=== PATIENT | female | born 1955 | race Caucasian/White ===

== ENCOUNTER → 2017-08-21 11:34 | Outpatient (CLI) | payer OTHER, SELFPAY ==
[2017-08-21 15:40] LABS: Absolute Lymphocyte Count 1.73 X10^3/ul (0.83-4.51); Absolute Neutrophil Count 3.7 X10^3/uL (2.0-7.7); Basophil# 0.02 X10^3/uL; Basophil% 0.3 % (0-1); Eosinophil# 0.14 X10^3/uL; Eosinophils% 2.3 % (0-5); Hematocrit 39.6 % (37-47); Hemoglobin 13.9 g/dl (12.0-15.0); Lymphocyte # 1.73 X10^3/ul (4.0); Mean Corp Hgb Conc 35.1 g/gl (32-36); Mean Corpuscular Hgb 34.2 pg (27.0-32.0); Mean Corpuscular Volume 97.5 fL (81-99); Mean Platelet Vol. 12.6 fl (6.2-12.0); Monocyte# 0.41 X10^3/uL; Monocyte% 6.9 % (0-10); Neutrophil # 3.66 X10^3/uL (2.7-7.7); Neutrophil % 61.3 % (47-70); Platelet Count 74 K/mm3 (150-450); RBC Distribution Width CV 12.6 % (11.6-14.6); RBC Distribution Width SD 44.1 fl (35.1-43.9); Red Blood Count 4.06 M/mm3 (4.2-5.4)
[2017-08-21 15:50] LABS: POSITIVE COUNT NO; POSITIVE DIFFERENTIAL NO; POSITIVE MORPHOLOGY NO
[2017-08-21 15:51] LABS: ALB/GLOB Ratio 0.8 RATIO (0.9-2.4); AST(SGOT) 23 U/L (15-37); Alanine Aminotransfer ALT/SGPT 21 U/L (13-56); Alkaline Phosphatase 83 U/L (45-117); Anion Gap 7 (5-15); BUN 13 mg/dL (7-18); BUN/Creat Ratio 18.7 RATIO (10-20); Calcium,Total 8.8 mg/dL (8.5-10.1); Chloride 106 mmol/L (98-107); Cholesterol 187 mg/dL (200); Creatinine, Serum 0.69 mg/dL (0.55-1.02); EST Glomerular Filtration Rate 91 mL/min (>60); Est Glom Filt Rate - Afr Amer 110 mL/min (>60); Glucose 147 mg/dL (74-106); High Density Lipoprotein 76 mg/dL; Potassium 4.1 mmol/L (3.5-5.1); Sodium Level 139 mmol/L (136-145); Triglycerides 72 mg/dL; Very Low Density Lipoprotein 14 mg/dL (5-40)
[2017-08-21 15:55] LABS: Hemoglobin A1c 6.6 % (4.2-6.3)
[2017-08-21 16:10] LABS: Microalbumin,Random Urine 6.2 mg/L (NO RANGE EST.); Microalbumin:Creatinine Ratio 7.7 mg/g CRE (<30 mg/g CRE)
[2017-08-23 08:00] LABS: AFP, Tumor Marker 3.5 ng/mL (0.0-8.3)
== END ==
PROVIDERS: Family Provider Family Medicine; PCP Family Medicine; Visit Provider Family Medicine
DX: E11.9 Type 2 diabetes mellitus without complications (principal); K70.30 Alcoholic cirrhosis of liver without ascites; I10 Essential (primary) hypertension; E78.5 Hyperlipidemia, unspecified
CPT/HCPCS: 36415; 80053; 80061; 82043; 82105; 82570; 83036; 85025

== ENCOUNTER → 2017-09-01 16:17 | Outpatient (CLI) | payer OTHER, SELFPAY ==
--- NOTE | 2017-09-01 | FLU_PTH ---
PATIENT: CRISTIANE HOROWITZ LOC: [facility] U#:[id number] AGE/SX: 69/F ROOM: RE09/01/[address]: Dr. Chad Ding DO : 1955 BED: DIS: SPEC #: [id number] RECD: 09/01/17 15:00 STATUS: DANA HOLLINGSWORTHEloisa #: [id number] JOSE: 09/01/17 00:[address]: Chad Ding DEPT: CYTOLOGY RECD BY: Anuradha Maddox Tissues: Urine Procedures: Special Stain Group II Surgery Specimen Level IV Cytospin Fluid HEADER OPERATION: Not noted PRE-OP DIAGNOSIS: N30.90, R31.9 TISSUE SUBMITTED: Urine for cytology DIAGNOSIS CYTOLOGY Urine for cytology (cytospin): Negative for malignant cells. See cytology study and comment. SJ:josafat 09/03/17 COMMENT Clinical correlation and appropriate follow up are necessary. CYTOLOGY STUDY Slides are reviewed. The specimen predominantly consists of benign squamous epithelial cells. CYTOLOGY GROSS Received is 15 ml of clear yellow labeled with the patient's name and and designated per the requisition as urine. Submitted for cytology preparation. / RB:norman 09/02/17 TC:4 CPT: 86974
[2017-09-01 16:23] LABS: Cytology, Body Fluid / CSF SEE PATHOLOGY REPORT; Mucous, Urine 0 SEEN /hpf (<or=2+); Red Blood Cells-Urine 0 SEEN /hpf (0-5); White Blood Cells 0 SEEN /hpf (0-5)
[2017-09-01 17:15] LABS: Color, Urine Yellow (Yellow); Glucose, Dipstick Normal (Normal); Ketone-Dipstick Negative (Negative); Leukocyte Esterase-Dipstick Negative /ul (Negative); Nitrite-Dipstick Negative (Negative); Occult Blood-Urine 250 /ul (Negative); Protein-Dipstick Negative (Negative); Urine Bilirubin Dipstick Negative (Negative); Urine Clarity Clear (Clear); Urine Urobilinogen Normal (Normal)
[2017-09-01 17:30] LABS: Squamous Epithelial Cells - UA 25-50 SEEN /hpf (5-10)
[2017-09-01 17:31] LABS: Bacteria 1+ /hpf (None Seen)
== END ==
PROVIDERS: Family Provider Family Medicine; PCP Family Medicine; Visit Provider Family Medicine
DX: N30.90 Cystitis, unspecified without hematuria (principal); R31.9 Hematuria, unspecified
CPT/HCPCS: 81001; 87086; 87088; 88108; 88305; 88313

== ENCOUNTER → 2017-09-04 06:55 | Outpatient (CLI) | payer OTHER, SELFPAY ==
--- NOTE | 2017-09-04 07:03 | CT_ITS ---
STUDY: CT ABDOMEN AND PELVIS WITH CONTRAST REASON FOR EXAM: Female, 62 years old. Postmenopausal vaginal bleeding. RADIATION DOSAGE (If Supplied By Facility): CTDIvol = ( 14.97 ) mGy, DLP = ( 946.01 ) mGycm TECHNIQUE: Transaxial images were obtained from the dome of the diaphragm to the symphysis pubis with oral contrast. 100 ml of Isovue 300 contrast was administered. Sagittal and coronal images were reconstructed. Individualized dose optimization techniques were used for this CT. COMPARISON: None. FINDINGS: The visualized lung bases are unremarkable. The visualized portions of the heart are within normal limits. There is a diffuse contour abnormality of the liver consistent with cirrhotic changes. Mild degree of inhomogeneity of the liver. Possible 9.2 mm hypodense nodule in the dome of the right lobe of the liver. Correlation with ultrasound is recommended. Normal gallbladder and extrahepatic biliary system. There is moderate splenomegaly. Serpiginous vessels are seen in the region of the splenic hilum. Varices should be ruled out. Normal pancreas. Normal bilateral adrenal glands. Normal right kidney. Normal left kidney. There is a small hiatal hernia. Normal small intestine. There is evidence of a circumferential wall thickening of the cecum and proximal right hemicolon with increased markings in the surrounding peritoneal fat. A neoplastic process should be ruled out. The appendix is visualized and appears normal. Normal abdominal aorta. Normal inferior vena cava. Normal retroperitoneum. Normal urinary bladder. Diffusely enlarged inhomogeneous uterus. Calcifications are seen within the suggestive of fibroid change. I also suspect enhancement along its left lateral wall. Varicosities are seen within the pelvis. Correlation with a pelvic sonogram is recommended. Normal abdominal wall. Normal osseous structures. CT/Abdomen/Pelvis WITH Contrast IMPRESSION: Inhomogeneously enlarged uterus with vascularity as described. Thickened endometrium. Correlation with the ultrasound is recommended. Thickening and inhomogeneity of the cecum in the right hemicolon with increased markings in the surrounding fat. Colonoscopy is recommended. Splenomegaly. Findings suggestive of a cirrhotic changes of the liver with inhomogeneity of the liver parenchyma. I suspect varices in the region of the splenic hilum. Electronically Signed: Vincent Cox MD at 11:15 EDT Tel [phone], Service support ,
== END ==
PROVIDERS: Family Provider Family Medicine; PCP Family Medicine; Visit Provider Family Medicine
DX: R31.9 Hematuria, unspecified (principal)
CPT/HCPCS: 74177; Q9967

== ENCOUNTER → 2017-09-05 14:10 | Outpatient (CLI) | payer OTHER, SELFPAY ==
--- NOTE | 2017-09-05 14:12 | US_ITS ---
STUDY: ULTRASOUND OF THE FEMALE PELVIS - COMPLETE REASON FOR EXAM: Female, 62 years old. Postmenopausal heavy bleeding.. History of endometrial hyperplasia.: Abnormal CT exam. TECHNIQUE: Transabdominal and Transvaginal TECHNICAL QUALITY: Adequate. COMPARISON: CT abdomen/pelvis: 09/04/2017 FINDINGS: The uterus is enlarged and anteverted. The uterus measures 13.3 x 5.0 x 5.5 cm. There are Nabothian cysts of the cervix. The endometrium measures 12 mm in thickness. There is heterogenous echogenicity of the uterus demonstrated with multiple myometrial masses/fibroids, largest 3 measures 3.0 x 3.1 x 3.0 cm in the fundus, 2.6 x 2.6 x 2.4 cm in the midline and 2.1 x 1.6 x 1.4 cm posteriorly in the body.. The right ovary is non-visualized. The left ovary is non-visualized. Parauterine and uterine dilated/prominent vessels demonstrated. There is no fluid in the cul-de-sac. The pre void volume of the bladder was 360 ml. US/Pelvic (Non ) IMPRESSION: 1. Enlarged multi fibroid uterus. 2. 12 mm thickened postmenopausal endometrial stripe, consistent with endometrial hyperplasia of uncertain etiology. DTC correlation is recommended. 3. Both ovaries are not visualized. 4. Prominent uterine/left parauterine vessels, question pelvic congestion syndrome. Electronically Signed: Henrik Mercer MD at 8:49 EDT Tel , Service support ,
--- NOTE | 2017-09-05 14:26 | US_ITS ---
STUDY: ULTRASOUND OF THE FEMALE PELVIS - COMPLETE REASON FOR EXAM: Female, 62 years old. Postmenopausal heavy bleeding.. History of endometrial hyperplasia.: Abnormal CT exam. TECHNIQUE: Transabdominal and Transvaginal TECHNICAL QUALITY: Adequate. COMPARISON: CT abdomen/pelvis: 09/04/2017 FINDINGS: The uterus is enlarged and anteverted. The uterus measures 13.3 x 5.0 x 5.5 cm. There are Nabothian cysts of the cervix. The endometrium measures 12 mm in thickness. There is heterogenous echogenicity of the uterus demonstrated with multiple myometrial masses/fibroids, largest 3 measures 3.0 x 3.1 x 3.0 cm in the fundus, 2.6 x 2.6 x 2.4 cm in the midline and 2.1 x 1.6 x 1.4 cm posteriorly in the body.. The right ovary is non-visualized. The left ovary is non-visualized. Parauterine and uterine dilated/prominent vessels demonstrated. There is no fluid in the cul-de-sac. The pre void volume of the bladder was 360 ml. US/Transvaginal Non- IMPRESSION: 1. Enlarged multi fibroid uterus. 2. 12 mm thickened postmenopausal endometrial stripe, consistent with endometrial hyperplasia of uncertain etiology. DTC correlation is recommended. 3. Both ovaries are not visualized. 4. Prominent uterine/left parauterine vessels, question pelvic congestion syndrome. Electronically Signed: Henrik Mercer MD at 8:49 EDT Tel , Service support ,
== END ==
PROVIDERS: Family Provider Family Medicine; PCP Family Medicine; Visit Provider Family Medicine
DX: N85.00 Endometrial hyperplasia, unspecified (principal); N93.9 Abnormal uterine and vaginal bleeding, unspecified
CPT/HCPCS: 76830; 76856

== ENCOUNTER 2017-09-11 09:52 | Day surgery (SDC) | payer OTHER, SELFPAY ==
[2017-09-11] VITALS (7 sets, daily range): BP systolic 109–131; BP diastolic 66–85; PULSE 66–93; RESP 16–20; TEMP 36.4–36.7; O2SAT 95–100; BMI 26.9
--- NOTE | 2017-09-11 11:15 | PCM.OPRPT ---
Problem List (1) Abnormal CT of the abdomen Status: Acute Report of Operation Date of Procedure: 09/11/17 Pre-Operative Diagnosis: r93.[address] scan of abdomen Post-Operative Diagnosis: Same Surgery/Procedure Performed:: Colonoscopy Type of Anesthesia:: MAC Anesthesiologist: Peggy Disla Description of Procedure: Patient was brought into the endoscopy suite. Placed on the left lateral decubitus position. Was given graded anesthesia. Colonoscope was inserted into the rectum directed through the sigmoid colon, descending colon, transverse colon, ascending colon, to the cecum. Operative findings: 1. Cecum: Normal appearance no mass lesions normal ileocecal valve. 2. Ascending colon: Normal appearance no mass lesions. 3. Transverse colon: Normal appearance no mass lesions. 4. Descending colon: Normal appearance no mass lesions. 5. Sigmoid colon: Normal appearance no mass lesions. 6. Rectum: Normal appearance no mass lesions few internal hemorrhoids which were not actively bleeding were identified. Rectal exam did not reveal any masses in the anus. With regards to the abnormal findings on the CAT scan the mucosa of the colon was entirely normal. Patient will need another colonoscopy in 10 years. - Admit VTE Documentation VTE Present on Admission: No VTE Mechan Device Prophylaxis: None VTE Pharm Prophylaxis ordered?: No Reason prophylaxis not ordered:: Treatment Not Indicated
== END 2017-09-11 12:14 | disposition home or self-care (01) ==
LOC: EN 09:52
PROVIDERS: Family Provider Family Medicine; PCP Family Medicine; Visit Provider Surgery
PROC: 0DJD8ZZ Inspection of Lower Intestinal Tract, Via Natural or Artificial Opening Endoscopic (ICD-10-PCS; CPT 45378; principal; 2017-09-11 10:55)
DX: R93.5 Abnormal findings on diagnostic imaging of other abdominal regions, including retroperitoneum (principal); K70.30 Alcoholic cirrhosis of liver without ascites; K44.9 Diaphragmatic hernia without obstruction or gangrene; K58.9 Irritable bowel syndrome, unspecified; E11.9 Type 2 diabetes mellitus without complications; I10 Essential (primary) hypertension; E78.5 Hyperlipidemia, unspecified; E06.9 Thyroiditis, unspecified; M19.90 Unspecified osteoarthritis, unspecified site; M54.9 Dorsalgia, unspecified; G89.29 Other chronic pain; K21.9 Gastro-esophageal reflux disease without esophagitis; F41.9 Anxiety disorder, unspecified; F17.200 Nicotine dependence, unspecified, uncomplicated; Z78.0 Asymptomatic menopausal state; Z79.899 Other long term (current) drug therapy; Z98.51 Tubal ligation status; Z87.19 Personal history of other diseases of the digestive system
CPT/HCPCS: 45378; J7120; J1610

== ENCOUNTER → 2017-11-27 15:52 | Outpatient (CLI) | payer OTHER, SELFPAY ==
[2017-11-27 18:12] LABS: Absolute Lymphocyte Count 1.78 X10^3/ul (0.83-4.51); Absolute Neutrophil Count 4.2 X10^3/uL (2.0-7.7); Basophil# 0.04 X10^3/uL; Basophil% 0.6 % (0-1); Eosinophil# 0.12 X10^3/uL; Eosinophils% 1.7 % (0-5); Hematocrit 30.1 % (37-47); Hemoglobin 9.6 g/dl (12.0-15.0); Lymphocyte # 1.78 X10^3/ul (4.0); Mean Corp Hgb Conc 31.9 g/gl (32-36); Mean Corpuscular Hgb 31.4 pg (27.0-32.0); Mean Corpuscular Volume 98.4 fL (81-99); Mean Platelet Vol. 11.3 fl (6.2-12.0); Monocyte# 0.93 X10^3/uL; Monocyte% 13.1 % (0-10); Neutrophil # 4.23 X10^3/uL (2.7-7.7); Neutrophil % 59.3 % (47-70); Platelet Count 108 K/mm3 (150-450); RBC Distribution Width CV 18.4 % (11.6-14.6); RBC Distribution Width SD 66.2 fl (35.1-43.9); Red Blood Count 3.06 M/mm3 (4.2-5.4); White Blood Count 7.1 K/mm3 (4.4-11.0)
[2017-11-27 18:51] LABS: Differential Indicated SCAN CRITERIA MET; POSITIVE COUNT NO; POSITIVE DIFFERENTIAL NO; POSITIVE MORPHOLOGY YES
[2017-11-27 18:54] LABS: Anisocytosis 2+; Differential Comment SCANNED; Macrocytosis 1+; Microcytosis 1+
== END ==
PROVIDERS: Family Provider Family Medicine; PCP Family Medicine; Visit Provider Family Medicine
DX: K92.2 Gastrointestinal hemorrhage, unspecified (principal)
CPT/HCPCS: 36415; 85025

== ENCOUNTER → 2018-02-05 14:29 | Outpatient (CLI) | payer OTHER, SELFPAY ==
[2018-02-05 17:24] LABS: Absolute Lymphocyte Count 1.57 X10^3/ul (0.83-4.51); Absolute Neutrophil Count 3.4 X10^3/uL (2.0-7.7); Basophil# 0.03 X10^3/uL; Basophil% 0.5 % (0-1); Eosinophil# 0.08 X10^3/uL; Eosinophils% 1.4 % (0-5); Hematocrit 34.9 % (37-47); Hemoglobin 10.8 g/dl (12.0-15.0); Lymphocyte # 1.57 X10^3/ul (4.0); Lymphocyte % 27.2 % (19-41); Mean Corp Hgb Conc 30.9 g/gl (32-36); Mean Corpuscular Hgb 25.9 pg (27.0-32.0); Mean Corpuscular Volume 83.7 fL (81-99); Monocyte# 0.69 X10^3/uL; Monocyte% 11.9 % (0-10); Neutrophil % 58.8 % (47-70); Platelet Count 169 K/mm3 (150-450); RBC Distribution Width CV 16.7 % (11.6-14.6); RBC Distribution Width SD 50.2 fl (35.1-43.9); Red Blood Count 4.17 M/mm3 (4.2-5.4); White Blood Count 5.8 K/mm3 (4.4-11.0)
[2018-02-05 17:26] LABS: POSITIVE COUNT NO; POSITIVE DIFFERENTIAL NO; POSITIVE MORPHOLOGY NO
[2018-02-05 17:31] LABS: International Normalized Ratio 1.2; Prothrombin Time (Protime)PT. 15.6 SECONDS (11.7-14.9)
[2018-02-05 18:00] LABS: ALB/GLOB Ratio 0.5 RATIO (0.9-2.4); AST(SGOT) 24 U/L (15-37); Alanine Aminotransfer ALT/SGPT 20 U/L (13-56); Albumin, Serum 2.9 g/dL (3.2-5.0); Alkaline Phosphatase 123 U/L (45-117); Anion Gap 12 (5-15); BUN 12 mg/dL (7-18); BUN/Creat Ratio 9.8 RATIO (10-20); Calcium,Total 9.5 mg/dL (8.5-10.1); Chloride 90 mmol/L (98-107); Creatinine, Serum 1.22 mg/dL (0.55-1.02); EST Glomerular Filtration Rate 47 mL/min (>60); Est Glom Filt Rate - Afr Amer 57 mL/min (>60); Globulin 5.7 g/dL (2.2-4.2); Glucose 200 mg/dL (74-106); Magnesium 1.9 mg/dL (1.6-2.6); Potassium 2.6 mmol/L (3.5-5.1); Protein, Total 8.6 g/dL (6.4-8.2); Sodium Level 137 mmol/L (136-145)
[2018-02-09 11:32] LABS: AFP, Tumor Marker 4.3 ng/mL (0.0-8.3)
--- OUTSIDE RECORDS SUMMARY | 2018-03-24 11:45 | XMS RPT_ITS ---
:1955 Author Organization OHIP Care Team Providers Name Role Phone Gabriela Ding Attending Unavailable Gabriela Ding Primary Care Unavailable Gabriela Ding Attending Unavailable Gabriela Ding Primary Care Unavailable Gabriela Ding Attending Unavailable Gabriela Ding Referring Unavailable Gabriela Ding Primary Care Unavailable Gabriela Ding Attending Unavailable Gabriela Ding Referring Unavailable Gabriela Ding Primary Care Unavailable Tony Dhillon Attending Unavailable Gabriela Ding Referring Unavailable Gabriela Ding Primary Care Unavailable Tony Dhillon Attending Unavailable Tony Dhillon Referring Unavailable Raine, Gabriela Primary Care Unavailable Trey Dhillonel Attending Unavailable Gabriela Ding Attending Unavailable Raine Gabriela Primary Care Unavailable RaineGabriela us Attending Unavailable Raine, Gabriela Primary Care Unavailable RaineGabriela us Attending Unavailable Raine, Gabriela Primary Care Unavailable STEWART SIDDIQI) Referring Unavailable BRONSON JORGE Attending Unavailable STEWART SIDDIQI) Referring Unavailable STEWART SIDDIQI) Referring Unavailable STEWART SIDDIQI) Attending Unavailable RAINE, GABRIELA A Referring Unavailable STEWART SIDDIQI) Admitting Unavailable STEWART SIDDIQI) Attending Unavailable STEWART SIDDIQI) Referring Unavailable STEWART SIDDIQI) Attending Unavailable RAINEGABRIELA US A Referring Unavailable STEWART SIDDIQI) Attending Unavailable RAINEGABRIELA US A Referring Unavailable COLA, YANELIS JEAN-BAPTISTE Attending Unavailable COLA, YANELIS JEAN-BAPTISTE Attending Unavailable COLA, YANELIS JEAN-BAPTISTE Attending Unavailable COLA, YANELIS JEAN-BAPTISTE Referring Unavailable COLA, YANELIS JEAN-BAPTISTE Admitting Unavailable COLA, YANELIS JEAN-BAPTISTE Attending Unavailable COLA, YANELIS JEAN-BAPTISTE Attending Unavailable COLA, YANELIS JEAN-BAPTISTE Attending Unavailable STEWART SDIDIQI) Referring Unavailable COLA, SURESH De La Rosa Attending Unavailable IMCA Referring Unavailable IMCA Primary Care Unavailable COLASURESH Attending Unavailable IMCA Referring Unavailable IMCA Primary Care Unavailable COLASURESH Admitting Unavailable COLA, SURESH De La Rosa Attending Unavailable IMCA Primary Care Unavailable COLSURESH Mccrary Referring Unavailable IMCA Primary Care Unavailable COLASURESH Attending Unavailable IMCA Referring Unavailable IMCA Primary Care Unavailable COLASURESH Attending Unavailable IMCA Referring Unavailable IMCA Primary Care Unavailable COLASURESH Attending Unavailable IMCA Referring Unavailable IMCA Primary Care Unavailable COLASURESH Attending Unavailable IMCA Referring Unavailable IMCA Primary Care Unavailable STEWART SIDDIQI) Attending Unavailable IMCA Referring Unavailable IMCA Primary Care Unavailable STEWART SIDDIQI) Attending Unavailable IMCA Referring Unavailable IMCA Primary Care Unavailable STEWART SIDDIQI) Referring Unavailable IMCA Primary Care Unavailable STEWART SIDDIQI) Referring Unavailable IMCA Primary Care Unavailable STEWART SIDDIQI) Referring Unavailable IMCA Primary Care Unavailable STEWART SIDDIQI) Referring Unavailable IMCA Primary Care Unavailable STEWART SIDDIQI) Referring Unavailable IMCA Primary Care Unavailable STEWART SIDDIQI) Referring Unavailable IMCA Primary Care Unavailable STEWART SIDDIQI) Referring Unavailable IMCA Primary Care Unavailable STEWART SIDDIQI) Admitting Unavailable STEWART SIDDIQI) Attending Unavailable IMCA Primary Care Unavailable STEWART SIDDIQI) Attending Unavailable IMCA Referring Unavailable IMCA Primary Care Unavailable STEWART SIDDIQI) Referring Unavailable IMCA Primary Care Unavailable TONYABRONSON S Attending Unavailable STEWART SIDDIQI) Referring Unavailable IMCA Primary Care Unavailable PROBLEMS PROBLEMS DATE TYPE CONDITION / CODE ATTENDING STATUS SOURCE 03/17/2018 Active Unilateral inguinal ALI, NOAMAN Active [facility] hernia, without Clinic Other obstruction or [facility] gangrene, not Repository specified as recurrent / K40.90(ICD-10) 12/18/2017 Active Alcoholic cirrhosis NA Active [facility] of liver with Clinic Other ascites / [facility] K70.31(ICD-10) Repository 02/27/2018 Active Foot drop, right NA Active [facility] foot / Clinic Other M21.371(ICD-10) [facility] Repository 02/09/2018 Unknown E87.6 - Hypokalemia Gabriela Ding Active [facility] / E87.6(ICD-10) [facility] Repository 02/05/2018 Unknown K70.30 - Alcoholic Gabriela Ding Active [facility] cirrhosis of liver Community without ascites / Hospital K70.30(ICD-10) Repository 02/05/2018 Unknown D69.9 - Hemorrhagic Gabriela Ding Active [facility] condition, Community unspecified / Hospital D69.9(ICD-10) Repository 02/05/2018 Unknown Z51.81 - Encounter Gabriela Ding Active [facility] for therapeutic drug Community level monitoring / Hospital Z51.81(ICD-10) Repository 12/18/2017 Admitting Unknown / NA Active [facility]K(Unknown) [facility] Repository 12/18/2017 Active Unknown / STEWART SIDDIQI Active [facility] UNK(Unknown) () Clinic Other [facility] Repository 10/20/2017 Active Chronic inflammatory COLA, 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 / [facility] Other N71.1(ICD-10) [facility] Repository 10/20/2017 Active Other specified COLA, YANELIS Active [facility] postprocedural [facility] Other states / [facility] Z98.890(ICD-10) Repository 10/03/2017 Active Postmenopausal COLYANELIS Mccrary Active [facility] bleeding / [facility] Other N95.0(ICD-10) [facility] Repository 10/10/2017 Unknown R93.5 - Abnormal Jacquie, Active [facility] findings on [facility] of other abdominal Repository regions, including retroperitoneum / R93.5(ICD-10) 08/21/2017 Unknown E11.9 - Type 2 Gabriela Ding Active [facility] diabetes mellitus Community without Hospital complications / Repository E11.9(ICD-10) 08/21/2017 Unknown I10 - Essential Gabriela Ding Active [facility] (primary) Community hypertension / Hospital I10(ICD-10) Repository 08/21/2017 Unknown E78.5 - Gabriela Ding Active [facility] Hyperlipidemia, Community unspecified / Hospital E78.5(ICD-10) Repository 06/18/2017 Active Encounter for COLA, YANELIS Active [facility] screening, [facility] Other unspecified / [facility] Z13.9(ICD-10) Repository 06/18/2017 Active Encounter for COLA, YANELIS Active [facility] screening mammogram [facility] Other for malignant [facility] neoplasm of breast / Repository Z12.31(ICD-10) 06/18/2017 Active Encounter for COLA, YANELIS Active [facility] gynecological [facility] Other examination [facility] (general) (routine) Repository without abnormal findings / Z01.419(ICD-10) 06/18/2017 Active Encounter for COLHermann, YANELIS Active [facility] screening for [facility] Other malignant neoplasm [facility] of cervix / Repository Z12.4(ICD-10) PROCEDURES PROCEDURES No Procedure Records FoundRESULTS RESULTS PROGRESS Observed: 03/17/2018 Status: COMPLETED Source: [place] 2:30 PM CLINIC OTHER CAMPUS REPOSITORY HNO ID: [id number] Author: Bronson Jorge Service: (none) Author Type: Physician Type: Progress Notes Filed: 03/17/2018 2:32 PM Note Text: Patient referred by: Stewart Siddiqi MD MPH [facility] 1 [facility] [address] [facility] [place] [id number] HPI: This is a new patient consult from Dr. Siddiqi. 63-year-old female with a history of cirrhosis and a right inguinal hernia. She had discovered this when she had an episode of variceal bleeding. She had ascites and abdominal distention. She's had bulge in the right groin since then. She has no symptoms in the left hand side. She's never had a hernia repair in the past. Her ascites has greatly decreased. She is on spironolactone for this. She's had an appendectomy in the past. She does not do any heavy lifting. She is a nonsmoker and has not had an alcohol drink since October. . PAST MEDICAL HISTORY Diagnosis Date - Alcohol abuse Pt uses alcohol but is on Naltrexone to limit her intake; positive hx of cirrhosis - Arthritis - Chen's esophagus - Borderline diabetes managing with diet - Cirrhosis (HCC) secondary to ETOH abuse; recent LFTs from 08-21-17 were WNL - Drug abuse, marijuana Pt smokes daily marijuna - GERD (gastroesophageal reflux disease) - Hypertension - Irritable bowel disease - Obese - Osteoarthritis - Panic attacks PAST SURGICAL HISTORY Procedure Laterality Date - APPENDECTOMY - SECTION HX - SECTION HX - DANDC 10/03/2017 HYSTEROSCOPY, D AND C WITH MYOSURE - LIPOSUCTION, STOMACH - SINUS SURGERY HX - TONSILLECTOMY AND ADENOIDECTOMY HX FAMILY HISTORY Problem Relation Age of Onset - Adopted: Yes - other (COPD, PVD) Mother Social History Marital status: Spouse name: Years of education: Number of children: Social History Main Topics Smoking status: Former Smoker Packs/day: 0.20 Years: 40.00 Quit date: 11/08/2017 Smokeless tobacco: Never Used Alcohol use: No Comment: no longer drinks Drug use: Yes Types: Marijuana Comment: daily marijuana use Sexual activity: Yes Partners with: Male Other Topics Concern Caffeine Concern Yes Comment:1 cup a day maybe Special Diet Yes Comment:no added sodium Exercise No Current Outpatient Prescriptions: atorvastatin (LIPITOR) 20 mg tablet carvedilol (COREG) 6.25 mg tablet furosemide (LASIX) 40 mg tablet CONSTULOSE 10 gram/[address] (PROTONIX) 40 mg tablet RIFAXIMIN 550 mg tab spironolactone (ALDACTONE) 25 mg tablet Zinc 50 mg tab Take 1 tablet by mouth once daily. acidophilus-pectin, citrus 100 million cell-10 mg cap Take by mouth. DULoxetine (CYMBALTA) 30 mg capsule Take 30 mg by mouth once daily. lactulose (DUPHALAC, CONSTULOSE) 20 gram/30 mL solution Take 20 g by mouth three times daily. VITAMIN D 50,000 unit capsule No current facility-administered medications for this visit. ALLERGIES Allergen Reactions - Rocephin [Ceftriaxo* Anaphylaxis REVIEW OF SYSTEMS: GENERAL: No weight loss, malaise or fevers GI: Negative for nausea , vomiting, diarrhea, constipation and signs of jaundice Positive for abdominal pain RLQ PHYSICAL EXAM: There were no vitals taken for this visit. GENERAL APPEARANCE: Well appearing, alert, in no acute distress, well-hydrated, well nourished.. ABDOMEN: Abdomen is soft. There is a reducible right inguinal hernia. There is no evidence of left internal hernia. NEURO: Alert, oriented x3, no asterixis, speech clear and articulate and VILLA HEART: regular rate and rhythm, without murmur LUNGS: clear to auscultation, without rales or wheeze, good air exchange DATA: Diagnostic tests reviewed for today's visit: Most recent labs A total of 30 minutes was spent in direct patient contact. Greater than 50% of the direct patient contact time was spent in counseling or coordination of care. ASSESSMENT / PLAN: 1. Non-recurrent unilateral inguinal hernia without obstruction or gangrene 63-year-old female with a reducible right internal hernia. I long discussion with her and told her that options treatment for her would be an open right inguinal hernia repair due to her medical comorbidities. Risk and benefits of the procedure including but ounces to bleeding infection possibility of recurrence and mesh infection were discussed with her and she wishes to move forward with the operation. We'll schedule her in the next several weeks. Bronson Jorge MD CNOV Observed: 03/17/2018 Status: COMPLETED Source: [place] 1:30 PM CLINIC OTHER CAMPUS REPOSITORY Office Visit (AGGENS1) FREDO DAYSI FLORES ([id number]) 1955 F Date Time Provider Department 03/17/18 1:30 PM BRONSON JORGE AGG1 During your visit today, we recorded the following information about you: Bronson Jorge MD 03/17/2018 2:30 PM Signed Office will call with date and time for surgery Bronson Jorge MD 03/17/2018 2:32 PM Signed Patient referred by: Stewart Siddiqi MD MPH [facility] 1 [facility] [address] [facility] [place] [id number] HPI: This is a new patient consult from Dr. Siddiqi. 63-year-old female with a history of cirrhosis and a right inguinal hernia. She had discovered this when she had an episode of variceal bleeding. She had ascites and abdominal distention. She's had bulge in the right groin since then. She has no symptoms in the left hand side. She's never had a hernia repair in the past. Her ascites has greatly decreased. She is on spironolactone for this. She's had an appendectomy in the past. She does not do any heavy lifting. She is a nonsmoker and has not had an alcohol drink since October. . PAST MEDICAL HISTORY Diagnosis Date - Alcohol abuse Pt uses alcohol but is on Naltrexone to limit her intake; positive hx of cirrhosis - Arthritis - Chen's esophagus - Borderline diabetes managing with diet - Cirrhosis (HCC) secondary to ETOH abuse; recent LFTs from 08-21-17 were WNL - Drug abuse, marijuana Pt smokes daily marijuna - GERD (gastroesophageal reflux disease) - Hypertension - Irritable bowel disease - Obese - Osteoarthritis - Panic attacks PAST SURGICAL HISTORY Procedure Laterality Date - APPENDECTOMY - SECTION HX - SECTION HX - DANDC 10/03/2017 HYSTEROSCOPY, D AND C WITH MYOSURE - LIPOSUCTION, STOMACH - SINUS SURGERY HX - TONSILLECTOMY AND ADENOIDECTOMY HX FAMILY HISTORY Problem Relation Age of Onset - Adopted: Yes - other (COPD, PVD) Mother Social History Marital status: Spouse name: Years of education: Number of children: Social History Main Topics Smoking status: Former Smoker Packs/day: 0.20 Years: 40.00 Quit date: 11/08/2017 Smokeless tobacco: Never Used Alcohol use: No Comment: no longer drinks Drug use: Yes Types: Marijuana Comment: daily marijuana use Sexual activity: Yes Partners with: Male Other Topics Concern Caffeine Concern Yes Comment:1 cup a day maybe Special Diet Yes Comment:no added sodium Exercise No Current Outpatient Prescriptions: atorvastatin (LIPITOR) 20 mg tablet carvedilol (COREG) 6.25 mg tablet furosemide (LASIX) 40 mg tablet CONSTULOSE 10 gram/[address] (PROTONIX) 40 mg tablet RIFAXIMIN 550 mg tab spironolactone (ALDACTONE) 25 mg tablet Zinc 50 mg tab Take 1 tablet by mouth once daily. acidophilus-pectin, citrus 100 million cell-10 mg cap Take by mouth. DULoxetine (CYMBALTA) 30 mg capsule Take 30 mg by mouth once daily. lactulose (DUPHALAC, CONSTULOSE) 20 gram/30 mL solution Take 20 g by mouth three times daily. VITAMIN D 50,000 unit capsule No current facility-administered medications for this visit. ALLERGIES Allergen Reactions - Rocephin [Ceftriaxo* Anaphylaxis REVIEW OF SYSTEMS: GENERAL: No weight loss, malaise or fevers GI: Negative for nausea , vomiting, diarrhea, constipation and signs of jaundice Positive for abdominal pain RLQ PHYSICAL EXAM: There were no vitals taken for this visit. GENERAL APPEARANCE: Well appearing, alert, in no acute distress, well-hydrated, well nourished.. ABDOMEN: Abdomen is soft. There is a reducible right inguinal hernia. There is no evidence of left internal hernia. NEURO: Alert, oriented x3, no asterixis, speech clear and articulate and VILLA HEART: regular rate and rhythm, without murmur LUNGS: clear to auscultation, without rales or wheeze, good air exchange DATA: Diagnostic tests reviewed for today's visit: Most recent labs A total of 30 minutes was spent in direct patient contact. Greater than 50% of the direct patient contact time was spent in counseling or coordination of care. ASSESSMENT / PLAN: 1. Non-recurrent unilateral inguinal hernia without obstruction or gangrene 63-year-old female with a reducible right internal hernia. I long discussion with her and told her that options treatment for her would be an open right inguinal hernia repair due to her medical comorbidities. Risk and benefits of the procedure including but ounces to bleeding infection possibility of recurrence and mesh infection were discussed with her and she wishes to move forward with the operation. We'll schedule her in the next several weeks. Bronson Jorge MD Referring Provider: STEWART SIDDIQI [[id number]] Allergies As of Date: 03/17/2018 Noted Allergy Reaction ROCEPHIN (CEFTRIAXONE SODIUM) 06/18/2017 10 - Anaphylaxis Date Reviewed: 03/17/2018 Reviewed by: Bronson Jorge - Fully Assessed Reason for Visit: New Patient [172] Cmt: Mrs. Fredo Flores is here today for a hernia referred by Dr. Siddiqi. Primary Visit Diagnosis:Non-recurrent unilateral inguinal hernia without obstruction or gangrene [K40.90] Prescriptions as of 03/17/2018 Sig: ATORVASTATIN 20 MG TABLET CARVEDILOL 6.25 MG TABLET FUROSEMIDE 40 MG TABLET CONSTULOSE 10 GRAM/15 ML ORAL* PANTOPRAZOLE 40 MG TABLET,DEL* XIFAXAN 550 MG TABLET SPIRONOLACTONE 25 MG TABLET ZINC 50 MG TABLET Take 1 tablet by mouth once d* ACIDOPHILUS 100 MILLION CELL-* Take by mouth. DULOXETINE 30 MG CAPSULE,JAZMINE* Take 30 mg by mouth once guerda* LACTULOSE 20 GRAM/30 ML ORAL * Take 20 g by mouth three time* VITAMIN D2 50,000 UNIT CAPSULE Problem List As Of Date 03/17/2018 Noted Resolved Routine cervical smear [Z12.4] INVALID FOR* Visit for gynecologic examination [Z01.419] INVALID FOR* Encounter for screening mammogram for malignant*INVALID FOR* Screening for condition [Z13.9] INVALID FOR* Postmenopausal bleeding [N95.0] INVALID FOR* Post-menopausal bleeding [N95.0] INVALID FOR*10/03/2017 More... Post-operative state [Z98.890] INVALID FOR* Chronic endometritis [N71.1] INVALID FOR* Alcoholic cirrhosis of liver with ascites (HCC)*INVALID FOR* More... Esophageal varices (HCC) [I85.00] INVALID FOR* More... Other instructions from your clinician: Office will call with date and time for surgery Encounter Status:Closed by BRONSON [facility]GE [facility] Observ[facility]: 03/03/2018 Status: COMPLETED Source: [place] 12:00 AM [facility] OTHER [place] REPOSITORY Telephone (AGGASTACC) DAYSI HOROWITZ ([id number]) 1955 F Date Time Provider Department 03/03/18 STEWART SIDDIQI During your visit today, we recorded the following information about you: Bernarda Jimenez CMA 03/03/2018 11:50 AM Signed PT WOULD LIKE TO KNOW LAB RESULTS FROM 02/27/2018, PLEASE ADVISE. 03/03/2018 11:50:36 MAE Patel MD MPH [facility] 03/03/2018 12:03 PM Signed They are normal. Bernarda Jimenez CMA 03/05/2018 2:11 PM Signed I CALLED THE PT TO INFORM HER OF THE RESULTS BELOW, BUT NO ANSWER. I LEFT A MSG FOR A RETURN CALL TO THE OFFICE. 03/05/2018 14:11:06 MAE Patel CMA 03/06/2018 1:27 PM Signed Pt was informed. 03/06/2018 13:27:23 Bernarda Jimenez CMA Allergies As of Date: 03/03/2018 Noted Allergy Reaction ROCEPHIN (CEFTRIAXONE SODIUM) 06/18/2017 10 - Anaphylaxis Date Reviewed: 02/27/2018 Reviewed by: Stephanie Weiner - Fully Assessed Reason for Visit: Results [95] Prescriptions as of 03/03/2018 Sig: ATORVASTATIN 20 MG TABLET CARVEDILOL 6.25 MG TABLET FUROSEMIDE 40 MG TABLET CONSTULOSE 10 GRAM/15 ML ORAL* PANTOPRAZOLE 40 MG TABLET,DEL* XIFAXAN 550 MG TABLET SPIRONOLACTONE 25 MG TABLET ZINC 50 MG TABLET Take 1 tablet by mouth once d* ACIDOPHILUS 100 MILLION CELL-* Take by mouth. DULOXETINE 30 MG CAPSULE,JAZMINE* Take 30 mg by mouth once guerda* LACTULOSE 20 GRAM/30 ML ORAL * Take 20 g by mouth three time* VITAMIN D2 50,000 UNIT CAPSULE Problem List As Of Date 03/03/2018 Noted Resolved Routine cervical smear [Z12.4] INVALID FOR* Visit for gynecologic examination [Z01.419] INVALID FOR* Encounter for screening mammogram for malignant*INVALID FOR* Screening for condition [Z13.9] INVALID FOR* Postmenopausal bleeding [N95.0] INVALID FOR* Post-menopausal bleeding [N95.0] INVALID FOR*10/03/2017 More... Post-operative state [Z98.890] INVALID FOR* Chronic endometritis [N71.1] INVALID FOR* Alcoholic cirrhosis of liver with ascites (HCC)*INVALID FOR* More... Esophageal varices (HCC) [I85.00] INVALID FOR* More... Encounter Status:Closed by BERNARDA JIMENEZ CMA on 03/05/18 PROGRESS Observed: 02/27/2018 Status: COMPLETED Source: [place] 4:11 PM CLINIC OTHER CAMPUS REPOSITORY O ID: [id number] Author: Stewart Siddiqi Service: (none) Author Type: Physician Type: Progress Notes Filed: 02/27/2018 4:22 PM Note Text: HPI: I saw Daysi Flores today for a follow up regarding alcohol cirrhosis, recent upper endoscopy. Daysi Flores was last seen here by me on 02/12/2018. She underwent EGD on January 29. Showed large esophageal varices. Banding was performed ?4. There is mild to moderate portal hypertensive gastropathy. Gastric biopsies were negative for H. pylori. Ultrasound Doppler from January 28 shows evidence of cirrhosis but no hepatoma. The hepatic and portal vein are patent. It is mild to moderate ascites. Urine sodium 76 and urine potassium 11. She did have issues with hypokalemia with potassium of 2.6. She was instructed by her PCP to take oral potassium tablets and this was apparently corrected. This was done to [facility] so the labs are not available. She doesn't do to being noncompliant with low- sodium diet. However, her weight has decreased considerably and her ascites has improved. Her other main concern is hair loss which she thought may be related to the spironolactone. As well, she is concerned about a right-sided inguinal hernia that has been growing over the last several months. She was previously on Lasix 40 mg once daily but this was stopped in mid January as per instruction by her PCP. She was also on Aldactone 75 mg twice a day but she reduce this on her own to 50 g twice a day. She is on lactulose rifaximin and zinc as well. PAST MEDICAL HISTORY Diagnosis Date - Alcohol abuse Pt uses alcohol but is on Naltrexone to limit her intake; positive hx of cirrhosis - Arthritis - Chen's esophagus - Borderline diabetes managing with diet - Cirrhosis (HCC) secondary to ETOH abuse; recent LFTs from 08-21-17 were WNL - Drug abuse, marijuana Pt smokes daily marijuna - GERD (gastroesophageal reflux disease) - Hypertension - Irritable bowel disease - Obese - Osteoarthritis - Panic attacks PAST SURGICAL HISTORY Procedure Laterality Date - APPENDECTOMY - SECTION HX - SECTION HX - DANDC 10/03/2017 HYSTEROSCOPY, D AND C WITH MYOSURE - LIPOSUCTION, STOMACH - SINUS SURGERY HX - TONSILLECTOMY AND ADENOIDECTOMY HX Social History Marital status: Spouse name: Years of education: Number of children: Social History Main Topics Smoking status: Former Smoker Packs/day: 0.20 Years: 40.00 Quit date: 11/08/2017 Smokeless tobacco: Never Used Alcohol use: Yes Comment: 2-3 drinks weekly Drug use: Yes Types: Marijuana Comment: daily marijuana use Sexual activity: Yes Partners with: Male Family history reviewed. No history of IBD, CRC or HPB malignancy. Current Outpatient Prescriptions: atorvastatin (LIPITOR) 20 mg tablet carvedilol (COREG) 6.25 mg tablet furosemide (LASIX) 40 mg tablet CONSTULOSE 10 gram/[address] (PROTONIX) 40 mg tablet RIFAXIMIN 550 mg tab spironolactone (ALDACTONE) 25 mg tablet Zinc 50 mg tab Take 1 tablet by mouth once daily. acidophilus-pectin, citrus 100 million cell-10 mg cap Take by mouth. DULoxetine (CYMBALTA) 30 mg capsule Take 30 mg by mouth once daily. lactulose (DUPHALAC, CONSTULOSE) 20 gram/30 mL solution Take 20 g by mouth three times daily. VITAMIN D 50,000 unit capsule No current facility-administered medications for this visit. ALLERGIES Allergen Reactions - Rocephin [Ceftriaxo* Anaphylaxis REVIEW OF SYSTEMS GASTROINTESTINAL: SEE ABOVE URINARY: NONE CARDIOVASCULAR: NONE NEUROLOGICAL: NONE CONSTITUTIONAL: NONE EYES: NONE EARS, NOSE AND THROAT: NONE RESPIRATORY: NONE SKIN: NONE ENDOCRINE: NONE PSYCHIATRIC: NONE HEMATOLOGIC NONE MUSCULOSKELETAL: NONE IMMUNOLOGIC: NONE PHYSICAL EXAMINATION: BP 119/68 Ht 5' 4 (1.63m) Wt 191 lb (86.6kg) BMI 32.77 kg/(m2). GENERAL APPEARANCE: Well appearing, alert, in no acute distress, well-hydrated, well nourished. SKIN: Skin color, texture, turgor normal, no suspicious rashes or lesions. EYES: Anicteric sclera. Pupils are equally round and reactive to light. Extraocular movements are intact. . NECK: Supple, no adenopathy; thyroid symmetric, normal size, no bruits. LUNGS: Lungs clear to auscultation. No wheezing, rhonchi, rales. HEART: RRR without murmur, gallop, or rubs. No ectopy. ABDOMEN: Abdomen soft, non-tender, non distended. Bowel sounds normal. Mild ascites noted. Right-sided inguinal hernia seen. This was easily reducible. EXTREMITIES: No deformities, edema, skin discoloration, clubbing or cyanosis. NEUROLOGIC: Right foot drop DATA: Diagnostic tests and/or endoscopic procedures reviewed for today's visit: Most recent labs Most recent imaging LABS: HGB (g/dL) Date Value 02/27/2018 10.1 Hematocrit (%) Date Value 02/27/2018 33.1 WBC (thou/cmm) Date Value 02/27/2018 4.33 Lab Results Component Value Date LIPASE 247 12/03/2017 TBILI 0.7 02/27/2018 CREAT 0.79 02/27/2018 INR 1.16 02/27/2018 ALB 2.6 (L) 02/27/2018 ALKPHOS 118 (H) 02/27/2018 AST 25 02/27/2018 ALT 21 02/27/2018 TPROT 6.8 02/27/2018 Plan ASSESSMENT AND PLAN: Essentially, this 62-year-old woman likely has alcoholic cirrhosis with decompensation in the way of hepatic encephalopathy, ascites and variceal bleeding. Currently MELD 7 [previous MELD 16] and Child Hart B 8 (previously C 10). As such, she does not require liver transplant assessment as yet. Of note, her last drink was October 2017. ? 1) ascites She has had some improvement in her ascites with increasing her diuretics. However, she was concerned with regards to hair loss Her urine lytes show that she is compliant with a low sodium diet (previously noncompliant in November). I once again reinforce importance of this going forward. We'll have to follow her creatinine ensure that it stays stable as we increase her diuretics. ? 2) hepatic encephalopathy She may have some covert hepatic encephalopathy. She is currently on lactulose and rifaximin and is having adequate bowel movements. The latter drug is running out and we will have to renew it. I also added zinc. I've asked her to avoid any opiates or psychotropic medications. ? 3) esophageal varices She underwent EGD and banding of large varices in January. She is awaiting repeat EGD and potential banding until obliteration next month. ? 4) abdominal ultrasound does not show evidence of hepatoma. Hepatic vein and portal vein are patent.. Repeat ultrasound for hepatoma screening should be done in July 2018 ? 5) I've asked her to see her primary care physician regarding reinitiation of a statin. Her LDL is somewhat elevated and statins can be helpful for treatment of dyslipidemia but also for improving outcomes in decompensated cirrhosis 6) right inguinal hernia I will refer her to general surgery for assessment. This is actually worsened despite a significant decrease in her ascites. If she is optimized from a liver perspective, surgical repair may be considered. ? 7) right foot drop I will check her B12, TSH and hemoglobin A1c. She has been refer to neurology for further assessment. I've instructed her not to drive while she is awaiting assessment. Thank you for involving me in the care of this patient. Stewart Siddiqi MD MPH FRCPC HEMOGRAM/DIFF Collected: 02/27/2018 Status: F Source: [facility] 12:00 HEALTH SYSTEM REPOSITORY TYPE CODE TESTS RESULT OUT OF REFERENCE UNITS RANGE LAB WBC(LOINC) 3.98-10.04 thou/cmm WBC 4.33 LAB RBC(LOINC) 3.93-5.22 mil/cmm RBC 4.01 LAB HGB(LOINC) 11.2-15.7 g/dL Low Hgb 10.1 LAB HCT(LOINC) 34.1-44.9 % Low Hct 33.1 LAB MCV(LOINC) 79.4-94.8 fl MCV 82.5 LAB MCH(LOINC) 25.6-32.2 pg Low MCH 25.2 LAB MCHC(LOINC 31.6-34.8 % ) Low MCHC 30.5 LAB RDW(LOINC) 11.7-14.4 % RDW High 17.5 LAB RDWSD(LOIN 36.4-46.3 fl C) RDW SD High 52.9 LAB PLT(LOINC) 182-369 thou/cmm Low Platelet 106 LAB MPV(LOINC) 9.4-12.3 fl MPV 10.2 LAB SEG(LOINC) % Seg Neutrophil 51.9 LAB IGRE(LOINC % ) Immature Grans 0.50 LAB LYMPH(LOIN % C) Lymphocyte 35.8 LAB MNO(LOINC) % Monocyte 8.5 LAB EOSIN(LOIN % C) Eosinophil 2.8 LAB BASO(LOINC % ) Basophil 0.5 LAB SEGN(LOINC 1.56-6.13 thou/cmm ) Abs. Neut (ANC) 2.25 LAB IGAB(LOINC 0.00-0.05 thou/cmm ) Abs Immature Grans 0.02 LAB LYMN(LOINC 1.18-3.74 thou/cmm ) Abs. Lymph 1.55 LAB MONON(LOIN 0.27-0.70 thou/cmm C) Abs. Hickman 0.37 LAB EOSN(LOINC 0.00-0.31 thou/cmm ) Abs. Eosin 0.12 LAB BASON(LOIN 0.01-0.08 thou/cmm C) Abs. Baso 0.02 Result Comment: Smear scanned; tech agrees with automated differential Performed By: #### CBCD1 #### [facility] [address] [place] [address] PROTIME Collected: 02/27/2018 Status: F Source: [facility] 12:00 HEALTH SYSTEM REPOSITORY TYPE CODE TESTS RESULT OUT OF REFERENCE UNITS RANGE LAB PTI(LOINC) 9.7-13.0 sec Prothrombin Time 11.9 LAB INR(LOINC) 0.90-1.30 INR 1.16 Result Comment: Note: Reference Range Change Vitamin K Antagonist (VKA) Therapeutic Range: INR 2 to 3 (Target INR of 2.5) Note: For patients treated with VKA drugs, such as warfarin, the [place] [employer] 2012 Guideline recommends a therapeutic INR range of 2 to 3 (target INR of 2.5). This recommendation includes high-risk patients with antiphospholipid syndrome with previous arterial or venous thromboembolism, current-generation mechanical or bioprosthetic aortic heart valve replacement. VKA Therapeutic Range for some Mechanical Valve Replacement: INR 2.5 to 3.5 (Target INR of 3) Note: Patients with mechanical aortic valve replacement and additional risk factors for thromboembolic events (atrial fibrillation, previous thromboembolism, LV dysfunction, hypercoagulable conditions) or an older generation mechanical AVR (i.e., ball in-Cage) or any mechanical MVR should have a INR therapeutic range of 2.5 to 3.5 target INR of 3). Kashif GH, et al. Chest 2012; 141:7S-47S Mamadou MUJICA et al. JAC 2017; 70: 252-289 Performed By: #### PT #### [facility] [address] [place] [address] COMPREHENSIVE PANEL Collected: 02/27/2018 Status: F Source: [facility] 12:00 PM HEALTH SYSTEM REPOSITORY TYPE CODE TESTS RESULT OUT OF REFERENCE UNITS RANGE LAB NA(LOINC) 136-145 mEq/L Sodium Blood 137 LAB K(LOINC) 3.5-5.1 mEq/L Potassium Blood 4.3 LAB CL(LOINC) 98-107 mEq/L Chloride Blood 105 LAB CO2(LOINC) 21-32 mEq/L CO2 Blood 27 LAB GLU(LOINC) 70-99 mg/dL Glucose High Blood 196 LAB BUN(LOINC) 7-18 mg/dL BUN Blood 13 LAB CREA(LOINC 0.51-0.95 mg/dL ) Creatinine Blood 0.79 LAB CA(LOINC) 8.5-10.1 mg/dL Low Calcium Blood 8.2 LAB ALB(LOINC) 3.4-5.0 g/dL Low Albumin Blood 2.6 LAB TP(LOINC) 6.4-8.2 g/dL Total Protein 6.8 LAB AST(LOINC) 9-37 U/L AST-SGOT Blood 25 LAB ALT(LOINC) 12-78 U/L ALT-SGPT Blood 21 LAB ALKP(LOINC 46-116 U/L ) Alk High Phosphatase 118 LAB BILIT(LOIN 0.2-1.0 mg/dL C) Total Bilirubin 0.7 LAB ANGAP(LOIN 8-16 C) Anion Gap 9 Performed By: #### P14 #### [place] [address] MDRD GFR Collected: 02/27/2018 Status: F Source: [facility] 12:00 PM HEALTH SYSTEM REPOSITORY TYPE CODE TESTS RESULT OUT OF RANGE REFERENCE UNITS LAB GFRFN(LOINC >60mL/min/1.73m ) 2 eGFR >60 Result Comment: If the patient is , multiply the result by 1.210. Performed By: #### GFR #### [facility] [address] [place] [address] VITAMIN B12 Collected: 02/27/2018 Status: F Source: [facility] 12:00 PM HEALTH SYSTEM REPOSITORY TYPE CODE TESTS RESULT OUT OF REFERENCE UNITS RANGE LAB B12(LOINC) 193-986 pg/mL Vitamin B12 700 Performed By: #### B12 #### [place] [address] SODIUM,URINE Collected: 02/27/2018 Status: F Source: [facility] 12:00 PM HEALTH SYSTEM REPOSITORY TYPE CODE TESTS RESULT OUT OF RANGE REFERENCE UNITS LAB NAUR(LOINC) mEq/L 29 Sodium,Urine Performed By: #### NAUR #### [place] [address] POTASSIUM,URINE Collected: 02/27/2018 Status: F Source: [place] 12:00 [facility] SYSTEM REPOSITORY TYPE CODE TESTS RESULT OUT OF RANGE REFERENCE UNITS LAB KURIN(LOINC 25-125 mEq/L ) 34 Potassium,Ur ine Performed By: #### KURIN #### [place] [address] CNOV Observed: 02/27/2018 Status: COMPLETED Source: [place] 10:30 AM CLINIC OTHER CAMPUS REPOSITORY Office Visit (AGGASTACC) FREDO FLORESDAYSI ([id number]) 1955 F Date Time Provider Department 02/27/18 10:30 AM STEWART SIDDIQI During your visit today, we recorded the following information about you: Blood pressure Weight Height 119/68 86.6 kg 1.626 m Stewart Siddiqi MD MPH FRCPC 02/27/2018 4:22 PM Signed HPI: I saw Daysi Flores today for a follow up regarding alcohol cirrhosis, recent upper endoscopy. Daysi Flores was last seen here by me on 02/12/2018. She underwent EGD on January 29. Showed large esophageal varices. Banding was performed ?4. There is mild to moderate portal hypertensive gastropathy. Gastric biopsies were negative for H. pylori. Ultrasound Doppler from January 28 shows evidence of cirrhosis but no hepatoma. The hepatic and portal vein are patent. It is mild to moderate ascites. Urine sodium 76 and urine potassium 11. She did have issues with hypokalemia with potassium of 2.6. She was instructed by her PCP to take oral potassium tablets and this was apparently corrected. This was done to [facility] so the labs are not available. She doesn't do to being noncompliant with low-sodium diet. However, her weight has decreased considerably and her ascites has improved. Her other main concern is hair loss which she thought may be related to the spironolactone. As well, she is concerned about a right-sided inguinal hernia that has been growing over the last several months. She was previously on Lasix 40 mg once daily but this was stopped in mid January as per instruction by her PCP. She was also on Aldactone 75 mg twice a day but she reduce this on her own to 50 g twice a day. She is on lactulose rifaximin and zinc as well. PAST MEDICAL HISTORY Diagnosis Date - Alcohol abuse Pt uses alcohol but is on Naltrexone to limit her intake; positive hx of cirrhosis - Arthritis - Chen's esophagus - Borderline diabetes managing with diet - Cirrhosis (HCC) secondary to ETOH abuse; recent LFTs from 08-21-17 were WNL - Drug abuse, marijuana Pt smokes daily marijuna - GERD (gastroesophageal reflux disease) - Hypertension - Irritable bowel disease - Obese - Osteoarthritis - Panic attacks PAST SURGICAL HISTORY Procedure Laterality Date - APPENDECTOMY - SECTION HX - SECTION HX - DANDC 10/03/2017 HYSTEROSCOPY, D AND C WITH MYOSURE - LIPOSUCTION, STOMACH - SINUS SURGERY HX - TONSILLECTOMY AND ADENOIDECTOMY HX Social History Marital status: Spouse name: Years of education: Number of children: Social History Main Topics Smoking status: Former Smoker Packs/day: 0.20 Years: 40.00 Quit date: 11/08/2017 Smokeless tobacco: Never Used Alcohol use: Yes Comment: 2-3 drinks weekly Drug use: Yes Types: Marijuana Comment: daily marijuana use Sexual activity: Yes Partners with: Male Family history reviewed. No history of IBD, CRC or HPB malignancy. Current Outpatient Prescriptions: atorvastatin (LIPITOR) 20 mg tablet carvedilol (COREG) 6.25 mg tablet furosemide (LASIX) 40 mg tablet CONSTULOSE 10 gram/[address] (PROTONIX) 40 mg tablet RIFAXIMIN 550 mg tab spironolactone (ALDACTONE) 25 mg tablet Zinc 50 mg tab Take 1 tablet by mouth once daily. acidophilus-pectin, citrus 100 million cell-10 mg cap Take by mouth. DULoxetine (CYMBALTA) 30 mg capsule Take 30 mg by mouth once daily. lactulose (DUPHALAC, CONSTULOSE) 20 gram/30 mL solution Take 20 g by mouth three times daily. VITAMIN D 50,000 unit capsule No current facility-administered medications for this visit. ALLERGIES Allergen Reactions - Rocephin [Ceftriaxo* Anaphylaxis REVIEW OF SYSTEMS GASTROINTESTINAL: SEE ABOVE URINARY: NONE CARDIOVASCULAR: NONE NEUROLOGICAL: NONE CONSTITUTIONAL: NONE EYES: NONE EARS, NOSE AND THROAT: NONE RESPIRATORY: NONE SKIN: NONE ENDOCRINE: NONE PSYCHIATRIC: NONE HEMATOLOGIC NONE MUSCULOSKELETAL: NONE IMMUNOLOGIC: NONE PHYSICAL EXAMINATION: BP 119/68 Ht 5' 4 (1.63m) Wt 191 lb (86.6kg) BMI 32.77 kg/(m2). GENERAL APPEARANCE: Well appearing, alert, in no acute distress, well-hydrated, well nourished. SKIN: Skin color, texture, turgor normal, no suspicious rashes or lesions. EYES: Anicteric sclera. Pupils are equally round and reactive to light. Extraocular movements are intact. . NECK: Supple, no adenopathy; thyroid symmetric, normal size, no bruits. LUNGS: Lungs clear to auscultation. No wheezing, rhonchi, rales. HEART: RRR without murmur, gallop, or rubs. No ectopy. ABDOMEN: Abdomen soft, non-tender, non distended. Bowel sounds normal. Mild ascites noted. Right-sided inguinal hernia seen. This was easily reducible. EXTREMITIES: No deformities, edema, skin discoloration, clubbing or cyanosis. NEUROLOGIC: Right foot drop DATA: Diagnostic tests and/or endoscopic procedures reviewed for today's visit: Most recent labs Most recent imaging LABS: HGB (g/dL) Date Value 02/27/2018 10.1 Hematocrit (%) Date Value 02/27/2018 33.1 WBC (thou/cmm) Date Value 02/27/2018 4.33 Lab Results Component Value Date LIPASE 247 12/03/2017 TBILI 0.7 02/27/2018 CREAT 0.79 02/27/2018 INR 1.16 02/27/2018 ALB 2.6 (L) 02/27/2018 ALKPHOS 118 (H) 02/27/2018 AST 25 02/27/2018 ALT 21 02/27/2018 TPROT 6.8 02/27/2018 Plan ASSESSMENT AND PLAN: Essentially, this 62-year-old woman likely has alcoholic cirrhosis with decompensation in the way of hepatic encephalopathy, ascites and variceal bleeding. Currently MELD 7 [previous MELD 16] and Child Hart B 8 (previously C 10). As such, she does not require liver transplant assessment as yet. Of note, her last drink was October 2017. ? 1) ascites She has had some improvement in her ascites with increasing her diuretics. However, she was concerned with regards to hair loss Her urine lytes show that she is compliant with a low sodium diet (previously noncompliant in November). I once again reinforce importance of this going forward. We'll have to follow her creatinine ensure that it stays stable as we increase her diuretics. ? 2) hepatic encephalopathy She may have some covert hepatic encephalopathy. She is currently on lactulose and rifaximin and is having adequate bowel movements. The latter drug is running out and we will have to renew it. I also added zinc. I've asked her to avoid any opiates or psychotropic medications. ? 3) esophageal varices She underwent EGD and banding of large varices in January. She is awaiting repeat EGD and potential banding until obliteration next month. ? 4) abdominal ultrasound does not show evidence of hepatoma. Hepatic vein and portal vein are patent.. Repeat ultrasound for hepatoma screening should be done in July 2018 ? 5) I've asked her to see her primary care physician regarding reinitiation of a statin. Her LDL is somewhat elevated and statins can be helpful for treatment of dyslipidemia but also for improving outcomes in decompensated cirrhosis 6) right inguinal hernia I will refer her to general surgery for assessment. This is actually worsened despite a significant decrease in her ascites. If she is optimized from a liver perspective, surgical repair may be considered. ? 7) right foot drop I will check her B12, TSH and hemoglobin A1c. She has been refer to neurology for further assessment. I've instructed her not to drive while she is awaiting assessment. Thank you for involving me in the care of this patient. Stewart Siddiqi MD MPH FRCPC Referring Provider: GABRIELA DING [[id number]] Allergies As of Date: 02/27/2018 Noted Allergy Reaction ROCEPHIN (CEFTRIAXONE SODIUM) 06/18/2017 10 - Anaphylaxis Date Reviewed: 02/27/2018 Reviewed by: Stephanie Hussein) Regine - Fully Assessed Reason for Visit: Follow Up [171] Primary Visit Diagnosis:Alcoholic cirrhosis of liver with ascites (HCC) [K70.31] Other Visit Diagnoses:Right foot drop [M21.371] Unilateral inguinal hernia without obstruction or gangrene, recurrence not specified [K40.90] Order(s):CBC + DIFF [SQCBCDIF] Order #: [id number] FUTURE COMP METABOLIC PANEL [SQCMP] Order #: [id number] FUTURE PROTHROMBIN TIME/PT [SQPT] Order #: [id number] FUTURE SODIUM RANDOM URINE [SQUNAR] Order #: [id number] FUTURE POTASSIUM RANDOM UR [SQUKR] Order #: [id number] FUTURE US ABD RT UPPER QUADRANT [1622492] Order #: [id number] FUTURE CONSULT TO NEUROLOGY [9019] Order #: [id number]: 1 CONSULT TO GENERAL SURGERY [9011] Order #: [id number]: 1 VITAMIN B12 BLOOD [SQB12] Order #: [id number] FUTURE Prescriptions as of 02/27/2018 Sig: ATORVASTATIN 20 MG TABLET CARVEDILOL 6.25 MG TABLET FUROSEMIDE 40 MG TABLET CONSTULOSE 10 GRAM/15 ML ORAL* PANTOPRAZOLE 40 MG TABLET,DEL* XIFAXAN 550 MG TABLET SPIRONOLACTONE 25 MG TABLET ZINC 50 MG TABLET Take 1 tablet by mouth once d* ACIDOPHILUS 100 MILLION CELL-* Take by mouth. DULOXETINE 30 MG CAPSULE,JAZMINE* Take 30 mg by mouth once guerda* LACTULOSE 20 GRAM/30 ML ORAL * Take 20 g by mouth three time* VITAMIN D2 50,000 UNIT CAPSULE Problem List As Of Date 02/27/2018 Noted Resolved Routine cervical smear [Z12.4] INVALID FOR* Visit for gynecologic examination [Z01.419] INVALID FOR* Encounter for screening mammogram for malignant*INVALID FOR* Screening for condition [Z13.9] INVALID FOR* Postmenopausal bleeding [N95.0] INVALID FOR* Post-menopausal bleeding [N95.0] INVALID FOR*10/03/2017 More... Post-operative state [Z98.890] INVALID FOR* Chronic endometritis [N71.1] INVALID FOR* Alcoholic cirrhosis of liver with ascites (HCC)*INVALID FOR* More... Esophageal varices (HCC) [I85.00] INVALID FOR* More... Letter Text Encounter Status:Closed by STEWART SIDDIQI MD on 02/27/18 BASIC METABOLIC Collected: 02/09/2018 Status: F Source: [place] [facility] (B[facility]) 10:16 AM [facility] REPOSITORY TYPE CODE TESTS RESULT OUT OF RANGE REFERENCE UNITS LAB L501.0100 74-106 mg/dL High GLU 195 Result Comment: Fasting Glucose result greater than or equal to 126 mg/dL suggests DIABETES MELLITUS per A.D.A. criteria. Please note revised GLUCOSE reference range effective 2017. LAB L501.1000 7-18 mg/dL Normal BUN 10 LAB L501.1100 0.55-1.02 mg/dL High CREAT,SERUM 1.06 Result Comment: The validity of the calculated GFR AND GFRAA in patients over 70 years has not been determined. Clinical correlation is essential. LAB L501.1110 >60 mL/min Low EST GFR 56 Result Comment: Non- GFR Calc LAB L501.1115 >60 mL/min Normal EST GFR - AA 67 Result Comment: GFR Calc LAB L501.1300 10-20 RATIO Low BUN/CRE 9.4 LAB L501.2200 8.5-10.1 mg/dL Normal CA 9.3 LAB L501.5300 136-145 mmol/L Normal NA 140 LAB L501.5600 3.5-5.1 mmol/L High K 5.3 LAB L501.5900 98-107 mmol/L Normal CL 103 LAB L501.6100 21.0-32.0 mmol/L Normal CO2 29.0 LAB L501.6200 5-15 Normal GAP 8 Performed By: #### L500.2500 #### [facility] [address] [place], [place], [id number] CBC W/DIFF, AUTOMATED Collected: 02/05/2018 Status: F Source: [place] 2:30 PM [facility] REPOSITORY TYPE CODE TESTS RESULT OUT OF RANGE REFERENCE UNITS LAB L100.1000 4.4-11.0 K/mm3 Normal WBC 5.8 LAB L100.1200 4.2-5.4 M/mm3 Low RBC 4.17 LAB L100.1300 12.0-15.0 g/dl Low HGB 10.8 LAB L100.1400 37-47 % Low HCT 34.9 LAB L100.1500 81-99 fL Normal MCV 83.7 LAB L100.1600 27.0-32.0 pg Low MCH 25.9 LAB L100.1700 32-36 g/gl Low MCHC 30.9 LAB L100.1810 11.6-14.6 % High RDW CV 16.7 LAB L100.1820 35.1-43.9 fl High RDW SD 50.2 LAB L100.1900 150-450 K/mm3 Normal PLT 169 LAB L100.2000 6.2-12.0 fl Normal MPV 12.0 LAB L100.2100 47-70 % Normal NEUT% 58.8 LAB L100.2200 19-41 % Normal LY% 27.2 LAB L100.2300 0-10 % High MONO% 11.9 LAB L100.2400 0-5 % Normal EO% 1.4 LAB L100.2500 0-1 % Normal BASO% 0.5 LAB L100.2550 0.0-0.9 % Normal IM GRAN % 0.200 Result Comment: IG% - Immature Granulocytes (promyelocytes, myelocytes and metamyelocytes) > 1% indicates that a LEFT SHIFT is Present. LAB L100.2620 2.0-7.7 X10 3/uL Normal Absolute Neut 3.4 LAB L100.2720 0.83-4.51 X10 3/ul Normal Absolute Lymph 1.57 Performed By: #### L100.0100 #### [facility] [address] [place], [address] PROTHROMBIN TIME W/INR Collected: 02/05/2018 Status: F Source: [place] 2:30 PM [facility] REPOSITORY TYPE CODE TESTS RESULT OUT OF RANGE REFERENCE UNITS LAB L300.4150 11.7-14.9 SECONDS High PROTIME 15.6 LAB L300.4200 Normal INR 1.2 Performed By: #### L300.3900 #### [facility] [address] [place], [address] COMPREHENSIVE METABOLIC Collected: 02/05/2018 Status: F Source: [facility] 2:30 PM [facility] REPOSITORY TYPE CODE TESTS RESULT OUT OF RANGE REFERENCE UNITS LAB L501.0100 74-106 mg/dL High GLU 200 Result Comment: Glucose result greater than or equal to 200 mg/dL suggests DIABETES MELLITUS per A.D.A. criteria. Please note revised GLUCOSE reference range effective 2017. LAB L501.1000 7-18 mg/dL Normal BUN 12 LAB L501.1100 0.55-1.02 mg/dL High CREAT,SERUM 1.22 Result Comment: The validity of the calculated GFR AND GFRAA in patients over 70 years has not been determined. Clinical correlation is essential. LAB L501.1110 >60 mL/min Low EST GFR 47 Result Comment: Non- GFR Calc LAB L501.1115 >60 mL/min Low EST GFR - AA 57 Result Comment: GFR Calc LAB L501.1300 10-20 RATIO Low BUN/CRE 9.8 LAB L501.1500 6.4-8.2 g/dL High T PROT 8.6 LAB L501.1800 3.2-5.0 g/dL Low ALB 2.9 LAB L501.1950 2.2-4.2 g/dL High GLOB 5.7 LAB L501.2000 0.9-2.4 RATIO Low A/G 0.5 LAB L501.2200 8.5-10.1 mg/dL Normal CA 9.5 LAB L501.4100 15-37 U/L Normal AST 24 LAB L501.4305 45-117 U/L High ALK P 123 LAB L501.4405 13-56 U/L Normal ALT 20 LAB L501.4600 0.20-1.00 mg/dL High T BILI 1.40 LAB L501.5300 136-145 mmol/L Normal NA 137 LAB L501.5600 3.5-5.1 mmol/L Low K alert 2.6 Result Comment: Critical Result(s) Called at: 18:01:14 02/05/2018 by: Miller Clancy to LAB L501.5900 98-107 mmol/L Low CL 90 LAB L501.6100 21.0-32.0 mmol/L High CO2 35.0 LAB L501.6200 5-15 Normal GAP 12 Performed By: #### L500.4050, L501.5200 #### [facility] [address] [facility] [place], [place], [address] MAGNESIUM Collected: 02/05/2018 Status: F Source: [place] 2:30 PM [facility] REPOSITORY TYPE CODE TESTS RESULT OUT OF RANGE REFERENCE UNITS LAB L501.5200 1.6-2.6 mg/dL Normal MG 1.9 Performed By: #### L500.4050, L501.5200 #### [facility] [address] [facility] [place], [place], [address] AFP, TUMOR MARKER Collected: 02/05/2018 Status: F Source: [place] 2:30 PM [facility] REPOSITORY Order Comment: Is Patient ? N TYPE CODE TESTS RESULT OUT OF RANGE REFERENCE UNITS LAB L3300.0700 0.0-8.3 ng/mL Normal AFP TUMOR 4.3 2253 Result Comment: Yrn ECLIA methodology Performed at: [facility] [id number] [employer] Operator: Saw Lamas PhD, Phone: [phone] Performed By: #### L3300.0700 #### [facility] (refer to report for specific site) refer to report for address and phone number ANES POST Observed: 01/29/2018 Status: COMPLETED Source: [place] 1:44 PM CLINIC OTHER CAMPUS REPOSITORY HNO ID: [id number] Author: Ag Vergara Service: Anesthesiology Author Type: Physician Type: Anesthesia PostOp Filed: 01/29/2018 1:50 PM Note Text: POST ANESTHESIA EVALUATION NOTE SERVICE DATE: 01/29/2018 SERVICE TIME: 1:50 PM : 1955 Vitals: 01/29/18 1151 Temp: 36.7 ?C (98.1 ?F) 01/29/18 1151 01/29/18 1158 01/29/18 1310 01/29/18 1327 BP: 121/64 128/60 (!) 114/39 128/66 01/29/18 1151 01/29/18 1158 01/29/18 1310 01/29/18 1327 Pulse: 67 65 78 72 01/29/18 1151 01/29/18 1158 01/29/18 1310 01/29/18 1327 Resp: 16 16 16 16 01/29/18 1151 01/29/18 1158 01/29/18 1310 01/29/18 1327 SpO2: 99% 99% 99% 97% Validated Vital Signs: Yes POST ANES STATUS: No apparent anesthetic complications. The patient is appropriately hydrated with stable respiratory and cardiovascular status. Patient has safe and adequate airway control. The patient has appropriate pain relief and no significant post operative nausea or vomiting. The patient has achieved baseline mental status. Intra-Operative Events: No Significant Anesthesia Events Further assessment by Anesthesia Service: None Other Remarks: SIGNATURE: Ag Vergara MD PATIENT NAME: Daysi Flores DATE: January 29, 2018 TIME: 1:50 PM PAGER/CONTACT #: PT ED Observed: 01/29/2018 Status: COMPLETED Source: [place] 1:12 PM [facility] OTHER [place] REPOSITORY HNO ID: [id number] Author: Antonella (Rn) SOMMER Little Service: (none) Author Type: Registered Nurse Type: Patient Education Filed: 01/29/2018 1:16 PM Note Text: POST OP LEARNING RESPONSE INSTRUCTION PROVIDED TO: Patient METHOD OF INSTRUCTION: Verbal instruction PATIENT / FAMILY RESPONSE: Verbalizes understanding of: POST-PROCEDURE INSTRUCTIONS-Correct actions to take to reduce post procedure complications FOLLOW-UP PLAN: Recommend - Recommend continued instruction and follow up as directed SUPPLEMENTAL MATERIAL: None REFERRAL (RECOMMENDATION): None Electronically Signed By: Antonella Little RN In Department: [facility] OPERATIVE NO Observed: 01/29/2018 Status: COMPLETED Source: [place] 12:47 PM [facility] OTHER CAMPUS REPOSITORY [facility] ID: [id number] Author: Stewart Siddiqi Service: Gastroenterology Author Type: Physician Type: Operative Report Filed: 01/29/2018 1:10 PM Note Text: OPERATIVE/PROCEDURE REPORT LOG ID: [id number] Surgery/Procedure Date: 01/29/2018 Incision/Procedure Start Time: 12:51 PM Incision Close/Procedure End Time: 1:01 PM Surgeon(s)/Proceduralist(s) and Digital Marketing Project Manager(s): Surgeon(s) and Role: * Stewart Siddiqi - Primary No Additional Staff Procedure(s): Esophagogastroduodenoscopy (EGD) with biopsy and banding Anesthesia: Monitored Anesthesia Care Brief History: Essentially, this 62-year-old woman likely has alcoholic cirrhosis with decompensation in the way of hepatic encephalopathy, ascites and variceal bleeding. Currently MELD 16 [MELD-Na 19] and Child Hart C 10. She is here for variceal screening. The risks, benefits and alternatives of the procedure were explained to the patient/responsible accompanying adult. This includes, but is not limited to, bleeding, infection and a 1:1000 risk of perforation. There is also a small risk of allergic reaction(s) due to sedatives, need for hospitalization, need for transfusions, need for surgery, and likelihood of missing a polyp or neoplastic lesion. The patient understands this and is amenable to proceeding. Procedure Details: The patient was placed in the left lateral decubitus position. A bite block was placed and medications administered as above. The Olympus gastroscope was used to intubate the oropharynx and esophagus with ease. We proceeded down to the second part of the duodenum. The duodenal mucosa and bulb appeared edematous diffusely. We then withdrew into the stomach and visualized mild to moderate PHG. Biopsies were taken to rule out H. Pylori. The mucosa was friable but oozing stopped spontaneously. Retroflexion was performed and this showed a normal fundus and cardia without gastric varices. The squamocolumnar junction appeared irregular. Biopsies could not be taken due to varices. Large esophageal varices with high risk stigmata (kika gabriela and hematocystic spots) were seen, at least 2 columns. We then applied the oracle r12 developer and re- intubated. We proceeded with deploying a total of 4 bands. The proximal varices flattened out quite nicely with distal banding so no further banding needed on this occasion. The scope was then withdrawn and the patient tolerated the procedure well. Pre-Op/Pre-Procedure Diagnosis: Esophageal varices Post-Op/Post-Procedure Diagnosis: Large esophageal varices with high risk stigmata - banded x 4 Mild to moderate portal hypertensive gastropathy Diffuse duodenal edema No gastric varices Irregular SC junction - but could not be biopsied due to varices Biopsies taken to rule out H. Pylori Specimens: See above EBL: None Complications: None Recommendations: F/U pathology Repeat EGD and banding in 4 to 6 weeks Protonix 40mg daily and Carafate 1g po bid x 2 weeks to reduce post banding ulceration The primary surgeon/proceduralist performed the entire procedure. Stewart Siddiqi MD MPH [facility] SIGNATURE: Stewart Siddiqi MD MPH [facility] PATIENT NAME: Daysi Flores DATE: January 29, 2018 TIME: 1:05 PM PAGER/CONTACT #: [phone] ANES PREOP Observed: 01/29/2018 Status: COMPLETED Source: [place] 12:26 PM [facility] REPOSITORY [facility] ID: [id number] Author: Ag Vergara Service: Anesthesiology Author Type: Physician Type: Anesthesia PreOp Filed: 01/29/2018 12:27 PM Note Text: ANESTHESIOLOGY DAY OF SURGERY NOTE SERVICE DATE: 01/29/2018 SERVICE TIME: 12:26 PM : 1955 Procedure(s) (LRB): EGD WITH BANDING LIGATION (Left) Surgeon(s): Stewart Siddiqi Estimated body mass index is 32.75 kg/m? as calculated from the following: Height as of this encounter: 162.6 cm (5' 4.02). Weight as of this encounter: 86.6 kg (190 lb 14.7 oz). Most recent hematocrit and potassium results: Hematocrit 34.4 12/18/2017 Potassium 3.6 12/18/2017 ANES DOS/PREOP NOTE: Vitals: 01/29/18 1151 01/29/18 1158 BP: 121/64 128/60 Pulse: 67 65 Resp: 16 16 Temp: 36.7 ?C (98.1 ?F) SpO2: 99% 99% Weight: 86.6 kg (190 lb 14.7 oz) Height: 162.6 cm (5' 4.02) ACTIVE PROBLEM LIST Routine Cervical Smear Visit for Gynecologic Examination Encounter for Screening Mammogram for Malignant Neoplasm of Breast Screening for Condition Postmenopausal Bleeding Post-Operative State Chronic Endometritis Alcoholic Cirrhosis of Liver With Ascites (Hcc) PAST MEDICAL HISTORY Diagnosis Date - Alcohol abuse Pt uses alcohol but is on Naltrexone to limit her intake; positive hx of cirrhosis - Arthritis - Chen's esophagus - Borderline diabetes managing with diet - Cirrhosis (HCC) secondary to ETOH abuse; recent LFTs from 08-21-17 were WNL - Drug abuse, marijuana Pt smokes daily marijuna - GERD (gastroesophageal reflux disease) - Hypertension - Irritable bowel disease - Obese - Osteoarthritis - Panic attacks PAST SURGICAL HISTORY Procedure Laterality Date - APPENDECTOMY - SECTION HX - SECTION HX - DANDC 10/03/2017 HYSTEROSCOPY, D AND C WITH MYOSURE - LIPOSUCTION, STOMACH - SINUS SURGERY HX - TONSILLECTOMY AND ADENOIDECTOMY HX FAMILY HISTORY Problem Relation Age of Onset - Adopted: Yes - other (COPD, PVD) Mother Social History: Social History Substance Use Topics - Smoking status: Former Smoker Packs/day: 0.20 Years: 40.00 Quit date: 11/08/2017 - Smokeless tobacco: Never Used - Alcohol use Yes Comment: 2-3 drinks weekly No current facility-administered medications on file prior to encounter. Current Outpatient Prescriptions on File Prior to Encounter: Zinc 50 mg tab Take 1 tablet by mouth once daily. acidophilus-pectin, citrus 100 million cell-10 mg cap Take by mouth. DULoxetine (CYMBALTA) 30 mg capsule Take 30 mg by mouth once daily. lactulose (DUPHALAC, CONSTULOSE) 20 gram/30 mL solution Take 20 g by mouth three times daily. VITAMIN D 50,000 unit capsule Current Facility-Administered Medications: lactated ringers infusion 5-30 mL/hr INTRAVENOUS CONTINUOUS Rana (Short Story Writer) Amawi Last Rate: 20 mL/hr at 01/29/18 1205 20 mL/hr at 01/29/18 1205 Allergies: ALLERGIES Allergen Reactions - Rocephin [Ceftriaxo* Anaphylaxis DOS EXAM: Adequate NPO status: Yes Anesthetic risks, benefits, alternatives, personnel and consent discussed: Yes Patient agrees to proceed: Yes Previous Anesthesia: No history of adverse event. Airway Assessment: MP 2; Neck ROM: Full ROM without neurologic symptoms; Airway Evaluation: No significant abnormalities Symptoms of Sleep Apnea: Hypertension, BMI > 35 and Age over 50 (63 year old) Dentition: Teeth intact Additional Physical Exam: Lungs: Patient health status unchanged since recent history and physical. See history and physical for exam findings. Cardiac: Patient health status unchanged since recent history and physical. See history and physical for exam findings. Additional Pertinent Findings: N/A Blood Products: Not anticipated for this procedure. Anesthetic Plan: MAC with Sedation Pain Management Plan: Parenteral or Oral ASA Class: 3 Other Medical Problems: cirrhosis Chronic Beta [place] medication administered within 24 hours: Yes I have interviewed and examined the patient. I have reviewed the medical record and/or the pre-anesthesia evaluation, pertinent labs, and test results. Significant changes in the patient's condition since the History and Physical, not otherwise documented in primary service progress notes: No This contains updated information obtained within 48 hours of Surgery/Procedure. SIGNATURE: Ag Vergara MD PATIENT NAME: Daysi Flores DATE: January 29, 2018 TIME: 12:26 PM CSN: [id number] PT ED Observed: 01/29/2018 Status: COMPLETED Source: [place] 12:00 PM [facility] REPOSITORY [facility] ID: [id number] Author: Flora HongRnYamilka Cabrera RN Service: (none) Author Type: Registered Nurse Type: Patient Education Filed: 01/29/2018 12:01 PM Note Text: PRE OP LEARNING ASSESSMENT PROCEDURE/SURGERY: GI PROCEDURES: EGD READINESS TO LEARN COGNITIVE ABILITY: Alert and oriented MOTIVATION TO LEARN: Interested FAMILY SUPPORT: High - Very involved in pt care PATIENT LEARNS BEST BY: Verbal Instruction FACTORS AFFECTING LEARNING: None PHYSICAL LIMITATIONS AFFECTING LEARNING: None Electronically Signed By: Flora Cabrera RN In Department: [facility] HISTORY PHYSICAL Observed: 01/29/2018 Status: COMPLETED Source: [place] 9:31 AM [facility] OTHER [place] REPOSITORY [facility] ID: [id number] Author: Ana Cannon Amawi Service: General Surgery Author Type: Nurse Practitioner Type: HANDP Filed: 01/29/2018 12:33 PM Note Text: HISTORY AND PHYSICAL EXAMINATION SERVICE DATE: 01/29/2018 SERVICE TIME: 12:16 PM PRIMARY CARE PHYSICIAN: Gabriela Ding DO REASON FOR VISIT: Daysi Flores is a 63 year old female who is scheduled for Procedure(s): EGD WITH BANDING LIGATION (Left) at the request of for routine HANDP. The patient has the following: ACTIVE PROBLEM LIST Routine Cervical Smear Visit for Gynecologic Examination Encounter for Screening Mammogram for Malignant Neoplasm of Breast Screening for Condition Postmenopausal Bleeding Post-Operative State Chronic Endometritis Alcoholic Cirrhosis of Liver With Ascites (Hcc) Subjective CHIEF COMPLAINT: Alcoholic cirrhosis of liver with ascites (HCC) [K70.31] HPI: Patient present to [facility] for the above procedure. Gastric bleeding 2017. 2 EGDs done in [place] at a hospital there (was admitted for 10 days). Denies any current bleeding, gets terrible cramps with the lactulose which she takes daily. Denies any recent N/V/D/C or bloody stools. Denies any family history of cancer. Patient denies any other problems or concerns at this time.Risks and benefits of the procedure discussed by Surgeon and patient agreed to proceed with planned procedure. PAST MEDICAL HISTORY Diagnosis Date - Alcohol abuse Pt uses alcohol but is on Naltrexone to limit her intake; positive hx of cirrhosis - Arthritis - Chen's esophagus - Borderline diabetes managing with diet - Cirrhosis (HCC) secondary to ETOH abuse; recent LFTs from 08-21-17 were WNL - Drug abuse, marijuana Pt smokes daily marijuna - GERD (gastroesophageal reflux disease) - Hypertension - Irritable bowel disease - Obese - Osteoarthritis - Panic attacks PAST SURGICAL HISTORY Procedure Laterality Date - APPENDECTOMY - SECTION HX - SECTION HX - DANDC 10/03/2017 HYSTEROSCOPY, D AND C WITH MYOSURE - LIPOSUCTION, STOMACH - SINUS SURGERY HX - TONSILLECTOMY AND ADENOIDECTOMY HX FAMILY HISTORY Problem Relation Age of Onset - Adopted: Yes - other (COPD, PVD) Mother SOCIAL HISTORY: Social History Marital status: Spouse name: Years of education: Number of children: Social History Main Topics Smoking status: Former Smoker Packs/day: 0.20 Years: 40.00 Quit date: 11/08/2017 Smokeless tobacco: Never Used Alcohol use: Yes Comment: 2-3 drinks weekly Drug use: Yes Types: Marijuana Comment: daily marijuana use Sexual activity: Yes Partners with: Male Prior to Admission medications as of 01/29/18 1218 Medication Sig Last Dose Taking atorvastatin (LIPITOR) 20 mg tablet 01/28/2018 at Unknown time Yes carvedilol (COREG) 6.25 mg tablet 01/29/2018 at Unknown time Yes CONSTULOSE 10 gram/15 mL solution 01/28/2018 at Unknown time Yes pantoprazole DR (PROTONIX) 40 mg tablet 01/28/2018 at Unknown time Yes RIFAXIMIN 550 mg tab 01/28/2018 at Unknown time Yes spironolactone (ALDACTONE) 25 mg tablet 01/28/2018 at Unknown time Yes Zinc 50 mg tab Take 1 tablet by mouth once daily. 01/28/2018 at Unknown time Yes acidophilus-pectin, citrus 100 million cell-10 mg cap Take by mouth. 01/28/2018 at Unknown time Yes DULoxetine (CYMBALTA) 30 mg capsule Take 30 mg by mouth once daily. 01/28/2018 at Unknown time Yes lactulose (DUPHALAC, CONSTULOSE) 20 gram/30 mL solution Take 20 g by mouth three times daily. 01/28/2018 at Unknown time Yes VITAMIN D 50,000 unit capsule 01/28/2018 at Unknown time Yes furosemide (LASIX) 40 mg tablet No medication comments found. ALLERGIES Allergen Reactions - Rocephin [Ceftriaxo* Anaphylaxis REVIEW OF SYSTEMS: PAIN ASSESSMENT: Pain Pain Score: 0/10 Pain Assessment (RN/PHOTOSTAT OPERATOR HELPER): Assessment Tool: Verbal (Numeric Rating or Visual Analog Scale) General: Denies fever, chills, and 45 lbs since hospital admission . Neuro: Denies dizziness and headaches. Respiratory: Denies SOB. Cardiovascular: Denies CP and palpitations. GI: See HPI. . : Denies dysuria. Endocrine: No history of diabetes or thyroid conditions. Hematology: Denies history of bleeding or clotting disorder. No known autoimmune disorders. Psych: Denies anxiety/depression. Musculoskeletal: PAYAL. Skin: Denies open sores and rashes. Objective PHYSICAL EXAM: VITALS: BP 128/60 Pulse 65 Temp 98.1 Resp 16 Ht 5' 4.016 (1.63m) Wt 190 lb 14.7 oz (86.6kg) SpO2 99% BMI 32.75 kg/(m2). General: NAD. Cooperative. Skin: Skin is warm, no rashes, and no open sores. HEENT: Normocephalic. Cardiovascular: Normal S1 AND S2. No murmur. Lungs: CTA Bilaterally. No respiratory distress. Abdomen: Soft. Pos BS x4quad Extremities: No edema. Neurological: Alert and oriented to person, place, and time. Pulses: radial pulses +2 Diagnostic tests reviewed for today's visit: Lab Value Units Date High Low HB 10.7 g/dL 12/18/2017 15.7 11.2 HCT 34.4 % 12/18/2017 44.9 34.1 WBC 5.78 thou/c* 12/18/2017 10.04 3.98 PLT 139 thou/c* 12/18/2017 369 182 NA 134 mEq/L 12/18/2017 145 136 K 3.6 mEq/L 12/18/2017 5.1 3.5 GLUC 130 mg/dL 12/18/2017 99 70 BUN 10 mg/dL 12/18/2017 18 7 CREAT 0.84 mg/dL 12/18/2017 0.95 0.51 PTSEC 14.1 sec 12/18/2017 13.0 9.7 INR 1.39 no uni* 12/18/2017 1.30 0.90 ALT 15 U/L 12/18/2017 78 12 AST 26 U/L 12/18/2017 37 9 TBILI 2.5 mg/dL 12/18/2017 1.0 0.2 Hemoglobin A1C (%) Date Value 12/03/2017 4.8 Assessment/Plan Alcoholic cirrhosis of liver with ascites (HCC) [K70.31] Patient has the following medical conditions which may affect gregory-operative course HTN - Well controlled PLAN Planned Procedure: Procedure(s): EGD WITH BANDING LIGATION (Left) ANESTHESIA FINDINGS: Significant Anesthesia Considerations: None Planned Anesthetic: MAC Instructions Given to Patient: Patient given verbal preop instructions and voices comprehension and compliance. SIGNATURE: Ana Li APRN.CNP PATIENT NAME: Daysi Flores DATE: January 29, 2018 TIME:12:32 PM PAGER/CONTACT #: SURGICAL TISSUE EXAM Observed: 01/29/2018 Status: F Source: [facility] 12:00 AM [facility] REPOSITORY Test performed at [place] [id number] NAME: DAYSI HOROWITZ REQUESTING: STEWART SIDDIQI MD FINAL DIAGNOSIS: GASTRIC BODY, BIOPSIES - MILD CHRONIC GASTRITIS. FOCAL MUCOSAL EDEMA. SEE COMMENT. COMMENT: Classic features of portal hypertensive gastropathy are not identified. There is some increase in the smooth muscle within the mucosa, a finding associated with portal hypertensive gastropathy. H. pylori type gastritis is not present. OPERATIVE PROCEDURE: EGD CLINICAL INFORMATION: Portal hypertensive gastropathy GROSS DESCRIPTION: Gastric body Received in formalin labeled gastric body is one segment of das soft tissue measuring 0.4 x 0.1 x 0.1 cm. The specimen is totally submitted in formalin in one cassette. Levels x 2. ARH:vinny CONNOLLY M.D., PATHOLOGIST (Electronic signature on file) Signed out: 02/02/2018 15:55 PRINTED: 02/02/2018 Page 1 of 1 Performed By: #### SURG #### [facility] [address] [place] [id number] US ABD RIGHT UPPER Observed: 01/28/2018 Status: F Source: [facility] 10:50 AM HEALTH SYSTEM REPOSITORY Performed at [facility] APPROVED BY: Roldan Wiseman MD Exam: Right upper quadrant abdominal ultrasound with Liver Doppler evaluation dated 01/28/2018. Indication: Cirrhosis. Recent GI bleed. Comparison: None. Findings: The liver demonstrates a coarse echotexture with atrophic and nodular contour. No discrete hepatic lesion appreciated. The common bile duct is normal in caliber measuring approximately 5 mm. No gallst ones are appreciated. There is echogenic debris within the gallbladder compatible with sludge. The sonographic Hazel's sign was negative. Gallbladder wall thickness is normal. The pancreas is poorly visualized. The spleen measures 16 cm in craniocaudal dimension. There is a mild to moderate amount of abdominal ascites present. The right kidney measures 12 cm in length without hydronephrosis. The abdominal aorta and left kidney are not evaluated on this study. Doppler evaluation of the liver demonstrates normal flow in the right, middle, and left hepatic veins. The IVC remains patent. The splenic vein is patent with a velocity of 35 cm/s. There is dilation of the main portal vein measuring 13 mm. The main portal vein has a velocity of 30 cm/s with normal hepatopedal flow. The left portal vein has a velocity of 30 cm/s and the right portal vein has a velocity of 20 cm/s. There is normal hepatopedal flow. The main hepatic artery demonstrates a normal wave form with a resistive index of 0.8. IMPRESSION: Abdominal Ultrasound: 1. Cirrhosis with mild to moderate ascites and splenomegaly. 2. No discrete hepatic lesion appreciated by ultrasound. Liver Doppler: 1. Patent hepatic and portal veins with normal directional flow. 2. Main portal vein dilation as seen with portal hypertension. US DOPPLER COMPLETE Observed: 01/28/2018 Status: F Source: [facility] 10:50 AM HEALTH SYSTEM REPOSITORY Performed at [facility] APPROVED BY: Roldan Wiseman MD Exam: Right upper quadrant abdominal ultrasound with Liver Doppler evaluation dated 01/28/2018. Indication: Cirrhosis. Recent GI bleed. Comparison: None. Findings: The liver demonstrates a coarse echotexture with atrophic and nodular contour. No discrete hepatic lesion appreciated. The common bile duct is normal in caliber measuring approximately 5 mm. No gallst ones are appreciated. There is echogenic debris within the gallbladder compatible with sludge. The sonographic Hazel's sign was negative. Gallbladder wall thickness is normal. The pancreas is poorly visualized. The spleen measures 16 cm in craniocaudal dimension. There is a mild to moderate amount of abdominal ascites present. The right kidney measures 12 cm in length without hydronephrosis. The abdominal aorta and left kidney are not evaluated on this study. Doppler evaluation of the liver demonstrates normal flow in the right, middle, and left hepatic veins. The IVC remains patent. The splenic vein is patent with a velocity of 35 cm/s. There is dilation of the main portal vein measuring 13 mm. The main portal vein has a velocity of 30 cm/s with normal hepatopedal flow. The left portal vein has a velocity of 30 cm/s and the right portal vein has a velocity of 20 cm/s. There is normal hepatopedal flow. The main hepatic artery demonstrates a normal wave form with a resistive index of 0.8. IMPRESSION: Abdominal Ultrasound: 1. Cirrhosis with mild to moderate ascites and splenomegaly. 2. No discrete hepatic lesion appreciated by ultrasound. Liver Doppler: 1. Patent hepatic and portal veins with normal directional flow. 2. Main portal vein dilation as seen with portal hypertension. US ABD LIVER VASCULAR Observed: 01/28/2018 Status: F Source: [facility] 10:50 AM HEALTH SYSTEM REPOSITORY Performed at [facility] APPROVED BY: Roldan Wiseman MD Exam: Right upper quadrant abdominal ultrasound with Liver Doppler evaluation dated 01/28/2018. Indication: Cirrhosis. Recent GI bleed. Comparison: None. Findings: The liver demonstrates a coarse echotexture with atrophic and nodular contour. No discrete hepatic lesion appreciated. The common bile duct is normal in caliber measuring approximately 5 mm. No gallst ones are appreciated. There is echogenic debris within the gallbladder compatible with sludge. The sonographic Ahzel's sign was negative. Gallbladder wall thickness is normal. The pancreas is poorly visualized. The spleen measures 16 cm in craniocaudal dimension. There is a mild to moderate amount of abdominal ascites present. The right kidney measures 12 cm in length without hydronephrosis. The abdominal aorta and left kidney are not evaluated on this study. Doppler evaluation of the liver demonstrates normal flow in the right, middle, and left hepatic veins. The IVC remains patent. The splenic vein is patent with a velocity of 35 cm/s. There is dilation of the main portal vein measuring 13 mm. The main portal vein has a velocity of 30 cm/s with normal hepatopedal flow. The left portal vein has a velocity of 30 cm/s and the right portal vein has a velocity of 20 cm/s. There is normal hepatopedal flow. The main hepatic artery demonstrates a normal wave form with a resistive index of 0.8. IMPRESSION: Abdominal Ultrasound: 1. Cirrhosis with mild to moderate ascites and splenomegaly. 2. No discrete hepatic lesion appreciated by ultrasound. Liver Doppler: 1. Patent hepatic and portal veins with normal directional flow. 2. Main portal vein dilation as seen with portal hypertension. PROGRESS Observed: 12/18/2017 Status: COMPLETED Source: [place] 4:34 PM [facility] OTHER CAMPUS REPOSITORY O ID: [id number] Author: Stewart Siddiqi Service: (none) Author Type: Physician Type: Progress Notes Filed: 12/18/2017 4:41 PM Note Text: HPI: I saw Daysi Flores today for a follow up regarding decompensated alcoholic cirrhosis. Daysi Flores was last seen here by me on 12/05/2017. She is doing well since I last saw her 2 weeks ago. She is in 2-3 bowel movements per day with lactulose. She continues to take rifaximin as well. She is not had any episodes of encephalopathy however it does sound like she may have some covert encephalopathy. Her ascites has decreased somewhat but she still unsatisfied with her abdominal distention. She has not had any overt luminal blood loss. Jaundice is somewhat improved. I reviewed her labs today. As mentioned previously, her dry weight is usually 160 pounds. Unfortunately she remains 191 pounds. Her urine lites are that she is compliant with a low sodium diet. Her bilirubin and INR is elevated. Chronic liver disease workup was reviewed and fiber sure showed F4 fibrosis. LDL is elevated. PAST MEDICAL HISTORY Diagnosis Date - Alcohol abuse Pt uses alcohol but is on Naltrexone to limit her intake; positive hx of cirrhosis - Arthritis - Chen's esophagus - Borderline diabetes managing with diet - Cirrhosis (HCC) secondary to ETOH abuse; recent LFTs from 08-21-17 were WNL - Drug abuse, marijuana Pt smokes daily marijuna - GERD (gastroesophageal reflux disease) - Hypertension - Irritable bowel disease - Osteoarthritis - Panic attacks PAST SURGICAL HISTORY Procedure Laterality Date - APPENDECTOMY - SECTION HX - SECTION HX - DANDC 10/03/2017 HYSTEROSCOPY, D AND C WITH MYOSURE - LIPOSUCTION, STOMACH - SINUS SURGERY HX - TONSILLECTOMY AND ADENOIDECTOMY HX Social History Marital status: Spouse name: Years of education: Number of children: Social History Main Topics Smoking status: Current Some Day Smoker Packs/day: 0.20 Years: 40.00 Smokeless tobacco: Never Used Alcohol use: Yes Comment: 2-3 drinks weekly Drug use: Yes Types: Marijuana Comment: daily marijuana use Sexual activity: Yes Partners with: Male Family history reviewed. No history of IBD, CRC or HPB malignancy. Current Outpatient Prescriptions: acidophilus-pectin, citrus 100 million cell-10 mg cap Take by mouth. DULoxetine (CYMBALTA) 30 mg capsule Take 30 mg by mouth once daily. lactulose (DUPHALAC, CONSTULOSE) 20 gram/30 mL solution Take 20 g by mouth three times daily. hydroCHLOROthiazide (HYDRODIURIL, ESIDRIX) 25 mg tablet Take 25 mg by mouth once daily. metoprolol succinate ER (TOPROL XL) 50 mg 24 hr tablet Take 50 mg by mouth once daily. naltrexone (TREXAN) 50 mg tablet Take 50 mg by mouth once daily. progesterone micronized (PROMETRIUM) 200 mg capsule Take 200 mg by mouth once daily. thyroid,pork (ARMOUR THYROID ORAL) Take 50 mg by mouth once daily. Omeprazole Magnesium (PRILOSEC OTC) 20 mg tablet Take 20 mg by mouth once daily. rifAXIMin (XIFAXAN) 550 mg tab Take 1 tablet by mouth twice daily. Zinc 50 mg tab Take 1 tablet by mouth once daily. VITAMIN D 50,000 unit capsule No current facility-administered medications for this visit. ALLERGIES Allergen Reactions - Rocephin [Ceftriaxo* Anaphylaxis REVIEW OF SYSTEMS GASTROINTESTINAL: SEE ABOVE URINARY: NONE CARDIOVASCULAR: NONE NEUROLOGICAL: NONE CONSTITUTIONAL: NONE EYES: NONE EARS, NOSE AND THROAT: NONE RESPIRATORY: NONE SKIN: NONE ENDOCRINE: NONE PSYCHIATRIC: NONE HEMATOLOGIC NONE MUSCULOSKELETAL: NONE IMMUNOLOGIC: NONE PHYSICAL EXAMINATION: BP 128/67 Ht 5' 4 (1.63m) Wt 191 lb (86.6kg) BMI 32.77 kg/(m2). GENERAL APPEARANCE: Well appearing, alert, in no acute distress, well-hydrated, well nourished. SKIN: Minimal jaundice EYES: icteric sclera. Pupils are equally round and reactive to light. Extraocular movements are intact. . NECK: Supple, no adenopathy; thyroid symmetric, normal size, no bruits. LUNGS: Lungs clear to auscultation. No wheezing, rhonchi, rales. HEART: RRR without murmur, gallop, or rubs. No ectopy. ABDOMEN: Abdomen soft, non-tender, non distended. Bowel sounds normal. No masses, or hepatosplenomegaly. Mild to moderate ascites EXTREMITIES: Mild ankle edema NEUROLOGIC: Gait normal. Sensation and strength grossly intact. DATA: Diagnostic tests and/or endoscopic procedures reviewed for today's visit: Most recent labs Most recent imaging LABS: HGB (g/dL) Date Value 12/18/2017 10.7 Hematocrit (%) Date Value 12/18/2017 34.4 WBC (thou/cmm) Date Value 12/18/2017 5.78 Lab Results Component Value Date LIPASE 247 12/03/2017 TBILI 2.5 (H) 12/18/2017 CREAT 0.84 12/18/2017 INR 1.39 (H) 12/18/2017 ALB 2.5 (L) 12/18/2017 ALKPHOS 95 12/18/2017 AST 26 12/18/2017 ALT 15 12/18/2017 TPROT 6.9 12/18/2017 Plan ASSESSMENT AND PLAN: Essentially, this 62-year-old woman likely has alcoholic cirrhosis with decompensation in the way of hepatic encephalopathy, ascites and variceal bleeding. Currently MELD 16 [MELD-Na 19] and Child Hart C 10. 1) ascites She has had some improvement in her ascites with increasing her diuretics. She is currently on Lasix 40 mg once a day and spironolactone 25 mg twice a day. I reviewed her electrolytes from her blood work and of increased her Aldactone to 100 mg in the morning and 75 mg in the evening. Lasix will remain unchanged. Her urine lites show that she is compliant with a low sodium diet. I once again reinforce importance of this going forward. We'll have to follow her creatinine ensure that it stays stable as we increase her diuretics. 2) hepatic encephalopathy She may have some covert hepatic encephalopathy. She is currently on lactulose and rifaximin and is having adequate bowel movements. The latter drug is running out and we will have to renew it. I also added zinc. I've asked her to avoid any opiates or psychotropic medications. 3) esophageal varices We will arrange EGD for variceal screening and possible banding. The risks, benefits and alternatives of the procedure were explained to the patient/responsible accompanying adult. This includes, but is not limited to, bleeding, infection and a 1:1000 risk of perforation. There is also a small risk of allergic reaction(s) due to sedatives, need for hospitalization, need for transfusions, need for surgery, and likelihood of missing a polyp or neoplastic lesion. The patient understands this and is amenable to proceeding. 4) abdominal ultrasound is pending to assess for hepatic or portal vein thrombosis. 5) I've asked her to see her primary care physician regarding reinitiation of a statin. Her LDL is somewhat elevated and statins can be helpful for treatment of dyslipidemia but also for improving outcomes in decompensated cirrhosis Thank you for involving me in the care of this patient. Stewart Siddiqi MD MPH CPC HEMOGRAM/DIFF Collected: 12/18/2017 Status: F Source: [facility] 12:20 PM HEALTH SYSTEM REPOSITORY TYPE CODE TESTS RESULT OUT OF REFERENCE UNITS RANGE LAB WBC(LOINC) 3.98-10.04 thou/cmm WBC 5.78 LAB RBC(LOINC) 3.93-5.22 mil/cmm Low RBC 3.65 LAB HGB(LOINC) 11.2-15.7 g/dL Low Hgb 10.7 LAB HCT(LOINC) 34.1-44.9 % Hct 34.4 LAB MCV(LOINC) 79.4-94.8 fl MCV 94.2 LAB MCH(LOINC) 25.6-32.2 pg MCH 29.3 LAB MCHC(LOINC 31.6-34.8 % ) Low MCHC 31.1 LAB RDW(LOINC) 11.7-14.4 % RDW High 15.8 LAB RDWSD(LOIN 36.4-46.3 fl C) RDW SD High 54.6 LAB PLT(LOINC) 182-369 thou/cmm Low Platelet 139 LAB MPV(LOINC) 9.4-12.3 fl MPV 12.1 LAB SEG(LOINC) % Seg Neutrophil 61.0 LAB IGRE(LOINC % ) Immature Grans 0.30 LAB LYMPH(LOIN % C) Lymphocyte 24.6 LAB MNO(LOINC) % Monocyte 11.1 LAB EOSIN(LOIN % C) Eosinophil 2.1 LAB BASO(LOINC % ) Basophil 0.9 LAB SEGN(LOINC 1.56-6.13 thou/cmm ) Abs. Neut (ANC) 3.53 LAB IGAB(LOINC 0.00-0.05 thou/cmm ) Abs Immature Grans 0.02 LAB LYMN(LOINC 1.18-3.74 thou/cmm ) Abs. Lymph 1.42 LAB MONON(LOIN 0.27-0.70 thou/cmm C) Abs. Hickman 0.64 LAB EOSN(LOINC 0.00-0.31 thou/cmm ) Abs. Eosin 0.12 LAB BASON(LOIN 0.01-0.08 thou/cmm C) Abs. Baso 0.05 Performed By: #### CBCD1 #### [address] [address] SODIUM,URINE Collected: 12/18/2017 Status: F Source: [facility] 12:20 PM HEALTH SYSTEM REPOSITORY TYPE CODE TESTS RESULT OUT OF RANGE REFERENCE UNITS LAB NAUR(LOINC) mEq/L 76 Sodium,Urine Performed By: #### NAUR #### [facility] [address] [id number] POTASSIUM,URINE Collected: 12/18/2017 Status: F Source: [place] 12:20 PM [facility] REPOSITORY TYPE CODE TESTS RESULT OUT OF RANGE REFERENCE UNITS LAB KURIN(LOINC 25-125 mEq/L ) Low 11 Potassium,Ur ine Performed By: #### KURIN #### [facility] [address] [id number] PROTIME Collected: 12/18/2017 Status: F Source: [facility] 12:20 PM HEALTH SYSTEM REPOSITORY TYPE CODE TESTS RESULT OUT OF REFERENCE UNITS RANGE LAB PTI(LOINC) 9.7-13.0 sec Prothrombin High Time 14.1 LAB INR(LOINC) 0.90-1.30 INR High 1.39 Result Comment: Note: Reference Range Change Vitamin K Antagonist (VKA) Therapeutic Range: INR 2 to 3 (Target INR of 2.5) Note: For patients treated with VKA drugs, such as warfarin, the [place] [employer] 2012 Guideline recommends a therapeutic INR range of 2 to 3 (target INR of 2.5). This recommendation includes high-risk patients with antiphospholipid syndrome with previous arterial or venous thromboembolism, current-generation mechanical or bioprosthetic aortic heart valve replacement. VKA Therapeutic Range for some Mechanical Valve Replacement: INR 2.5 to 3.5 (Target INR of 3) Note: Patients with mechanical aortic valve replacement and additional risk factors for thromboembolic events (atrial fibrillation, previous thromboembolism, LV dysfunction, hypercoagulable conditions) or an older generation mechanical AVR (i.e., ball in-Cage) or any mechanical MVR should have a INR therapeutic range of 2.5 to 3.5 target INR of 3). Kashif GH, et al. Chest 2012; 141:7S-47S Mamadou RA, et al. JACC 2017; 70: 252-289 Performed By: #### PT #### [facility] [address] [address] COMPREHENSIVE PANEL Collected: 12/18/2017 Status: F Source: [facility] 12:20 HEALTH SYSTEM REPOSITORY TYPE CODE TESTS RESULT OUT OF REFERENCE UNITS RANGE LAB NA(LOINC) 136-145 mEq/L Low Sodium Blood 134 LAB K(LOINC) 3.5-5.1 mEq/L Potassium Blood 3.6 LAB CL(LOINC) 98-107 mEq/L Low Chloride Blood 91 LAB CO2(LOINC) 21-32 mEq/L CO2 Blood High 33 LAB GLU(LOINC) 70-99 mg/dL Glucose High Blood 130 LAB BUN(LOINC) 7-18 mg/dL BUN Blood 10 LAB CREA(LOINC 0.51-0.95 mg/dL ) Creatinine Blood 0.84 LAB CA(LOINC) 8.5-10.1 mg/dL Low Calcium Blood 8.4 LAB ALB(LOINC) 3.4-5.0 g/dL Low Albumin Blood 2.5 LAB TP(LOINC) 6.4-8.2 g/dL Total Protein 6.9 LAB AST(LOINC) 9-37 U/L AST-SGOT Blood 26 LAB ALT(LOINC) 12-78 U/L ALT-SGPT Blood 15 LAB ALKP(LOINC 46-116 U/L ) Alk Phosphatase 95 LAB BILIT(LOIN 0.2-1.0 mg/dL C) Total High Bilirubin 2.5 LAB ANGAP(LOIN 8-16 C) Anion Gap 14 Performed By: #### P14 #### [place] [address] MDRD GFR Collected: 12/18/2017 Status: F Source: [facility] 12:20 PM HEALTH SYSTEM REPOSITORY TYPE CODE TESTS RESULT OUT OF RANGE REFERENCE UNITS LAB GFRFN(LOINC >60mL/min/1.73m ) 2 eGFR >60 Result Comment: If the patient is , multiply the result by 1.210. Performed By: #### GFR #### [place] [address] CNOV Observed: 12/18/2017 Status: COMPLETED Source: [place] 11:15 AM CLINIC OTHER CAMPUS REPOSITORY Office Visit (AGGASTACC) DAYSI HOROWITZ ([id number]) 1955 F Date Time Provider Department 12/18/17 11:15 AM STEWART SIDDIQI During your visit today, we recorded the following information about you: Blood pressure Weight Height 128/67 86.6 kg 1.626 m Stewart Siddiqi MD MPH FRCPC 12/18/2017 4:41 PM Addendum HPI: I saw Daysi Flores today for a follow up regarding decompensated alcoholic cirrhosis. Daysi Flores was last seen here by me on 12/05/2017. She is doing well since I last saw her 2 weeks ago. She is in 2-3 bowel movements per day with lactulose. She continues to take rifaximin as well. She is not had any episodes of encephalopathy however it does sound like she may have some covert encephalopathy. Her ascites has decreased somewhat but she still unsatisfied with her abdominal distention. She has not had any overt luminal blood loss. Jaundice is somewhat improved. I reviewed her labs today. As mentioned previously, her dry weight is usually 160 pounds. Unfortunately she remains 191 pounds. Her urine lites are that she is compliant with a low sodium diet. Her bilirubin and INR is elevated. Chronic liver disease workup was reviewed and fiber sure showed F4 fibrosis. LDL is elevated. PAST MEDICAL HISTORY Diagnosis Date - Alcohol abuse Pt uses alcohol but is on Naltrexone to limit her intake; positive hx of cirrhosis - Arthritis - Chen's esophagus - Borderline diabetes managing with diet - Cirrhosis (HCC) secondary to ETOH abuse; recent LFTs from 08-21-17 were WNL - Drug abuse, marijuana Pt smokes daily marijuna - GERD (gastroesophageal reflux disease) - Hypertension - Irritable bowel disease - Osteoarthritis - Panic attacks PAST SURGICAL HISTORY Procedure Laterality Date - APPENDECTOMY - SECTION HX - SECTION HX - DANCA 10/03/2017 HYSTEROSCOPY, D AND C WITH MYOSURE - LIPOSUCTION, STOMACH - SINUS SURGERY HX - TONSILLECTOMY AND ADENOIDECTOMY HX Social History Marital status: Spouse name: Years of education: Number of children: Social History Main Topics Smoking status: Current Some Day Smoker Packs/day: 0.20 Years: 40.00 Smokeless tobacco: Never Used Alcohol use: Yes Comment: 2-3 drinks weekly Drug use: Yes Types: Marijuana Comment: daily marijuana use Sexual activity: Yes Partners with: Male Family history reviewed. No history of IBD, CRC or HPB malignancy. Current Outpatient Prescriptions: acidophilus-pectin, citrus 100 million cell-10 mg cap Take by mouth. DULoxetine (CYMBALTA) 30 mg capsule Take 30 mg by mouth once daily. lactulose (DUPHALAC, CONSTULOSE) 20 gram/30 mL solution Take 20 g by mouth three times daily. hydroCHLOROthiazide (HYDRODIURIL, ESIDRIX) 25 mg tablet Take 25 mg by mouth once daily. metoprolol succinate ER (TOPROL XL) 50 mg 24 hr tablet Take 50 mg by mouth once daily. naltrexone (TREXAN) 50 mg tablet Take 50 mg by mouth once daily. progesterone micronized (PROMETRIUM) 200 mg capsule Take 200 mg by mouth once daily. thyroid,pork (ARMOUR THYROID ORAL) Take 50 mg by mouth once daily. Omeprazole Magnesium (PRILOSEC OTC) 20 mg tablet Take 20 mg by mouth once daily. rifAXIMin (XIFAXAN) 550 mg tab Take 1 tablet by mouth twice daily. Zinc 50 mg tab Take 1 tablet by mouth once daily. VITAMIN D 50,000 unit capsule No current facility-administered medications for this visit. ALLERGIES Allergen Reactions - Rocephin [Ceftriaxo* Anaphylaxis REVIEW OF SYSTEMS GASTROINTESTINAL: SEE ABOVE URINARY: NONE CARDIOVASCULAR: NONE NEUROLOGICAL: NONE CONSTITUTIONAL: NONE EYES: NONE EARS, NOSE AND THROAT: NONE RESPIRATORY: NONE SKIN: NONE ENDOCRINE: NONE PSYCHIATRIC: NONE HEMATOLOGIC NONE MUSCULOSKELETAL: NONE IMMUNOLOGIC: NONE PHYSICAL EXAMINATION: BP 128/67 Ht 5' 4 (1.63m) Wt 191 lb (86.6kg) BMI 32.77 kg/(m2). GENERAL APPEARANCE: Well appearing, alert, in no acute distress, well-hydrated, well nourished. SKIN: Minimal jaundice EYES: icteric sclera. Pupils are equally round and reactive to light. Extraocular movements are intact. . NECK: Supple, no adenopathy; thyroid symmetric, normal size, no bruits. LUNGS: Lungs clear to auscultation. No wheezing, rhonchi, rales. HEART: RRR without murmur, gallop, or rubs. No ectopy. ABDOMEN: Abdomen soft, non-tender, non distended. Bowel sounds normal. No masses, or hepatosplenomegaly. Mild to moderate ascites EXTREMITIES: Mild ankle edema NEUROLOGIC: Gait normal. Sensation and strength grossly intact. DATA: Diagnostic tests and/or endoscopic procedures reviewed for today's visit: Most recent labs Most recent imaging LABS: HGB (g/dL) Date Value 12/18/2017 10.7 Hematocrit (%) Date Value 12/18/2017 34.4 WBC (thou/cmm) Date Value 12/18/2017 5.78 Lab Results Component Value Date LIPASE 247 12/03/2017 TBILI 2.5 (H) 12/18/2017 CREAT 0.84 12/18/2017 INR 1.39 (H) 12/18/2017 ALB 2.5 (L) 12/18/2017 ALKPHOS 95 12/18/2017 AST 26 12/18/2017 ALT 15 12/18/2017 TPROT 6.9 12/18/2017 Plan ASSESSMENT AND PLAN: Essentially, this 62-year-old woman likely has alcoholic cirrhosis with decompensation in the way of hepatic encephalopathy, ascites and variceal bleeding. Currently MELD 16 [MELD-Na 19] and Child Hart C 10. 1) ascites She has had some improvement in her ascites with increasing her diuretics. She is currently on Lasix 40 mg once a day and spironolactone 25 mg twice a day. I reviewed her electrolytes from her blood work and of increased her Aldactone to 100 mg in the morning and 75 mg in the evening. Lasix will remain unchanged. Her urine lites show that she is compliant with a low sodium diet. I once again reinforce importance of this going forward. We'll have to follow her creatinine ensure that it stays stable as we increase her diuretics. 2) hepatic encephalopathy She may have some covert hepatic encephalopathy. She is currently on lactulose and rifaximin and is having adequate bowel movements. The latter drug is running out and we will have to renew it. I also added zinc. I've asked her to avoid any opiates or psychotropic medications. 3) esophageal varices We will arrange EGD for variceal screening and possible banding. The risks, benefits and alternatives of the procedure were explained to the patient/responsible accompanying adult. This includes, but is not limited to, bleeding, infection and a 1:1000 risk of perforation. There is also a small risk of allergic reaction(s) due to sedatives, need for hospitalization, need for transfusions, need for surgery, and likelihood of missing a polyp or neoplastic lesion. The patient understands this and is amenable to proceeding. 4) abdominal ultrasound is pending to assess for hepatic or portal vein thrombosis. 5) I've asked her to see her primary care physician regarding reinitiation of a statin. Her LDL is somewhat elevated and statins can be helpful for treatment of dyslipidemia but also for improving outcomes in decompensated cirrhosis Thank you for involving me in the care of this patient. Stewart Siddiqi MD MPH FRCPC Referring Provider: GABRIELA DING [[id number]] Allergies As of Date: 12/18/2017 Noted Allergy Reaction ROCEPHIN (CEFTRIAXONE SODIUM) 06/18/2017 10 - Anaphylaxis Date Reviewed: 12/18/2017 Reviewed by: Stephanie Hussein) Regine - Fully Assessed Reason for Visit: Follow Up [171] Primary Visit Diagnosis:Alcoholic cirrhosis of liver with ascites (HCC) [K70.31] Order(s):CBC + DIFF [SQCBCDIF] Order #: [id number] FUTURE COMP METABOLIC PANEL [SQCMP] Order #: [id number] FUTURE PROTHROMBIN TIME/PT [SQPT] Order #: [id number] FUTURE rifAXIMin (XIFAXAN) 550 mg tabTake 1 tablet by mouth twice daily.Disp: 60 tabletRfl: 3 Zinc 50 mg tabTake 1 tablet by mouth once daily.Disp: 30 tabletRfl: 5 SODIUM RANDOM URINE [SQUNAR] Order #: [id number] FUTURE POTASSIUM RANDOM UR [SQUKR] Order #: [id number] FUTURE Prescriptions as of 12/18/2017 Sig: ACIDOPHILUS 100 MILLION CELL-* Take by mouth. DULOXETINE 30 MG CAPSULE,JAZMINE* Take 30 mg by mouth once guerda* LACTULOSE 20 GRAM/30 ML ORAL * Take 20 g by mouth three time* HYDROCHLOROTHIAZIDE 25 MG TAB* Take 25 mg by mouth once guerda* METOPROLOL SUCCINATE ER 50 MG* Take 50 mg by mouth once guerda* NALTREXONE 50 MG TABLET Take 50 mg by mouth once guerda* PROGESTERONE MICRONIZED 200 M* Take 200 mg by mouth once cornell* ARMOUR THYROID ORAL Take 50 mg by mouth once guerda* OMEPRAZOLE MAGNESIUM 20 MG TA* Take 20 mg by mouth once guerda* RIFAXIMIN 550 MG TABLET Take 1 tablet by mouth twice * ZINC 50 MG TABLET Take 1 tablet by mouth once d* VITAMIN D2 50,000 UNIT CAPSULE Problem List As Of Date 12/18/2017 Noted Resolved Routine cervical smear [Z12.4] INVALID FOR* Visit for gynecologic examination [Z01.419] INVALID FOR* Encounter for screening mammogram for malignant*INVALID FOR* Screening for condition [Z13.9] INVALID FOR* Postmenopausal bleeding [N95.0] INVALID FOR* Post-menopausal bleeding [N95.0] INVALID FOR*10/03/2017 More... Post-operative state [Z98.890] INVALID FOR* Chronic endometritis [N71.1] INVALID FOR* Alcoholic cirrhosis of liver with ascites (HCC)*INVALID FOR* More... Prescriptions ordered this encounter Disp Refills Start End RIFAXIMIN 550 MG TABLET 60 t* 3 12/18/2017 01/17/2018 Route: ORAL Sig: Take 1 tablet by mouth twice daily. ZINC 50 MG TABLET 30 t* 5 12/18/2017 06/16/2018 Route: ORAL Sig: Take 1 tablet by mouth once daily. Letter Text Encounter Status:Closed by STEWART SIDDIQI MD on 12/18/17 HOSP Observed: 12/18/2017 Status: COMPLETED Source: [place] 12:00 AM CLINIC OTHER CAMPUS REPOSITORY Patient:Daysi Horowitz MRN: <[id number]> Height:5' 4.016(1.626 m) Weight:No patient weight recorded within the last 30 days. Outpatient Medications as of 01/29/18: atorvastatin (LIPITOR) 20 mg tablet carvedilol (COREG) 6.25 mg tablet CONSTULOSE 10 gram/[address] (PROTONIX) 40 mg tablet RIFAXIMIN 550 mg tab spironolactone (ALDACTONE) 25 mg tablet Zinc 50 mg tab acidophilus-pectin, citrus 100 million cell-10 mg cap DULoxetine (CYMBALTA) 30 mg capsule lactulose (DUPHALAC, CONSTULOSE) 20 gram/30 mL solution furosemide (LASIX) 40 mg tablet acidophilus-pectin, citrus 100 million cell-10 mg cap VITAMIN D 50,000 unit capsule Admission/Clinic Administered Medications as of 01/29/18: lactated ringers infusion lactated ringers infusion Problem List: Routine cervical smear [Z12.4] Visit for gynecologic examination [Z01.419] Encounter for screening mammogram for malignant neoplasm of breast [Z12.31] Screening for condition [Z13.9] Postmenopausal bleeding [N95.0] Post-operative state [Z98.890] Chronic endometritis [N71.1] Alcoholic cirrhosis of liver with ascites (HCC) [K70.31] Allergies: Rocephin [Ceftriaxone Sodium] Date Verified: 01/29/18 Lab Values No results within the last 30 days for the following basenames: K,HCT No progress notes entered within the past 30 days PROGRESS Observed: 12/03/2017 Status: COMPLETED Source: [place] 12:51 PM CLINIC OTHER CAMPUS REPOSITORY HNO ID: [id number] Author: Stewart Siddiqi Service: (none) Author Type: Physician Type: Progress Notes Filed: 12/03/2017 3:46 PM Note Text: HPI: Daysi Flores is a 62 year old female who presents for decompensated alcoholic cirrhosis. This patient was recently diagnosed with cirrhosis after visit to the emergency room in [place]. She is visiting family at the time. She was hospitalized for approximately 10 days. She presented with hematemesis, fatigue and ankle swelling along with melena. Initial EGD showed several clots and blood. Some screening EGD in the next day did not show any evidence of further bleeding. There was a question of esophageal varices but banding was not performed. She did have hepatic encephalopathy that was managed with lactulose and Xifaxan. Her ascites was managed with initiation of diuretics. She has not had any diagnostic or therapeutic paracentesis. She says she had a colonoscopy 2 months ago which was normal. Her current symptoms are from early anorexia and abdominal ascites. Her dry weight is 160 pounds and she feels she is at least 30 pounds heavier than that. She complains of some lower abdominal pain as well as dyschezia. No overt luminal blood loss such as melena or hematochezia. She is having 3 bowel movement per day with the lactulose and Xifaxan. There is no history of nausea or vomiting. No jaundice, scleral icterus or dark urine. However, she does appear somewhat jaundiced in clinic today. She does have a history of impaired fasting glucose, hypertension and possible dyslipidemia. She has a significant history of alcohol abuse. She also reports a history of Chen's esophagus. She previously drank 5-6 alcoholic drinks per day. Her last drink was November 08, 2017. She drank primarily wine and vodka. She is an ex-smoker.Previously she was consuming marijuana as well. This family history of colon cancer in her maternal grandmother in her 50s. His also family history of alcohol abuse but no liver disease. Her current medications include Aldactone 50 mg twice a day, Lasix 40 mg daily, carvedilol 6.25 mg twice a day, probiotics, duloxetine, naltrexone, Protonix 40 mg once daily, Xifaxan and lactulose 30 Andersen every 6 hours. Of note, she is no longer taking the naltrexone which she was initially taking for alcohol cravings. PAST MEDICAL HISTORY Diagnosis Date - Alcohol abuse Pt uses alcohol but is on Naltrexone to limit her intake; positive hx of cirrhosis - Arthritis - Chen's esophagus - Borderline diabetes managing with diet - Cirrhosis (HCC) secondary to ETOH abuse; recent LFTs from 08-21-17 were WNL - Drug abuse, marijuana Pt smokes daily marijuna - GERD (gastroesophageal reflux disease) - Hypertension - Irritable bowel disease - Osteoarthritis - Panic attacks PAST SURGICAL HISTORY Procedure Laterality Date - APPENDECTOMY - SECTION HX - SECTION HX - DANDC 10/03/2017 HYSTEROSCOPY, D AND C WITH MYOSURE - LIPOSUCTION, STOMACH - SINUS SURGERY HX - TONSILLECTOMY AND ADENOIDECTOMY HX Current Outpatient Prescriptions: acidophilus-pectin, citrus 100 million cell-10 mg cap Take by mouth. DULoxetine (CYMBALTA) 30 mg capsule Take 30 mg by mouth once daily. lactulose (DUPHALAC, CONSTULOSE) 20 gram/30 mL solution Take 20 g by mouth three times daily. naltrexone (TREXAN) 50 mg tablet Take 50 mg by mouth once daily. progesterone micronized (PROMETRIUM) 200 mg capsule Take 200 mg by mouth once daily. thyroid,pork (ARMOUR THYROID ORAL) Take 50 mg by mouth once daily. Omeprazole Magnesium (PRILOSEC OTC) 20 mg tablet Take 20 mg by mouth once daily. VITAMIN D 50,000 unit capsule hydroCHLOROthiazide (HYDRODIURIL, ESIDRIX) 25 mg tablet Take 25 mg by mouth once daily. metoprolol succinate ER (TOPROL XL) 50 mg 24 hr tablet Take 50 mg by mouth once daily. No current facility-administered medications for this visit. ALLERGIES Allergen Reactions - Rocephin [Ceftriaxo* Anaphylaxis Family history reviewed. No history of colon cancer or IBD. Social History Marital status: Spouse name: Years of education: Number of children: Social History Main Topics Smoking status: Current Some Day Smoker Packs/day: 0.20 Years: 40.00 Smokeless tobacco: Never Used Alcohol use: Yes Comment: 2-3 drinks weekly Drug use: Yes Types: Marijuana Comment: daily marijuana use Sexual activity: Yes Partners with: Male REVIEW OF SYSTEMS GASTROINTESTINAL: SEE ABOVE URINARY: NONE CARDIOVASCULAR: NONE NEUROLOGICAL: NONE CONSTITUTIONAL: NONE EYES: NONE EARS, NOSE AND THROAT: NONE RESPIRATORY: NONE SKIN: NONE ENDOCRINE: NONE PSYCHIATRIC: NONE HEMATOLOGIC NONE MUSCULOSKELETAL: NONE IMMUNOLOGIC: NONE PHYSICAL EXAMINATION: BP 125/65 Ht 5' 4 (1.63m) Wt 191 lb (86.6kg) BMI 32.77 kg/(m2). GENERAL APPEARANCE: Well appearing, alert, in no acute distress, well-hydrated, well nourished. SKIN: Spider angiomas noted and mild jaundice EYES: icteric sclera. Pupils are equally round and reactive to light. Extraocular movements are intact. . NECK: Supple, no adenopathy; thyroid symmetric, normal size, no bruits. LUNGS: Lungs clear to auscultation. No wheezing, rhonchi, rales. HEART: RRR without murmur, gallop, or rubs. No ectopy. ABDOMEN: Abdomen soft, non-tender, non distended. Bowel sounds normal. No masses. Moderate volume ascites EXTREMITIES:Bilateral pedal edema NEUROLOGIC: Gait normal. Sensation and strength grossly intact.No asterixis LABS: Lab tests reviewed. HGB (g/dL) Date Value 12/03/2017 9.7 Hematocrit (%) Date Value 12/03/2017 30.2 WBC (thou/cmm) Date Value 12/03/2017 5.83 Platelet Count (thou/cmm) Date Value 12/03/2017 100 Creatinine Date Value Ref Range Status 12/03/2017 0.68 0.51 - 0.95 mg/dL Final AST Date Value Ref Range Status 12/03/2017 29 9 - 37 U/L Final ALT Date Value Ref Range Status 12/03/2017 23 12 - 78 U/L Final Bilirubin, Total (mg/dL) Date Value 12/03/2017 3.0 (H) WBC (thou/cmm) Date Value 12/03/2017 5.83 RBC (mil/cmm) Date Value 12/03/2017 3.12 (L) %DIG,%DBS No results found for: TSH IMAGING: Imaging including X-rays, Ultrasound, CT scans, MRI scans reviewed. CT abdomen from September 04 shows evidence of cirrhosis with a 9 mm hypodense nodule in the right lobe of the liver. Gallbladder and CBD were normal. Moderate splenic megaly was noted and there is a question of possible [place] splenic varices. Small hiatus hernia is seen. There is thickening of the cecum and ascending colon questionable for a possible neoplasm. Appendix is normal. Fibroids were seen. Old records reviewed if available. Plan ASSESSMENT AND PLAN: Essentially, this 62-year-old woman likely has alcoholic cirrhosis with decompensation in the way of hepatic encephalopathy, ascites and variceal bleeding. It is unclear if she had renal dysfunction. She is currently on diuretics as well as lactulose and Xifaxan. She says she is compliant with a low sodium diet. She has had EGD but no variceal band ligation. She currently has evidence of ascites, pedal edema and mild jaundice but no hepatic encephalopathy or bleeding. I ordered a more complete chronic liver disease workup to rule out other causes of cirrhosis. I will also arrange for abdominal ultrasound and Doppler to rule out hepatoma and to investigate the hypodense nodule in the right lobe seen on CT scan. As well, we can rule out hepatic/portal vein thrombosis. With regards to her ascites, I've asked her urine lytes to assess for compliance with her low sodium diet. If her renal function is normal then we may increase her diuretics. She is also interested in possible paracentesis but would like to see if medical therapy works first. ADDENDUM: K is low and Cr ok. Will increase aldactone to 75mg bid and keep lasix at 40mg daily. I will see her in follow-up in 2 weeks. At that time, we will also arrange for upper endoscopy for evaluation of her history of Chen's esophagus and possible esophageal varices for consideration of banding. On a separate note, she did have evidence of right colonic thickening on CT but apparently had a normal colonoscopy 2 months ago. The risks, benefits and alternatives of the procedure were explained to the patient/responsible accompanying adult. This includes, but is not limited to, bleeding, infection and a 1:1000 risk of perforation. There is also a small risk of allergic reaction(s) due to sedatives, need for hospitalization, need for transfusions, need for surgery, and likelihood of missing a polyp or neoplastic lesion. The patient understands this and is amenable to proceeding. Thank you for involving me in the care of this patient. Stewart Siddiqi MD MPH FRCPC SODIUM,URINE Collected: 12/03/2017 Status: F Source: [facility] 12:00 PM [facility] REPOSITORY TYPE CODE TESTS RESULT OUT OF RANGE REFERENCE UNITS LAB NAUR(LOINC) mEq/L 7 Sodium,Urine Performed By: #### NAUR #### [place] [address] POTASSIUM,URINE Collected: 12/03/2017 Status: F Source: [place] 12:00 PM [facility] REPOSITORY TYPE CODE TESTS RESULT OUT OF RANGE REFERENCE UNITS LAB KURIN(LOINC 25-125 mEq/L ) Low 22 Potassium,Ur ine Performed By: #### KURIN #### [place] [address] HEMOGRAM/DIFF Collected: 12/03/2017 Status: F Source: [facility] 10:50 AM [facility] SYSTEM REPOSITORY TYPE CODE TESTS RESULT OUT OF REFERENCE UNITS RANGE LAB WBC(LOINC) 3.98-10.04 thou/cmm WBC 5.83 LAB RBC(LOINC) 3.93-5.22 mil/cmm Low RBC 3.12 LAB HGB(LOINC) 11.2-15.7 g/dL Low Hgb 9.7 LAB HCT(LOINC) 34.1-44.9 % Low Hct 30.2 LAB MCV(LOINC) 79.4-94.8 fl MCV High 96.8 LAB MCH(LOINC) 25.6-32.2 pg MCH 31.1 LAB MCHC(LOINC 31.6-34.8 % ) MCHC 32.1 LAB RDW(LOINC) 11.7-14.4 % RDW High 17.2 LAB RDWSD(LOIN 36.4-46.3 fl C) RDW SD High 61.0 LAB PLT(LOINC) 182-369 thou/cmm Low Platelet 100 LAB MPV(LOINC) 9.4-12.3 fl MPV High 12.6 LAB SEG(LOINC) % Seg Neutrophil 57.1 LAB IGRE(LOINC % ) Immature Grans 0.20 LAB LYMPH(LOIN % C) Lymphocyte 27.3 LAB MNO(LOINC) % Monocyte 12.3 LAB EOSIN(LOIN % C) Eosinophil 2.6 LAB BASO(LOINC % ) Basophil 0.5 LAB SEGN(LOINC 1.56-6.13 thou/cmm ) Abs. Neut (ANC) 3.33 LAB IGAB(LOINC 0.00-0.05 thou/cmm ) Abs Immature Grans 0.01 LAB LYMN(LOINC 1.18-3.74 thou/cmm ) Abs. Lymph 1.59 LAB MONON(LOIN 0.27-0.70 thou/cmm C) Abs. High Hickman 0.72 LAB EOSN(LOINC 0.00-0.31 thou/cmm ) Abs. Eosin 0.15 LAB BASON(LOIN 0.01-0.08 thou/cmm C) Abs. Baso 0.03 Performed By: #### CBCD1 #### [facility] [address] [place] [address] PROTIME Collected: 12/03/2017 Status: F Source: [facility] 10:50 AM [facility]ALTH SYSTEM REPOSITORY TYPE CODE TESTS RESULT OUT OF REFERENCE UNITS RANGE LAB PTI(LOINC) 9.7-13.0 sec Prothrombin High Time 15.4 LAB INR(LOINC) 0.90-1.30 INR High 1.61 Result Comment: Note: Reference Range Change Vitamin K Antagonist (VKA) Therapeutic Range: INR 2 to 3 (Target INR of 2.5) Note: For patients treated with VKA drugs, such as warfarin, the [place] [employer] 2012 Guideline recommends a therapeutic INR range of 2 to 3 (target INR of 2.5). This recommendation includes high-risk patients with antiphospholipid syndrome with previous arterial or venous thromboembolism, current-generation mechanical or bioprosthetic aortic heart valve replacement. VKA Therapeutic Range for some Mechanical Valve Replacement: INR 2.5 to 3.5 (Target INR of 3) Note: Patients with mechanical aortic valve replacement and additional risk factors for thromboembolic events (atrial fibrillation, previous thromboembolism, LV dysfunction, hypercoagulable conditions) or an older generation mechanical AVR (i.e., ball in-Cage) or any mechanical MVR should have a INR therapeutic range of 2.5 to 3.5 target INR of 3). Kashif GH, et al. Chest 2012; 141:7S-47S Mamadou RA et al. JACC 2017; 70: 252-289 Performed By: #### PT #### [place] [address] TSH, 3RD GENERATION Collected: 12/03/2017 Status: F Source: [facility] 10:50 HEALTH SYSTEM REPOSITORY TYPE CODE TESTS RESULT OUT OF REFERENCE UNITS RANGE LAB TSH3(LOINC 0.358-3.740 uIU/mL ) TSH, 3rd generation 2.960 Performed By: #### TSH3 #### [place] [address] IGA Collected: 12/03/2017 Status: F Source: [facility] 10:50 [facility] REPOSITORY TYPE CODE TESTS RESULT OUT OF RANGE REFERENCE UNITS LAB IGA(LOINC) 70-400 mg/dL High IgA 1080 Performed By: #### IGA #### [place] [address] IGM Collected: 12/03/2017 Status: F Source: [facility] 10:50 AM HEALTH SYSTEM REPOSITORY TYPE CODE TESTS RESULT OUT OF RANGE REFERENCE UNITS LAB IGM(LOINC) 40-230 mg/dL High IgM 314 Performed By: #### IGM #### [place] [address] COMPREHENSIVE PANEL Collected: 12/03/2017 Status: F Source: [facility] 10:50 [facility] REPOSITORY TYPE CODE TESTS RESULT OUT OF REFERENCE UNITS RANGE LAB NA(LOINC) 136-145 mEq/L Low Sodium Blood 135 LAB K(LOINC) 3.5-5.1 mEq/L Low Potassium Blood 2.7 LAB CL(LOINC) 98-107 mEq/L Low Chloride Blood 95 LAB CO2(LOINC) 21-32 mEq/L CO2 Blood High 34 LAB GLU(LOINC) 70-99 mg/dL Glucose High Blood 122 LAB BUN(LOINC) 7-18 mg/dL BUN Blood 9 LAB CREA(LOINC 0.51-0.95 mg/dL ) Creatinine Blood 0.68 LAB CA(LOINC) 8.5-10.1 mg/dL Low Calcium Blood 7.8 LAB ALB(LOINC) 3.4-5.0 g/dL Low Albumin Blood 2.4 LAB TP(LOINC) 6.4-8.2 g/dL Low Total Protein 6.3 LAB AST(LOINC) 9-37 U/L AST-SGOT Blood 29 LAB ALT(LOINC) 12-78 U/L ALT-SGPT Blood 23 LAB ALKP(LOINC 46-116 U/L ) Alk Phosphatase 90 LAB BILIT(LOIN 0.2-1.0 mg/dL C) Total High Bilirubin 3.0 LAB ANGAP(LOIN 8-16 C) Anion Gap 9 Performed By: #### P14 #### [place] [address] FERRITIN Collected: 12/03/2017 Status: F Source: [facility] 10:50 AM [facility]ALTH SYSTEM REPOSITORY TYPE CODE TESTS RESULT OUT OF REFERENCE UNITS RANGE LAB FERR(LOINC) 8.00-252.00 ng/mL Ferritin 18.50 Performed By: #### FERR #### [place] [address] LIPASE BLOOD Collected: 12/03/2017 Status: F Source: [facility] 10:50 AM [facility]ALTH SYSTEM REPOSITORY TYPE CODE TESTS RESULT OUT OF REFERENCE UNITS RANGE LAB LIP(LOINC) 73-393 U/L Lipase Blood 247 Performed By: #### LIP #### [place] [address] IGG Collected: 12/03/2017 Status: F Source: [facility] 10:50 AM [facility] REPOSITORY TYPE CODE TESTS RESULT OUT OF RANGE REFERENCE UNITS LAB IGG(LOINC) 700-1600 mg/dL IgG 1110 Performed By: #### IGG #### [place] [address] [id number] Collected: Status: F Source: [place] 12/03/2017 10:50 AM [facility] REPOSITORY TYPE CODE TESTS RESULT OUT OF RANGE REFERENCE UNITS LAB AAT(LOINC) 90-200 mg/dL 194 Cfaqy-9-Ynux trypsin Performed By: #### AAT #### [place] [address] LIPID PROFILE Collected: 12/03/2017 Status: F Source: [facility] 10:50 AM [facility]ALTH SYSTEM REPOSITORY TYPE CODE TESTS RESULT OUT OF REFERENCE UNITS RANGE LAB CHOL(LOINC 0-199 mg/dL ) Cholesterol Blood 108 Result Comment: <200 Desirable 200-240 Borderline >240 High LAB TRIG(LOINC) 0-149 mg/dL Triglyceride Blood 85 Result Comment: < 200 Desirable Result invalid if not a fasting specimen. LAB HDL2(LOINC) >40 mg/dL HDL Cholesterol 19 LAB CHHDL(LOINC) 1.8-5.3 CHOL/HDL High 5.7 LAB LDL(LOINC) mg/dL LDL (Calculated) 72 Result Comment: No CAD and with fewer than 2 CAD risk factors <160 mg/dL No CAD but with 2 or more CAD risk factors <130 mg/dL Definite CAD or other atherosclerotic disease <100 mg/dL LAB VLDL(LOINC) <50 Desired mg/dL VLDL Cholesterol 17 LAB LDHDL(LOINC) 0.6-3.6 LDL/HDL High 3.8 Result Comment: LDL,VLDL,LDL/HDL, Invalid if Triglyceride >400 Performed By: #### LIPD2 #### [place] [address] CERULOPLASMIN Collected: 12/03/2017 Status: F Source: [facility] 10:50 AM [facility]ALTH SYSTEM REPOSITORY TYPE CODE TESTS RESULT OUT OF REFERENCE UNITS RANGE LAB CER(LOINC) 20.0-60.0 mg/dL Ceruloplasmin 30.5 Performed By: #### CER #### [place] [address] MDRD GFR Collected: 12/03/2017 Status: F Source: [facility] 10:50 [facility] REPOSITORY TYPE CODE TESTS RESULT OUT OF RANGE REFERENCE UNITS LAB GFRFN(LOINC >60mL/min/1.73m ) 2 eGFR >60 Result Comment: If the patient is , multiply the result by 1.210. Performed By: #### GFR #### [place] [address] HGB A1C Collected: 12/03/2017 Status: F Source: [facility] 10:[address] [place] [address] SYSTEM REPOSITORY TYPE CODE TESTS RESULT OUT OF RANGE REFERENCE UNITS LAB A1C5(LOINC) 4.2-6.3 % Hgb A1c 4.8 Result Comment: Method is National Glycohemoglobin Standardization Program (NGSP) compliant. LAB ESAVG(LOINC) mg/dl Est. Avg Glucose 91 Performed By: #### HA1C #### [place] [address] HEP. B SURFACE AG Collected: 12/03/2017 Status: F Source: [facility] 10:[address] [place] [address] SYSTEM REPOSITORY TYPE CODE TESTS RESULT OUT OF REFERENCE UNITS RANGE LAB HBSA(LOINC Negative ) Hep.B Surface Negative Ag Performed By: #### HBSAG #### [place] [address] HEP. B SURFACE AB Collected: 12/03/2017 Status: F Source: [facility] 10:[address] [place] [address] SYSTEM REPOSITORY TYPE CODE TESTS RESULT OUT OF REFERENCE UNITS RANGE LAB ANTB(LOINC) mIU/mL Hep. B Surface 173.3 Ab Result Comment: Hep B. Antibody < 10.0 mIU/mL is negative. Hep B. Antibody > or = 10.0 mIU/mL is positive. Performed By: #### ANTB #### [place] [address] TRANSGLUTAMINASE ABS Collected: 12/03/2017 Status: F Source: [place] 10:[address] [place] [address] REPOSITORY TYPE CODE TESTS RESULT OUT OF REFERENCE UNITS RANGE LAB TTGX(LOIN C) Transglutaminase Abs SEE BELOW Result Comment: Transglutaminase IgG 3 <20 Units Negative : < 20 Units Weak Positive : 20 - 30 Units Moderate Pos to Strong Pos: >30 Units The following results were obtained with the [employer] QUANTA Lite h-hTG IgG JAMI. h-tTG IgG values obtained with different manufacturers' assay methods may not be used interchangeably. The magnitude of the reported IgG levels cannot be correlated to an endpoint titer. Transglutaminase IgA 10 <20 Units Negative : < 20 Units Weak Positive : 20 - 30 Units Moderate Pos to Strong Pos: >30 Units The following results were obtained with the [employer] QUANTA Lite h-tTG IgA JAMI. h-tTG IgA values obtained with different manufacturers' assay methods may not be used interchangeably. The magnitude of the reported IgA levels cannot be correlated to an endpoint titer. Performing Laboratory: [facility] [employer] [address] [place] [address] Performed By: #### TTGX #### [facility] [address] [place], [place] [address] LIVER FIBROSIS Collected: 12/03/2017 Status: F Source: [facility] (FIBROSURE) 10:50 AM HEALTH SYSTEM REPOSITORY TYPE CODE TESTS RESULT OUT OF REFERENCE UNITS RANGE LAB FIBRX(LOINC ) Liver Fibrosis SEE BELOW (FibroSure) Result Comment: Fibrosis Score 0.94 Fibrosis Stage F4 Fibrosis Interp SEE NOTE (NOTE) severe fibrosis Fibro Test Score Metavir Score 0.00-0.21 F0 no fibrosis 0.22-0.27 F0-F1 0.28-0.31 F1 minimal fibrosis 0.32-0.48 F1-F2 0.49-0.58 F2 moderate fibrosis 0.59-0.72 F3 advanced fibrosis 0.73-0.74 F3-F4 0.75-1.00 F4 severe fibrosis NecroinflamAct Score 0.10 NecroinflamAct Grade A0 Necroinflamm Interp SEE NOTE (NOTE) no activity ActiTest Score Metavir Score 0.00-0.17 A0 no activity 0.18-0.29 A0-A1 0.30-0.36 A1 minimal activity 0.37-0.52 A1-A2 0.53-0.60 A2 significant activity 0.61-0.62 A2-A3 0.63-1.00 A3 severe activity Alpha2 Macroglobulin 211 Reference range: 106 to 279 Unit: mg/dL Haptoglobin 9 L Reference range: 43 to 212 Unit: mg/dL (NOTE) Check if haemolysis as bilirubin is high and haptoglobin low. Apolipoprotein A1 47 L Reference range: 101 to 198 Unit: mg/dL (NOTE) This value is very low, under the 1 percentile. Check the value. Usual minimum value is 56.0 mg/dl. Bilirubin, Total 2.9 H Reference range: 0.2 to 1.2 Unit: mg/dL (NOTE) Suspicion of Gilbert syndrome or hemolysis, check non conjugated bilirubin. Check if haemolysis as bilirubin is high and haptoglobin low. GGT 14 Reference range: 3 to 65 Unit: U/L (NOTE) Suspicion of Gilbert syndrome or hemolysis, check non conjugated bilirubin. ALT 13 Reference range: 6 to 29 Unit: U/L Reference ID [id number] Footnote SEE NOTE (NOTE) The reliability of results is dependent on compliance with the preanalytical and analytical conditions recommended by [employer]. The tests have to be deferred for: acute hemolysis, acute hepatitis, acute inflammation, extra hepatic cholestasis. The advice of a specialist should be sought for interpretation in chronic hemolysis and Gilbert's syndrome. The test interpretation is not validated in liver transplant patients. Isolated extreme values of one of the components should lead to caution in interpreting the results. In case of discordance between a biopsy result and a test, it is recommended to seek the advice of a specialist. The causes of these discordances could be due to a flaw of the test or to a flaw in the biopsy: i.e. a liver biopsy has a 33% variability rate for one fibrosis stage. FibroTest is interpretable for chronic hepatitis B and C, alcoholic and non alcoholic steatosis. ActiTest is interpretable for chronic hepatitis B and C. The performance characteristics have been [facility] by [facility]. It has not been cleared or approved by the U.S. Food and Drug Administration. Performance characteristics refer to the analytical performance of the test. [employer], [employer], the associated logo, [employer] and all associated [employer] steiner are the registered trademarks of [employer]. All third green party steiner - (R) and (TM) - are the property of their respective owners. (C) [id number] [employer]. All rights reserved. Test Performed at: [facility] [address] [place] [address] Enmanuel Bailey MD, PhD, BILL Performing Laboratory: [address] [address] Performed By: #### FIBRX #### [place] [address] SMOOTH MUSCLE AB Collected: 12/03/2017 Status: F Source: [facility] 10:50 AM HEALTH SYSTEM REPOSITORY TYPE CODE TESTS RESULT OUT OF REFERENCE UNITS RANGE LAB SMUSX(LOINC ) Smooth Muscle SEE BELOW Ab Scr Result Comment: Smooth Muscle Ab Pnl Negative NEGAT Normal range : negative at a 1:20 serum dilution. Performing Laboratory: [facility] [employer] [facility] [place] [id number] Performed By: #### SMUSX #### [place] [address] MITOCHONDRIAL AB SCRN Collected: 12/03/2017 Status: F Source: [facility] 10:50 AM HEALTH SYSTEM REPOSITORY TYPE CODE TESTS RESULT OUT OF REFERENCE UNITS RANGE LAB MITOX(LOIN C) Mitochondrial Ab Scrn SEE BELOW Result Comment: Mitochondrial Ab Pnl Negative NEGAT Normal range : negative at a 1:20 serum dilution. Performing Laboratory: [place] [address] [place] [address] Performed By: #### MITOX #### [place] [address] DENNIS BY IFA WITH Collected: 12/03/2017 Status: F Source: [facility] REFLEX (RHEUM) 10:50 AM HEALTH SYSTEM REPOSITORY TYPE CODE TESTS RESULT OUT OF REFERENCE UNITS RANGE LAB ANAPX(LOINC ) DENNIS by IFA SEE BELOW with Reflex (Rheum) Result Comment: DENNIS Negative NEGAT Normal range : negative at <1:80 serum dilution. Approximately 6% of patients with connective tissue diseases with low positive EIA values are negative by IFA. Recommend follow-up with specific antinuclear antibodies if clinically indicated. DENNIS Titer Negative NEGAT Normal range : negative at <1:80 serum dilution. DENNIS Pattern SEE BELOW Not applicable for negative result. Performing Laboratory: [facility] [employer] [address] [place] [address] Performed By: #### ANAPX #### [place] [address] ANCA SCREEN Collected: 12/03/2017 Status: F Source: [facility] 10:50 AM HEALTH SYSTEM REPOSITORY TYPE CODE TESTS RESULT OUT OF REFERENCE UNITS RANGE LAB ANCAX(LOINC ) ANCA Screen SEE BELOW Result Comment: C-ANCA Fluorescence Negative NEGAT P-ANCA Fluorescence Negative NEGAT Proteinase-3 Ab <0.2 <1.0 AI Myeloperoxidase Ab <0.2 <1.0 AI ANCA Interpretation SEE BELOW Equivocal staining seen on the screening ethanol slide but negative results on follow up confirmatory testing. Staff Review SEE BELOW Reviewed by Valery Alberts MD ([id number]) Performing Laboratory: [facility] [address] [place] [address] Performed By: #### ANCAX #### [place] [address] HEP B CORE AB,TOTAL Collected: 12/03/2017 Status: F Source: [facility] 10:50 AM HEALTH SYSTEM REPOSITORY TYPE CODE TESTS RESULT OUT OF RANGE REFERENCE UNITS LAB HBCTX(LOINC ) Hep B SEE BELOW Core Ab,Total Result Comment: Hep B Core Ab,Total Negative NEGAT Performing Laboratory: [facility] [address] [place] [id number] Performed By: #### HBCTX #### [place] [address] MIS. SEND OUT Collected: 12/03/2017 Status: F Source: [facility] 10:50 AM HEALTH SYSTEM REPOSITORY TYPE CODE TESTS RESULT OUT OF REFERENCE UNITS RANGE LAB NAME1(LOIN C) Test Name HCV W/ CONF LAB RES(LOINC) Result Negative LAB REF(LOINC) Reference Range Negative LAB ADDR(LOINC ) Lab Name/Address See below Result Comment: Testing performed at [address] [place] [address] Performed By: #### MISC2 #### [place] [address] CNOV Observed: 12/03/2017 Status: COMPLETED Source: [place] 9:30 AM CLINIC OTHER CAMPUS REPOSITORY Office Visit (AGGASTACC) DAYSI HOROWITZ ([id number]) 1955 F Date Time Provider Department 12/03/17 9:30 AM STEWART SIDDIQI During your visit today, we recorded the following information about you: Blood pressure Weight Height 125/65 86.6 kg 1.626 m Stewart Siddiqi MD MPH [facility] 12/03/2017 3:46 PM Addendum HPI: Daysi Flores is a 62 year old female who presents for decompensated alcoholic cirrhosis. This patient was recently diagnosed with cirrhosis after visit to the emergency room in [place]. She is visiting family at the time. She was hospitalized for approximately 10 days. She presented with hematemesis, fatigue and ankle swelling along with melena. Initial EGD showed several clots and blood. Some screening EGD in the next day did not show any evidence of further bleeding. There was a question of esophageal varices but banding was not performed. She did have hepatic encephalopathy that was managed with lactulose and Xifaxan. Her ascites was managed with initiation of diuretics. She has not had any diagnostic or therapeutic paracentesis. She says she had a colonoscopy 2 months ago which was normal. Her current symptoms are from early anorexia and abdominal ascites. Her dry weight is 160 pounds and she feels she is at least 30 pounds heavier than that. She complains of some lower abdominal pain as well as dyschezia. No overt luminal blood loss such as melena or hematochezia. She is having 3 bowel movement per day with the lactulose and Xifaxan. There is no history of nausea or vomiting. No jaundice, scleral icterus or dark urine. However, she does appear somewhat jaundiced in clinic today. She does have a history of impaired fasting glucose, hypertension and possible dyslipidemia. She has a significant history of alcohol abuse. She also reports a history of Chen's esophagus. She previously drank 5-6 alcoholic drinks per day. Her last drink was November 08, 2017. She drank primarily wine and vodka. She is an ex-smoker.Previously she was consuming marijuana as well. This family history of colon cancer in her maternal grandmother in her 50s. His also family history of alcohol abuse but no liver disease. Her current medications include Aldactone 50 mg twice a day, Lasix 40 mg daily, carvedilol 6.25 mg twice a day, probiotics, duloxetine, naltrexone, Protonix 40 mg once daily, Xifaxan and lactulose 30 Andersen every 6 hours. Of note, she is no longer taking the naltrexone which she was initially taking for alcohol cravings. PAST MEDICAL HISTORY Diagnosis Date - Alcohol abuse Pt uses alcohol but is on Naltrexone to limit her intake; positive hx of cirrhosis - Arthritis - Chen's esophagus - Borderline diabetes managing with diet - Cirrhosis (HCC) secondary to ETOH abuse; recent LFTs from 08-21-17 were WNL - Drug abuse, marijuana Pt smokes daily marijuna - GERD (gastroesophageal reflux disease) - Hypertension - Irritable bowel disease - Osteoarthritis - Panic attacks PAST SURGICAL HISTORY Procedure Laterality Date - APPENDECTOMY - SECTION HX - SECTION HX - DANDC 10/03/2017 HYSTEROSCOPY, D AND C WITH MYOSURE - LIPOSUCTION, STOMACH - SINUS SURGERY HX - TONSILLECTOMY AND ADENOIDECTOMY HX Current Outpatient Prescriptions: acidophilus-pectin, citrus 100 million cell-10 mg cap Take by mouth. DULoxetine (CYMBALTA) 30 mg capsule Take 30 mg by mouth once daily. lactulose (DUPHALAC, CONSTULOSE) 20 gram/30 mL solution Take 20 g by mouth three times daily. naltrexone (TREXAN) 50 mg tablet Take 50 mg by mouth once daily. progesterone micronized (PROMETRIUM) 200 mg capsule Take 200 mg by mouth once daily. thyroid,pork (ARMOUR THYROID ORAL) Take 50 mg by mouth once daily. Omeprazole Magnesium (PRILOSEC OTC) 20 mg tablet Take 20 mg by mouth once daily. VITAMIN D 50,000 unit capsule hydroCHLOROthiazide (HYDRODIURIL, ESIDRIX) 25 mg tablet Take 25 mg by mouth once daily. metoprolol succinate ER (TOPROL XL) 50 mg 24 hr tablet Take 50 mg by mouth once daily. No current facility-administered medications for this visit. ALLERGIES Allergen Reactions - Rocephin [Ceftriaxo* Anaphylaxis Family history reviewed. No history of colon cancer or IBD. Social History Marital status: Spouse name: Years of education: Number of children: Social History Main Topics Smoking status: Current Some Day Smoker Packs/day: 0.20 Years: 40.00 Smokeless tobacco: Never Used Alcohol use: Yes Comment: 2-3 drinks weekly Drug use: Yes Types: Marijuana Comment: daily marijuana use Sexual activity: Yes Partners with: Male REVIEW OF SYSTEMS GASTROINTESTINAL: SEE ABOVE URINARY: NONE CARDIOVASCULAR: NONE NEUROLOGICAL: NONE CONSTITUTIONAL: NONE EYES: NONE EARS, NOSE AND THROAT: NONE RESPIRATORY: NONE SKIN: NONE ENDOCRINE: NONE PSYCHIATRIC: NONE HEMATOLOGIC NONE MUSCULOSKELETAL: NONE IMMUNOLOGIC: NONE PHYSICAL EXAMINATION: BP 125/65 Ht 5' 4 (1.63m) Wt 191 lb (86.6kg) BMI 32.77 kg/(m2). GENERAL APPEARANCE: Well appearing, alert, in no acute distress, well-hydrated, well nourished. SKIN: Spider angiomas noted and mild jaundice EYES: icteric sclera. Pupils are equally round and reactive to light. Extraocular movements are intact. . NECK: Supple, no adenopathy; thyroid symmetric, normal size, no bruits. LUNGS: Lungs clear to auscultation. No wheezing, rhonchi, rales. HEART: RRR without murmur, gallop, or rubs. No ectopy. ABDOMEN: Abdomen soft, non-tender, non distended. Bowel sounds normal. No masses. Moderate volume ascites EXTREMITIES:Bilateral pedal edema NEUROLOGIC: Gait normal. Sensation and strength grossly intact.No asterixis LABS: Lab tests reviewed. HGB (g/dL) Date Value 12/03/2017 9.7 Hematocrit (%) Date Value 12/03/2017 30.2 WBC (thou/cmm) Date Value 12/03/2017 5.83 Platelet Count (thou/cmm) Date Value 12/03/2017 100 Creatinine Date Value Ref Range Status 12/03/2017 0.68 0.51 - 0.95 mg/dL Final AST Date Value Ref Range Status 12/03/2017 29 9 - 37 U/L Final ALT Date Value Ref Range Status 12/03/2017 23 12 - 78 U/L Final Bilirubin, Total (mg/dL) Date Value 12/03/2017 3.0 (H) WBC (thou/cmm) Date Value 12/03/2017 5.83 RBC (mil/cmm) Date Value 12/03/2017 3.12 (L) %DIG,%DBS No results found for: TSH IMAGING: Imaging including X-rays, Ultrasound, CT scans, MRI scans reviewed. CT abdomen from September 04 shows evidence of cirrhosis with a 9 mm hypodense nodule in the right lobe of the liver. Gallbladder and CBD were normal. Moderate splenic megaly was noted and there is a question of possible [place] splenic varices. Small hiatus hernia is seen. There is thickening of the cecum and ascending colon questionable for a possible neoplasm. Appendix is normal. Fibroids were seen. Old records reviewed if available. Plan ASSESSMENT AND PLAN: Essentially, this 62-year-old woman likely has alcoholic cirrhosis with decompensation in the way of hepatic encephalopathy, ascites and variceal bleeding. It is unclear if she had renal dysfunction. She is currently on diuretics as well as lactulose and Xifaxan. She says she is compliant with a low sodium diet. She has had EGD but no variceal band ligation. She currently has evidence of ascites, pedal edema and mild jaundice but no hepatic encephalopathy or bleeding. I ordered a more complete chronic liver disease workup to rule out other causes of cirrhosis. I will also arrange for abdominal ultrasound and Doppler to rule out hepatoma and to investigate the hypodense nodule in the right lobe seen on CT scan. As well, we can rule out hepatic/portal vein thrombosis. With regards to her ascites, I've asked her urine lytes to assess for compliance with her low sodium diet. If her renal function is normal then we may increase her diuretics. She is also interested in possible paracentesis but would like to see if medical therapy works first. ADDENDUM: K is low and Cr ok. Will increase aldactone to 75mg bid and keep lasix at 40mg daily. I will see her in follow-up in 2 weeks. At that time, we will also arrange for upper endoscopy for evaluation of her history of Chen's esophagus and possible esophageal varices for consideration of banding. On a separate note, she did have evidence of right colonic thickening on CT but apparently had a normal colonoscopy 2 months ago. The risks, benefits and alternatives of the procedure were explained to the patient/responsible accompanying adult. This includes, but is not limited to, bleeding, infection and a 1:1000 risk of perforation. There is also a small risk of allergic reaction(s) due to sedatives, need for hospitalization, need for transfusions, need for surgery, and likelihood of missing a polyp or neoplastic lesion. The patient understands this and is amenable to proceeding. Thank you for involving me in the care of this patient. Stewart Siddiqi MD MPH [facility] Referring Provider: GABRIELA DING [[id number]] Allergies As of Date: 12/03/2017 Noted Allergy Reaction ROCEPHIN (CEFTRIAXONE SODIUM) 06/18/2017 10 - Anaphylaxis Date Reviewed: 12/03/2017 Reviewed by: Stephanie Hussein) Regine - Fully Assessed Reason for Visit: New Patient Evaluation [154] Primary Visit Diagnosis:Alcoholic cirrhosis of liver with ascites (HCC) [K70.31] Order(s):CBC + DIFF [SQCBCDIF] Order #: [id number] FUTURE COMP METABOLIC PANEL [SQCMP] Order #: [id number] FUTURE PROTHROMBIN TIME/PT [SQPT] Order #: [id number] FUTURE FERRITIN BLD [SQFERR] Order #: [id number] FUTURE LIPASE BLD [SQLIPA] Order #: [id number] FUTURE TSH BLD [SQTSH] Order #: [id number] FUTURE TRANSGLUTAMINASE ABS [SQTGLGMA] Order #: [id number] FUTURE IGA BLD [SQIGA] Order #: [id number] FUTURE IGM [SQIGM] Order #: [id number] FUTURE IGG [SQIGG] Order #: [id number] FUTURE MTWWR-4-XOGIUFVOQ BL [SQAAT] Order #: [id number] FUTURE LIVER FIBROSIS AND ACTIVITY [SQLIVFIB] Order #: [id number] FUTURE SMOOTH MUSCLE AB SCR [SQSMTHS] Order #: [id number] FUTURE MITOCHONDRIAL AB PNL SCRN [SQMITO] Order #: [id number] FUTURE DENNIS BY IFA WITH REFLEX [SQANAIFR] Order #: [id number] FUTURE ANTI NEUTRO CYTO AB [SQANCA] Order #: [id number] FUTURE HGB A1C [VFHAM5Z] Order #: [id number] FUTURE LIPID PANEL BASIC [SQLIPB] Order #: [id number] FUTURE CERULOPLASMIN BLD [SQCERULO] Order #: [id number] FUTURE HEP B CORE AB TOTAL [SQAHBCOT] Order #: [id number] FUTURE HEP B SURF AB QUANT [SQAHBSQ] Order #: [id number] FUTURE HEP B SURF AG SCRN [SQHBSAG] Order #: [id number] FUTURE HEP C AB IA W/CONF SCRN [SMWZOM5N] Order #: [id number] FUTURE US ABD RT UPPER QUADRANT [[id number]] Order #: [id number] FUTURE US DOPPLER COMPLETE [[id number]] Order #: [id number] FUTURE SODIUM RANDOM URINE [SQUNAR] Order #: [id number] FUTURE POTASSIUM RANDOM UR [SQUKR] Order #: [id number] FUTURE Prescriptions as of 12/03/2017 Sig: ACIDOPHILUS 100 MILLION CELL-* Take by mouth. DULOXETINE 30 MG CAPSULE,JAZMINE* Take 30 mg by mouth once guerda* LACTULOSE 20 GRAM/30 ML ORAL * Take 20 g by mouth three time* NALTREXONE 50 MG TABLET Take 50 mg by mouth once guerda* PROGESTERONE MICRONIZED 200 M* Take 200 mg by mouth once cornell* ARMOUR THYROID ORAL Take 50 mg by mouth once guerda* OMEPRAZOLE MAGNESIUM 20 MG TA* Take 20 mg by mouth once guerda* VITAMIN D2 50,000 UNIT CAPSULE HYDROCHLOROTHIAZIDE 25 MG TAB* Take 25 mg by mouth once guerda* METOPROLOL SUCCINATE ER 50 MG* Take 50 mg by mouth once guerda* Problem List As Of Date 12/03/2017 Noted Resolved Routine cervical smear [Z12.4] INVALID FOR* Visit for gynecologic examination [Z01.419] INVALID FOR* Encounter for screening mammogram for malignant*INVALID FOR* Screening for condition [Z13.9] INVALID FOR* Postmenopausal bleeding [N95.0] INVALID FOR* Post-menopausal bleeding [N95.0] INVALID FOR*10/03/2017 More... Post-operative state [Z98.890] INVALID FOR* Chronic endometritis [N71.1] INVALID FOR* Letter Text Encounter Status:Closed by STEWART SIDDIQI MD on 12/03/17 CBC W/DIFF, AUTOMATED Collected: 11/27/2017 Status: F Source: [place] 3:54 PM [facility] [place] REPOSITORY TYPE CODE TESTS RESULT OUT OF RANGE REFERENCE UNITS LAB L100.1000 4.4-11.0 K/mm3 Normal WBC 7.1 LAB L100.1200 4.2-5.4 M/mm3 Low RBC 3.06 LAB L100.1300 12.0-15.0 g/dl Low HGB 9.6 LAB L100.1400 37-47 % Low HCT 30.1 LAB L100.1500 81-99 fL Normal MCV 98.4 LAB L100.1600 27.0-32.0 pg Normal MCH 31.4 LAB L100.1700 32-36 g/gl Low MCHC 31.9 LAB L100.1810 11.6-14.6 % High RDW CV 18.4 LAB L100.1820 35.1-43.9 fl High RDW SD 66.2 LAB L100.1900 150-450 K/mm3 Low PLT 108 LAB L100.2000 6.2-12.0 fl Normal MPV 11.3 LAB L100.2100 47-70 % Normal NEUT% 59.3 LAB L100.2200 19-41 % Normal LY% 25.0 LAB L100.2300 0-10 % High MONO% 13.1 LAB L100.2400 0-5 % Normal EO% 1.7 LAB L100.2500 0-1 % Normal BASO% 0.6 LAB L100.2550 0.0-0.9 % Normal IM GRAN % 0.300 Result Comment: IG% - Immature Granulocytes (promyelocytes, myelocytes and metamyelocytes) > 1% indicates that a LEFT SHIFT is Present. LAB L100.2620 2.0-7.7 X10 3/uL Absolute Normal Neut 4.2 LAB L100.2720 0.83-4.51 X10 3/ul Absolute Normal Lymph 1.78 LAB L100.4500 SMEAR Normal COMMENT SCANNED LAB L100.7300 ANISO Normal 2+ LAB L100.7700 Normal MICROCYTES 1+ LAB L100.7800 Normal MACROCYTE 1+ Performed By: #### L100.0100 #### [facility] [address] [place], [place], [address] PROGRESS Observed: 10/31/2017 Status: COMPLETED Source: [place] 11:59 AM CLINIC OTHER CAMPUS REPOSITORY HNO ID: [id number] Author: Yanelis Vanessa Service: (none) Author Type: Physician Type: Progress Notes Filed: 10/31/2017 12:01 PM Note Text: Daysi Flores is an 62 year old woman who presents for postmenopausal bleeding follow up. She is 4 weeks s/p DANDC. She reports bleeding and cramping has improved in the past 24 hours. She has been on Augmentin for 10 days. LMP: No LMP recorded. Patient is postmenopausal. Dysmenorrhea:none. Cyclic symptoms include none. Sexually active? YES Contraception: none Sexual dysfunction: none PAST MEDICAL HISTORY Diagnosis Date - Alcohol abuse Pt uses alcohol but is on Naltrexone to limit her intake; positive hx of cirrhosis - Arthritis - Chen's esophagus - Borderline diabetes managing with diet - Cirrhosis (HCC) secondary to ETOH abuse; recent LFTs from 08-21-17 were WNL - Drug abuse, marijuana Pt smokes daily marijuna - GERD (gastroesophageal reflux disease) - Hypertension - Irritable bowel disease - Osteoarthritis - Panic attacks PAST SURGICAL HISTORY Procedure Laterality Date - APPENDECTOMY - SECTION HX - SECTION HX - DANCA 10/03/2017 HYSTEROSCOPY, D AND C WITH MYOSURE - LIPOSUCTION, STOMACH - SINUS SURGERY HX - TONSILLECTOMY AND ADENOIDECTOMY HX FAMILY HISTORY Problem Relation Age of Onset - Adopted: Yes - other (COPD, PVD) Mother Social History Marital status: Spouse name: Years of education: Number of children: Social History Main Topics Smoking status: Current Some Day Smoker Packs/day: 0.20 Years: 40.00 Smokeless tobacco: Never Used Alcohol use: Yes Comment: 2-3 drinks weekly Drug use: Yes Types: Marijuana Comment: daily marijuana use Sexual activity: Yes Partners with: Male MEDICATIONS: hydroCHLOROthiazide (HYDRODIURIL, ESIDRIX) 25 mg tablet Take 25 mg by mouth once daily. metoprolol succinate ER (TOPROL XL) 50 mg 24 hr tablet Take 50 mg by mouth once daily. naltrexone (TREXAN) 50 mg tablet Take 50 mg by mouth once daily. progesterone micronized (PROMETRIUM) 200 mg capsule Take 200 mg by mouth once daily. thyroid,pork (ARMOUR THYROID ORAL) Take 50 mg by mouth once daily. Omeprazole Magnesium (PRILOSEC OTC) 20 mg tablet Take 20 mg by mouth once daily. amoxicillin-clavulanic acid (AUGMENTIN) 875-125 mg per tablet Take 1 tablet by mouth twice daily for 10 days. fluconazole (DIFLUCAN) 150 mg tablet Take 1 tablet by mouth one time only for 1 dose. VITAMIN D 50,000 unit capsule ALLERGIES:Rocephin [Ceftriaxone Sodium] Hormone replacement: never Hx of abnormal pap? No Regular self-breast exam? Yes History of abnormal mammogram? No REVIEW OF SYSTEMS: GENERAL:Denies fever, chills, night sweats, or changes in weight. DERMATOLOGIC: Denies any new skin conditions, rashes or changing moles. EYES: Denies recent visual changes. ENT: Denies hearing loss or tinnitus. RESPIRATORY: Denies any cough, dyspnea, or wheezing. CARDIOVASCULAR:Denies any chest pain with exertion or at rest, palpitations, syncope, shortness of breath or edema. BREASTS: Denies any breast lumps, tenderness, dimpling, skin changes, or nipple discharge. GASTROINTESTINAL: Denies any nausea, vomiting, or abdominal pain. , Denies heartburn., Denies any change in bowel habits. GENITOURINARY: Denies urinary frequency, dysuria, hematuria, nocturia, incontinence. and Reports abnormal vaginal bleeding and cramping has improved after 10 days of PO Augmentin COURIER: Denies any abnormal vaginal discharge, irregular bleeding, vaginal dryness, dypareunia, or change in libido MUSCULOSKELETAL: Denies any joint swelling, crepitus, or loss of range of motion., Denies back pain., Denies joint pain. NEURO:Denies any headaches, tremors, dizziness, vertigo, memory loss, confusion., Denies weakness, numbness or tingling. PSYCHIATRIC: Denies any anxiety or depression. HEMATOLOGIC/LYMPHATIC/IMMUNOLOGIC: Denies anemia, bruising, bleeding abnormalities. ENDOCRINE: Denies any heat or cold intolerance, polyuria, polyphasia or polydipsia. OBJECTIVE: GENERAL APPEARANCE: cooperative, in no acute distress, alert SKIN:Color normal, Vascularity normal, No evidence of bleeding or bruising, No lesions noted, No edema, Temperature normal, Texture normal, Mobility and turgor normal, Nails normal without clubbing NECK: Supple, no adenopathy; thyroid symmetric, normal size, no bruits BREASTS: breasts symmetric, no dominant or suspicious mass, no skin or nipple changes, no axillary adenopathy HEART:Normal PMI, Regular rate and rhythm, Normal heart sounds, S1 and S2 and No murmurs. ABDOMEN: soft, non-tender, no masses, no hepatosplenomegaly and no lymphadenopathy EXTREMITIES: No skin discoloration, No edema and Normal pulses bilaterally. PELVIC EXAM : deferred per patient request RECTAL EXAM:deferred PATIENT EDUCATION:Women's Health counselling done. ASSESSMENT/PLAN: 1. Chronic endometritis - ICD9: 615.1, ICD10: N71.1 (primary diagnosis) - Improving, but still mildly symptomatic - I will continue the antibiotics for another 10 days 2. Postmenopausal bleeding - ICD9: 627.1, ICD10: N95.0 - Resolved Yanelis Vanessa MD CNOV Observed: 10/31/2017 Status: COMPLETED Source: [place] 11:30 AM CLINIC OTHER CAMPUS REPOSITORY Office Visit ([facility]) DAYSI HOROWITZ ([id number]) 1955 F Date Time Provider Department 10/31/17 11:30 AM YANELIS VANESSA AGGYNBM[facility] During your visit today, we recorded the following information about you: Weight Height 70.3 kg 1.626 m Yanelis Vanessa MD 10/31/2017 12:01 PM Signed Daysi Flores is an 62 year old woman who presents for postmenopausal bleeding follow up. She is 4 weeks s/p DANDC. She reports bleeding and cramping has improved in the past 24 hours. She has been on Augmentin for 10 days. LMP: No LMP recorded. Patient is postmenopausal. Dysmenorrhea:none. Cyclic symptoms include none. Sexually active? YES Contraception: none Sexual dysfunction: none PAST MEDICAL HISTORY Diagnosis Date - Alcohol abuse Pt uses alcohol but is on Naltrexone to limit her intake; positive hx of cirrhosis - Arthritis - Chen's esophagus - Borderline diabetes managing with diet - Cirrhosis (HCC) secondary to ETOH abuse; recent LFTs from 08-21-17 were WNL - Drug abuse, marijuana Pt smokes daily marijuna - GERD (gastroesophageal reflux disease) - Hypertension - Irritable bowel disease - Osteoarthritis - Panic attacks PAST SURGICAL HISTORY Procedure Laterality Date - APPENDECTOMY - SECTION HX - SECTION HX - DANDC 10/03/2017 HYSTEROSCOPY, D AND C WITH MYOSURE - LIPOSUCTION, STOMACH - SINUS SURGERY HX - TONSILLECTOMY AND ADENOIDECTOMY HX FAMILY HISTORY Problem Relation Age of Onset - Adopted: Yes - other (COPD, PVD) Mother Social History Marital status: Spouse name: Years of education: Number of children: Social History Main Topics Smoking status: Current Some Day Smoker Packs/day: 0.20 Years: 40.00 Smokeless tobacco: Never Used Alcohol use: Yes Comment: 2-3 drinks weekly Drug use: Yes Types: Marijuana Comment: daily marijuana use Sexual activity: Yes Partners with: Male MEDICATIONS: hydroCHLOROthiazide (HYDRODIURIL, ESIDRIX) 25 mg tablet Take 25 mg by mouth once daily. metoprolol succinate ER (TOPROL XL) 50 mg 24 hr tablet Take 50 mg by mouth once daily. naltrexone (TREXAN) 50 mg tablet Take 50 mg by mouth once daily. progesterone micronized (PROMETRIUM) 200 mg capsule Take 200 mg by mouth once daily. thyroid,pork (ARMOUR THYROID ORAL) Take 50 mg by mouth once daily. Omeprazole Magnesium (PRILOSEC OTC) 20 mg tablet Take 20 mg by mouth once daily. amoxicillin-clavulanic acid (AUGMENTIN) 875-125 mg per tablet Take 1 tablet by mouth twice daily for 10 days. fluconazole (DIFLUCAN) 150 mg tablet Take 1 tablet by mouth one time only for 1 dose. VITAMIN D 50,000 unit capsule ALLERGIES:Rocephin [Ceftriaxone Sodium] Hormone replacement: never Hx of abnormal pap? No Regular self-breast exam? Yes History of abnormal mammogram? No REVIEW OF SYSTEMS: GENERAL:Denies fever, chills, night sweats, or changes in weight. DERMATOLOGIC: Denies any new skin conditions, rashes or changing moles. EYES: Denies recent visual changes. ENT: Denies hearing loss or tinnitus. RESPIRATORY: Denies any cough, dyspnea, or wheezing. CARDIOVASCULAR:Denies any chest pain with exertion or at rest, palpitations, syncope, shortness of breath or edema. BREASTS: Denies any breast lumps, tenderness, dimpling, skin changes, or nipple discharge. GASTROINTESTINAL: Denies any nausea, vomiting, or abdominal pain. , Denies heartburn., Denies any change in bowel habits. GENITOURINARY: Denies urinary frequency, dysuria, hematuria, nocturia, incontinence. and Reports abnormal vaginal bleeding and cramping has improved after 10 days of PO Augmentin COURIER: Denies any abnormal vaginal discharge, irregular bleeding, vaginal dryness, dypareunia, or change in libido MUSCULOSKELETAL: Denies any joint swelling, crepitus, or loss of range of motion., Denies back pain., Denies joint pain. NEURO:Denies any headaches, tremors, dizziness, vertigo, memory loss, confusion., Denies weakness, numbness or tingling. PSYCHIATRIC: Denies any anxiety or depression. HEMATOLOGIC/LYMPHATIC/IMMUNOLOGIC: Denies anemia, bruising, bleeding abnormalities. ENDOCRINE: Denies any heat or cold intolerance, polyuria, polyphasia or polydipsia. OBJECTIVE: GENERAL APPEARANCE: cooperative, in no acute distress, alert SKIN:Color normal, Vascularity normal, No evidence of bleeding or bruising, No lesions noted, No edema, Temperature normal, Texture normal, Mobility and turgor normal, Nails normal without clubbing NECK: Supple, no adenopathy; thyroid symmetric, normal size, no bruits BREASTS: breasts symmetric, no dominant or suspicious mass, no skin or nipple changes, no axillary adenopathy HEART:Normal PMI, Regular rate and rhythm, Normal heart sounds, S1 and S2 and No murmurs. ABDOMEN: soft, non-tender, no masses, no hepatosplenomegaly and no lymphadenopathy EXTREMITIES: No skin discoloration, No edema and Normal pulses bilaterally. PELVIC EXAM : deferred per patient request RECTAL EXAM:deferred PATIENT EDUCATION:Women's Health counselling done. ASSESSMENT/PLAN: 1. Chronic endometritis - ICD9: 615.1, ICD10: N71.1 (primary diagnosis) - Improving, but still mildly symptomatic - I will continue the antibiotics for another 10 days 2. Postmenopausal bleeding - ICD9: 627.1, ICD10: N95.0 - Resolved Yanelis Vanessa MD Referring Provider: SELF [[id number]] Allergies As of Date: 10/31/2017 Noted Allergy Reaction ROCEPHIN (CEFTRIAXONE SODIUM) 06/18/2017 10 - Anaphylaxis Date Reviewed: 10/31/2017 Reviewed by: Yanelis Vanessa - Fully Assessed Reason for Visit: Follow Up [171] Cmt: infection Primary Visit Diagnosis:Chronic endometritis [N71.1] Other Visit Diagnosis:Postmenopausal bleeding [N95.0] Order(s):amoxicillin-clavulanic acid (AUGMENTIN) 875-125 mg per tabletTake 1 tablet by mouth twice daily for 10 days.Disp: 20 tabletRfl: 0 fluconazole (DIFLUCAN) 150 mg tabletTake 1 tablet by mouth one time only for 1 dose.Disp: 1 tabletRfl: 3 Prescriptions as of 10/31/2017 Sig: HYDROCHLOROTHIAZIDE 25 MG TAB* Take 25 mg by mouth once guerda* METOPROLOL SUCCINATE ER 50 MG* Take 50 mg by mouth once guerda* NALTREXONE 50 MG TABLET Take 50 mg by mouth once guerda* PROGESTERONE MICRONIZED 200 M* Take 200 mg by mouth once cornell* ARMOUR THYROID ORAL Take 50 mg by mouth once guerda* OMEPRAZOLE MAGNESIUM 20 MG TA* Take 20 mg by mouth once guerda* AMOXICILLIN 875 MG-POTASSIUM * Take 1 tablet by mouth twice * FLUCONAZOLE 150 MG TABLET Take 1 tablet by mouth one ti* VITAMIN D2 50,000 UNIT CAPSULE Problem List As Of Date 10/31/2017 Noted Resolved Routine cervical smear [Z12.4] INVALID FOR* Visit for gynecologic examination [Z01.419] INVALID FOR* Encounter for screening mammogram for malignant*INVALID FOR* Screening for condition [Z13.9] INVALID FOR* Postmenopausal bleeding [N95.0] INVALID FOR* Post-menopausal bleeding [N95.0] INVALID FOR*10/03/2017 More... Post-operative state [Z98.890] INVALID FOR* Chronic endometritis [N71.1] INVALID FOR* Prescriptions ordered this encounter Disp Refills Start End AMOXICILLIN 875 MG-POTASSIUM CLAVULA* 20 t* 0 10/31/2017 11/10/2017 Route: ORAL Sig: Take 1 tablet by mouth twice daily for 10 days. FLUCONAZOLE 150 MG TABLET 1 ta* 3 10/31/2017 10/31/2017 Route: ORAL Sig: Take 1 tablet by mouth one time only for 1 dose. Medications Discontinued During This Encounter amoxicillin-clavulanic acid (AUGMENT* 20 t* 0 10/20/2017 10/31/2017 Route: ORAL Sig: Take 1 tablet by mouth twice daily for 10 days. Disc: Reason for discontinue is not on file. Level of Service: EST PATIENT VISIT LEVEL 3 [[id number]] Disposition: Return if symptoms worsen or fail to improve. Follow-up and Disposition History Recorded Encounter Status:Closed by YANELIS VANESSA MD on 10/31/17 PROGRESS Observed: 10/24/2017 Status: COMPLETED Source: [place] 11:52 AM CLINIC OTHER CAMPUS REPOSITORY HNO ID: [id number] Author: Yanelis Vanessa Service: (none) Author Type: Physician Type: Progress Notes Filed: 10/24/2017 11:57 AM Note Text: Daysi Flores is an 62 year old woman who presents for postmenopausal bleeding follow up. She is 3 weeks s/p DANDC. She reports bleeding and cramping has improved in the past 24 hours. She has been on Augmentin for 72 hours. LMP: No LMP recorded. Patient is postmenopausal. Dysmenorrhea:none. Cyclic symptoms include none. Sexually active? YES Contraception: none Sexual dysfunction: none PAST MEDICAL HISTORY Diagnosis Date - Alcohol abuse Pt uses alcohol but is on Naltrexone to limit her intake; positive hx of cirrhosis - Arthritis - Chen's esophagus - Borderline diabetes managing with diet - Cirrhosis (HCC) secondary to ETOH abuse; recent LFTs from 08-21-17 were WNL - Drug abuse, marijuana Pt smokes daily marijuna - GERD (gastroesophageal reflux disease) - Hypertension - Irritable bowel disease - Osteoarthritis - Panic attacks PAST SURGICAL HISTORY Procedure Laterality Date - APPENDECTOMY - SECTION HX - SECTION HX - DANDC 10/03/2017 HYSTEROSCOPY, D AND C WITH MYOSURE - LIPOSUCTION, STOMACH - SINUS SURGERY HX - TONSILLECTOMY AND ADENOIDECTOMY HX FAMILY HISTORY Problem Relation Age of Onset - Adopted: Yes - other (COPD, PVD) Mother Social History Marital status: Spouse name: Years of education: Number of children: Social History Main Topics Smoking status: Current Some Day Smoker Packs/day: 0.20 Years: 40.00 Smokeless tobacco: Never Used Alcohol use: Yes Comment: 2-3 drinks weekly Drug use: Yes Types: Marijuana Comment: daily marijuana use Sexual activity: Yes Partners with: Male MEDICATIONS: amoxicillin-clavulanic acid (AUGMENTIN) 875-125 mg per tablet Take 1 tablet by mouth twice daily for 10 days. hydroCHLOROthiazide (HYDRODIURIL, ESIDRIX) 25 mg tablet Take 25 mg by mouth once daily. metoprolol succinate ER (TOPROL XL) 50 mg 24 hr tablet Take 50 mg by mouth once daily. naltrexone (TREXAN) 50 mg tablet Take 50 mg by mouth once daily. progesterone micronized (PROMETRIUM) 200 mg capsule Take 200 mg by mouth once daily. thyroid,pork (ARMOUR THYROID ORAL) Take 50 mg by mouth once daily. Omeprazole Magnesium (PRILOSEC OTC) 20 mg tablet Take 20 mg by mouth once daily. VITAMIN D 50,000 unit capsule ALLERGIES:Rocephin [Ceftriaxone Sodium] Hormone replacement: never Hx of abnormal pap? No Regular self-breast exam? Yes History of abnormal mammogram? No REVIEW OF SYSTEMS: GENERAL:Denies fever, chills, night sweats, or changes in weight. DERMATOLOGIC: Denies any new skin conditions, rashes or changing moles. EYES: Denies recent visual changes. ENT: Denies hearing loss or tinnitus. RESPIRATORY: Denies any cough, dyspnea, or wheezing. CARDIOVASCULAR:Denies any chest pain with exertion or at rest, palpitations, syncope, shortness of breath or edema. BREASTS: Denies any breast lumps, tenderness, dimpling, skin changes, or nipple discharge. GASTROINTESTINAL: Denies any nausea, vomiting, or abdominal pain. , Denies heartburn., Denies any change in bowel habits. GENITOURINARY: Denies urinary frequency, dysuria, hematuria, nocturia, incontinence. and Reports abnormal vaginal bleeding and cramping has improved after 3 days of PO Augmentin COURIER: Denies any abnormal vaginal discharge, irregular bleeding, vaginal dryness, dypareunia, or change in libido MUSCULOSKELETAL: Denies any joint swelling, crepitus, or loss of range of motion., Denies back pain., Denies joint pain. NEURO:Denies any headaches, tremors, dizziness, vertigo, memory loss, confusion., Denies weakness, numbness or tingling. PSYCHIATRIC: Denies any anxiety or depression. HEMATOLOGIC/LYMPHATIC/IMMUNOLOGIC: Denies anemia, bruising, bleeding abnormalities. ENDOCRINE: Denies any heat or cold intolerance, polyuria, polyphasia or polydipsia. OBJECTIVE: GENERAL APPEARANCE: cooperative, in no acute distress, alert SKIN:Color normal, Vascularity normal, No evidence of bleeding or bruising, No lesions noted, No edema, Temperature normal, Texture normal, Mobility and turgor normal, Nails normal without clubbing NECK: Supple, no adenopathy; thyroid symmetric, normal size, no bruits BREASTS: breasts symmetric, no dominant or suspicious mass, no skin or nipple changes, no axillary adenopathy HEART:Normal PMI, Regular rate and rhythm, Normal heart sounds, S1 and S2 and No murmurs. ABDOMEN: soft, non-tender, no masses, no hepatosplenomegaly and no lymphadenopathy EXTREMITIES: No skin discoloration, No edema and Normal pulses bilaterally. PELVIC EXAM : deferred per patient request RECTAL EXAM:deferred PATIENT EDUCATION:Women's Health counselling done. ASSESSMENT/PLAN: 1. Chronic endometritis - ICD9: 615.1, ICD10: N71.1 (primary diagnosis) - There has been some improvement after 72 hours of treatment - I will see her again in 6 days to assess her progress 2. Postmenopausal bleeding - ICD9: 627.1, ICD10: N95.0 - If bleeding does not improve, she wants a hysterectomy Yanelis Vanessa MD CNOV Observed: 10/24/2017 Status: COMPLETED Source: [place] 11:15 AM CLINIC OTHER CAMPUS REPOSITORY Office Visit ([facility]) DAYSI HOROWITZ ([id number]) 1955 F Date Time Provider Department 10/24/17 11:15 AM YANELIS VANESSAG During your visit today, we recorded the following information about you: Blood pressure 142/70 Yanelis Vanessa MD 10/24/2017 11:57 AM Signed Daysi Freiresharon is an 62 year old woman who presents for postmenopausal bleeding follow up. She is 3 weeks s/p DANDC. She reports bleeding and cramping has improved in the past 24 hours. She has been on Augmentin for 72 hours. LMP: No LMP recorded. Patient is postmenopausal. Dysmenorrhea:none. Cyclic symptoms include none. Sexually active? YES Contraception: none Sexual dysfunction: none PAST MEDICAL HISTORY Diagnosis Date - Alcohol abuse Pt uses alcohol but is on Naltrexone to limit her intake; positive hx of cirrhosis - Arthritis - Chen's esophagus - Borderline diabetes managing with diet - Cirrhosis (HCC) secondary to ETOH abuse; recent LFTs from 08-21-17 were WNL - Drug abuse, marijuana Pt smokes daily marijuna - GERD (gastroesophageal reflux disease) - Hypertension - Irritable bowel disease - Osteoarthritis - Panic attacks PAST SURGICAL HISTORY Procedure Laterality Date - APPENDECTOMY - SECTION HX - SECTION HX - DANCA 10/03/2017 HYSTEROSCOPY, D AND C WITH MYOSURE - LIPOSUCTION, STOMACH - SINUS SURGERY HX - TONSILLECTOMY AND ADENOIDECTOMY HX FAMILY HISTORY Problem Relation Age of Onset - Adopted: Yes - other (COPD, PVD) Mother Social History Marital status: Spouse name: Years of education: Number of children: Social History Main Topics Smoking status: Current Some Day Smoker Packs/day: 0.20 Years: 40.00 Smokeless tobacco: Never Used Alcohol use: Yes Comment: 2-3 drinks weekly Drug use: Yes Types: Marijuana Comment: daily marijuana use Sexual activity: Yes Partners with: Male MEDICATIONS: amoxicillin-clavulanic acid (AUGMENTIN) 875-125 mg per tablet Take 1 tablet by mouth twice daily for 10 days. hydroCHLOROthiazide (HYDRODIURIL, ESIDRIX) 25 mg tablet Take 25 mg by mouth once daily. metoprolol succinate ER (TOPROL XL) 50 mg 24 hr tablet Take 50 mg by mouth once daily. naltrexone (TREXAN) 50 mg tablet Take 50 mg by mouth once daily. progesterone micronized (PROMETRIUM) 200 mg capsule Take 200 mg by mouth once daily. thyroid,pork (ARMOUR THYROID ORAL) Take 50 mg by mouth once daily. Omeprazole Magnesium (PRILOSEC OTC) 20 mg tablet Take 20 mg by mouth once daily. VITAMIN D 50,000 unit capsule ALLERGIES:Rocephin [Ceftriaxone Sodium] Hormone replacement: never Hx of abnormal pap? No Regular self-breast exam? Yes History of abnormal mammogram? No REVIEW OF SYSTEMS: GENERAL:Denies fever, chills, night sweats, or changes in weight. DERMATOLOGIC: Denies any new skin conditions, rashes or changing moles. EYES: Denies recent visual changes. ENT: Denies hearing loss or tinnitus. RESPIRATORY: Denies any cough, dyspnea, or wheezing. CARDIOVASCULAR:Denies any chest pain with exertion or at rest, palpitations, syncope, shortness of breath or edema. BREASTS: Denies any breast lumps, tenderness, dimpling, skin changes, or nipple discharge. GASTROINTESTINAL: Denies any nausea, vomiting, or abdominal pain. , Denies heartburn., Denies any change in bowel habits. GENITOURINARY: Denies urinary frequency, dysuria, hematuria, nocturia, incontinence. and Reports abnormal vaginal bleeding and cramping has improved after 3 days of PO Augmentin COURIER: Denies any abnormal vaginal discharge, irregular bleeding, vaginal dryness, dypareunia, or change in libido MUSCULOSKELETAL: Denies any joint swelling, crepitus, or loss of range of motion., Denies back pain., Denies joint pain. NEURO:Denies any headaches, tremors, dizziness, vertigo, memory loss, confusion., Denies weakness, numbness or tingling. PSYCHIATRIC: Denies any anxiety or depression. HEMATOLOGIC/LYMPHATIC/IMMUNOLOGIC: Denies anemia, bruising, bleeding abnormalities. ENDOCRINE: Denies any heat or cold intolerance, polyuria, polyphasia or polydipsia. OBJECTIVE: GENERAL APPEARANCE: cooperative, in no acute distress, alert SKIN:Color normal, Vascularity normal, No evidence of bleeding or bruising, No lesions noted, No edema, Temperature normal, Texture normal, Mobility and turgor normal, Nails normal without clubbing NECK: Supple, no adenopathy; thyroid symmetric, normal size, no bruits BREASTS: breasts symmetric, no dominant or suspicious mass, no skin or nipple changes, no axillary adenopathy HEART:Normal PMI, Regular rate and rhythm, Normal heart sounds, S1 and S2 and No murmurs. ABDOMEN: soft, non-tender, no masses, no hepatosplenomegaly and no lymphadenopathy EXTREMITIES: No skin discoloration, No edema and Normal pulses bilaterally. PELVIC EXAM : deferred per patient request RECTAL EXAM:deferred PATIENT EDUCATION:Women's Health counselling done. ASSESSMENT/PLAN: 1. Chronic endometritis - ICD9: 615.1, ICD10: N71.1 (primary diagnosis) - There has been some improvement after 72 hours of treatment - I will see her again in 6 days to assess her progress 2. Postmenopausal bleeding - ICD9: 627.1, ICD10: N95.0 - If bleeding does not improve, she wants a hysterectomy Yanelis Vanessa MD Referring Provider: SELF [[id number]] Allergies As of Date: 10/24/2017 Noted Allergy Reaction ROCEPHIN (CEFTRIAXONE SODIUM) 06/18/2017 10 - Anaphylaxis Date Reviewed: 10/24/2017 Reviewed by: Yanelis Vanessa - Fully Assessed Reason for Visit: Recheck [92] Primary Visit Diagnosis:Chronic endometritis [N71.1] Other Visit Diagnosis:Postmenopausal bleeding [N95.0] Prescriptions as of 10/24/2017 Sig: AMOXICILLIN 875 MG-POTASSIUM * Take 1 tablet by mouth twice * HYDROCHLOROTHIAZIDE 25 MG TAB* Take 25 mg by mouth once guerda* METOPROLOL SUCCINATE ER 50 MG* Take 50 mg by mouth once guerda* NALTREXONE 50 MG TABLET Take 50 mg by mouth once guerda* PROGESTERONE MICRONIZED 200 M* Take 200 mg by mouth once cornell* ARMOUR THYROID ORAL Take 50 mg by mouth once guerda* OMEPRAZOLE MAGNESIUM 20 MG TA* Take 20 mg by mouth once guerda* VITAMIN D2 50,000 UNIT CAPSULE Problem List As Of Date 10/24/2017 Noted Resolved Routine cervical smear [Z12.4] INVALID FOR* Visit for gynecologic examination [Z01.419] INVALID FOR* Encounter for screening mammogram for malignant*INVALID FOR* Screening for condition [Z13.9] INVALID FOR* Postmenopausal bleeding [N95.0] INVALID FOR* Post-menopausal bleeding [N95.0] INVALID FOR*10/03/2017 More... Post-operative state [Z98.890] INVALID FOR* Chronic endometritis [N71.1] INVALID FOR* Level of Service: RUST PATIENT VISIT LEVEL 3 [[id number]] Disposition: Return in about 1 week (around 10/31/2017). Follow-up and Disposition History Recorded Encounter Status:Closed by YANELIS VANESSA MD on 10/24/17 CNOV Observed: 10/20/2017 Status: COMPLETED Source: [place] 4:15 PM CLINIC OTHER CAMPUS REPOSITORY Office Visit ([facility]) DAYSI HOROWITZ ([id number]) 1955 F Date Time Provider Department 10/20/17 4:15 PM YANELIS VANESSA During your visit today, we recorded the following information about you: Blood pressure 134/76 Yanelis Vanessa MD 10/20/2017 4:24 PM Signed Daysi Flores is an 62 year old woman who presents for postmenopausal bleeding follow up. She is s/p DANDC. She reports bleeding and cramping. LMP: No LMP recorded. Patient is postmenopausal. Dysmenorrhea:none. Cyclic symptoms include none. Sexually active? YES Contraception: none Sexual dysfunction: none PAST MEDICAL HISTORY Diagnosis Date - Alcohol abuse Pt uses alcohol but is on Naltrexone to limit her intake; positive hx of cirrhosis - Arthritis - Chen's esophagus - Borderline diabetes managing with diet - Cirrhosis (HCC) secondary to ETOH abuse; recent LFTs from 08-21-17 were WNL - Drug abuse, marijuana Pt smokes daily marijuna - GERD (gastroesophageal reflux disease) - Hypertension - Irritable bowel disease - Osteoarthritis - Panic attacks PAST SURGICAL HISTORY Procedure Laterality Date - APPENDECTOMY - SECTION HX - SECTION HX - DANDC 10/03/2017 HYSTEROSCOPY, D AND C WITH MYOSURE - LIPOSUCTION, STOMACH - SINUS SURGERY HX - TONSILLECTOMY AND ADENOIDECTOMY HX FAMILY HISTORY Problem Relation Age of Onset - Adopted: Yes - other (COPD, PVD) Mother Social History Marital status: Spouse name: Years of education: Number of children: Social History Main Topics Smoking status: Current Some Day Smoker Packs/day: 0.20 Years: 40.00 Smokeless tobacco: Never Used Alcohol use: Yes Comment: 2-3 drinks weekly Drug use: Yes Types: Marijuana Comment: daily marijuana use Sexual activity: Yes Partners with: Male MEDICATIONS: hydroCHLOROthiazide (HYDRODIURIL, ESIDRIX) 25 mg tablet, Take 25 mg by mouth once daily. metoprolol succinate ER (TOPROL XL) 50 mg 24 hr tablet, Take 50 mg by mouth once daily. naltrexone (TREXAN) 50 mg tablet, Take 50 mg by mouth once daily. progesterone micronized (PROMETRIUM) 200 mg capsule, Take 200 mg by mouth once daily. thyroid,pork (ARMOUR THYROID ORAL), Take 50 mg by mouth once daily. Omeprazole Magnesium (PRILOSEC OTC) 20 mg tablet, Take 20 mg by mouth once daily. VITAMIN D 50,000 unit capsule, ALLERGIES:Rocephin [Ceftriaxone Sodium] Hormone replacement: never Hx of abnormal pap? No Regular self-breast exam? Yes History of abnormal mammogram? No REVIEW OF SYSTEMS: GENERAL:Denies fever, chills, night sweats, or changes in weight. DERMATOLOGIC: Denies any new skin conditions, rashes or changing moles. EYES: Denies recent visual changes. ENT: Denies hearing loss or tinnitus. RESPIRATORY: Denies any cough, dyspnea, or wheezing. CARDIOVASCULAR:Denies any chest pain with exertion or at rest, palpitations, syncope, shortness of breath or edema. BREASTS: Denies any breast lumps, tenderness, dimpling, skin changes, or nipple discharge. GASTROINTESTINAL: Denies any nausea, vomiting, or abdominal pain. , Denies heartburn., Denies any change in bowel habits. GENITOURINARY: Denies urinary frequency, dysuria, hematuria, nocturia, incontinence. and Reports abnormal vaginal bleeding and cramping 14 days s/p DANDC COURIER: Denies any abnormal vaginal discharge, irregular bleeding, vaginal dryness, dypareunia, or change in libido MUSCULOSKELETAL: Denies any joint swelling, crepitus, or loss of range of motion., Denies back pain., Denies joint pain. NEURO:Denies any headaches, tremors, dizziness, vertigo, memory loss, confusion., Denies weakness, numbness or tingling. PSYCHIATRIC: Denies any anxiety or depression. HEMATOLOGIC/LYMPHATIC/IMMUNOLOGIC: Denies anemia, bruising, bleeding abnormalities. ENDOCRINE: Denies any heat or cold intolerance, polyuria, polyphasia or polydipsia. OBJECTIVE: GENERAL APPEARANCE: cooperative, in no acute distress, alert SKIN:Color normal, Vascularity normal, No evidence of bleeding or bruising, No lesions noted, No edema, Temperature normal, Texture normal, Mobility and turgor normal, Nails normal without clubbing NECK: Supple, no adenopathy; thyroid symmetric, normal size, no bruits BREASTS: breasts symmetric, no dominant or suspicious mass, no skin or nipple changes, no axillary adenopathy HEART:Normal PMI, Regular rate and rhythm, Normal heart sounds, S1 and S2 and No murmurs. ABDOMEN: soft, non-tender, no masses, no hepatosplenomegaly and no lymphadenopathy EXTREMITIES: No skin discoloration, No edema and Normal pulses bilaterally. PELVIC EXAM : External genitalia, cervix and vagina normal, bimanual exam shows mild CMT and mild uterine tenderness RECTAL EXAM:deferred PATIENT EDUCATION:Women's Health counselling done. ASSESSMENT/PLAN: 1. Postmenopausal bleeding - ICD9: 627.1, ICD10: N95.0 (primary diagnosis) - Pathology is normal 2. Post-operative state - ICD9: V45.89, ICD10: Z98.890 - Still bleeding and pain 3. Chronic endometritis - ICD9: 615.1, ICD10: N71.1 - I will start her on Augmentin 875 mg BID - Recheck in 4 days Yanelis Vanessa MD Referring Provider: SELF [200] Allergies As of Date: 10/20/2017 Noted Allergy Reaction ROCEPHIN (CEFTRIAXONE SODIUM) 06/18/2017 10 - Anaphylaxis Date Reviewed: 10/20/2017 Reviewed by: Yanelis Vanessa - Fully Assessed Reason for Visit: Post-Op Visit [1236] Cmt: HYSTEROSCOPY, D AND C WITH MYOSURE Reason For Visit History Recorded Primary Visit Diagnosis:Postmenopausal bleeding [N95.0] Other Visit Diagnoses:Post-operative state [Z98.890] Chronic endometritis [N71.1] Order(s):amoxicillin-clavulanic acid (AUGMENTIN) 875-125 mg per tabletTake 1 tablet by mouth twice daily for 10 days.Disp: 20 tabletRfl: 0 Prescriptions as of 10/20/2017 Sig: HYDROCHLOROTHIAZIDE 25 MG TAB* Take 25 mg by mouth once guerda* METOPROLOL SUCCINATE ER 50 MG* Take 50 mg by mouth once guerda* NALTREXONE 50 MG TABLET Take 50 mg by mouth once guerda* PROGESTERONE MICRONIZED 200 M* Take 200 mg by mouth once cornell* ARMOUR THYROID ORAL Take 50 mg by mouth once guerda* OMEPRAZOLE MAGNESIUM 20 MG TA* Take 20 mg by mouth once guerda* AMOXICILLIN 875 MG-POTASSIUM * Take 1 tablet by mouth twice * VITAMIN D2 50,000 UNIT CAPSULE Problem List As Of Date 10/20/2017 Noted Resolved Routine cervical smear [Z12.4] INVALID FOR* Visit for gynecologic examination [Z01.419] INVALID FOR* Encounter for screening mammogram for malignant*INVALID FOR* Screening for condition [Z13.9] INVALID FOR* Postmenopausal bleeding [N95.0] INVALID FOR* Post-menopausal bleeding [N95.0] INVALID FOR*10/03/2017 More... Post-operative state [Z98.890] INVALID FOR* Chronic endometritis [N71.1] INVALID FOR* Prescriptions ordered this encounter Disp Refills Start End AMOXICILLIN 875 MG-POTASSIUM CLAVULA* 20 t* 0 10/20/2017 10/30/2017 Route: ORAL Sig: Take 1 tablet by mouth twice daily for 10 days. Level of Service: EST PATIENT VISIT LEVEL 3 [[id number]] Disposition: Return in about 4 days (around 10/24/2017). Follow-up and Disposition History Recorded Encounter Status:Closed by YANELIS VANESSA MD on 10/20/17 PROGRESS Observed: 10/20/2017 Status: COMPLETED Source: [place] 4:10 PM CLINIC OTHER CAMPUS REPOSITORY O ID: [id number] Author: Yanelis Vanessa Service: (none) Author Type: Physician Type: Progress Notes Filed: 10/20/2017 4:24 PM Note Text: Daysi Flores is an 62 year old woman who presents for postmenopausal bleeding follow up. She is s/p DANDC. She reports bleeding and cramping. LMP: No LMP recorded. Patient is postmenopausal. Dysmenorrhea:none. Cyclic symptoms include none. Sexually active? YES Contraception: none Sexual dysfunction: none PAST MEDICAL HISTORY Diagnosis Date - Alcohol abuse Pt uses alcohol but is on Naltrexone to limit her intake; positive hx of cirrhosis - Arthritis - Chen's esophagus - Borderline diabetes managing with diet - Cirrhosis (HCC) secondary to ETOH abuse; recent LFTs from 08-21-17 were WNL - Drug abuse, marijuana Pt smokes daily marijuna - GERD (gastroesophageal reflux disease) - Hypertension - Irritable bowel disease - Osteoarthritis - Panic attacks PAST SURGICAL HISTORY Procedure Laterality Date - APPENDECTOMY - SECTION HX - SECTION HX - DANDC 10/03/2017 HYSTEROSCOPY, D AND C WITH MYOSURE - LIPOSUCTION, STOMACH - SINUS SURGERY HX - TONSILLECTOMY AND ADENOIDECTOMY HX FAMILY HISTORY Problem Relation Age of Onset - Adopted: Yes - other (COPD, PVD) Mother Social History Marital status: Spouse name: Years of education: Number of children: Social History Main Topics Smoking status: Current Some Day Smoker Packs/day: 0.20 Years: 40.00 Smokeless tobacco: Never Used Alcohol use: Yes Comment: 2-3 drinks weekly Drug use: Yes Types: Marijuana Comment: daily marijuana use Sexual activity: Yes Partners with: Male MEDICATIONS: hydroCHLOROthiazide (HYDRODIURIL, ESIDRIX) 25 mg tablet, Take 25 mg by mouth once daily. metoprolol succinate ER (TOPROL XL) 50 mg 24 hr tablet, Take 50 mg by mouth once daily. naltrexone (TREXAN) 50 mg tablet, Take 50 mg by mouth once daily. progesterone micronized (PROMETRIUM) 200 mg capsule, Take 200 mg by mouth once daily. thyroid,pork (ARMOUR THYROID ORAL), Take 50 mg by mouth once daily. Omeprazole Magnesium (PRILOSEC OTC) 20 mg tablet, Take 20 mg by mouth once daily. VITAMIN D 50,000 unit capsule, ALLERGIES:Rocephin [Ceftriaxone Sodium] Hormone replacement: never Hx of abnormal pap? No Regular self-breast exam? Yes History of abnormal mammogram? No REVIEW OF SYSTEMS: GENERAL:Denies fever, chills, night sweats, or changes in weight. DERMATOLOGIC: Denies any new skin conditions, rashes or changing moles. EYES: Denies recent visual changes. ENT: Denies hearing loss or tinnitus. RESPIRATORY: Denies any cough, dyspnea, or wheezing. CARDIOVASCULAR:Denies any chest pain with exertion or at rest, palpitations, syncope, shortness of breath or edema. BREASTS: Denies any breast lumps, tenderness, dimpling, skin changes, or nipple discharge. GASTROINTESTINAL: Denies any nausea, vomiting, or abdominal pain. , Denies heartburn., Denies any change in bowel habits. GENITOURINARY: Denies urinary frequency, dysuria, hematuria, nocturia, incontinence. and Reports abnormal vaginal bleeding and cramping 14 days s/p DANDC COURIER: Denies any abnormal vaginal discharge, irregular bleeding, vaginal dryness, dypareunia, or change in libido MUSCULOSKELETAL: Denies any joint swelling, crepitus, or loss of range of motion., Denies back pain., Denies joint pain. NEURO:Denies any headaches, tremors, dizziness, vertigo, memory loss, confusion., Denies weakness, numbness or tingling. PSYCHIATRIC: Denies any anxiety or depression. HEMATOLOGIC/LYMPHATIC/IMMUNOLOGIC: Denies anemia, bruising, bleeding abnormalities. ENDOCRINE: Denies any heat or cold intolerance, polyuria, polyphasia or polydipsia. OBJECTIVE: GENERAL APPEARANCE: cooperative, in no acute distress, alert SKIN:Color normal, Vascularity normal, No evidence of bleeding or bruising, No lesions noted, No edema, Temperature normal, Texture normal, Mobility and turgor normal, Nails normal without clubbing NECK: Supple, no adenopathy; thyroid symmetric, normal size, no bruits BREASTS: breasts symmetric, no dominant or suspicious mass, no skin or nipple changes, no axillary adenopathy HEART:Normal PMI, Regular rate and rhythm, Normal heart sounds, S1 and S2 and No murmurs. ABDOMEN: soft, non-tender, no masses, no hepatosplenomegaly and no lymphadenopathy EXTREMITIES: No skin discoloration, No edema and Normal pulses bilaterally. PELVIC EXAM : External genitalia, cervix and vagina normal, bimanual exam shows mild CMT and mild uterine tenderness RECTAL EXAM:deferred PATIENT EDUCATION:Women's Health counselling done. ASSESSMENT/PLAN: 1. Postmenopausal bleeding - ICD9: 627.1, ICD10: N95.0 (primary diagnosis) - Pathology is normal 2. Post-operative state - ICD9: V45.89, ICD10: Z98.890 - Still bleeding and pain 3. Chronic endometritis - ICD9: 615.1, ICD10: N71.1 - I will start her on Augmentin 875 mg BID - Recheck in 4 days MD FRANKY Cartwright Observed: 10/08/2017 Status: COMPLETED Source: [place] 12:00 AM CLINIC OTHER CAMPUS REPOSITORY Telephone ([facility]) FREDO EDELSHARONDAYSI ([id number]) 1955 F Date Time Provider Department 10/08/17 YANELIS VANESSA During your visit today, we recorded the following information about you: Yanelis Vanessa MD 10/08/2017 4:49 PM Signed Please let her know her pathology report shows benign tissue Lois Ridleyenmanuel 10/09/2017 1:59 PM Signed Patient notified Lois Mcqueen Allergies As of Date: 10/08/2017 Noted Allergy Reaction ROCEPHIN (CEFTRIAXONE SODIUM) 06/18/2017 10 - Anaphylaxis Date Reviewed: 10/03/2017 Reviewed by: Kirstie (Rn) SOMMER Sawant - Fully Assessed Reason for Visit: Results [95] Prescriptions as of 10/08/2017 Sig: VITAMIN D2 50,000 UNIT CAPSULE HYDROCHLOROTHIAZIDE 25 MG TAB* Take 25 mg by mouth once guerda* METOPROLOL SUCCINATE ER 50 MG* Take 50 mg by mouth once guerda* NALTREXONE 50 MG TABLET Take 50 mg by mouth once guerda* PROGESTERONE MICRONIZED 200 M* Take 200 mg by mouth once cornell* ARMOUR THYROID ORAL Take 50 mg by mouth once guerda* OMEPRAZOLE MAGNESIUM 20 MG TA* Take 20 mg by mouth once guerda* Problem List As Of Date 10/08/2017 Noted Resolved Routine cervical smear [Z12.4] INVALID FOR* Visit for gynecologic examination [Z01.419] INVALID FOR* Encounter for screening mammogram for malignant*INVALID FOR* Screening for condition [Z13.9] INVALID FOR* Postmenopausal bleeding [N95.0] INVALID FOR* Post-menopausal bleeding [N95.0] INVALID FOR*10/03/2017 More... Encounter Status:Closed by YANELIS VANESSA MD on 10/08/17 ANES POST Observed: 10/03/2017 Status: COMPLETED Source: [place] 3:02 PM CLINIC OTHER CAMPUS REPOSITORY O ID: [id number] Author: Brett Jon Service: Anesthesiology Author Type: Physician Type: Anesthesia PostOp Filed: 10/03/2017 3:02 PM Note Text: POST ANESTHESIA EVALUATION NOTE SERVICE DATE: 10/03/2017 SERVICE TIME: 3:02 PM : 1955 Vitals: 10/03/17 1150 Temp: 36.4 ?C (97.6 ?F) 10/03/17 1150 10/03/17 1430 10/03/17 1440 10/03/17 1450 BP: 128/66 124/61 139/76 117/67 10/03/17 1150 10/03/17 1430 10/03/17 1440 10/03/17 1450 Pulse: 62 84 90 82 10/03/17 1150 10/03/17 1440 10/03/17 1450 Resp: 18 15 (!) 31 10/03/17 1150 10/03/17 1430 10/03/17 1440 10/03/17 1450 SpO2: 96% 97% 100% 100% Validated Vital Signs: Yes POST ANES STATUS: No apparent anesthetic complications. The patient is appropriately hydrated with stable respiratory and cardiovascular status. Patient has safe and adequate airway control. The patient has appropriate pain relief and no significant post operative nausea or vomiting. The patient has achieved baseline mental status. Further assessment by Anesthesia Service: None Other Remarks: SIGNATURE: Brett Jon MD PATIENT NAME: Daysi Flores DATE: October 03, 2017 TIME: 3:02 PM PAGER/CONTACT #: [phone] HISTORY PHYSICAL Observed: 10/03/2017 Status: COMPLETED Source: [place] 1:59 PM CLINIC OTHER CAMPUS REPOSITORY O ID: [id number] Author: Leticia Andrews (Pa) Service: (none) Author Type: Physician Digital Marketing Project Manager Type: HANDP Filed: 10/03/2017 2:06 PM Note Text: HISTORY AND PHYSICAL EXAMINATION Daysi Flores 1955 SERVICE DATE: 10/03/2017 SERVICE TIME: 1:59 PM PRIMARY CARE PHYSICIAN: Gabriela Ding DO SURGEON: Surgeon(s) and Role: * Yanelis Vanessa - Primary ANESTHESIA: General DIAGNOSIS: Post-menopausal bleeding [N95.0] PROCEDURE: Procedure(s): HYSTEROSCOPY, D AND C WITH MYOSURE (N/A) Subjective CHIEF COMPLAINT: I'm having a D and C HPI: This is a 62 year old female who presents with new onset of bright red vaginal bleeding which began on 08-28-17. Pt states the flow was similar to a menstrual cycle and was accompanied by low pelvic cramping. She bled for 3 weeks, then stopped, but bleeding began again yesterday. Ultrasound showed thickened endometrium, so pt presents for D and C PROBLEMS WITH ANESTHESIA: no history of adverse anesthetic event FAMILY PROBLEMS WITH ANESTHESIA: no history of adverse anesthetic event METS: Climb a flight of stairs or walk up a hill (5.50 METs) FUNCTIONAL STATUS: Independent PAST MEDICAL HISTORY Diagnosis Date - Alcohol abuse Pt uses alcohol but is on Naltrexone to limit her intake; positive hx of cirrhosis - Arthritis - Chen's esophagus - Borderline diabetes managing with diet - Cirrhosis (HCC) secondary to ETOH abuse; recent LFTs from 08-21-17 were WNL - Drug abuse, marijuana Pt smokes daily marijuna - GERD (gastroesophageal reflux disease) - Hypertension - Irritable bowel disease - Osteoarthritis - Panic attacks PAST SURGICAL HISTORY Procedure Laterality Date - APPENDECTOMY - SECTION HX - SECTION HX - LIPOSUCTION, STOMACH - SINUS SURGERY HX - TONSILLECTOMY AND ADENOIDECTOMY HX FAMILY HISTORY Problem Relation Age of Onset - Adopted: Yes - COPD, PVD [OTHER] Mother Social History Substance Use Topics - Smoking status: Current Some Day Smoker Packs/day: 0.20 Years: 40.00 - Smokeless tobacco: Never Used - Alcohol use Yes Comment: 2-3 drinks weekly Prior to Admission medications as of 10/03/17 1331 Medication Sig Last Dose Taking hydroCHLOROthiazide (HYDRODIURIL, ESIDRIX) 25 mg tablet Take 25 mg by mouth once daily. 10/03/2017 at 0845 Yes metoprolol succinate ER (TOPROL XL) 50 mg 24 hr tablet Take 50 mg by mouth once daily. 10/03/2017 at 0845 Yes naltrexone (TREXAN) 50 mg tablet Take 50 mg by mouth once daily. 10/02/2017 at Unknown time Yes progesterone micronized (PROMETRIUM) 200 mg capsule Take 200 mg by mouth once daily. Yes thyroid,pork (ARMOUR THYROID ORAL) Take 50 mg by mouth once daily. 10/02/2017 at Unknown time Yes Omeprazole Magnesium (PRILOSEC OTC) 20 mg tablet Take 20 mg by mouth once daily. 10/03/2017 at 0845 Yes VITAMIN D 50,000 unit capsule ALLERGIES Allergen Reactions - Rocephin [Ceftriaxo* Anaphylaxis COMPLETE REVIEW OF SYSTEMS: GENERAL: No weight loss, malaise or fevers RESPIRATORY: Negative for cough, hemoptysis, wheezing, COPD, dyspnea or shortness of breath CARDIOVASCULAR:Positive for HTN; Negative for chest pain, leg swelling, CHF or palpitations GI: Positive for GERD, Barretts esophagus, and cirrhosis. Most recent LFTs were WNL in mid July; Denies hx of esophogeal varices; positive for IBS : See HPI MUSCULOSKELETAL: Negative for joint pain or swelling, back pain or muscle pain PSYCH: Positive for ETOH abuse, drinking currently limited by use of Naltrexone; positive daily use of marijuana; positive for hx of panic attacks ENDOCRINE: Positive borderline diabetes, negative for thyroid hx NEURO: No history of headaches, syncope, paralysis, seizures or tremors Negative for stroke, seizures or headaches. Objective PHYSICAL EXAM: MENTAL STATUS: alert, oriented to person, place and time HEENT: Normocephalic/atraumatic, no lymphadenopathy, thyroid non-tender, without palpable masses/nodules or enlargement LUNGS: Lungs clear to auscultation, Good diaphragmatic excursion CARDIAC: Normal S1 and S2; no rubs, murmurs, or gallops ABDOMEN: Abdomen soft, non-tender, BS normal, No masses or organomegaly EXTREMITIES: Extremities normal, no deformities, edema, clubbing or skin discoloration. Good capillary refill., No ulcers 10/03/17 1150 BP: 128/66 Pulse: 62 Resp: 18 Temp: 36.4 ?C (97.6 ?F) SpO2: 96% Weight: 70.3 kg (155 lb) Height: 162.6 cm (5' 4) Body mass index is 26.61 kg/m?. SIGNATURE: Leticia Andrews PA-C PATIENT NAME: Daysi Flores DATE: October 03, 2017 TIME: 1:59 PM PAGER/CONTACT #: [phone] PREOP Observed: 10/03/2017 Status: COMPLETED Source: [place] 1:09 PM CLINIC OTHER CAMPUS REPOSITORY O ID: [id number] Author: Joshua Snow Service: Anesthesiology Author Type: Physician Type: Anesthesia PreOp Filed: 10/03/2017 1:10 PM Note Text: ANESTHESIOLOGY DAY OF SURGERY NOTE SERVICE DATE: 10/03/2017 SERVICE TIME: 1:09 PM : 1955 Procedure(s) (LRB): HYSTEROSCOPY, D AND C WITH MYOSURE (N/A) Surgeon(s): Yanelis Vanessa Estimated body mass index is 26.61 kg/m? as calculated from the following: Height as of this encounter: 162.6 cm (5' 4). Weight as of this encounter: 70.3 kg (155 lb). Most recent hematocrit and potassium results: No results found for this basename: HCT,HEMATOCRIT,K,POTASSIUM ANES DOS/PREOP NOTE: Vitals: 10/03/17 1150 BP: 128/66 Pulse: 62 Resp: 18 Temp: 36.4 ?C (97.6 ?F) SpO2: 96% Weight: 70.3 kg (155 lb) Height: 162.6 cm (5' 4) ACTIVE PROBLEM LIST Routine Cervical Smear Visit for Gynecologic Examination Encounter for Screening Mammogram for Malignant Neoplasm of Breast Screening for Condition Postmenopausal Bleeding Post-Menopausal Bleeding PAST MEDICAL HISTORY Diagnosis Date - Arthritis - Heartburn - Hypertension - Irritable bowel disease - Osteoarthritis PAST SURGICAL HISTORY Procedure Laterality Date - SECTION HX - SECTION HX - TONSILLECTOMY AND ADENOIDECTOMY HX No family history on file. Social History: Social History Substance Use Topics - Smoking status: Current Some Day Smoker - Smokeless tobacco: Never Used - Alcohol use No No current facility-administered medications on file prior to encounter. Current Outpatient Prescriptions on File Prior to Encounter: hydroCHLOROthiazide (HYDRODIURIL, ESIDRIX) 25 mg tablet Take 25 mg by mouth once daily. metoprolol succinate ER (TOPROL XL) 50 mg 24 hr tablet Take 50 mg by mouth once daily. naltrexone (TREXAN) 50 mg tablet Take 50 mg by mouth once daily. progesterone micronized (PROMETRIUM) 200 mg capsule Take 200 mg by mouth once daily. thyroid,pork (ARMOUR THYROID ORAL) Take 50 mg by mouth once daily. Omeprazole Magnesium (PRILOSEC OTC) 20 mg tablet Take 20 mg by mouth once daily. VITAMIN D 50,000 unit capsule Current Facility-Administered Medications: lidocaine 10 mg/mL (1 %) 1-2 mg injection (XYLOCAINE) 0.1- 0.2 mL INTRADERMAL PRN Yanelis Mirian Cola lactated ringers infusion 5-30 mL/hr INTRAVENOUS CONTINUOUS Yanelis Mirian Cola Last Rate: 30 mL/hr at 10/03/17 1203 30 mL/hr at 10/03/17 1203 Allergies: ALLERGIES Allergen Reactions - Rocephin [Ceftriaxo* GI Upset DOS EXAM: Adequate NPO status: Yes Anesthetic risks, benefits, alternatives, personnel and consent discussed: Yes Patient agrees to proceed: Yes Previous Anesthesia: No history of adverse event. Airway Assessment: MP 2; Neck ROM: Full ROM without neurologic symptoms; Airway Evaluation: No significant abnormalities Symptoms of Sleep Apnea: Hypertension and Age over 50 (62 year old) Dentition: Teeth intact Additional Physical Exam: Lungs: Patient health status unchanged since recent history and physical. See history and physical for exam findings. Cardiac: Patient health status unchanged since recent history and physical. See history and physical for exam findings. Additional Pertinent Findings: N/A Blood Products: Not anticipated for this procedure. Anesthetic Plan: General, Standard ASA Monitors Pain Management Plan: Parenteral or Oral ASA Class: 2 Other Medical Problems: former alcoholic Chronic Beta [place] medication administered within 24 hours: Yes I have interviewed and examined the patient. I have reviewed the medical record and/or the pre-anesthesia evaluation, pertinent labs, and test results. Significant changes in the patient's condition since the History and Physical, not otherwise documented in primary service progress notes: No This contains updated information obtained within 48 hours of Surgery/Procedure. SIGNATURE: Joshua Snow MD PATIENT NAME: Daysi Flores DATE: October 03, 2017 TIME: 1:09 PM CSN: [id number] PT ED Observed: 10/03/2017 Status: COMPLETED Source: [place] 11:55 AM [facility] OTHER [place] REPOSITORY HNO ID: [id number] Author: Luz Marina Trejo) SOMMER Dodson Service: (none) Author Type: Registered Nurse Type: Patient Education Filed: 10/03/2017 11:55 AM Note Text: ONGOING PATIENT EDUCATION TOPIC Reinforced: PAIN SCALE Patient Name: Daysi Flores Patient Location: [facility] Readiness To Learn Motivation To Learn: Interested Instruction Provided To: Patient Learning Response Patient/Family Response: Verbalizes understanding of: PAIN SCALE Method of Instruction: Verbal instruction Follow-Up Plan: Complete - No need for follow-up Electronically signed by: Luz Marina Dodson RN OPERATIVE NO Observed: 10/03/2017 Status: COMPLETED Source: [place] 12:00 AM [facility] OTHER [place] REPOSITORY HNO ID: [id number] Author: Yanelis Vanessa Service: Gynecology Author Type: Physician Type: Operative Report Filed: 10/06/2017 9:24 AM Note Text: [facility] - Operative Report - ASC SURGEON: Yanelis Vanessa MD PATIENT NAME: DAYSI HOROWITZ CSN: [id number] DATE OF SURGERY: 10/03/2017 DATE OF : 1955 SEX/AGE: F/62 PATIENT TYPE: A HOSP [facility] [place] [facility] [place] [facility] [place] LOCATION: [facility] DATE OF SURGERY: 10/03/2017 SURGEON: Yanelis Vanessa MD The patient presented with history of postmenopausal bleeding. She was taken to the operating room on 10/03/2017. PREOPERATIVE DIAGNOSIS: Postmenopausal bleeding. POSTOPERATIVE DIAGNOSIS: Postmenopausal bleeding. OPERATION: Dilation and curettage hysteroscopy. ANESTHESIA: General. ESTIMATED BLOOD LOSS: Minimal. OPERATIVE PROCEDURE: Under general anesthesia, the patient was placed in lithotomy position, and prepped and draped in usual sterile fashion. The cervix was dilated with Hegar dilators. Uterus sounded to 8 cm. Hysteroscope was introduced. No endometrial polyps were noted. The hysteroscope was removed and a curettage was carried out. The tissue was sent for pathologic examination. Following completion of the procedure, the patient was bleeding minimally. She was taken out of lithotomy position and taken to recovery room in satisfactory condition. Yanelis Vanessa MD Obstetrics Gynecology LC:susy /[id number] SURGICAL TISSUE EXAM Observed: 10/03/2017 Status: F Source: [facility] 12:00 AM [facility] REPOSITORY Test performed at [place] [address] NAME: DAYSI HOROWITZ REQUESTING: YANLEIS VANESSA M.D. FINAL DIAGNOSIS: ENDOMETRIAL CURETTINGS - INACTIVE ENDOMETRIUM WITH PROMINENT DECIDUAL CHANGE COMPATIBLE WITH EXOGENOUS HORMONE EFFECT. FEW UNREMARKABLE FRAGMENTS OF SQUAMOUS AND ENDOCERVICAL MUCOSA. OPERATIVE PROCEDURE: Hysteroscopy, D & C CLINICAL INFORMATION: Postmenopausal bleeding [N95.0] GROSS DESCRIPTION: EMC Received in formalin labeled endometrial curettings are multiple irregular-shaped segments of das to dark red tissue fragments aggregating to 7.0 x 3.5 x 0.5 cm. The specimen is totally submitted in formalin in four cassettes. ARH:vinny FIGUEREDO M.D.,PATHOLOGIST (Electronic signature on file) Signed out: 10/08/2017 15:52 PRINTED: 10/08/2017 Page 1 of 1 Performed By: #### SURG #### [facility] [address] [place] [address] OPERATIVE REPORT Observed: 09/24/2017 Status: F Source: [place] 11:59 AM [facility] REPOSITORY [facility] Medical Records Department [address] [place] [address] Operative Report 09/11/17 1115 MR#: [id number] Acct: [id number] Name: DAYSI HOROWITZ Rep #: [id number] : 1955 62 From: Tony Dhillon MD PCP: Gabriela Ding DO [place] [facility] [place] Location: [place] Problem List (1) Abnormal CT of the abdomen Status: Acute Report of Operation Date of Procedure: 09/11/17 Pre-Operative Diagnosis: r93.[address] scan of abdomen Post-Operative Diagnosis: Same Surgery/Procedure Performed:: Colonoscopy Type of Anesthesia:: MAC Anesthesiologist: Peggy Disla Description of Procedure: Patient was brought into the endoscopy suite. Placed on the left lateral decubitus position. Was given graded anesthesia. Colonoscope was inserted into the rectum directed through the sigmoid colon, descending colon, transverse colon, ascending colon, to the cecum. Operative findings: 1. Cecum: Normal appearance no mass lesions normal ileocecal valve. 2. Ascending colon: Normal appearance no mass lesions. 3. Transverse colon: Normal appearance no mass lesions. 4. Descending colon: Normal appearance no mass lesions. 5. Sigmoid colon: Normal appearance no mass lesions. 6. Rectum: Normal appearance no mass lesions few internal hemorrhoids which were not actively bleeding were identified. Rectal exam did not reveal any masses in the anus. With regards to the abnormal findings on the CAT scan the mucosa of the colon was entirely normal. Patient will need another colonoscopy in 10 years. - Admit VTE Documentation VTE Present on Admission: No VTE Mechan Device Prophylaxis: None VTE Pharm Prophylaxis ordered?: No Reason prophylaxis not ordered:: Treatment Not Indicated 09/24/17 1159 <Electronically signed by Tony Dhillon MD> Date Tony Dhillon MD CC: Tony Dhillon MD; Gabriela Ding DO Signed CNPN Observed: 09/23/2017 Status: COMPLETED Source: [place] 12:00 AM CLINIC OTHER CAMPUS REPOSITORY Telephone ([facility]) DAYSI HOROWITZ ([id number]) 1955 F Date Time Provider Department 09/23/17 YANELIS VANESSA [facility] During your visit today, we recorded the following information about you: Selam Duenas 10/01/2017 12:08 PM Addendum Surgery Checklist 1. Patient notified and verbalized understanding of date, time, prep, location and benefits. 2. Ordered in Epic 3. Book sent : Given to patient 4. Consent Signed: Yes, scanned to chart Testing/Procedure Name: DANDC Hysteroscopy with Myosure Testing/Procedure Date: , 10/03/17 @ 1:30; THOM Coelho, Case# [id number], Pretest day of Diagnosis code: N95.0 CPT code (if applicable): 66204 Medical reason details for testing/procedure: Post Menopausal Bleeding Insurance Company contacted: [employer] ID# [id number], deductible 7250.00, 5728.31 remaining, 40% co-insurance after deductible Insurance contact name: Noemi, Ref#[id number] Insurance contact phone: [phone] Authorization: No prior authorization required per fax from [employer]. Scanned to chart. (Approved, Denied, Pending, ) Authorization number: na Approval valid date range: na Number of Days/Visits approved: na Authorization information provided to na Allergies As of Date: 09/23/2017 Noted Allergy Reaction ROCEPHIN (CEFTRIAXONE SODIUM) 06/18/2017 8 - GI Upset Date Reviewed: 09/18/2017 Reviewed by: Yanelis Vanessa - Fully Assessed Reason for Visit: Orders [681] Cmt: DANDC Hysteroscopy with Myosure Preparations For Surgery [898] Order(s):SURGICAL REQUEST - ELECTIVE [[id number]] Order #: [id number]: 1 Prescriptions as of 09/23/2017 Sig: VITAMIN D2 50,000 UNIT CAPSULE HYDROCHLOROTHIAZIDE 25 MG TAB* METOPROLOL SUCCINATE ER 50 MG* NALTREXONE 50 MG TABLET PROGESTERONE MICRONIZED 200 M* ARMOUR THYROID ORAL Take by mouth. OMEPRAZOLE MAGNESIUM 20 MG TA* Take 20 mg by mouth once guerda* Problem List As Of Date 09/23/2017 Noted Resolved Routine cervical smear [Z12.4] INVALID FOR* Visit for gynecologic examination [Z01.419] INVALID FOR* Encounter for screening mammogram for malignant*INVALID FOR* Screening for condition [Z13.9] INVALID FOR* Postmenopausal bleeding [N95.0] INVALID FOR* Post-menopausal bleeding [N95.0] INVALID FOR* More... Encounter Status:Closed by SELAM DUENAS on 09/29/17 HOSP Observed: 09/23/2017 Status: COMPLETED Source: [place] 12:00 AM CLINIC OTHER CAMPUS REPOSITORY Patient:Daysi Horowitz MRN: <[id number]> Height:5' 4(1.626 m) Weight:155 lb (70.308 kg) Outpatient Medications as of 10/03/17: VITAMIN D 50,000 unit capsule hydroCHLOROthiazide (HYDRODIURIL, ESIDRIX) 25 mg tablet metoprolol succinate ER (TOPROL XL) 50 mg 24 hr tablet naltrexone (TREXAN) 50 mg tablet progesterone micronized (PROMETRIUM) 200 mg capsule thyroid,pork (ARMOUR THYROID ORAL) Omeprazole Magnesium (PRILOSEC OTC) 20 mg tablet Admission/Clinic Administered Medications as of 10/03/17: lidocaine 10 mg/mL (1 %) 1-2 mg injection (XYLOCAINE) lactated ringers infusion lactated ringers infusion ondansetron (PF) 4 mg injection (ZOFRAN) fentaNYL 50 mcg/mL 25 mcg injection (SUBLIMAZE) oxyCODONE IR 5 mg tab(s) (ROXICODONE) Problem List: Routine cervical smear [Z12.4] Visit for gynecologic examination [Z01.419] Encounter for screening mammogram for malignant neoplasm of breast [Z12.31] Screening for condition [Z13.9] Postmenopausal bleeding [N95.0] Post-menopausal bleeding [N95.0] Allergies: Rocephin [Ceftriaxone Sodium] Date Verified: 10/03/17 Lab Values No results within the last 30 days for the following basenames: K,HCT Progress Notes ([facility]): Selam Duenas 10/01/2017 12:08 PM Addendum Surgery Checklist 1. Patient notified and verbalized understanding of date, time, prep, location and benefits. 2. Ordered in Epic 3. Book sent : Given to patient 4. Consent Signed: Yes, scanned to chart Testing/Procedure Name: [facility] Hysteroscopy with Myosure Testing/Procedure Date: Fri., 10/03/17 @ 1:30; THOM Coelho, Case# [id number], Pretest day of Diagnosis code: N95.0 CPT code (if applicable): 79137 Medical reason details for testing/procedure: Post Menopausal Bleeding Insurance Company contacted: [employer] ID# [id number], deductible 7250.00, 5728.31 remaining, 40% co-insurance after deductible Insurance contact name: Noemi, Ref#[id number] Insurance contact phone: [phone] Authorization: No prior authorization required per fax from [employer]. Scanned to chart. (Approved, Denied, Pending, ) Authorization number: na Approval valid date range: na Number of Days/Visits approved: na Authorization information provided to na Previous Version Progress Notes ([facility]): Yanelis Vanessa MD 09/18/2017 10:35 AM Addendum Daysi Flores is an 62 year old woman who presents for postmenopausal bleeding. LMP: No LMP recorded. Patient is postmenopausal. Dysmenorrhea:none. Cyclic symptoms include none. Sexually active? YES Contraception: none Sexual dysfunction: none PAST MEDICAL HISTORY Diagnosis Date - Arthritis - Heartburn - Hypertension - Irritable bowel disease - Osteoarthritis PAST SURGICAL HISTORY Procedure Laterality Date - SECTION HX - SECTION HX - TONSILLECTOMY AND ADENOIDECTOMY HX No family history on file. Social History Marital status: Spouse name: Years of education: Number of children: Social History Main Topics Smoking status: Current Some Day Smoker Packs/day: 0.00 Years: 0.00 Smokeless tobacco: Never Used Alcohol use: No Drug use: Yes Types: Marijuana Comment: every couple weeks Sexual activity: Yes Partners with: Male MEDICATIONS: hydroCHLOROthiazide (HYDRODIURIL, ESIDRIX) 25 mg tablet metoprolol succinate ER (TOPROL XL) 50 mg 24 hr tablet naltrexone (TREXAN) 50 mg tablet progesterone micronized (PROMETRIUM) 200 mg capsule thyroid,pork (ARMOUR THYROID ORAL) Take by mouth. Omeprazole Magnesium (PRILOSEC OTC) 20 mg tablet Take 20 mg by mouth once daily. VITAMIN D 50,000 unit capsule ALLERGIES:Rocephin [Ceftriaxone Sodium] Hormone replacement: never Hx of abnormal pap? No Regular self-breast exam? Yes History of abnormal mammogram? No REVIEW OF SYSTEMS: GENERAL:Denies fever, chills, night sweats, or changes in weight. DERMATOLOGIC: Denies any new skin conditions, rashes or changing moles. EYES: Denies recent visual changes. ENT: Denies hearing loss or tinnitus. RESPIRATORY: Denies any cough, dyspnea, or wheezing. CARDIOVASCULAR:Denies any chest pain with exertion or at rest, palpitations, syncope, shortness of breath or edema. BREASTS: Denies any breast lumps, tenderness, dimpling, skin changes, or nipple discharge. GASTROINTESTINAL: Denies any nausea, vomiting, or abdominal pain. , Denies heartburn., Denies any change in bowel habits. GENITOURINARY: Denies urinary frequency, dysuria, hematuria, nocturia, incontinence. and Reports abnormal vaginal bleeding. U/S shows a 12 mm endometrial stripe COURIER: Denies any abnormal vaginal discharge, irregular bleeding, vaginal dryness, dypareunia, or change in libido MUSCULOSKELETAL: Denies any joint swelling, crepitus, or loss of range of motion., Denies back pain., Denies joint pain. NEURO:Denies any headaches, tremors, dizziness, vertigo, memory loss, confusion., Denies weakness, numbness or tingling. PSYCHIATRIC: Denies any anxiety or depression. HEMATOLOGIC/LYMPHATIC/IMMUNOLOGIC: Denies anemia, bruising, bleeding abnormalities. ENDOCRINE: Denies any heat or cold intolerance, polyuria, polyphasia or polydipsia. OBJECTIVE: GENERAL APPEARANCE: cooperative, in no acute distress, alert SKIN:Color normal, Vascularity normal, No evidence of bleeding or bruising, No lesions noted, No edema, Temperature normal, Texture normal, Mobility and turgor normal, Nails normal without clubbing NECK: Supple, no adenopathy; thyroid symmetric, normal size, no bruits BREASTS: breasts symmetric, no dominant or suspicious mass, no skin or nipple changes, no axillary adenopathy HEART:Normal PMI, Regular rate and rhythm, Normal heart sounds, S1 and S2 and No murmurs. ABDOMEN: soft, non-tender, no masses, no hepatosplenomegaly and no lymphadenopathy EXTREMITIES: No skin discoloration, No edema and Normal pulses bilaterally. PELVIC EXAM : deferred RECTAL EXAM:deferred PATIENT EDUCATION:Women's Health counselling done. ASSESSMENT/PLAN: 1. Postmenopausal bleeding - ICD9: 627.1, ICD10: N95.0 - Needs CRUZITO Vanessa MD Surgery: CRUZITO hysteroscopy with myosure Anesthesia: general Antibiotics: none Special Instructions: Dx:1. Postmenopausal bleeding - ICD9: 627.1, ICD10: N95.0 Previous Version PROGRESS Observed: 09/18/2017 Status: COMPLETED Source: [place] 10:16 AM CLINIC OTHER CAMPUS REPOSITORY HNO ID: [id number] Author: Yanelis Vanessa Service: (none) Author Type: Physician Type: Progress Notes Filed: 09/18/2017 10:35 AM Note Text: Daysi Flores is an 62 year old woman who presents for postmenopausal bleeding. LMP: No LMP recorded. Patient is postmenopausal. Dysmenorrhea:none. Cyclic symptoms include none. Sexually active? YES Contraception: none Sexual dysfunction: none PAST MEDICAL HISTORY Diagnosis Date - Arthritis - Heartburn - Hypertension - Irritable bowel disease - Osteoarthritis PAST SURGICAL HISTORY Procedure Laterality Date - SECTION HX - SECTION HX - TONSILLECTOMY AND ADENOIDECTOMY HX No family history on file. Social History Marital status: Spouse name: Years of education: Number of children: Social History Main Topics Smoking status: Current Some Day Smoker Packs/day: 0.00 Years: 0.00 Smokeless tobacco: Never Used Alcohol use: No Drug use: Yes Types: Marijuana Comment: every couple weeks Sexual activity: Yes Partners with: Male MEDICATIONS: hydroCHLOROthiazide (HYDRODIURIL, ESIDRIX) 25 mg tablet metoprolol succinate ER (TOPROL XL) 50 mg 24 hr tablet naltrexone (TREXAN) 50 mg tablet progesterone micronized (PROMETRIUM) 200 mg capsule thyroid,pork (ARMOUR THYROID ORAL) Take by mouth. Omeprazole Magnesium (PRILOSEC OTC) 20 mg tablet Take 20 mg by mouth once daily. VITAMIN D 50,000 unit capsule ALLERGIES:Rocephin [Ceftriaxone Sodium] Hormone replacement: never Hx of abnormal pap? No Regular self-breast exam? Yes History of abnormal mammogram? No REVIEW OF SYSTEMS: GENERAL:Denies fever, chills, night sweats, or changes in weight. DERMATOLOGIC: Denies any new skin conditions, rashes or changing moles. EYES: Denies recent visual changes. ENT: Denies hearing loss or tinnitus. RESPIRATORY: Denies any cough, dyspnea, or wheezing. CARDIOVASCULAR:Denies any chest pain with exertion or at rest, palpitations, syncope, shortness of breath or edema. BREASTS: Denies any breast lumps, tenderness, dimpling, skin changes, or nipple discharge. GASTROINTESTINAL: Denies any nausea, vomiting, or abdominal pain. , Denies heartburn., Denies any change in bowel habits. GENITOURINARY: Denies urinary frequency, dysuria, hematuria, nocturia, incontinence. and Reports abnormal vaginal bleeding. U/S shows a 12 mm endometrial stripe COURIER: Denies any abnormal vaginal discharge, irregular bleeding, vaginal dryness, dypareunia, or change in libido MUSCULOSKELETAL: Denies any joint swelling, crepitus, or loss of range of motion., Denies back pain., Denies joint pain. NEURO:Denies any headaches, tremors, dizziness, vertigo, memory loss, confusion., Denies weakness, numbness or tingling. PSYCHIATRIC: Denies any anxiety or depression. HEMATOLOGIC/LYMPHATIC/IMMUNOLOGIC: Denies anemia, bruising, bleeding abnormalities. ENDOCRINE: Denies any heat or cold intolerance, polyuria, polyphasia or polydipsia. OBJECTIVE: GENERAL APPEARANCE: cooperative, in no acute distress, alert SKIN:Color normal, Vascularity normal, No evidence of bleeding or bruising, No lesions noted, No edema, Temperature normal, Texture normal, Mobility and turgor normal, Nails normal without clubbing NECK: Supple, no adenopathy; thyroid symmetric, normal size, no bruits BREASTS: breasts symmetric, no dominant or suspicious mass, no skin or nipple changes, no axillary adenopathy HEART:Normal PMI, Regular rate and rhythm, Normal heart sounds, S1 and S2 and No murmurs. ABDOMEN: soft, non-tender, no masses, no hepatosplenomegaly and no lymphadenopathy EXTREMITIES: No skin discoloration, No edema and Normal pulses bilaterally. PELVIC EXAM : deferred RECTAL EXAM:deferred PATIENT EDUCATION:Women's Health counselling done. ASSESSMENT/PLAN: 1. Postmenopausal bleeding - ICD9: 627.1, ICD10: N95.0 - Needs CRUZITO Vanessa MD Surgery: CRUZITO hysteroscopy with myosure Anesthesia: general Antibiotics: none Special Instructions: Dx:1. Postmenopausal bleeding - ICD9: 627.1, ICD10: N95.0 CNOV Observed: 09/18/2017 Status: COMPLETED Source: [place] 10:00 AM [facility] REPOSITORY Office Visit (AGGYNBMG) DAYSI HOROWITZ ([id number]) 1955 F Date Time Provider Department 09/18/17 10:00 AM YANELIS VANESSA During your visit today, we recorded the following information about you: Blood pressure Weight Height 120/76 70.3 kg 1.575 m Yanelis Vanessa MD 09/18/2017 10:35 AM Addendum Daysi Freiresharon is an 62 year old woman who presents for postmenopausal bleeding. LMP: No LMP recorded. Patient is postmenopausal. Dysmenorrhea:none. Cyclic symptoms include none. Sexually active? YES Contraception: none Sexual dysfunction: none PAST MEDICAL HISTORY Diagnosis Date - Arthritis - Heartburn - Hypertension - Irritable bowel disease - Osteoarthritis PAST SURGICAL HISTORY Procedure Laterality Date - SECTION HX - SECTION HX - TONSILLECTOMY AND ADENOIDECTOMY HX No family history on file. Social History Marital status: Spouse name: Years of education: Number of children: Social History Main Topics Smoking status: Current Some Day Smoker Packs/day: 0.00 Years: 0.00 Smokeless tobacco: Never Used Alcohol use: No Drug use: Yes Types: Marijuana Comment: every couple weeks Sexual activity: Yes Partners with: Male MEDICATIONS: hydroCHLOROthiazide (HYDRODIURIL, ESIDRIX) 25 mg tablet metoprolol succinate ER (TOPROL XL) 50 mg 24 hr tablet naltrexone (TREXAN) 50 mg tablet progesterone micronized (PROMETRIUM) 200 mg capsule thyroid,pork (ARMOUR THYROID ORAL) Take by mouth. Omeprazole Magnesium (PRILOSEC OTC) 20 mg tablet Take 20 mg by mouth once daily. VITAMIN D 50,000 unit capsule ALLERGIES:Rocephin [Ceftriaxone Sodium] Hormone replacement: never Hx of abnormal pap? No Regular self-breast exam? Yes History of abnormal mammogram? No REVIEW OF SYSTEMS: GENERAL:Denies fever, chills, night sweats, or changes in weight. DERMATOLOGIC: Denies any new skin conditions, rashes or changing moles. EYES: Denies recent visual changes. ENT: Denies hearing loss or tinnitus. RESPIRATORY: Denies any cough, dyspnea, or wheezing. CARDIOVASCULAR:Denies any chest pain with exertion or at rest, palpitations, syncope, shortness of breath or edema. BREASTS: Denies any breast lumps, tenderness, dimpling, skin changes, or nipple discharge. GASTROINTESTINAL: Denies any nausea, vomiting, or abdominal pain. , Denies heartburn., Denies any change in bowel habits. GENITOURINARY: Denies urinary frequency, dysuria, hematuria, nocturia, incontinence. and Reports abnormal vaginal bleeding. U/S shows a 12 mm endometrial stripe COURIER: Denies any abnormal vaginal discharge, irregular bleeding, vaginal dryness, dypareunia, or change in libido MUSCULOSKELETAL: Denies any joint swelling, crepitus, or loss of range of motion., Denies back pain., Denies joint pain. NEURO:Denies any headaches, tremors, dizziness, vertigo, memory loss, confusion., Denies weakness, numbness or tingling. PSYCHIATRIC: Denies any anxiety or depression. HEMATOLOGIC/LYMPHATIC/IMMUNOLOGIC: Denies anemia, bruising, bleeding abnormalities. ENDOCRINE: Denies any heat or cold intolerance, polyuria, polyphasia or polydipsia. OBJECTIVE: GENERAL APPEARANCE: cooperative, in no acute distress, alert SKIN:Color normal, Vascularity normal, No evidence of bleeding or bruising, No lesions noted, No edema, Temperature normal, Texture normal, Mobility and turgor normal, Nails normal without clubbing NECK: Supple, no adenopathy; thyroid symmetric, normal size, no bruits BREASTS: breasts symmetric, no dominant or suspicious mass, no skin or nipple changes, no axillary adenopathy HEART:Normal PMI, Regular rate and rhythm, Normal heart sounds, S1 and S2 and No murmurs. ABDOMEN: soft, non-tender, no masses, no hepatosplenomegaly and no lymphadenopathy EXTREMITIES: No skin discoloration, No edema and Normal pulses bilaterally. PELVIC EXAM : deferred RECTAL EXAM:deferred PATIENT EDUCATION:Women's Health counselling done. ASSESSMENT/PLAN: 1. Postmenopausal bleeding - ICD9: 627.1, ICD10: N95.0 - Needs CRUZITO Vanessa MD Surgery: CRUZITO hysteroscopy with myosure Anesthesia: general Antibiotics: none Special Instructions: Dx:1. Postmenopausal bleeding - ICD9: 627.1, ICD10: N95.0 Referring Provider: SELF [200] Allergies As of Date: 09/18/2017 Noted Allergy Reaction ROCEPHIN (CEFTRIAXONE SODIUM) 06/18/2017 8 - GI Upset Date Reviewed: 09/18/2017 Reviewed by: Yanelis Vanessa - Fully Assessed Reason for Visit: Follow Up [171] Primary Visit Diagnosis:Postmenopausal bleeding [N95.0] Prescriptions as of 09/18/2017 Sig: HYDROCHLOROTHIAZIDE 25 MG TAB* METOPROLOL SUCCINATE ER 50 MG* NALTREXONE 50 MG TABLET PROGESTERONE MICRONIZED 200 M* ARMOUR THYROID ORAL Take by mouth. OMEPRAZOLE MAGNESIUM 20 MG TA* Take 20 mg by mouth once guerda* VITAMIN D2 50,000 UNIT CAPSULE Problem List As Of Date 09/18/2017 Noted Resolved Routine cervical smear [Z12.4] INVALID FOR* Visit for gynecologic examination [Z01.419] INVALID FOR* Encounter for screening mammogram for malignant*INVALID FOR* Screening for condition [Z13.9] INVALID FOR* Postmenopausal bleeding [N95.0] INVALID FOR* Level of Service: EST PATIENT VISIT LEVEL 3 [24703] Disposition: Return if symptoms worsen or fail to improve. Follow-up and Disposition History Recorded Encounter Status:Closed by YANELIS VANESSA MD on 09/18/17 SURGERY VISIT REPORT Observed: 09/13/2017 Status: F Source: [place] 4:31 PM [facility] [address] [place] [address] OFFICE VISIT Date of Service: 09/09/17 MR#: [id number] Acct: [id number] Name: DAYSI HOROWITZ Rep #: [id number] : 1955 Provider: Tony Dhillon MD Age/Sex: 62/F Location: [facility] Status: Signed Intake Vital Signs09/09/17 Height 5 ft 4 in 09/09/17 Weight: 158 lb 2 oz 09/09/17 Body Mass Index (BMI) 27.1 09/09/17 Blood Pressure 159/83 Intake Visit Reasons: abn CT scan, discuss c-scope Chief Complaint: discuss colonoscopy Driver/Refuse Collector Required: No Is patient in pain?: No Allergies ceftriaxone [From Rocephin] Allergy (Mild, Verified 09/10/17 11:35) Rash/throat swelling Medications duloxetine 30 mg capsule,delayed release 30 mg PO QDAY 09/09/17 [History Confirmed 09/10/17] hydrochlorothiazide 25 mg tablet 25 mg PO QDAY 09/09/17 [History Confirmed 09/10/17] metoprolol succinate ER 50 mg tablet,extended release 24 hr 50 mg PO QDAY 09/09/17 [History Confirmed 09/10/17] naltrexone 50 mg tablet 50 mg PO QDAY 09/09/17 [History Confirmed 09/10/17] omeprazole 40 mg capsule,delayed release 40 mg PO QDAY 09/09/17 [History Confirmed 09/10/17] Amour Thyroid 60 mg PO DAILY 09/10/17 [History Confirmed 09/10/17] L.acidoph,Paracasei, B.lactis [Probiotic] 1 ea PO BID 09/10/17 [History Confirmed 09/10/17] [place]-3 Fatty Acids/Fish Oil [Fish Oil 1,000 mg Capsule] 1 ea PO BID 09/10/17 [History Confirmed 09/10/17] Progesterone,Micronized [Prometrium] 200 mg PO DAILY 09/10/17 [History Confirmed 09/10/17] Is last menstrual period known: No Post menopausal: Yes Patient : No PFSH Medical History Anxiety (Acute) Barretts esophagus (Acute) Chronic back pain (Acute) Diabetes mellitus (Acute) GERD (gastroesophageal reflux disease) (Acute) Hemorrhoid (Acute) History of colitis (Acute) Hyperlipidemia (Acute) IBS (irritable bowel syndrome) (Acute) Osteoarthritis (Acute) Thrombocytopenia (Acute) Uterine fibroid (Acute) HTN (hypertension) (Chronic) Surgical History H/O section (Acute) S/P appendectomy (Acute) S/P colonoscopy (Acute) S/P tubal ligation (Acute) Family History Grandmother Colon cancer Social History Smoking Status: Current every day smoker HPI HPI HPI: DAYSI FLORES, is a 62 F who presents to the office today for evaluation of an abnormal CAT scan of the abdomen and pelvis. Patient had her CAT scan of the abdomen and pelvis at [facility] on 09/04/2017. This showed evidence of circumferential wall thickening of the cecum and proximal right hemicolon with increased markings in the surrounding peritoneal fat. A neoplastic process should be ruled out ROS General General: Yes weight change and fatigue; no appetite, colon cancer, breast cancer or weakness HEENT HEENT: No difficulty swallowing, eye injury, eye surgery, swollen glands or hoarseness Endo Endocrine: Yes diabetes mellitus; no thyroid disease, thyroid cancer, Hair loss, heat intolerance or cold intolerance Musc Musculoskeletal: Yes back problems, arthritis and gout; no rheumatoid arthritis or joint pain Cardio Cardiovascular: Yes high blood pressure; no murmur, pacemaker, heart disease, atrial fibrillation, heart attack, heart stent, palpitations, shortness of breat with exertion or chest pain Psych Psychiatric: Yes anxiety; no depression or hearing voices Resp Respiratory: No shortness of breath, No sleep apnea, No cough, No COPD, No asthma, No emphysema, No wheezing Gastro Gastrointestinal: Yes abdominal pain, No nausea or vomiting, No diarrhea, No constipation, No blood in stool, Yes acid reflux, Yes hemorrhoids, No ulcers, No gallbladder problem, No black,tarry stools Nirav Hematologic: No blood thinners, No blood disorders, No bleeding, No anemia, No blood clots Neuro Neurologic: No weakness Exam Const General: well developed, no acute distress, well hydrated Orientation: oriented to person, oriented to place, oriented to time [facility] Head: normocephalic, atraumatic Ears: external ears normal Mouth: moist mucous membranes Eyes Sclera: sclerae normal Pupils: normal by confrontation Neck Neck: no lymphadenopathy noted Neck mass: No Thyroid: symmetrical, thyroid normal Chest Chest palpation AND inspection: normal inspection of the chest Resp Effort AND Inspection: normal respiratory effort Auscultation: clear to auscultation bilaterally Percussion: percussion normal Cardio Rate: regular rate Rhythm: regular rhythm Heart Sounds: no murmurs GI Palpation: soft, no masses, no hepatosplenomegaly, nontender Rectal Exam: other Other: Rectal exam deferred. Extrem General: no clubbing, cyanosis or edema, normal to inspection Assessment AND Plan Problems 1. Abnormal CT of the abdomen R93.5 Plan I have discussed the above with the patient. I have offered the patient colonoscopy for evaluation. I have explained the risks/benefits of the procedure and described the procedure. I have discussed the risks with the patient, including but not limited to: infection, bleeding, perforation of the GI tract requiring emergency surgery, inability to complete the procedure, injury to any internal organs, complications of anesthesia, etc. - the patient understands and agrees to proceed. I have answered all the patient's questions to the patient's satisfaction and the patient has no further questions. The patient has been given instructions for the colon cleansing preparation. Coding Level of Care Code Off vis,new,level [address] of the abdomen R93.5 09/13/17 1631 <Electronically signed by Tony Dhillon MD> Date Tony Dhillon MD Cosigner Signature: Date (if applicable) CC: Gabriela Ding DO TRANSVAGINAL Observed: 09/05/2017 Status: F Source: [place] NON- 2:26 PM [facility] RE[facility]IT[facility] Imaging Services [address] [place] [address] Transvaginal Non- MR#: [id number] Acct: [id number] Name: FREDO FLORESDAYSI Rep #: [id number] : 1955 F 62 From: Ronn Mercer PCP: Gabriela Ding DO Status: REG CLI Study: Transvaginal Non- Date of Exam: 09/05/17 Exam# [id number] Ordering Dr: Gabriela Ding DO STUDY: ULTRASOUND OF THE FEMALE PELVIS - COMPLETE REASON FOR EXAM: Female, 62 years old. Postmenopausal heavy bleeding.. History of endometrial hyperplasia.: Abnormal CT exam. TECHNIQUE: Transabdominal and Transvaginal TECHNICAL QUALITY: Adequate. COMPARISON: CT abdomen/pelvis: 09/04/2017 FINDINGS: The uterus is enlarged and anteverted. The uterus measures 13.3 x 5.0 x 5.5 cm. There are Nabothian cysts of the cervix. The endometrium measures 12 mm in thickness. There is heterogenous echogenicity of the uterus demonstrated with multiple myometrial masses/fibroids, largest 3 measures 3.0 x 3.1 x 3.0 cm in the fundus, 2.6 x 2.6 x 2.4 cm in the midline and 2.1 x 1.6 x 1.4 cm posteriorly in the body.. The right ovary is non-visualized. The left ovary is non-visualized. Parauterine and uterine dilated/prominent vessels demonstrated. There is no fluid in the cul-de-sac. The pre void volume of the bladder was 360 ml. US/Transvaginal Non- IMPRESSION: 1. Enlarged multi fibroid uterus. 2. 12 mm thickened postmenopausal endometrial stripe, consistent with endometrial hyperplasia of uncertain etiology. DTC correlation is recommended. 3. Both ovaries are not visualized. 4. Prominent uterine/left parauterine vessels, question pelvic congestion syndrome. Electronically Signed: Henrik Mercer MD at 8:49 EDT Tel , Service support , CC: Gabriela Ding DO [employer]: Signed PELVIC (NON ) Observed: 09/05/2017 Status: F Source: [place] 2:12 PM [facility] Imaging Services [address] [place] [address] Pelvic (Non ) MR#: [id number] Acct: [id number] Name: DAYSI HOROWITZ Rep #: [id number] : 1955 F 62 From: Ronn Mercer PCP: Gabriela Ding DO Status: REG CLI Study: Pelvic (Non ) Date of Exam: 09/05/17 Exam# [id number] Ordering Dr: Gabriela Ding DO STUDY: ULTRASOUND OF THE FEMALE PELVIS - COMPLETE REASON FOR EXAM: Female, 62 years old. Postmenopausal heavy bleeding.. History of endometrial hyperplasia.: Abnormal CT exam. TECHNIQUE: Transabdominal and Transvaginal TECHNICAL QUALITY: Adequate. COMPARISON: CT abdomen/pelvis: 09/04/2017 FINDINGS: The uterus is enlarged and anteverted. The uterus measures 13.3 x 5.0 x 5.5 cm. There are Nabothian cysts of the cervix. The endometrium measures 12 mm in thickness. There is heterogenous echogenicity of the uterus demonstrated with multiple myometrial masses/fibroids, largest 3 measures 3.0 x 3.1 x 3.0 cm in the fundus, 2.6 x 2.6 x 2.4 cm in the midline and 2.1 x 1.6 x 1.4 cm posteriorly in the body.. The right ovary is non-visualized. The left ovary is non-visualized. Parauterine and uterine dilated/prominent vessels demonstrated. There is no fluid in the cul-de-sac. The pre void volume of the bladder was 360 ml. US/Pelvic (Non ) IMPRESSION: 1. Enlarged multi fibroid uterus. 2. 12 mm thickened postmenopausal endometrial stripe, consistent with endometrial hyperplasia of uncertain etiology. DTC correlation is recommended. 3. Both ovaries are not visualized. 4. Prominent uterine/left parauterine vessels, question pelvic congestion syndrome. Electronically Signed: Henrik Mercer MD at 8:49 EDT Tel , Service support , CC: Gabriela Ding DO [employer]: Signed ABDOMEN/PELVIS WITH Observed: 09/04/2017 Status: F Source: [place] CONTRAST 7:03 AM [facility] Imaging Services [address] [place] [address] Abdomen/Pelvis WITH Contrast MR#: [id number] Acct: [id number] Name: DAYSI HOROWITZ Rep #: [id number] : 1955 F 62 From: Vincent Cox MD PCP: Gabriela Ding DO Status: REG CLI Study: Abdomen/Pelvis WITH Contrast Date of Exam: 09/04/17 Exam# [id number] Ordering Dr: Gabriela Ding DO STUDY: CT ABDOMEN AND PELVIS WITH CONTRAST REASON FOR EXAM: Female, 62 years old. Postmenopausal vaginal bleeding. RADIATION DOSAGE (If Supplied By Facility): CTDIvol = ( 14.97 ) mGy, DLP = ( 946.01 ) mGycm TECHNIQUE: Transaxial images were obtained from the dome of the diaphragm to the symphysis pubis with oral contrast. 100 ml of Isovue 300 contrast was administered. Sagittal and coronal images were reconstructed. Individualized dose optimization techniques were used for this CT. COMPARISON: None. FINDINGS: The visualized lung bases are unremarkable. The visualized portions of the heart are within normal limits. There is a diffuse contour abnormality of the liver consistent with cirrhotic changes. Mild degree of inhomogeneity of the liver. Possible 9.2 mm hypodense nodule in the dome of the right lobe of the liver. Correlation with ultrasound is recommended. Normal gallbladder and extrahepatic biliary system. There is moderate splenomegaly. Serpiginous vessels are seen in the region of the splenic hilum. Varices should be ruled out. Normal pancreas. Normal bilateral adrenal glands. Normal right kidney. Normal left kidney. There is a small hiatal hernia. Normal small intestine. There is evidence of a circumferential wall thickening of the cecum and proximal right hemicolon with increased markings in the surrounding peritoneal fat. A neoplastic process should be ruled out. The appendix is visualized and appears normal. Normal abdominal aorta. Normal inferior vena cava. Normal retroperitoneum. Normal urinary bladder. Diffusely enlarged inhomogeneous uterus. Calcifications are seen within the suggestive of fibroid change. I also suspect enhancement along its left lateral wall. Varicosities are seen within the pelvis. Correlation with a pelvic sonogram is recommended. Normal abdominal wall. Normal osseous structures. CT/Abdomen/Pelvis WITH Contrast IMPRESSION: Inhomogeneously enlarged uterus with vascularity as described. Thickened endometrium. Correlation with the ultrasound is recommended. Thickening and inhomogeneity of the cecum in the right hemicolon with increased markings in the surrounding fat. Colonoscopy is recommended. Splenomegaly. Findings suggestive of a cirrhotic changes of the liver with inhomogeneity of the liver parenchyma. I suspect varices in the region of the splenic hilum. Electronically Signed: Vincent Cox MD at 11:15 EDT Tel [phone], Service support , CC: Gabriela Ding DO [employer]: Signed URINALYSIS, COMPLETE Collected: 09/01/2017 Status: F Source: [place] 4:18 PM [facility] Order Comment: How was Urine Obtained? CLEAN CATCH TYPE CODE TESTS RESULT OUT OF RANGE REFERENCE UNITS LAB L400.3000 Yellow COLOR Normal Yellow LAB L400.3050 Clear Normal CLARITY Clear LAB L400.3200 Normal mg/dl Normal GLUCOSE, UR Normal LAB L400.3300 Negative mg/dL Normal BILIRUBIN URINE Negative LAB L400.3400 Negative mg/dl Normal KETONE UR Negative LAB L400.3465 1.002-1.030 Normal SP.GR. DIPSTX 1.010 LAB L400.3550 5.0 - 8.0 pH UR Normal 7.0 LAB L400.3600 Negative mg/dl PROT Normal DIPSTX Negative LAB L400.3700 Normal mg/dl Normal UROBILI Normal LAB L400.3750 Negative Normal NITRITE UR Negative LAB L400.3780 Negative /ul High OCCULT BLOOD-UR 250 LAB L400.3800 Negative /ul LEUK Normal ESTERASE Negative LAB L400.4050 0-5 /hpf WBC 0 Normal SEEN LAB L400.4100 0-5 /hpf 0 Normal RBC-UA SEEN LAB L400.4150 5-10 /hpf SQUAM Normal EPI 25-50 SEEN LAB L400.4300 None Seen /hpf 1+ Normal BACTERIA LAB L400.4350 <or=2+ /hpf 0 Normal MUCUS, URINE SEEN Performed By: #### L400.0001 #### [facility] [address] [place], [address] Observed: 09/01/2017 Status: F Source: [place] CULTURE, URINE 4:18 PM [facility] Urine Culture ORGANISM 1: Mixed Gram Positive Organisms [place] Count 11,000-25,000 MIX CULTURE Mixed contaminants. Submit a new specimen if indicated. Performed By: #### M100.0650 #### [facility] [address] [place], [address] CYTOLOGY, BODY FLUID / Collected: 09/01/2017 Status: F Source: [place] CSF 4:18 PM [facility] Order Comment: Specimen Source: URINE TYPE CODE TESTS RESULT OUT OF RANGE REFERENCE UNITS LAB L350.1000 SEE Normal PATHOLOGY CYTOLOGY,BF REPORT /CSF Result Comment: Specimen submitted to Anatomical Pathology Department for testing. Performed By: #### L350.1000 #### [facility] [place], [address] FLUID/WASHING Observed: 09/01/2017 Status: F Source: [place] 12:00 AM [facility] Patient: DAYSI HOROWITZ : 1955 (62/F) Acct Num: [id number] Phys: Gabriela Ding DO Unit Num: [id number] Loc: [facility] Specimen: [id number] Received: 09/01/17 - 1500 Spec Type: Fluid TISSUES TISSUES: Urine COMMENT Clinical correlation and appropriate follow up are necessary. CYTOLOGY GROSS Received is 15 ml of clear yellow labeled with the patient's name and and designated per the requisition as urine. Submitted for cytology preparation. / RB:norman 09/02/17 TC:4 CPT: 33747 CYTOLOGY STUDY Slides are reviewed. The specimen predominantly consists of benign squamous epithelial cells. DIAGNOSIS CYTOLOGY Urine for cytology (cytospin): Negative for malignant cells. See cytology study and comment. SJ:josafat 09/03/17 HEADER OPERATION: Not noted PRE-OP DIAGNOSIS: N30.90, R31.9 TISSUE SUBMITTED: Urine for cytology Signed Ravinder Whiting 09/03/17 <signature on file> Performed By: #### PFLU #### [facility] [address] [place], [address] CBC W/DIFF, AUTOMATED Collected: 08/21/2017 Status: F Source: [place] 11:36 AM [facility] TYPE CODE TESTS RESULT OUT OF RANGE REFERENCE UNITS LAB L100.1000 4.4-11.0 K/mm3 Normal WBC 6.0 LAB L100.1200 4.2-5.4 M/mm3 Low RBC 4.06 LAB L100.1300 12.0-15.0 g/dl Normal HGB 13.9 LAB L100.1400 37-47 % Normal HCT 39.6 LAB L100.1500 81-99 fL Normal MCV 97.5 LAB L100.1600 27.0-32.0 pg High MCH 34.2 LAB L100.1700 32-36 g/gl Normal MCHC 35.1 LAB L100.1810 11.6-14.6 % Normal RDW CV 12.6 LAB L100.1820 35.1-43.9 fl High RDW SD 44.1 LAB L100.1900 150-450 K/mm3 Low PLT 74 LAB L100.2000 6.2-12.0 fl High MPV 12.6 LAB L100.2100 47-70 % Normal NEUT% 61.3 LAB L100.2200 19-41 % Normal LY% 29.0 LAB L100.2300 0-10 % Normal MONO% 6.9 LAB L100.2400 0-5 % Normal EO% 2.3 LAB L100.2500 0-1 % Normal BASO% 0.3 LAB L100.2550 0.0-0.9 % Normal IM GRAN % 0.200 Result Comment: IG% - Immature Granulocytes (promyelocytes, myelocytes and metamyelocytes) > 1% indicates that a LEFT SHIFT is Present. LAB L100.2620 2.0-7.7 X10 3/uL Normal Absolute Neut 3.7 LAB L100.2720 0.83-4.51 X10 3/ul Normal Absolute Lymph 1.73 Performed By: #### L100.0100 #### [facility] [address] [place], [place], [address] COMPREHENSIVE METABOLIC Collected: 08/21/2017 Status: F Source: [facility] 11:36 AM [facility] REPOSITORY TYPE CODE TESTS RESULT OUT OF RANGE REFERENCE UNITS LAB L501.0100 74-106 mg/dL High GLU 147 Result Comment: Fasting Glucose result greater than or equal to 126 mg/dL suggests DIABETES MELLITUS per A.D.A. criteria. Please note revised GLUCOSE reference range effective 2017. LAB L501.1000 7-18 mg/dL Normal BUN 13 LAB L501.1100 0.55-1.02 mg/dL Normal CREAT,SERUM 0.69 Result Comment: The validity of the calculated GFR AND GFRAA in patients over 70 years has not been determined. Clinical correlation is essential. LAB L501.1110 >60 mL/min Normal EST GFR 91 Result Comment: Non- GFR Calc LAB L501.1115 >60 mL/min Normal EST GFR - AA 110 Result Comment: GFR Calc LAB L501.1300 10-20 RATIO Normal BUN/CRE 18.7 LAB L501.1500 6.4-8.2 g/dL T Normal PROT 7.0 LAB L501.1800 3.2-5.0 g/dL Low ALB 3.0 LAB L501.1950 2.2-4.2 g/dL Normal GLOB 4.0 LAB L501.2000 0.9-2.4 RATIO Low A/G 0.8 LAB L501.2200 8.5-10.1 mg/dL CA Normal 8.8 LAB L501.4100 15-37 U/L Normal AST 23 LAB L501.4305 45-117 U/L Normal ALK P 83 LAB L501.4405 13-56 U/L Normal ALT 21 LAB L501.4600 0.20-1.00 mg/dL T Normal BILI 1.00 LAB L501.5300 136-145 mmol/L NA Normal 139 LAB L501.5600 3.5-5.1 mmol/L K Normal 4.1 LAB L501.5900 98-107 mmol/L CL Normal 106 LAB L501.6100 21.0-32.0 mmol/L Normal CO2 26.0 LAB L501.6200 5-15 Normal GAP 7 Performed By: #### L500.4050, L500.4100 #### [facility] [address] [place], [place], [id number] LIPID PROFILE Collected: 08/21/2017 Status: F Source: [place] 11:36 AM [facility] REPOSITORY TYPE CODE TESTS RESULT OUT OF RANGE REFERENCE UNITS LAB L501.4900 200 mg/dL Normal CHOL 187 Result Comment: <200 mg/dL Desirable 200-240 mg/dL Borderline >240 mg/dL High Risk LAB L501.5000 mg/dL Normal TRIG 72 Result Comment: The drugs N-Acetylcysteine and Metamizole may falsely depress this assay. Serum Triglycerides Reference Interval Normal <150 mg/dL Borderline high 150 - 199 mg/dL High 200 - 499 mg/dL Very High > or = 500 mg/dL LAB L501.6400 mg/dL Normal HDL 76 Result Comment: The drugs N-Acetylcysteine and Metamizole may falsely depress this assay. Reference Range HDL <40 mg/dL Low HDL Cholesterol HDL >or= 60 mg/dL High HDL Cholesterol LAB L501.6500 0-130 mg/dL Normal LDL 97 LAB L501.6600 5-40 mg/dL Normal VLDL 14 Performed By: #### L500.4050, L500.4100 #### [facility] [address] [place], [place], [id number] HEMOGLOBIN A1C Collected: 08/21/2017 Status: F Source: [place] 11:36 AM [facility] REPOSITORY TYPE CODE TESTS RESULT OUT OF RANGE REFERENCE UNITS LAB L501.9985 4.2-6.3 % High HGB A1C 6.6 Performed By: #### L501.9985 #### [facility] [address] [place], [place], [address] MICROALB:CREAT Collected: 08/21/2017 Status: F Source: PORSCHE RATIO,RANDOM UR 11:36 AM [facility] REPOSITORY TYPE CODE TESTS RESULT OUT OF RANGE REFERENCE UNITS LAB L501.1200 NO RANGE EST. mg/dL Normal UR CREAT 81.30 LAB L502.0500 NO RANGE EST. mg/L Normal 6.2 MICROALBUMIN ,UR LAB L502.0600 <30 mg/g CRE mg/g CRE Normal 7.7 MALB:CREAT Performed By: #### L502.0250 #### [facility] [address] [place], [place], [address] AFP, TUMOR MARKER Collected: 08/21/2017 Status: F Source: [place] 11:36 AM [facility] REPOSITORY Order Comment: Is Patient ? N TYPE CODE TESTS RESULT OUT OF RANGE REFERENCE UNITS LAB L3300.0700 0.0-8.3 ng/mL Normal AFP TUMOR 3.5 2253 Result Comment: Yrn ECLIA methodology Performed at: [facility] [id number] [employer] Operator: Saw Lamas PhD, Phone: [phone] Performed By: #### L3300.0700 #### [facility] (refer to report for specific site) refer to report for address and phone number PROGRESS Observed: 06/18/2017 Status: COMPLETED Source: [place] 1:33 PM CLINIC OTHER CAMPUS REPOSITORY HNO ID: [id number] Author: Yanelis Vanessa Service: (none) Author Type: Physician Type: Progress Notes Filed: 06/18/2017 1:43 PM Note Text: Daysi Flores is an 62 year old woman who presents for annual exam. LMP: No LMP recorded. Patient is postmenopausal. Dysmenorrhea:none. Cyclic symptoms include none. Sexually active? YES Contraception: none Sexual dysfunction: none No past medical history on file. PAST SURGICAL HISTORY Procedure Laterality Date - SECTION HX - SECTION HX - TONSILLECTOMY AND ADENOIDECTOMY HX No family history on file. Social History Marital status: Spouse name: Years of education: Number of children: Social History Main Topics Smoking status: Current Some Day Smoker Packs/day: 0.00 Years: 0.00 Smokeless status: Never Used Alcohol use: No Drug use: Yes Special: Marijuana Comment: every couple weeks MEDICATIONS: VITAMIN D 50,000 unit capsule hydroCHLOROthiazide (HYDRODIURIL, ESIDRIX) 25 mg tablet metoprolol succinate ER (TOPROL XL) 50 mg 24 hr tablet naltrexone (TREXAN) 50 mg tablet progesterone micronized (PROMETRIUM) 200 mg capsule thyroid,pork (ARMOUR THYROID ORAL) Take by mouth. Omeprazole Magnesium (PRILOSEC OTC) 20 mg tablet Take 20 mg by mouth once daily. ALLERGIES:Review of patient's allergies indicates not on file. Hormone replacement: never Hx of abnormal pap? No Regular self-breast exam? Yes History of abnormal mammogram? No REVIEW OF SYSTEMS: GENERAL:Denies fever, chills, night sweats, or changes in weight. DERMATOLOGIC: Denies any new skin conditions, rashes or changing moles. EYES: Denies recent visual changes. ENT: Denies hearing loss or tinnitus. RESPIRATORY: Denies any cough, dyspnea, or wheezing. CARDIOVASCULAR:Denies any chest pain with exertion or at rest, palpitations, syncope, shortness of breath or edema. BREASTS: Denies any breast lumps, tenderness, dimpling, skin changes, or nipple discharge. GASTROINTESTINAL: Denies any nausea, vomiting, or abdominal pain. , Denies heartburn., Denies any change in bowel habits. GENITOURINARY: Denies urinary frequency, dysuria, hematuria, nocturia, incontinence. and Denies abnormal vaginal discharge or bleeding, pelvic pain, menstrual or menopausal problems COURIER: Denies any abnormal vaginal discharge, irregular bleeding, vaginal dryness, dypareunia, or change in libido MUSCULOSKELETAL: Denies any joint swelling, crepitus, or loss of range of motion., Denies back pain., Denies joint pain. NEURO:Denies any headaches, tremors, dizziness, vertigo, memory loss, confusion., Denies weakness, numbness or tingling. PSYCHIATRIC: Denies any anxiety or depression. HEMATOLOGIC/LYMPHATIC/IMMUNOLOGIC: Denies anemia, bruising, bleeding abnormalities. ENDOCRINE: Denies any heat or cold intolerance, polyuria, polyphasia or polydipsia. OBJECTIVE: GENERAL APPEARANCE: cooperative, in no acute distress, alert SKIN:Color normal, Vascularity normal, No evidence of bleeding or bruising, No lesions noted, No edema, Temperature normal, Texture normal, Mobility and turgor normal, Nails normal without clubbing NECK: Supple, no adenopathy; thyroid symmetric, normal size, no bruits BREASTS: breasts symmetric, no dominant or suspicious mass, no skin or nipple changes, no axillary adenopathy HEART:Normal PMI, Regular rate and rhythm, Normal heart sounds, S1 and S2 and No murmurs. ABDOMEN: soft, non-tender, no masses, no hepatosplenomegaly and no lymphadenopathy EXTREMITIES: No skin discoloration, No edema and Normal pulses bilaterally. PELVIC EXAM : External genitalia, cervix, and vagina normal., Bimanual exam normal. RECTAL EXAM:deferred PATIENT EDUCATION:Women's Health counselling done. ASSESSMENT/PLAN: 1. Routine cervical smear - ICD9: V76.2, ICD10: Z12.4 (primary diagnosis) - Completed pelvic and breast exam - Encouraged monthly BSE - Follow up for annual exam in one year. - PAP, CYTO COURIER 2. Visit for gynecologic examination - ICD9: V72.31, ICD10: Z01.419 - Completed pelvic and breast exam - Encouraged monthly BSE - Follow up for annual exam in one year. 3. Encounter for screening mammogram for malignant neoplasm of breast - ICD9: V76.12, ICD10: Z12.31 - Completed pelvic and breast exam - Encouraged monthly BSE - Follow up for annual exam in one year. - TWYLA SCREENING Yanelis Vanessa MD CNOV Observed: 06/18/2017 Status: COMPLETED Source: [place] 1:15 PM CLINIC OTHER CAMPUS REPOSITORY Office Visit (AGGYNBMG) DAYSI HOROWITZ ([id number]) 1955 F Date Time Provider Department 06/18/17 1:15 PM YANELIS VANESSABMG During your visit today, we recorded the following information about you: Blood pressure Weight Height 110/70 72.1 kg 1.575 m Yanelis Vanessa MD 06/18/2017 1:43 PM Signed Daysi Flores is an 62 year old woman who presents for annual exam. LMP: No LMP recorded. Patient is postmenopausal. Dysmenorrhea:none. Cyclic symptoms include none. Sexually active? YES Contraception: none Sexual dysfunction: none No past medical history on file. PAST SURGICAL HISTORY Procedure Laterality Date - SECTION HX - SECTION HX - TONSILLECTOMY AND ADENOIDECTOMY HX No family history on file. Social History Marital status: Spouse name: Years of education: Number of children: Social History Main Topics Smoking status: Current Some Day Smoker Packs/day: 0.00 Years: 0.00 Smokeless status: Never Used Alcohol use: No Drug use: Yes Special: Marijuana Comment: every couple weeks MEDICATIONS: VITAMIN D 50,000 unit capsule hydroCHLOROthiazide (HYDRODIURIL, ESIDRIX) 25 mg tablet metoprolol succinate ER (TOPROL XL) 50 mg 24 hr tablet naltrexone (TREXAN) 50 mg tablet progesterone micronized (PROMETRIUM) 200 mg capsule thyroid,pork (ARMOUR THYROID ORAL) Take by mouth. Omeprazole Magnesium (PRILOSEC OTC) 20 mg tablet Take 20 mg by mouth once daily. ALLERGIES:Review of patient's allergies indicates not on file. Hormone replacement: never Hx of abnormal pap? No Regular self-breast exam? Yes History of abnormal mammogram? No REVIEW OF SYSTEMS: GENERAL:Denies fever, chills, night sweats, or changes in weight. DERMATOLOGIC: Denies any new skin conditions, rashes or changing moles. EYES: Denies recent visual changes. ENT: Denies hearing loss or tinnitus. RESPIRATORY: Denies any cough, dyspnea, or wheezing. CARDIOVASCULAR:Denies any chest pain with exertion or at rest, palpitations, syncope, shortness of breath or edema. BREASTS: Denies any breast lumps, tenderness, dimpling, skin changes, or nipple discharge. GASTROINTESTINAL: Denies any nausea, vomiting, or abdominal pain. , Denies heartburn., Denies any change in bowel habits. GENITOURINARY: Denies urinary frequency, dysuria, hematuria, nocturia, incontinence. and Denies abnormal vaginal discharge or bleeding, pelvic pain, menstrual or menopausal problems COURIER: Denies any abnormal vaginal discharge, irregular bleeding, vaginal dryness, dypareunia, or change in libido MUSCULOSKELETAL: Denies any joint swelling, crepitus, or loss of range of motion., Denies back pain., Denies joint pain. NEURO:Denies any headaches, tremors, dizziness, vertigo, memory loss, confusion., Denies weakness, numbness or tingling. PSYCHIATRIC: Denies any anxiety or depression. HEMATOLOGIC/LYMPHATIC/IMMUNOLOGIC: Denies anemia, bruising, bleeding abnormalities. ENDOCRINE: Denies any heat or cold intolerance, polyuria, polyphasia or polydipsia. OBJECTIVE: GENERAL APPEARANCE: cooperative, in no acute distress, alert SKIN:Color normal, Vascularity normal, No evidence of bleeding or bruising, No lesions noted, No edema, Temperature normal, Texture normal, Mobility and turgor normal, Nails normal without clubbing NECK: Supple, no adenopathy; thyroid symmetric, normal size, no bruits BREASTS: breasts symmetric, no dominant or suspicious mass, no skin or nipple changes, no axillary adenopathy HEART:Normal PMI, Regular rate and rhythm, Normal heart sounds, S1 and S2 and No murmurs. ABDOMEN: soft, non-tender, no masses, no hepatosplenomegaly and no lymphadenopathy EXTREMITIES: No skin discoloration, No edema and Normal pulses bilaterally. PELVIC EXAM : External genitalia, cervix, and vagina normal., Bimanual exam normal. RECTAL EXAM:deferred PATIENT EDUCATION:Women's Health counselling done. ASSESSMENT/PLAN: 1. Routine cervical smear - ICD9: V76.2, ICD10: Z12.4 (primary diagnosis) - Completed pelvic and breast exam - Encouraged monthly BSE - Follow up for annual exam in one year. - PAP, CYTO COURIER 2. Visit for gynecologic examination - ICD9: V72.31, ICD10: Z01.419 - Completed pelvic and breast exam - Encouraged monthly BSE - Follow up for annual exam in one year. 3. Encounter for screening mammogram for malignant neoplasm of breast - ICD9: V76.12, ICD10: Z12.31 - Completed pelvic and breast exam - Encouraged monthly BSE - Follow up for annual exam in one year. - TWYLA SCREENING Yanelis M Cola, MD Yanelis M Cola, MD 06/18/2017 1:46 PM Signed Addended by: YANELIS VANESSA MD on: 06/18/2017 01:46 PM Modules accepted: Orders, SmartSet Referring Provider: SELF [200] Allergies As of Date: 06/18/2017 (Not on File) Date Reviewed: 06/18/2017 Reviewed by: Yanelis Vanessa - Fully Assessed Reason for Visit: Yearly Exam [187] Primary Visit Diagnosis:Routine cervical smear [Z12.4] Other Visit Diagnoses:Visit for gynecologic examination [Z01.419] Encounter for screening mammogram for malignant neoplasm of breast [Z12.31] Screening for condition [Z13.9] Order(s):PAP, CYTO COURIER [[id number]] Order #: [id number] TWYLA SCREENING [[id number]] Order #: [id number] FUTURE DXA-AXIAL SKELETON [[id number]] Order #: [id number] FUTURE Prescriptions as of 06/18/2017 Sig: VITAMIN D2 50,000 UNIT CAPSULE HYDROCHLOROTHIAZIDE 25 MG TAB* METOPROLOL SUCCINATE ER 50 MG* NALTREXONE 50 MG TABLET PROGESTERONE MICRONIZED 200 M* ARMOUR THYROID ORAL Take by mouth. OMEPRAZOLE MAGNESIUM 20 MG TA* Take 20 mg by mouth once guerda* Problem List As Of Date 06/18/2017 Noted Resolved Routine cervical smear [Z12.4] INVALID FOR* Visit for gynecologic examination [Z01.419] INVALID FOR* Encounter for screening mammogram for malignant*INVALID FOR* Screening for condition [Z13.9] INVALID FOR* Level of Service: WELLNESS EXAMS NEW 40-64 YRS [36668] Disposition: Return in about 1 year (around 06/18/2018). Follow-up and Disposition History Recorded Encounter Status:Closed by YANELIS VANESSA MD on 06/18/17 ALLERGIES ALLERGIES DATE TYPE / NAME / CODE REACTION SEVERITY SOURCE CODE 09/10/2017 Drug ceftriaxone/F0060 Rash/throat [place] Allergy/41 75484(RXNORM) swelling Community 1776085([facility]) Repository 06/18/2017 DRUG CEFTRIAXONE ANAPHYLAXIS [facility] INGREDI/41 SODI[place] Other [place] 2335700([facility] CT) /1572204 CEFTRIAXONE [facility] Repository ENCOUNTERS ENCOUNTERS ADMIT/DISCHARGE ACCOUNT NUMBER ADMITTING ENCOUNTER LOCATION SOURCE CLASS 03/17/2018/03/17/19 [id number] Ambulatory [address] Other [place] Repository 03/17/2018/03/17/19 [id number] Ambulatory [address] MEDICAL Repository CENTERBuildi ng:AGGENS1 02/27/2018 [id number] Ambulatory [facility] Repository 02/27/2018/02/27/19 [id number] Ambulatory [address] MEDICAL Repository CENTERBuildi ng:AKLB 02/27/2018/02/27/19 [id number] Ambulatory [address] Repository 02/27/2018/02/27/19 [id number] Ambulatory [address] MEDICAL Repository WOBURNBuildi ng:AGGASTACC 02/09/2018 [id number] [facility] ding:LAB.FUT Repository URE 02/05/2018 [id number] [facility] ding:BFHLAB Repository 01/29/2018/01/30/20 [id number] STEWART SIDDIQI Ambulatory [place] [address] [address]) [facility] Repository 01/29/2018/01/30/20 [id number] STEWART SIDDIQI Inpatient [place] [address] [address]) [facility] MEDICAL Repository WOBURNBuild ng:ENDORoom: POOLBed: 04 01/28/2018 [id number] Ambulatory [facility] Repository 01/28/2018/01/29/20 [id number] Ambulatory [address] MEDICAL Repository CENTERBuildi ng:AKXRUS 12/25/2017 [id number] Ambulatory [facility] MEDICAL Repository CENTERBuildi ng:AKUSG 12/23/2017 [id number] Ambulatory [facility] MEDICAL Repository CENTERBuildi ng:AKXRUS 12/23/2017 [id number] Ambulatory [facility] MEDICAL Repository CENTERBuildi ng:AKXRUS 12/18/2017 [id number] Ambulatory [facility] Repository 12/18/2017/12/19/19 [id number] Ambulatory [address] MEDICAL Repository CENTERBuildi ng:AKLB 12/18/2017/12/19/19 [id number] Ambulatory [address] Other [place] Repository 12/18/2017/12/19/19 [id number] Ambulatory AKRON Daniel [address] MEDICAL Repository CENTERBuildi ng:AGGASTACC 12/09/2017 [id number] Ambulatory AKRON Daniel [facility] MEDICAL Repository CENTERBuildi ng:AKUST 12/03/2017 [id number] Ambulatory [facility] Other [place] Repository 12/03/2017/12/04/19 [id number] Ambulatory AKRON Daniel [address] MEDICAL Repository CENTERBuildi ng:AKLB 12/03/2017/12/04/19 [id number] Ambulatory [address] Other [place] Repository 12/03/2017/12/04/19 [id number] Ambulatory ANNIKARON Daniel [address] MEDICAL Repository CENTERBuildi ng:AGGASTACC 11/27/2017 [id number] Ambulatory [facility] ding:BFHLAB Repository 10/31/2017/11/01/19 [id number] Ambulatory [address] Other [place] Repository 10/31/2017/11/01/19 [id number] Ambulatory ANNIKARON Daniel [address] MEDICAL Repository CENTERBuildi ng:GBMG 10/24/2017/10/25/19 [id number] Ambulatory [address] Other [place] Repository 10/24/2017/10/25/19 [id number] Ambulatory AKRON Daniel [address] MEDICAL Repository CENTERBuildi ng:GBMG 10/24/2017 [id number] Ambulatory AKRON Daniel [facility] MEDICAL Repository CENTERBuildi ng:GBMG 10/20/2017/10/21/19 [id number] Ambulatory [address] Other [place] Repository 10/20/2017/10/21/19 [id number] Ambulatory [place] [address] MEDICAL Repository CENTERBuildi ng:GBMG 10/03/2017/10/04/19 [id number] YANELIS VANESSA Ambulatory [address] Other [place] Repository 10/03/2017/10/04/19 [id number] SURESH VANESSA Inpatient [address] MEDICAL Repository CENTERBuildi ng:ASCRoom: POOLBed: 15 10/03/2017 [id number] Ambulatory [facility] Repository 10/03/2017/10/04/19 [id number] Ambulatory [address] Repository CENTERBuildi ng:AKLB 09/24/2017 [id number] Ambulatory [facility] Repository WOBURNBuildi ng:GBMG 09/18/2017/09/19/19 [id number] Ambulatory [address] Repository 09/11/2017/09/12/19 [id number] Ambulatory [address] ding:EN Repository 09/11/2017 [id number] Ambulatory BMSBuilding: [place] BMS.CF.[facility] Repository 09/09/2017/09/10/19 [id number] Ambulatory BMSBuilding: [place] 18 BMS.[facility] Repository 09/05/2017 [id number] Ambulatory [facility] ding:US Repository 09/04/2017 [id number] Ambulatory [facility] ding:CT Repository 09/01/2017 [id number] Ambulatory [facility] ding:LABSPEC Repository 08/21/2017 [id number] Ambulatory [facility] ding:LAB.FUT Repository URE 06/18/2017/06/19/19 [id number] Ambulatory [address] Repository 06/18/2017/06/19/19 [id number] Ambulatory [address] MEDICAL Repository CENTERildi ng:GBMG PAYERS PAYERS ENCOUNTER GUARANTOR PAYER SUBSCRIBER SOURCE 03/17/2018 DAYSI YOO [facility]: [facility] [id number] ILXPolicy Number: [id number] [id number] [place] Date: [address]Obu: () 03/17/2018 Secondary DAYSI Sanchez General Insurance:AFSLICPolic REANSDOB: Health System y Number: [id number] Repository [id number] Date: 02/27/2018 DAYSI YOO Primary DAYSI Sanchez [facility] REANSDOB: Insurance:CARESOURCE REANSDOB: Health System HIXPolicy Number: [id number] Repository [place] [id number] [place], [place] Date: [address]Mkn: () 02/27/2018 Secondary DAYSI Sanchez General Insurance:AFSLICPolic REANSDOB: Health System y Number: [id number] Repository [id number] Date: 02/27/2018 DAYSI YOO Primary DAYSI Sanchez [facility] REANSDOB: Insurance:CARESOURCE REANSDOB: [facility] Number: [id number] Repository [place] [id number] [place], [place] Date: [address]Pbv: () 02/27/2018 Secondary DAYSI Sanchez General Insurance:AFSLICPolic REANSDOB: Health System y Number: [id number] Repository [id number] Date: 02/09/2018 DAYSI YOO Primary SOYIsaias OYO [place] [id number] Insurance:CARESOURCE REANSDOB: [facility] [id number] [place] Number: Repository [id number]: (437) [id number] [phone] () Date:[id number] [address] [place] [phone]: 02/09/2018 Secondary THOMAS LIRA [place] Insurance:SELF PAY [facility] Number: Effective Repository Date:2018-02-06 02/05/2018 SYO FREDO Primary SOYIsaias YOO [place] [id number] Insurance:CARESOURCE REANSDOB: [facility] [id number] Number: Repository [id number]: [phone]) [id number] [phone] (HP) Date:[id number] [facility] [address] [place] [id number]: 02/05/2018 Secondary NOT GIVENUNK [place] Insurance:SELF PAY [facility] Number: Effective Repository Date:2018-02-05 01/29/2018 DAYSI FREDO Primary DAYSI FREDO Sanchez [facility] REANSDOB: Insurance:CARESOURCE REANSDOB: Health System HIXPolicy Number: [id number] Repository [place] [id number] [place] Date: [address]Tft: () 01/28/2018 DAYSI YOO Primary DAYSI Sanchez [facility] REANSDOB: Insurance:CARESOURCE REANSDOB: Health System HIXPolicy Number: [id number] Repository [place] [id number] [place] Date: [address]Ccc: () 12/25/2017 DAYSI FREDO Primary DAYSI FREDO Sanchez [facility] Insurance:CARESOURCE REANSDOB: Health System HIXPolicy Number: [id number] Repository [place] [id number] [place] Date: [address]Hsa: (HP) 12/23/2017 DAYSI FREDO Primary DAYSI FREDO Sanchez [facility] Insurance:CARESOURCE REANSDOB: Health System HIXPolicy Number: [id number] Repository [place] [id number] [place] Date: [address]Yys: (HP) 12/23/2017 DAYSI FREDO Primary DAYSI FREDO Sanchez [facility] Insurance:CARESOURCE REANSDOB: Health System HIXPolicy Number: [id number] Repository LINDALE[place] [id number] [place] Date: [address]Fcs: (HP) 12/18/2017 DAYSI YOO Primary DAYSI Sanchez [facility] Insurance:CAREURCE [facility] HIXPolicy Number: [id number] Repository [place] [id number] [place] Date: [address]Lzf: (HP) 12/18/2017 DAYSI YOO Primary DAYSI Sanchez [facility] Insurance:CARESOURCE [facility] HIXPolicy Number: [id number] Repository [place] [id number] [place] Date: [address]Meh: (HP) 12/09/2017 DAYSI VALDESA Primary DAYSI Sanchez [facility] Insurance:CAREURCE RECOX MONETTB: Health System HIXPolicy Number: [id number] Repository [place] [id number] [place], [place] Date: [address]Qcb: (HP) 12/03/2017 DAYSI YOO Primary DAYSI Sanchez [facility]: Insurance:CARESOURCE [facility] HIXPolicy Number: [id number] Repository [place] [id number] [place], [place] Date: [address]Rwp: (HP) 12/03/2017 DAYSI VALDESA Primary DAYSI Sanchez [facility]: Insurance:CARESOURCE REANSDOB: Health System HIXPolicy Number: [id number] Repository [place] [id number] [place] Date: [address]Kfb: (HP) 11/27/2017 DAYSI YOO Primary SOYIsaias YOO Porsche [id number] Insurance:CARESOURCE REANSDOB: [facility] [id number] [place] Number: Repository [id number]: [phone] [id number] [phone] (HP) Date:2756-55-87[address] [place] [address]RV: 11/27/2017 Secondary NOT GIVENUNK Porsche Insurance:SELF PAY [facility] Number: Effective Repository Date:2017-11-27 10/31/2017 DAYSI YOO Primary DYASI Aleman REANSDOB: Insurance:CARESOURCE REANSDOB: Health System HIXPolicy Number: [id number] Repository [place] [id number] [place] Date: [address]Hnl: () 10/24/2017 DAYSI YOO Primary DAYSI Sanchez [facility] REANSDOB: Insurance:CARESOURCE REANSDOB: Health System HIXPolicy Number: [id number] Repository [facility] [id number] [place], [place] Date: [address]Vqt: () 10/24/2017 DAYSI YOO Primary DAYSI Aleman REANSDOB: Insurance:CARESOURCE REANSDOB: Health System HIXPolicy Number: [id number] Repository [place] [id number] [place] Date: [address]Ath: () 10/20/2017 DAYSI YOO Primary DAYSI Sanchez [facility] REANSDOB: Insurance:CARESOURCE REANSDOB: Health System HIXPolicy Number: [id number] Repository [place] [id number] [place] Date: [address]Zxy: () 10/03/2017 DAYSI YOO Primary DAYSI Sanchez [facility]: Insurance:CARESOURCE REANSDOB: Health System HIXPolicy Number: [id number] [facility]ository [facility] [id number] [place], [place] Date: [address]Nle: () 10/03/2017 DAYSI YOO Primary DAYSI Sanchez [facility]: Insurance:CARESOURCE REANSDOB: Health System HIXPolicy Number: [id number] [facility]ository [facility] [id number] [place], [place] Date: [address]Nfx: () 09/24/2017 DAYSI YOO Primary [facility]CARESOURCE REANSDOB: Health System HIXPolicy Number: [id number] [facility]ository [facility] [id number] [place], [place] Date: [address]Ukn: () 09/11/2017 DAYSI YOO Primary DAYSI Morrell [id number] Insurance:CARESOURCE REANSDOB: [facility] [id number] [place] Number: Repository [id number]: [phone] [id number] [phone] () Date:0019-77-25JE [address] [place] [address]LX: 09/11/2017 Secondary NOT GIVENUNK [place] Insurance:SELF PAY [facility] Number: Effective Repository Date:2017-09-09 09/11/2017 DAYSI YOO Primary DAYSI Morrell [id number] Insurance:CARESOURCE REANSDOB: [facility] [id number] [place] Number: Repository [id number]: [phone] [id number] [phone] (HP) Date:2352-51-59UY [address] [address]QX: 09/11/2017 Secondary NOT GIVENUNK [place] Insurance:SELF PAY [facility] Number: Effective Repository Date:2017-09-11 09/09/2017 DAYSI YOO Primary DAYSI YOO Porsche [id number] Insurance:CARESOURCE REANSDOB: Community [place] [facility] FOR [facility] [id number] [place] Number: Repository [id number]: [phone] [id number] [phone] (HP) Date:6110-15-48LB [address] [address]ER: 09/09/2017 Secondary NOT GIVENUNK [place] Insurance:SELF PAY [facility] Number: Effective Repository Date:2017-09-09 09/05/2017 DAYSI YOO Primary SOYIsaias YOO [place] [id number] Insurance:CARESOURCE REANSDOB: Community [place] [facility] FOR [facility] [id number] [place] Number: Repository [id number]: [phone] [id number] [phone] () Date:9566-53-10MO [address] [address]PR: 09/05/2017 Secondary NOT GIVENUNK [place] Insurance:SELF PAY [facility] Number: Effective Repository Date:2017-09-04 09/04/2017 DAYSI YOO Primary DAYSI YOO [place] [id number] Insurance:CARESOURCE REANSDOB: Community [place] [facility] FOR [facility] [id number] [place] Number: Repository [id number]: [phone] [id number] [phone] (HP) Date:6025-56-40CK[address] [address]QC: 09/04/2017 Secondary NOT GIVENUNK [place] Insurance:SELF PAY [facility] Number: Effective Repository Date:2017-09-03 09/01/2017 [facility] DAYSI Morrell [id number] Insurance:CARESOURCE REANSDOB: [facility] [id number] Number: Repository [id number]: [phone] [id number] [phone] (HP) Date:0760-17-93FB [address] [address]IK: 09/01/2017 Secondary NOT GIVENUNK [place] Insurance:SELF PAY [facility] Number: Effective Repository Date:2017-09-01 08/21/2017 [facility] DAYSI YOO [place] [id number] Insurance:CARESOURCE REANSDOB: [facility] [id number], [place] Number: Repository [id number]: [phone] [id number] [phone] () Date:6775-30-34CY [address] [address]KK: 08/21/2017 Secondary NOT GIVENUNK [place] Insurance:SELF PAY [facility] Number: Effective Repository Date:2017-05-05 06/18/2017 [facility] DAYSI YOO [facility]: Insurance:CARESOURCE REANSDOB: Health System [id number] [facility] Number: [id number] [id number] [place], [place] Date: [address]Aue: ()
== END ==
PROVIDERS: Family Provider Family Medicine; PCP Family Medicine; Visit Provider Family Medicine
DX: K70.30 Alcoholic cirrhosis of liver without ascites (principal); D69.9 Hemorrhagic condition, unspecified; Z51.81 Encounter for therapeutic drug level monitoring
CPT/HCPCS: 36415; 80053; 82105; 83735; 85025; 85610

== ENCOUNTER → 2018-02-09 10:15 | Outpatient (CLI) | payer OTHER, SELFPAY ==
[2018-02-09 12:42] LABS: Anion Gap 8 (5-15); BUN 10 mg/dL (7-18); BUN/Creat Ratio 9.4 RATIO (10-20); Calcium,Total 9.3 mg/dL (8.5-10.1); Chloride 103 mmol/L (98-107); Creatinine, Serum 1.06 mg/dL (0.55-1.02); EST Glomerular Filtration Rate 56 mL/min (>60); Est Glom Filt Rate - Afr Amer 67 mL/min (>60); Glucose 195 mg/dL (74-106); Potassium 5.3 mmol/L (3.5-5.1); Sodium Level 140 mmol/L (136-145)
--- OUTSIDE RECORDS SUMMARY | 2018-05-13 23:15 | XMS RPT_ITS ---
[...] Unavailable Gabriela Ding Primary Care Unavailable Tony Dhlilon Attending Unavailable RaineGabriela Referring Unavailable Raine, Gabriela Primary Care Unavailable Tony Dhillon Attending Unavailable BristolTony Referring Unavailable Raine, Gabriela Primary Care Unavailable Tony Dhillon Attending Unavailable Raine Gabriela Attending Unavailable Raine, Gabriela Primary Care Unavailable COLA, YANELIS JEAN-BAPTISTE Attending Unavailable COLA, YANELIS JEAN-BPATISTE Attending Unavailable COLA, YANELIS JEAN-BAPTISTE Admitting Unavailable COLA, YANELIS JEAN-BAPTISTE Attending Unavailable COLA, YANELIS JEAN-BAPTISTE Referring Unavailable COLA, YANELIS JEAN-BAPTISTE Attending Unavailable COLA, YANELIS JEAN-BAPTISTE Attending Unavailable COLA, YANELIS JEAN-BAPTISTE Attending Unavailable STEWART SIDDIQI) Attending Unavailable GABRIELA DING Referring Unavailable STEWART SIDDIQI) Referring Unavailable STEWART SIDDIQI) Attending Unavailable RAINEGABRIELA US A Referring Unavailable STEWART SIDDIQI) Referring Unavailable STEWART SIDDIQI) Referring Unavailable STEWART SIDDIQI) Admitting Unavailable STEWART SIDDIQI) Attending Unavailable STEWART SIDDIQI) Attending Unavailable RAINEGABRIELA US A Referring Unavailable STEWART SIDDIQI) Referring Unavailable ALI, NOAMAN Attending Unavailable STEWART SIDDIQI) Referring Unavailable ALI, NOAMAN S Attending Unavailable STEWART SIDDIQI) Referring Unavailable [...] IMCA Referring Unavailable IMCA Primary Care Unavailable COLA, SURESH M Attending Unavailable IMCA Referring Unavailable IMCA Primary Care Unavailable COLASURESH Attending Unavailable IMCA Referring Unavailable IMCA Primary Care Unavailable COLA, SURESH De La [place] Referring Unavailable IMCA Primary Care Unavailable COLA, SURESH De La Rosa Attending Unavailable IMCA Referring Unavailable IMCA Primary Care Unavailable COLA, SURESH De La Rosa Attending Unavailable IMCA Referring Unavailable IMCA Primary Care Unavailable COLA, SURESH De La Rosa Attending Unavailable IMCA Referring Unavailable IMCA Primary Care Unavailable COLA, SURESH De La [place] Admitting Unavailable COLA, SURESH De La Rosa Attending Unavailable IMCA Primary Care Unavailable PROBLEMS PROBLEMS DATE TYPE CONDITION / CODE ATTENDING STATUS SOURCE 12/18/2017 Admitting Unknown / NA Active [facility] K(Unknown) [facility] Repository 02/27/2018 Active Foot drop, right STEWART SIDDIQI Active [place] [facility] / (MD) [facility] Other M21.371(ICD-10) [place] Repository 02/27/2018 Active Unilateral inguinal STEWART SIDDIQI Active [place] hernia, without (MD) Clinic Other obstruction or [place] gangrene, not Repository specified as recurrent / K40.90(ICD-10) 02/09/2018 Unknown E87.6 - Hypokalemia Gabriela Ding Active [facility] / E87.6(ICD-10) [facility] Rep[facility] 02/05/2018 Unknown K70.30 - Alcoholic Gabriela Ding Active [place] cirrhosis of liver Community without ascites / Hospital K70.30(ICD-10) Repository 02/05/2018 Unknown D69.9 - Hemorrhagic Gabriela Ding Active [place] condition, Community unspecified / Hospital D69.9(ICD-10) Repository 02/05/2018 Unknown Z51.81 - Encounter Gabriela Ding Active [place] for therapeutic drug Community level monitoring / Hospital Z51.81(ICD-10) Repository 12/18/2017 Active Alcoholic cirrhosis NA Active [place] of liver with Clinic Other ascites / [place] K70.31(ICD-10) Repository 10/24/2017 Active Unknown / YANELIS VANESSA Active [facility] UNK(Unknown) [facility] Other [place] Repository 10/20/2017 Active Chronic inflammatory YANELIS VANESSA Active [place] disease of uterus / [facility] Other N71.1(ICD-10) [place] Repository 10/20/2017 Active Other specified COLYANELIS Mccrary Active [place] postprocedural [facility] Other states / [place] Z98.890(ICD-10) Repository 10/03/2017 Active Postmenopausal COLAYANELIS Active [place] bleeding / [facility] Other N95.0(ICD-10) [place] Repository 10/10/2017 Unknown R93.5 - Abnormal [place], Active [facility] findings on [facility] of other abdominal Repository regions, including retroperitoneum / R93.5(ICD-10) 08/21/2017 Unknown E11.9 - Type 2 RaineGabriela us Active [place] diabetes mellitus Community without Hospital complications / Repository E11.9(ICD-10) 08/21/2017 Unknown I10 - Essential RaineGabriela us Active [place] (primary) Community hypertension / Hospital I10(ICD-10) Repository 08/21/2017 Unknown E78.5 - RaineGabriela us Active [place] Hyperlipidemia, Community unspecified / Hospital E78.5(ICD-10) Repository 06/18/2017 Active Encounter for COLA, YANELIS Active [place] screening, [facility] Other unspecified / [place] Z13.9(ICD-10) Repository 06/18/2017 Active Encounter for COLA, YANELIS Active [place] screening mammogram [facility] Other for malignant [place] neoplasm of breast / Repository Z12.31(ICD-10) 06/18/2017 Active Encounter for COLA, YANELIS Active [facility] gynecological [facility] Other examination [place] (general) (routine) Repository without abnormal findings / Z01.419(ICD-10) 06/18/2017 Active Encounter for COLA, YANELIS Active [place] screening for [facility] Other malignant neoplasm [place] of cervix / Repository Z12.4(ICD-10) PROCEDURES PROCEDURES No Procedure Records FoundRESULTS RESULTS PROGRESS Observed: 03/17/2018 Status: COMPLETED Source: [place] 2:30 PM CLINIC OTHER CAMPUS REPOSITORY HNO ID: [id number] Author: Bronson Jorge Service: (none) Author Type: Physician Type: Progress Notes Filed: 03/17/2018 2:32 PM Note Text: Patient referred by: Stewart Siddiqi MD MPH [facility] 1 [facility] [address] [facility] [address] HPI: This is a new patient consult [...] MD CNOV Observed: 03/17/2018 Status: COMPLETED Source: [place] 1:30 PM CLINIC OTHER CAMPUS REPOSITORY Office Visit (AGGENS1) DAYSI HOROWITZ ([id number]) 1955 F Date Time Provider Department 03/17/18 1:30 PM BRONSON JORGE1 During your visit today, we recorded the following information about you: Bronson Jorge MD 03/17/2018 2:30 PM Signed Office will call with date and time for surgery Bronson Jorge MD 03/17/2018 2:32 PM Signed Patient referred by: Stewart Siddiqi MD MPH [facility] [address] [address] HPI: This is a new patient consult [...] Bronson Jorge MD Referring Provider: STEWART SIDDIQI [[id number]] Allergies As of Date: 03/17/2018 Noted Allergy [...] Status:Closed by BRONSON JORGE MD on 03/17/18 FRANKY Observed: 03/03/2018 Status: COMPLETED Source: [place] 12:00 AM [facility] OTHER [place] REPOSITORY Telephone (AGGASTACC) DAYSI HOROWITZ ([id number]) 1955 F Date Time Provider Department 03/03/18 STEWART SIDDIQI During your visit today, we recorded the following information about you: Bernarda Jimenez CMA 03/03/2018 11:50 AM Signed PT WOULD LIKE TO KNOW LAB RESULTS FROM 02/27/2018, PLEASE ADVISE. 03/03/2018 11:50:36 MAE Paetl MD MPH FRCPC 03/03/2018 12:03 PM Signed [...] 03/05/18 PROGRESS Observed: 02/27/2018 Status: COMPLETED Source: [place] 4:11 PM CLINIC OTHER CAMPUS REPOSITORY O ID: [id number] Author: Stewart Siddiqi Service: (none) Author Type: Physician Type: Progress Notes Filed: 02/27/2018 4:22 PM Note Text: HPI: I saw Daysi Flores today for a follow up regarding alcohol cirrhosis, recent upper endoscopy. Daysi lFores was last seen here by me on [...] was apparently corrected. This was done to [facility] so the labs are not available. [...] secondary to ETOH abuse; recent LFTs from 6-28-18 were WNL - Drug abuse, marijuana Pt [...] FRCPC HEMOGRAM/DIFF Collected: 02/27/2018 Status: F Source: [facility] 12:00 HEALTH SYSTEM REPOSITORY TYPE CODE TESTS [...] 1.55 LAB MONON(LOIN 0.27-0.70 thou/cmm C) Abs. Ogle 0.37 LAB EOSN(LOINC 0.00-0.31 thou/cmm ) Abs. Eosin 0.12 LAB BASON(LOIN 0.01-0.08 thou/cmm C) Abs. Baso 0.02 Result Comment: Smear scanned; tech agrees with automated differential Performed By: #### CBCD1 #### [place] [address] PROTIME Collected: 02/27/2018 Status: F Source: [facility] 12:00 HEALTH SYSTEM REPOSITORY TYPE CODE TESTS RESULT OUT OF REFERENCE UNITS RANGE LAB PTI(LOINC) 9.7-13.0 sec Prothrombin Time 11.9 LAB INR(LOINC) 0.90-1.30 INR 1.16 Result Comment: Note: Reference Range Change Vitamin K Antagonist (VKA) Therapeutic Range: INR 2 to 3 (Target INR of 2.5) Note: For patients treated with VKA drugs, such as warfarin, the [employer] [employer] 2012 Guideline recommends [...] to 3.5 target INR of 3). Kashif ANN, et al. Chest 2012; 141:7S-47S Mamadou MUJICA et al. JAC 2017; 70: 252-289 Performed By: #### PT #### [place] [address] COMPREHENSIVE PANEL Collected: 02/27/2018 Status: F Source: [facility] 12:00 PM HEALTH SYSTEM REPOSITORY TYPE CODE [...] Gap 9 Performed By: #### P14 #### [facility] [address] [place] [address] MDRD GFR Collected: 02/27/2018 Status: F Source: [facility] 12:00 PM HEALTH SYSTEM REPOSITORY TYPE CODE TESTS RESULT OUT OF RANGE REFERENCE UNITS LAB GFRFN(LOINC >60mL/min/1.73m ) 2 eGFR >60 Result Comment: If the patient is , multiply the result by 1.210. Performed By: #### GFR #### [facility] [address] [place] [address] VITAMIN B12 Collected: 02/27/2018 Status: F Source: [facility] 12:00 PM HEALTH SYSTEM REPOSITORY TYPE CODE TESTS RESULT OUT OF REFERENCE UNITS RANGE LAB B12(LOINC) 193-986 pg/mL Vitamin B12 700 Performed By: #### B12 #### [place] [address] SODIUM,URINE Collected: 02/27/2018 Status: F Source: [facility] 12:00 PM [facility] SYSTEM REPOSITORY TYPE CODE TESTS RESULT OUT OF RANGE REFERENCE UNITS LAB NAUR(LOINC) mEq/L 29 Sodium,Urine Performed By: #### NAUR #### [place] [address] POTASSIUM,URINE Collected: 02/27/2018 Status: F Source: [place] 12:00 [facility] REPOSITORY TYPE CODE TESTS RESULT OUT OF RANGE REFERENCE UNITS LAB KURIN(LOINC 25-125 mEq/L ) 34 Potassium,Ur ine Performed By: #### KURIN #### [place] [address] CNOV Observed: 02/27/2018 Status: COMPLETED Source: [place] 10:30 AM CLINIC OTHER CAMPUS REPOSITORY Office Visit (AGGASTACC) DAYSI HOROWITZ ([id number]) 1955 F Date Time Provider Department 02/27/18 [...] was apparently corrected. This was done to [facility] so the labs are not available. [...] MD MPH FRCPC Referring Provider: GABRIELA DING [[id number]] Allergies As of Date: 02/27/2018 Noted Allergy Reaction ROCEPHIN (CEFTRIAXONE SODIUM) 06/18/2017 10 - Anaphylaxis Date Reviewed: 02/27/2018 Reviewed by: Stephanie Hussein) Reigne - Fully Assessed Reason for Visit: Follow Up [171] Primary Visit Diagnosis:Alcoholic cirrhosis of liver with ascites (HCC) [K70.31] Other Visit Diagnoses:Right foot drop [M21.371] Unilateral inguinal hernia without obstruction or gangrene, recurrence not specified [K40.90] Order(s):CBC + DIFF [SQCBCDIF] Order #: [id number] FUTURE COMP METABOLIC PANEL [SQCMP] Order #: [id number] FUTURE PROTHROMBIN TIME/PT [SQPT] Order #: [id number] FUTURE SODIUM RANDOM URINE [SQUNAR] Order #: [id number] FUTURE POTASSIUM RANDOM UR [SQUKR] Order #: [id number] FUTURE US ABD RT UPPER QUADRANT [4918786] Order #: [id number] FUTURE CONSULT TO NEUROLOGY [9019] Order #: [id number]: 1 CONSULT TO GENERAL SURGERY [9011] Order #: [id number]: 1 VITAMIN B12 BLOOD [SQB12] Order #: [id number] FUTURE Prescriptions as of 02/27/2018 Sig: ATORVASTATIN [...] F Source: [place] [facility] (BMP) 10:16 AM [facility] REPOSITORY TYPE CODE TESTS RESULT OUT OF [...] GAP 8 Performed By: #### L500.2500 #### [facility] [address] [place], [address] CBC W/DIFF, AUTOMATED Collected: 02/05/2018 Status: F Source: [place] 2:30 PM [facility] REPOSITORY TYPE CODE TESTS RESULT OUT OF [...] Lymph 1.57 Performed By: #### L100.0100 #### [facility] [address] [place], [address] PROTHROMBIN TIME W/INR Collected: 02/05/2018 Status: F Source: [place] 2:30 PM [facility] REPOSITORY TYPE CODE TESTS RESULT OUT OF RANGE REFERENCE UNITS LAB L300.4150 11.7-14.9 SECONDS High PROTIME 15.6 LAB L300.4200 Normal INR 1.2 Performed By: #### L300.3900 #### [facility] [address] [place], [address] COMPREHENSIVE METABOLIC Collected: 02/05/2018 Status: F Source: [facility] 2:30 PM [facility] REPOSITORY TYPE CODE TESTS RESULT OUT OF [...] 12 Performed By: #### L500.4050, L501.5200 #### [facility] [address] [facility] [place], [place], [address] MAGNESIUM Collected: 02/05/2018 Status: F Source: [place] 2:30 PM [facility] REPOSITORY TYPE CODE TESTS RESULT OUT OF RANGE REFERENCE UNITS LAB L501.5200 1.6-2.6 mg/dL Normal MG 1.9 Performed By: #### L500.4050, L501.5200 #### [facility] [address] [facility] [place], [place], [address] AFP, TUMOR MARKER Collected: 02/05/2018 Status: F Source: [place] 2:30 PM [facility] REPOSITORY Order Comment: Is Patient ? N TYPE CODE TESTS RESULT OUT OF RANGE REFERENCE UNITS LAB L3300.0700 0.0-8.3 ng/mL Normal AFP TUMOR 4.3 2253 Result Comment: Yrn ECLIA methodology Performed at: [facility] [address] [id number] Occupational Health Physiotherapist: Saw Lamas PhD, Phone: [phone] Performed By: #### L3300.0700 #### [facility] (refer to report for specific site) refer to report for address and phone number ANES POST Observed: 01/29/2018 Status: COMPLETED Source: [place] 1:44 PM CLINIC OTHER CAMPUS REPOSITORY HNO ID: [id number] Author: Ag Vergara Service: Anesthesiology Author Type: [...] PT ED Observed: 01/29/2018 Status: COMPLETED Source: [place] 1:12 PM [facility] OTHER CAMPUS REPOSITORY HNO ID: [id number] Author: Antonella (Rn) SOMMER Little Service: (none) [...] OPERATIVE NO Observed: 01/29/2018 Status: COMPLETED Source: [place] 12:47 PM CLINIC OTHER CAMPUS REPOSITORY HNO ID: [id number] Author: Stewart Siddiqi Service: Gastroenterology Author Type: Physician Type: Operative Report Filed: 01/29/2018 1:10 PM Note Text: OPERATIVE/PROCEDURE REPORT LOG ID: [id number] Surgery/Procedure Date: 01/29/2018 Incision/Procedure Start Time: 12:51 PM Incision Close/Procedure End Time: 1:01 PM Surgeon(s)/Proceduralist(s) and Sheet Metal Contractor(s): Surgeon(s) and Role: * Stewart Siddiqi - [...] least 2 columns. We then applied the c.o.d. clerk and re- intubated. We proceeded with deploying [...] 29, 2018 TIME: 1:05 PM PAGER/CONTACT #: [phone] ANES PREOP Observed: 01/29/2018 Status: COMPLETED Source: [place] 12:26 PM [facility] REPOSITORY O ID: [id number] Author: Ag Vergara Service: Anesthesiology Author Type: [...] ringers infusion 5-30 mL/hr INTRAVENOUS CONTINUOUS Rana (School Treasurer) Amawi Last Rate: 20 mL/hr at 01/29/18 [...] January 29, 2018 TIME: 12:26 PM CSN: [id number] PT ED Observed: 01/29/2018 Status: COMPLETED Source: [place] 12:00 PM [facility] OTHER [place] REPOSITORY HNO ID: [id number] Author: Flora HongRn) SOMMER Cabrera Service: (none) Author Type: Registered Nurse Type: [...] HISTORY PHYSICAL Observed: 01/29/2018 Status: COMPLETED Source: [place] 9:31 AM [facility] OTHER [place] REPOSITORY HNO ID: [id number] Author: Ana Li Service: General Surgery Author Type: Nurse Practitioner [...] Gastric bleeding 2017. 2 EGDs done in [place] at a hospital there (was admitted for [...] ASSESSMENT: Pain Pain Score: 0/10 Pain Assessment (RN/E D TECH): Assessment Tool: Verbal (Numeric Rating or Visual [...] TISSUE EXAM Observed: 01/29/2018 Status: F Source: [facility] 12:00 AM HEALTH SYSTEM REPOSITORY Test performed at [place] [address] NAME: DAYSI HOROWITZ REQUESTING: STEWART SIDDIQI MD [...] of 1 Performed By: #### SURG #### [facility] [address] [place] [address] US ABD RIGHT UPPER Observed: 01/28/2018 Status: F Source: [facility] 10:50 AM HEALTH SYSTEM REPOSITORY Performed at [facility] APPROVED BY: Roldan Wiseman MD Exam: Right [...] DOPPLER COMPLETE Observed: 01/28/2018 Status: F Source: [facility] 10:50 AM HEALTH SYSTEM REPOSITORY Performed at [facility] APPROVED BY: Roldan Wiseman MD Exam: Right [...] LIVER VASCULAR Observed: 01/28/2018 Status: F Source: [facility] 10:50 AM HEALTH SYSTEM REPOSITORY Performed at [facility] APPROVED BY: Roldan Wiseman MD Exam: Right [...] hypertension. PROGRESS Observed: 12/18/2017 Status: COMPLETED Source: [place] 4:34 PM CLINIC OTHER CAMPUS REPOSITORY [facility] ID: [id number] Author: Stewart Siddiqi Service: (none) Author Type: [...] Stewart Siddiqi MD MPH FRCPC HEMOGRAM/DIFF Collected: 12/18/2017 Status: F Source: [facility] 12:20 PM HEALTH SYSTEM REPOSITORY TYPE CODE [...] 1.42 LAB MONON(LOIN 0.27-0.70 thou/cmm C) Abs. Ogle 0.64 LAB EOSN(LOINC 0.00-0.31 thou/cmm ) Abs. Eosin 0.12 LAB BASON(LOIN 0.01-0.08 thou/cmm C) Abs. Baso 0.05 Performed By: #### CBCD1 #### [address] [address] SODIUM,URINE Collected: 12/18/2017 Status: F Source: [facility] 12:20 PM HEALTH SYSTEM REPOSITORY TYPE CODE TESTS RESULT OUT OF RANGE REFERENCE UNITS LAB NAUR(LOINC) mEq/L 76 Sodium,Urine Performed By: #### NAUR #### [facility] [address] [place] [id number] POTASSIUM,URINE Collected: 12/18/2017 Status: F Source: [place] 12:20 PM [facility] REPOSITORY TYPE CODE TESTS RESULT OUT OF RANGE REFERENCE UNITS LAB KURIN(LOINC 25-125 mEq/L ) Low 11 Potassium,Ur ine Performed By: #### KURIN #### [facility] [address] [place] [id number] PROTIME Collected: 12/18/2017 Status: F Source: [facility] 12:20 PM [facility] SYSTEM REPOSITORY TYPE CODE TESTS RESULT OUT OF REFERENCE UNITS RANGE LAB PTI(LOINC) 9.7-13.0 sec Prothrombin High Time 14.1 LAB INR(LOINC) 0.90-1.30 INR High 1.39 Result Comment: Note: Reference Range Change Vitamin K Antagonist (VKA) Therapeutic Range: INR 2 to 3 (Target INR of 2.5) Note: For patients treated with VKA drugs, such as warfarin, the [place] [employer] 2012 Guideline recommends [...] 70: 252-289 Performed By: #### PT #### [facility] [address] [place] [address] COMPREHENSIVE PANEL Collected: 12/18/2017 Status: F Source: [facility] 12:20 PM [facility] REPOSITORY TYPE CODE TESTS RESULT [...] Gap 14 Performed By: #### P14 #### [place] [address] MDRD GFR Collected: 12/18/2017 Status: F Source: [facility] 12:20 PM HEALTH SYSTEM REPOSITORY TYPE CODE TESTS RESULT OUT OF RANGE REFERENCE UNITS LAB GFRFN(LOINC >60mL/min/1.73m ) 2 eGFR >60 Result Comment: If the patient is , multiply the result by 1.210. Performed By: #### GFR #### [place] [address] CNOV Observed: 12/18/2017 Status: COMPLETED Source: [place] 11:15 AM CLINIC OTHER CAMPUS REPOSITORY Office Visit (AGGASTACC) DAYSI HOROWITZ ([id number]) 1955 F Date Time Provider Department 12/18/17 [...] MD MPH FRCPC Referring Provider: GABRIELA DING [[id number]] Allergies As of Date: 12/18/2017 Noted Allergy Reaction ROCEPHIN (CEFTRIAXONE SODIUM) 06/18/2017 10 - Anaphylaxis Date Reviewed: 12/18/2017 Reviewed by: Stephanie Hussein) Regine - Fully Assessed Reason for Visit: Follow Up [171] Primary Visit Diagnosis:Alcoholic cirrhosis of liver with ascites (HCC) [K70.31] Order(s):CBC + DIFF [SQCBCDIF] Order #: [id number] FUTURE COMP METABOLIC PANEL [SQCMP] Order #: [id number] FUTURE PROTHROMBIN TIME/PT [SQPT] Order #: [id number] FUTURE rifAXIMin (XIFAXAN) 550 mg tabTake 1 tablet by mouth twice daily.Disp: 60 tabletRfl: 3 Zinc 50 mg tabTake 1 tablet by mouth once daily.Disp: 30 tabletRfl: 5 SODIUM RANDOM URINE [SQUNAR] Order #: [id number] FUTURE POTASSIUM RANDOM UR [SQUKR] Order #: [id number] FUTURE Prescriptions as of 12/18/2017 Sig: ACIDOPHILUS [...] 12/18/17 HOSP Observed: 12/18/2017 Status: COMPLETED Source: [place] 12:00 AM CLINIC OTHER CAMPUS REPOSITORY Patient:Daysi Horowitz MRN: <[id number]> Height:5' 4.016(1.626 m) Weight:No patient weight recorded [...] days PROGRESS Observed: 12/03/2017 Status: COMPLETED Source: [place] 12:51 PM CLINIC OTHER CAMPUS REPOSITORY O ID: [id number] Author: Stewart Siddiqi Service: (none) Author Type: Physician Type: Progress Notes Filed: 12/03/2017 3:46 PM Note Text: HPI: Daysi Flores is a 62 year old female who presents for decompensated alcoholic cirrhosis. This patient was recently diagnosed with cirrhosis after visit to the emergency room in [place]. She is visiting family at the time. [...] FRCPC SODIUM,URINE Collected: 12/03/2017 Status: F Source: [facility] 12:00 PM [facility] SYSTEM REPOSITORY TYPE CODE TESTS RESULT OUT OF RANGE REFERENCE UNITS LAB NAUR(LOINC) mEq/L 7 Sodium,Urine Performed By: #### NAUR #### [place] [address] POTASSIUM,URINE Collected: 12/03/2017 Status: F Source: [place] 12:00 PM [facility] REPOSITORY TYPE CODE TESTS RESULT OUT OF RANGE REFERENCE UNITS LAB KURIN(LOINC 25-125 mEq/L ) Low 22 Potassium,Ur ine Performed By: #### KURIN #### [place] [address] HEMOGRAM/DIFF Collected: 12/03/2017 Status: F Source: [facility] 10:50 AM HEALTH SYSTEM REPOSITORY TYPE CODE [...] LAB MONON(LOIN 0.27-0.70 thou/cmm C) Abs. High Ogle 0.72 LAB EOSN(LOINC 0.00-0.31 thou/cmm ) Abs. Eosin 0.15 LAB BASON(LOIN 0.01-0.08 thou/cmm C) Abs. Baso 0.03 Performed By: #### CBCD1 #### [place] [address] PROTIME Collected: 12/03/2017 Status: F Source: [facility] 10:50 AM HEALTH SYSTEM REPOSITORY TYPE CODE TESTS RESULT OUT OF REFERENCE UNITS RANGE LAB PTI(LOINC) 9.7-13.0 sec Prothrombin High Time 15.4 LAB INR(LOINC) 0.90-1.30 INR High 1.61 Result Comment: Note: Reference Range Change Vitamin K Antagonist (VKA) Therapeutic Range: INR 2 to 3 (Target INR of 2.5) Note: For patients treated with VKA drugs, such as warfarin, the [place] [employer] 2012 Guideline recommends [...] to 3.5 target INR of 3). Kashif ANN, et al. Chest 2012; 141:7S-47S Mamadou RA, et al. JACC 2017; 70: 252-289 Performed By: #### PT #### [place] [address] TSH, 3RD GENERATION Collected: 12/03/2017 Status: F Source: [facility] 10:50 AM HEALTH SYSTEM REPOSITORY TYPE CODE TESTS RESULT OUT OF REFERENCE UNITS RANGE LAB TSH3(LOINC 0.358-3.740 uIU/mL ) TSH, 3rd generation 2.960 Performed By: #### TSH3 #### [place] [address] IGA Collected: 12/03/2017 Status: F Source: [facility] 10:50 AM HEALTH SYSTEM REPOSITORY TYPE CODE TESTS RESULT OUT OF RANGE REFERENCE UNITS LAB IGA(LOINC) 70-400 mg/dL High IgA 1080 Performed By: #### IGA #### [place] [address] IGM Collected: 12/03/2017 Status: F Source: [facility] 10:50 AM HEALTH SYSTEM REPOSITORY TYPE CODE TESTS RESULT OUT OF RANGE REFERENCE UNITS LAB IGM(LOINC) 40-230 mg/dL High IgM 314 Performed By: #### IGM #### [place] [address] COMPREHENSIVE PANEL Collected: 12/03/2017 Status: F Source: [facility] 10:50 HEALTH SYSTEM REPOSITORY TYPE CODE TESTS [...] Gap 9 Performed By: #### P14 #### [place] [address] FERRITIN Collected: 12/03/2017 Status: F Source: [facility] 10:50 [facility] REPOSITORY TYPE CODE TESTS RESULT OUT OF REFERENCE UNITS RANGE LAB FERR(LOINC) 8.00-252.00 ng/mL Ferritin 18.50 Performed By: #### FERR #### [place] [address] LIPASE BLOOD Collected: 12/03/2017 Status: F Source: [facility] 10:50 AM [facility] REPOSITORY TYPE CODE TESTS RESULT OUT OF REFERENCE UNITS RANGE LAB LIP(LOINC) 73-393 U/L Lipase Blood 247 Performed By: #### LIP #### [place] [address] IGG Collected: 12/03/2017 Status: F Source: [facility] 10:50 [facility] REPOSITORY TYPE CODE TESTS RESULT OUT OF RANGE REFERENCE UNITS LAB IGG(LOINC) 700-1600 mg/dL IgG 1110 Performed By: #### IGG #### [place] [address] [id number] Collected: Status: F Source: [place] 12/03/2017 10:50 AM [facility] SYSTEM REPOSITORY TYPE CODE TESTS RESULT OUT OF RANGE REFERENCE UNITS LAB AAT(LOINC) 90-200 mg/dL 194 Ggckt-3-Eyep trypsin Performed By: #### AAT #### [place] [address] LIPID PROFILE Collected: 12/03/2017 Status: F Source: [facility] 10:50 AM HEALTH SYSTEM REPOSITORY TYPE CODE [...] Triglyceride >400 Performed By: #### LIPD2 #### [place] [address] CERULOPLASMIN Collected: 12/03/2017 Status: F Source: [facility] 10:50 AM HEALTH SYSTEM REPOSITORY TYPE CODE TESTS RESULT OUT OF REFERENCE UNITS RANGE LAB CER(LOINC) 20.0-60.0 mg/dL Ceruloplasmin 30.5 Performed By: #### CER #### [place] [address] MDRD GFR Collected: 12/03/2017 Status: F Source: [facility] 10:50 AM HEALTH SYSTEM REPOSITORY TYPE CODE TESTS RESULT OUT OF RANGE REFERENCE UNITS LAB GFRFN(LOINC >60mL/min/1.73m ) 2 eGFR >60 Result Comment: If the patient is , multiply the result by 1.210. Performed By: #### GFR #### [place] [address] HGB A1C Collected: 12/03/2017 Status: F Source: [facility] 10:[address] [place] [address] SYSTEM REPOSITORY TYPE CODE TESTS RESULT OUT OF RANGE REFERENCE UNITS LAB A1C5(LOINC) 4.2-6.3 % Hgb A1c 4.8 Result Comment: Method is National Glycohemoglobin Standardization Program (NGSP) compliant. LAB ESAVG(LOINC) mg/dl Est. Avg Glucose 91 Performed By: #### HA1C #### [place] [address] HEP. B SURFACE AG Collected: 12/03/2017 Status: F Source: [facility] 10:[address] [place] [address] REPOSITORY TYPE CODE TESTS RESULT OUT OF REFERENCE UNITS RANGE LAB HBSA(LOINC Negative ) Hep.B Surface Negative Ag Performed By: #### HBSAG #### [place] [address] HEP. B SURFACE AB Collected: 12/03/2017 Status: F Source: [facility] 10:[address] [place] [address] SYSTEM REPOSITORY TYPE CODE TESTS RESULT OUT OF REFERENCE UNITS RANGE LAB ANTB(LOINC) mIU/mL Hep. B Surface 173.3 Ab Result Comment: Hep B. Antibody < 10.0 mIU/mL is negative. Hep B. Antibody > or = 10.0 mIU/mL is positive. Performed By: #### ANTB #### [place] [address] TRANSGLUTAMINASE ABS Collected: 12/03/2017 Status: F Source: [place] [address] [place] [address] REPOSITORY TYPE CODE TESTS RESULT OUT OF REFERENCE UNITS RANGE LAB TTGX(LOIN C) Transglutaminase Abs SEE BELOW Result Comment: Transglutaminase IgG 3 <20 Units Negative : < 20 Units Weak Positive : 20 - 30 Units Moderate Pos to Strong Pos: >30 Units The following results were obtained with the [employer] QUANTA Lite h-hTG IgG JAMI. h-tTG IgG [...] The following results were obtained with the [employer] QUANTA Lite h-tTG IgA JAMI. h-tTG IgA values obtained with different manufacturers' assay methods may not be used interchangeably. The magnitude of the reported IgA levels cannot be correlated to an endpoint titer. Performing Laboratory: [facility] [address] [place] [address] Performed By: #### TTGX #### [facility] [address] [place], [place] [address] LIVER FIBROSIS Collected: 12/03/2017 Status: F Source: [facility] (FIBROSURE) 10:50 AM HEALTH SYSTEM REPOSITORY TYPE [...] 6 to 29 Unit: U/L Reference ID [id number] Footnote SEE NOTE (NOTE) The reliability of [...] The performance characteristics have been determined by [facility]. It has not been cleared or approved by the U.S. Food and Drug Administration. Performance characteristics refer to the analytical performance of the test. itsDapper, the associated logo, Advaliant and all associated [employer] steiner are the registered trademarks of [employer]. All third democrat steiner - (R) and (TM) - are the property of their respective owners. (C) [id number] [employer] Incorporated. All rights reserved. Test Performed at: [facility] [address] [place] [address] Enmanuel Bailey MD, PhD, BILL Performing Laboratory: [facility] [address] [place] [address] Performed By: #### FIBRX #### [place] [address] SMOOTH MUSCLE AB Collected: 12/03/2017 Status: F Source: [facility] 10:50 AM HEALTH SYSTEM REPOSITORY TYPE CODE TESTS RESULT OUT OF REFERENCE UNITS RANGE LAB SMUSX(LOINC ) Smooth Muscle SEE BELOW Ab Scr Result Comment: Smooth Muscle Ab Pnl Negative NEGAT Normal range : negative at a 1:20 serum dilution. Performing Laboratory: [facility] [address] [place] [id number] Performed By: #### SMUSX #### [place] [address] MITOCHONDRIAL AB SCRN Collected: 12/03/2017 Status: F Source: [facility] 10:50 AM [facility] SYSTEM REPOSITORY TYPE CODE TESTS RESULT OUT OF REFERENCE UNITS RANGE LAB MITOX(LOIN C) Mitochondrial Ab Scrn SEE BELOW Result Comment: Mitochondrial Ab Pnl Negative NEGAT Normal range : negative at a 1:20 serum dilution. Performing Laboratory: [facility] [place] [id number] Performed By: #### MITOX #### [place] [address] DENNIS BY IFA WITH Collected: 12/03/2017 Status: F Source: [facility] REFLEX (RHEUM) 10:50 AM [facility] SYSTEM REPOSITORY TYPE CODE TESTS RESULT [...] Not applicable for negative result. Performing Laboratory: [facility] [address] [place] [id number] Performed By: #### ANAPX #### [place] [address] ANCA SCREEN Collected: 12/03/2017 Status: F Source: [facility] 10:50 AM [facility] SYSTEM REPOSITORY TYPE CODE TESTS RESULT OUT [...] SEE BELOW Reviewed by Valery Alberts MD ([id number]) Performing Laboratory: [facility] [address] [place] [id number] Performed By: #### ANCAX #### [place] [address] HEP B CORE AB,TOTAL Collected: 12/03/2017 Status: F Source: [facility] 10:50 AM HEALTH SYSTEM REPOSITORY TYPE CODE TESTS RESULT OUT OF RANGE REFERENCE UNITS LAB HBCTX(LOINC ) Hep B SEE BELOW Core Ab,Total Result Comment: Hep B Core Ab,Total Negative NEGAT Performing Laboratory: [place] [address] [place] [id number] Performed By: #### HBCTX #### [place] [address] MISC. SEND OUT Collected: 12/03/2017 Status: F Source: [facility] 10:50 AM HEALTH SYSTEM REPOSITORY TYPE CODE TESTS RESULT OUT OF REFERENCE UNITS RANGE LAB NAME1(LOIN C) Test Name HCV W/ CONF LAB RES(LOINC) Result Negative LAB REF(LOINC) Reference Range Negative LAB ADDR(LOINC ) Lab Name/Address See below Result Comment: Testing performed at [address] [place] [address] Performed By: #### MISC2 #### [place] [address] CNOV Observed: 12/03/2017 Status: COMPLETED Source: [place] 9:30 AM CLINIC OTHER CAMPUS REPOSITORY Office Visit (AGGASTACC) DAYSI HOROWITZ ([id number]) 1955 F Date Time Provider Department 12/03/17 [...] after visit to the emergency room in [place]. She is visiting family at the time. [...] - SECTION HX - SECTION HX - [facility] 10/03/2017 HYSTEROSCOPY, D AND C WITH MYOSURE [...] MD MPH [facility] Referring Provider: GABRIELA DING [[id number]] Allergies As of Date: 12/03/2017 Noted Allergy Reaction ROCEPHIN (CEFTRIAXONE SODIUM) 06/18/2017 10 - Anaphylaxis Date Reviewed: 12/03/2017 Reviewed by: Stephanie Hussein) Regine - Fully Assessed Reason for Visit: New Patient Evaluation [154] Primary Visit Diagnosis:Alcoholic cirrhosis of liver with ascites (HCC) [K70.31] Order(s):CBC + DIFF [SQCBCDIF] Order #: [id number] FUTURE COMP METABOLIC PANEL [SQCMP] Order #: [id number] FUTURE PROTHROMBIN TIME/PT [SQPT] Order #: [id number] FUTURE FERRITIN BLD [SQFERR] Order #: [id number] FUTURE LIPASE BLD [SQLIPA] Order #: [id number] FUTURE TSH BLD [SQTSH] Order #: [id number] FUTURE TRANSGLUTAMINASE ABS [SQTGLGMA] Order #: [id number] FUTURE IGA BLD [SQIGA] Order #: [id number] FUTURE IGM [SQIGM] Order #: [id number] FUTURE IGG [SQIGG] Order #: [id number] FUTURE SZASD-3-TFFQHFUEW BL [SQAAT] Order #: [id number] FUTURE LIVER FIBROSIS AND ACTIVITY [SQLIVFIB] Order #: [id number] FUTURE SMOOTH MUSCLE AB SCR [SQSMTHS] Order #: [id number] FUTURE MITOCHONDRIAL AB PNL SCRN [SQMITO] Order #: [id number] FUTURE DENNIS BY IFA WITH REFLEX [SQANAIFR] Order #: [id number] FUTURE ANTI NEUTRO CYTO AB [SQANCA] Order #: [id number] FUTURE HGB A1C [ATCEI7P] Order #: [id number] FUTURE LIPID PANEL BASIC [SQLIPB] Order #: [id number] FUTURE CERULOPLASMIN BLD [SQCERULO] Order #: [id number] FUTURE HEP B CORE AB TOTAL [SQAHBCOT] Order #: [id number] FUTURE HEP B SURF AB QUANT [SQAHBSQ] Order #: [id number] FUTURE HEP B SURF AG SCRN [SQHBSAG] Order #: [id number] FUTURE HEP C AB IA W/CONF SCRN [IOHMQG7A] Order #: [id number] FUTURE US ABD RT UPPER QUADRANT [3340468] Order #: [id number] FUTURE US DOPPLER COMPLETE [7524808] Order #: [id number] FUTURE SODIUM RANDOM URINE [SQUNAR] Order #: [id number] FUTURE POTASSIUM RANDOM UR [SQUKR] Order #: [id number] FUTURE Prescriptions as of 12/03/2017 Sig: ACIDOPHILUS [...] 11/27/2017 Status: F Source: [place] 3:54 PM [facility] REPOSITORY TYPE CODE TESTS RESULT OUT OF [...] MACROCYTE 1+ Performed By: #### L100.0100 #### [facility] [address] [place], [address] PROGRESS Observed: 10/31/2017 Status: COMPLETED Source: [place] 11:59 AM CLINIC OTHER CAMPUS REPOSITORY HNO ID: [id number] Author: Yanelis Vanessa Service: (none) Author Type: [...] improved after 10 days of PO Augmentin PERFORMANCE ANALYST: Denies any abnormal vaginal discharge, irregular bleeding, [...] MD CNOV Observed: 10/31/2017 Status: COMPLETED Source: [place] 11:30 AM CLINIC OTHER CAMPUS REPOSITORY Office Visit (AGGYNBMG) DAYSI HOROWITZ ([id number]) 1955 F Date Time Provider Department 10/31/17 [...] improved after 10 days of PO Augmentin PERFORMANCE ANALYST: Denies any abnormal vaginal discharge, irregular bleeding, [...] of Service: EST PATIENT VISIT LEVEL 3 [[id number]] Disposition: Return if symptoms worsen or fail to improve. Follow-up and Disposition History Recorded Encounter Status:Closed by YANELIS VANESSA MD on 10/31/17 PROGRESS Observed: 10/24/2017 Status: COMPLETED Source: [place] 11:52 AM CLINIC OTHER CAMPUS REPOSITORY HNO ID: [id number] Author: Yanelis Vanessa Service: (none) Author Type: [...] improved after 3 days of PO Augmentin PERFORMANCE ANALYST: Denies any abnormal vaginal discharge, irregular bleeding, [...] MD CNOV Observed: 10/24/2017 Status: COMPLETED Source: [place] 11:15 AM CLINIC OTHER CAMPUS REPOSITORY Office Visit (AGGYNBMG) DAYSI HOROWITZ ([id number]) 1955 F Date Time Provider Department 10/24/17 11:15 AM YANELIS VANESSA AGGYNBMG During your visit today, we recorded the following information about you: Blood pressure 142/70 Yanelis Vanessa MD 10/24/2017 11:57 AM Signed Daysi Flores is an 62 year old woman who presents for postmenopausal bleeding follow up. She is 3 weeks s/p DANOK. She reports bleeding and cramping has improved [...] secondary to ETOH abuse; recent LFTs from 6-28-18 were WNL - Drug abuse, marijuana Pt smokes daily marijuna - GERD (gastroesophageal reflux disease) - Hypertension - Irritable bowel disease - Osteoarthritis - Panic attacks PAST SURGICAL HISTORY Procedure Laterality Date - APPENDECTOMY - SECTION HX - SECTION HX - DANOK 10/03/2017 HYSTEROSCOPY, D AND C WITH MYOSURE [...] improved after 3 days of PO Augmentin PERFORMANCE ANALYST: Denies any abnormal vaginal discharge, irregular bleeding, [...] endometritis [N71.1] INVALID FOR* Level of Service: [facility] PATIENT VISIT LEVEL 3 [[id number]] Disposition: Return in about 1 week (around 10/31/2017). Follow-up and Disposition History Recorded Encounter Status:Closed by YANELIS VANESSA MD on 10/24/17 CNOV Observed: 10/20/2017 Status: COMPLETED Source: [place] 4:15 PM CLINIC OTHER CAMPUS REPOSITORY Office Visit (AGGYNBMG) DAYSI HOROWITZ ([id number]) 1955 F Date Time Provider Department 10/20/17 4:15 PM YANELIS VANESSAG During your visit today, we [...] bleeding and cramping 14 days s/p DANDC PERFORMANCE ANALYST: Denies any abnormal vaginal discharge, irregular bleeding, [...] of Service: EST PATIENT VISIT LEVEL 3 [[id number]] Disposition: Return in about 4 days (around 10/24/2017). Follow-up and Disposition History Recorded Encounter Status:Closed by YANELIS VANESSA MD on 10/20/17 PROGRESS Observed: 10/20/2017 Status: COMPLETED Source: [place] 4:10 PM CLINIC OTHER CAMPUS REPOSITORY HNO ID: [id number] Author: Yanelis Vanessa Service: (none) Author Type: [...] bleeding and cramping 14 days s/p DANDC PERFORMANCE ANALYST: Denies any abnormal vaginal discharge, irregular bleeding, [...] FRANKY Cartwright Observed: 10/08/2017 Status: COMPLETED Source: [place] 12:00 AM CLINIC OTHER CAMPUS REPOSITORY Telephone (AGGYNBMG) FREDO FLORESDAYSI ([id number]) 1955 F Date Time Provider Department 10/08/17 [...] Anaphylaxis Date Reviewed: 10/03/2017 Reviewed by: Kirstie HongRn) SOMMER Sawant - Fully Assessed Reason for [...] ANES POST Observed: 10/03/2017 Status: COMPLETED Source: [place] 3:02 PM CLINIC OTHER CAMPUS REPOSITORY O ID: [id number] Author: Brett Jon Service: Anesthesiology Author Type: [...] HISTORY PHYSICAL Observed: 10/03/2017 Status: COMPLETED Source: [place] 1:59 PM CLINIC OTHER CAMPUS REPOSITORY HNO ID: [id number] Author: Leticia Andrews (Pa) Service: (none) Author Type: Physician Sheet Metal Contractor Type: HANDP Filed: 10/03/2017 2:06 PM Note [...] KAYCE PREOP Observed: 10/03/2017 Status: COMPLETED Source: [place] 1:09 PM CLINIC OTHER CAMPUS REPOSITORY O ID: [id number] Author: Joshua Snow Service: Anesthesiology Author Type: [...] October 03, 2017 TIME: 1:09 PM CSN: [id number] PT ED Observed: 10/03/2017 Status: COMPLETED Source: [place] 11:55 AM [facility] [place] REPOSITORY HNO ID: [id number] Author: Luz Marina Trejo) SOMMER Dodson Service: (none) Author Type: Registered Nurse Type: Patient Education Filed: 10/03/2017 11:55 AM Note Text: ONGOING PATIENT EDUCATION TOPIC Reinforced: PAIN SCALE Patient Name: Daysi Flores Patient Location: [facility] [place] [place] Readiness To Learn Motivation To Learn: Interested Instruction Provided To: Patient Learning Response Patient/Family Response: Verbalizes understanding of: PAIN SCALE Method of Instruction: Verbal instruction Follow-Up Plan: Complete - No need for follow-up Electronically signed by: Luz Marina Dodson RN OPERATIVE NO Observed: 10/03/2017 Status: COMPLETED Source: [place] 12:00 AM [facility] [place] REPOSITORY HNO ID: [id number] Author: Yanelis Vanessa Service: Gynecology Author Type: Physician Type: Operative Report Filed: 10/06/2017 9:24 AM Note Text: [facility] - Operative Report - ASC SURGEON: Yanleis Vanessa MD PATIENT NAME: DAYSI HOROWITZ CSN: [id number] DATE OF SURGERY: 10/03/2017 DATE OF : 1955 SEX/AGE: F/62 PATIENT TYPE: A HOSP [facility] [place]: [facility] LOCATION: [facility] DATE OF SURGERY: 10/03/2017 SURGEON: Yanelis Vanessa [...] satisfactory condition. Yanelis Vanessa MD Obstetrics Gynecology LC:modl /[id number] SURGICAL TISSUE EXAM Observed: 10/03/2017 Status: F Source: [facility] 12:00 AM HEALTH SYSTEM REPOSITORY Test performed at [address] [address] NAME: DAYSI HOROWITZ REQUESTING: YANELIS VANESSA M.D. FINAL DIAGNOSIS: ENDOMETRIAL CURETTINGS - [...] of 1 Performed By: #### SURG #### [facility] [address] [place] [address] OPERATIVE REPORT Observed: 09/24/2017 Status: F Source: [place] 11:59 AM [facility] REPOSITORY [facility] Medical Records Department [address] [place] [address] Operative Report 09/11/17 1115 MR#: [id number] Acct: [id number] Name: DAYSI HOROWITZ Rep #: [id number] : 1955 62 From: Tony Dhillon MD PCP: Gabriela Ding DO Status: [place] [facility] [place] Location: EN Problem List (1) Abnormal [...] Signed CNPN Observed: 09/23/2017 Status: COMPLETED Source: [place] 12:00 AM CLINIC OTHER CAMPUS REPOSITORY Telephone (AGBMG) FREDO HOLLINGSWORTHDAYSI MUÑOZ ([id number]) 1955 F Date Time Provider Department 09/23/17 YANELIS VANESSA [facility] During your visit today, we recorded the following information about you: Selam Duenas 10/01/2017 12:08 PM Addendum Surgery Checklist 1. Patient notified and verbalized understanding of date, time, prep, location and benefits. 2. Ordered in Epic 3. Book sent : Given to patient 4. Consent Signed: Yes, scanned to chart Testing/Procedure Name: DANDC Hysteroscopy with Myosure Testing/Procedure Date: Fri., 10/03/17 @ 1:30; THOM Coelho, Case# [id number], Pretest day of Diagnosis code: N95.0 CPT code (if applicable): 09635 Medical reason details for testing/procedure: Post Menopausal Bleeding Insurance Company contacted: [employer] ID# [id number], deductible 7250.00, 5728.31 remaining, 40% co-insurance after deductible Insurance contact name: Noemi, Ref#[id number] Insurance contact phone: [phone] Authorization: No prior authorization required per fax from [employer]. Scanned to chart. (Approved, Denied, Pending, ) [...] For Surgery [898] Order(s):SURGICAL REQUEST - ELECTIVE [[id number]] Order #: [id number]: 1 Prescriptions as of 09/23/2017 Sig: VITAMIN [...] 09/29/17 HOSP Observed: 09/23/2017 Status: COMPLETED Source: [place] 12:00 AM CLINIC OTHER CAMPUS REPOSITORY Patient:Daysi Horowitz MRN: <[id number]> Height:5' 4(1.626 m) Weight:155 lb (70.308 kg) [...] the following basenames: K,HCT Progress Notes ([facility]): Selam Duenas 10/01/2017 12:08 PM Addendum Surgery Checklist 1. Patient notified and verbalized understanding of date, time, prep, location and benefits. 2. Ordered in Epic 3. Book sent : Given to patient 4. Consent Signed: Yes, scanned to chart Testing/Procedure Name: [facility] Hysteroscopy with Myosure Testing/Procedure Date: Fri., 10/03/17 @ 1:30; THOM Coelho, Case# [id number], Pretest day of Diagnosis code: N95.0 CPT code (if applicable): 21008 Medical reason details for testing/procedure: Post Menopausal Bleeding Insurance Company contacted: [employer] ID# [id number], deductible 7250.00, 5728.31 remaining, 40% co-insurance after deductible Insurance contact name: Noemi, Ref#[id number] Insurance contact phone: [phone] Authorization: No prior authorization required per fax from [employer]. Scanned to chart. (Approved, Denied, Pending, ) Authorization number: na Approval valid date range: na Number of Days/Visits approved: na Authorization information provided to na Previous Version Progress Notes (PERFORMANCE ANALYST [facility]): Yanelis Vanessa MD 09/18/2017 10:35 [...] U/S shows a 12 mm endometrial stripe PERFORMANCE ANALYST: Denies any abnormal vaginal discharge, irregular bleeding, [...] Version PROGRESS Observed: 09/18/2017 Status: COMPLETED Source: [place] 10:16 AM CLINIC OTHER CAMPUS REPOSITORY O ID: [id number] Author: Yanelis Vanessa Service: (none) Author Type: [...] U/S shows a 12 mm endometrial stripe PERFORMANCE ANALYST: Denies any abnormal vaginal discharge, irregular bleeding, [...] N95.0 CNOV Observed: 09/18/2017 Status: COMPLETED Source: [place] 10:00 AM CLINIC OTHER CAMPUS REPOSITORY Office Visit (AGGYNBMG) DAYSI HOROWITZ ([id number]) 1955 F Date Time Provider Department 09/18/17 10:00 AM YANELIS VANESSA AGGLUCASBMG During your visit today, we recorded the following information about you: Blood pressure Weight Height 120/76 70.3 kg 1.575 m Yanelis Vanessa MD 09/18/2017 10:35 AM Addendum Daysi Hollingsworthsharon is an 62 year old woman who [...] U/S shows a 12 mm endometrial stripe PERFORMANCE ANALYST: Denies any abnormal vaginal discharge, irregular bleeding, [...] - ICD9: 627.1, ICD10: N95.0 - Needs DANFELIPE Vanessa MD Surgery: CRUZITO hysteroscopy with myosure [...] of Service: EST PATIENT VISIT LEVEL 3 [[id number]] Disposition: Return if symptoms worsen or fail to improve. Follow-up and Disposition History Recorded Encounter Status:Closed by YANELIS VANESSA MD on 09/18/17 SURGERY VISIT REPORT Observed: 09/13/2017 Status: F Source: [place] 4:31 PM [facility] REPOSITORY [facility] [address] [place] [address] OFFICE VISIT Date of Service: 09/09/17 MR#: [id number] Acct: [id number] Name: DAYSI HOROWITZ Rep #: [id number] : 1955 Provider: Tony Dhillon MD Age/Sex: 62/F Location: [facility] Status: Signed Intake Vital Signs09/09/17 Height 5 ft 4 in 09/09/17 Weight: 158 lb 2 oz 09/09/17 Body Mass Index (BMI) 27.1 09/09/17 Blood Pressure 159/83 Intake Visit Reasons: abn CT scan, discuss c-scope Chief Complaint: discuss colonoscopy [employer] Required: No Is patient in pain?: No [...] ea PO BID 09/10/17 [History Confirmed 09/10/17] Lyman-3 Fatty Acids/Fish Oil [Fish Oil 1,000 mg [...] scan of the abdomen and pelvis at [facility] on 09/04/2017. This showed evidence of [...] person, oriented to place, oriented to time [facility] Head: normocephalic, atraumatic Ears: external ears normal [...] Status: F Source: [place] NON- 2:26 PM [facility] REPOSITORY [facility] Imaging Services [address] [place] [address] [place] [address] Transvaginal Non- MR#: [id number] Acct: [id number] Name: DASYI HOROWITZ Rep #: [id number] : 1955 F 62 From: Ronn Mercer PCP: Gabriela Ding DO Status: REG CLI Study: Transvaginal Non- Date of Exam: 09/05/17 Exam# [id number] Ordering Dr: Gabriela Ding DO STUDY: ULTRASOUND [...] Service support , CC: Gabriela Ding DO Mud Logger: Signed PELVIC (NON ) Observed: 09/05/2017 Status: F Source: [place] 2:12 PM [facility] REPOSITORY [facility] Imaging Services [address] [place] [address] Pelvic (Non ) MR#: [id number] Acct: [id number] Name: DAYSI HOROWITZ Rep #: [id number] : 1955 F 62 From: Ronn Mercer PCP: Gabriela Ding DO Status: REG CLI Study: Pelvic (Non ) Date of Exam: 09/05/17 Exam# [id number] Ordering Dr: Gabriela Ding DO STUDY: ULTRASOUND [...] Service support , CC: Gabriela Ding DO Mud Logger: Signed ABDOMEN/PELVIS WITH Observed: 09/04/2017 Status: F Source: [place] CONTRAST 7:03 AM [facility] REPOSITORY [facility] Imaging Services [address] [address] Abdomen/Pelvis WITH Contrast MR#: [id number] Acct: [id number] Name: DAYSI HOROWITZ Rep #: [id number] : 1955 F 62 From: Vincent Cox MD PCP: Gabriela Ding DO Status: REG CLI Study: Abdomen/Pelvis WITH Contrast Date of Exam: 09/04/17 Exam# [id number] Ordering Dr: Gabriela Ding DO STUDY: CT [...] Vincent Cox MD at 11:15 EDT Tel [phone], Service support , CC: Gabriela Ding DO Mud Logger: Signed URINALYSIS, COMPLETE Collected: 09/01/2017 Status: F Source: [place] 4:18 PM [facility] REPOSITORY Order Comment: How was Urine Obtained? [...] URINE SEEN Performed By: #### L400.0001 #### [facility] [address] [facility], [address] Observed: 09/01/2017 Status: F Source: [place] CULTURE, URINE 4:18 PM [facility] REPOSITORY Urine Culture ORGANISM 1: Mixed Gram Positive Organisms [place]re Count 11,000-25,000 MIX CULTURE Mixed contaminants. Submit a new specimen if indicated. Performed By: #### M100.0650 #### [facility] [address] [place], [address] CYTOLOGY, BODY FLUID / Collected: 09/01/2017 Status: F Source: [place] CSF 4:18 PM [facility] REPOSITORY Order Comment: Specimen Source: URINE TYPE CODE TESTS RESULT OUT OF RANGE REFERENCE UNITS LAB L350.1000 SEE Normal PATHOLOGY CYTOLOGY,BF REPORT /CSF Result Comment: Specimen submitted to Anatomical Pathology Department for testing. Performed By: #### L350.1000 #### [facility] [address], [address] FLUID/WASHING Observed: 09/01/2017 Status: F Source: [place] 12:00 AM [facility] REPOSITORY Patient: DAYSI HOROWITZ : 1955 (62/F) Acct Num: [id number] Phys: Gabriela Ding DO Unit Num: [id number] Loc: LABSPEC Specimen: [id number] Received: 09/01/17 - 1500 Spec Type: Fluid TISSUES TISSUES: Urine COMMENT Clinical correlation and appropriate follow up are necessary. CYTOLOGY GROSS Received is 15 ml of clear yellow labeled with the patient's name and and designated per the requisition as urine. Submitted for cytology preparation. / RB:cc 09/02/17 TC:4 CPT: 77811 CYTOLOGY STUDY Slides are reviewed. The specimen predominantly consists of benign squamous epithelial cells. DIAGNOSIS CYTOLOGY Urine for cytology (cytospin): Negative for malignant cells. See cytology study and comment. SJ:josafat 09/03/17 HEADER OPERATION: Not noted PRE-OP DIAGNOSIS: N30.90, R31.9 TISSUE SUBMITTED: Urine for cytology Signed Ravinder Whiting 09/03/17 <signature on file> Performed By: #### PFLU #### [facility] [address] [place], [address] CBC W/DIFF, AUTOMATED Collected: 08/21/2017 Status: F Source: [place] 11:36 AM [facility] RE[facility]ITORY TYPE CODE TESTS RESULT OUT OF [...] Lymph 1.73 Performed By: #### L100.0100 #### [facility] [address] [place], [place], [address] COMPREHENSIVE METABOLIC Collected: 08/21/2017 Status: F Source: [place] [facility] 11:36 AM [facility] REPOSITORY TYPE CODE TESTS RESULT OUT OF [...] 7 Performed By: #### L500.4050, L500.4100 #### [facility] [address] [place], [place], [address] LIPID PROFILE Collected: 08/21/2017 Status: F Source: [place] 11:36 AM [facility] REPOSITORY TYPE CODE TESTS RESULT OUT OF [...] 14 Performed By: #### L500.4050, L500.4100 #### [facility] [address] [place], [address] HEMOGLOBIN A1C Collected: 08/21/2017 Status: F Source: [place] 11:36 AM [facility] REPOSITORY TYPE CODE TESTS RESULT OUT OF RANGE REFERENCE UNITS LAB L501.9985 4.2-6.3 % High HGB A1C 6.6 Performed By: #### L501.9985 #### [facility] [address] [place], [address] MICROALB:CREAT Collected: 08/21/2017 Status: F Source: [place] RATIO,RANDOM UR 11:36 AM [facility] REPOSITORY TYPE CODE TESTS RESULT OUT OF RANGE REFERENCE UNITS LAB L501.1200 NO RANGE EST. mg/dL Normal UR CREAT 81.30 LAB L502.0500 NO RANGE EST. mg/L Normal 6.2 MICROALBUMIN ,UR LAB L502.0600 <30 mg/g CRE mg/g CRE Normal 7.7 MALB:CREAT Performed By: #### L502.0250 #### [facility] [address] [place], [place], [address] AFP, TUMOR MARKER Collected: 08/21/2017 Status: F Source: [place] 11:36 AM [facility] REPOSITORY Order Comment: Is Patient ? N TYPE CODE TESTS RESULT OUT OF RANGE REFERENCE UNITS LAB L3300.0700 0.0-8.3 ng/mL Normal AFP TUMOR 3.5 2253 Result Comment: The [employer] ECLIA methodology Performed at: [facility] [address] [id number] Occupational Health Physiotherapist: Saw Lamas PhD, Phone: [phone] Performed By: #### L3300.0700 #### [facility] (refer to report for specific site) refer to report for address and phone number PROGRESS Observed: 06/18/2017 Status: COMPLETED Source: [place] 1:33 PM CLINIC OTHER CAMPUS REPOSITORY HNO ID: [id number] Author: Yanelis Vanessa Service: (none) Author Type: [...] bleeding, pelvic pain, menstrual or menopausal problems PERFORMANCE ANALYST: Denies any abnormal vaginal discharge, irregular bleeding, [...] exam in one year. 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 Visit for gynecologic examination - ICD9: [...] MD CNOV Observed: 06/18/2017 Status: COMPLETED Source: [place] 1:15 PM CLINIC OTHER CAMPUS REPOSITORY Office Visit (AGGYNBMG) DAYSI HOROWITZ ([id number]) 1955 F Date Time Provider Department 06/18/17 [...] bleeding, pelvic pain, menstrual or menopausal problems PERFORMANCE ANALYST: Denies any abnormal vaginal discharge, irregular bleeding, [...] exam in one year. 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 Visit for gynecologic examination - ICD9: [...] exam in one year. - TWYLA SCREENING MD Yanelis Cartwright MD 06/18/2017 1:46 PM Signed Addended by: [...] [Z12.31] Screening for condition [Z13.9] Order(s):PAP, CYTO PERFORMANCE ANALYST [[id number]] Order #: [id number] TWYLA SCREENING [[id number]] Order #: [id number] FUTURE DXA-AXIAL SKELETON [[id number]] Order #: [id number] FUTURE Prescriptions as of 06/18/2017 Sig: VITAMIN [...] of Service: WELLNESS EXAMS NEW 40-64 YRS [64297] Disposition: Return in about 1 year (around 06/18/2018). Follow-up and Disposition History Recorded Encounter Status:Closed by YANELIS VANESSA MD on 06/18/17 ALLERGIES ALLERGIES DATE TYPE / CODE NAME / CODE REACTION SEVERITY SOURCE 09/10/2017 Drug ceftriaxone/W09084 Rash/throat [place] Allergy/416 4849(RXNORM) swelling Community 849833([facility] ED CT) Repository 06/18/2017 DRUG CEFTRIAXONE SODIUM GI UPSET [facility] INGREDI/[address] [place] 819429([facility] ED CT) NG/05143292 CEFTRIAXONE SODIUM [facility] 6[facility] Repository ENCOUNTERS ENCOUNTERS ADMIT/DISCHARGE ACCOUNT NUMBER ADMITTING ENCOUNTER LOCATION SOURCE CLASS 03/17/2018/03/17/19 [id number] Ambulatory [address] Repository 03/17/2018/03/17/19 [id number] Ambulatory [address] MEDICAL Repository CENTERBuildi ng:AGGENS1 02/27/2018 [id number] Ambulatory [facility] Repository 02/27/2018/02/27/19 [id number] Ambulatory [address] MEDICAL Repository DIVIDEBuildi ng:AKLB 02/27/2018/02/27/19 [id number] Ambulatory [address] Repository 02/27/2018/02/27/19 [id number] Ambulatory [address] MEDICAL Repository DIVIDEBuildi ng:AGGASTACC 02/09/2018 [id number] General acute hospital ding:LAB.FUT Repository URE 02/05/2018 [id number] General acute hospital ding:BFHLAB Repository 01/29/2018/01/30/20 [id number] STEWART SIDDIQI Ambulatory [place] [address] CHARLIE) [facility] Repository 01/29/2018/01/30/20 [id number] STEWART SIDDIQI Inpatient [place] [address] CHARLIE) [facility] MEDICAL Repository DIVIDEBuildi ng:ENDORoom: POOLBed: 04 01/28/2018 [id number] Ambulatory [facility] Repository 01/28/2018/01/29/20 [id number] Ambulatory [address] MEDICAL Repository CENTERBuildi ng:AKXRUS 12/25/2017 [id number] Ambulatory [facility] MEDICAL Repository CENTERBuildi ng:AKUSG 12/23/2017 [id number] Ambulatory [facility] MEDICAL Repository CENTERBuildi ng:AKXRUS 12/23/2017 [id number] Ambulatory [facility] MEDICAL Repository CENTERBuildi ng:AKXRUS 12/18/2017 [id number] Ambulatory [facility] Repository 12/18/2017/10/25 [id number] Ambulatory AKRON [facility] [address] MEDICAL Repository CENTERBuildi ng:AKLB 12/18/2017/12/19/19 [id number] Ambulatory [address] Other [place] Repository 12/18/2017/12/19/19 [id number] Ambulatory [facility] [address] MEDICAL Repository CENTERBuildi ng:AGGASTACC 12/09/2017 [id number] Ambulatory [facility] MEDICAL Repository CENTERBuildi ng:AKUST 12/03/2017 [id number] Ambulatory [facility] Other [place] Repository 12/03/2017/12/04/19 [id number] Ambulatory [facility] [address] MEDICAL Repository CENTERBuildi ng:AKLB 12/03/2017/12/04/19 [id number] Ambulatory [address] Other [place] Repository 12/03/2017/12/04/19 [id number] Ambulatory AKRON Daniel [address] MEDICAL Repository CENTERBuildi ng:AGGASTACC 11/27/2017 [id number] Ambulatory [facility] ding:BFHLAB Repository 10/31/2017/11/01/19 [id number] Ambulatory [address] Other [place] Repository 10/31/2017/11/01/19 [id number] Ambulatory [facility] Daniel [address] MEDICAL Repository CENTERBuildi ng:GBMG 10/24/2017/10/25/19 [id number] Ambulatory [address] [place] Repository 10/24/2017/10/25/19 [id number] Ambulatory [facility] [address] MEDICAL Repository CENTERBuildi ng:GBMG 10/24/2017 [id number] Ambulatory [facility] MEDICAL Repository CENTERBuildi ng:GBMG 10/20/2017/10/21/19 [id number] Ambulatory [address] [place] Repository 10/20/2017/10/21/19 [id number] Ambulatory [facility] [address] MEDICAL Repository CENTERBuildi ng:GBMG 10/03/2017/10/04/19 [id number] YANELIS VANESSA Ambulatory [address] Other [place] Repository 10/03/2017/10/04/19 [id number] SURESH VANESSA Inpatient [address] MEDICAL Repository CENTERBuildi ng:ASCRoom: POOLBed: 15 10/03/2017 [id number] Ambulatory [facility] Repository 10/03/2017/10/04/19 [id number] Ambulatory [address] Repository CENTERBuildi ng:AKLB 09/24/2017 [id number] Ambulatory [facility] Repository CENTERBuildi ng:GBMG 09/18/2017/09/19/19 [id number] Ambulatory [address] Repository 09/11/2017/09/12/19 [id number] Ambulatory [address] ding:EN Repository 09/11/2017 [id number] Ambulatory BMSBuilding: [place] BMS.CF.[facility] Repository 09/09/2017/09/10/19 [id number] Ambulatory BMSBuilding: [place] 18 BMS.[facility] Repository 09/05/2017 [id number] Ambulatory [facility] ding:US Repository 09/04/2017 [id number] Ambulatory [facility] ding:CT Repository 09/01/2017 [id number] Ambulatory [facility] ding:LABSPEC Repository 08/21/2017 [id number] Ambulatory [facility] ding:LAB.FUT Repository URE 06/18/2017/06/19/19 [id number] Ambulatory [address] Repository 06/18/2017/06/19/19 [id number] Ambulatory [address] MEDICAL Repository CENTERBuildi ng:GBMG PAYERS PAYERS ENCOUNTER GUARANTOR PAYER SUBSCRIBER SOURCE 03/17/2018 DAYSI YOO [facility] DAYSI YOO [facility]: Insurance:[facility]: [employer] [id number] HIXPolicy Number: [id number] [id number] [place] Date: [address]Kyz: () 03/17/2018 Secondary DAYSI [facility] Insurance:AFSLICPolic REANSDOB: Health System y Number: [id number] Repository [id number] Date: 02/27/2018 DAYSI YOO Primary DAYSI [facility] REANSDOB: Insurance:CARESOURCE REANSDOB: Health System IDXPolicy Number: [id number] Repository [place] [id number] [place], [place] Date: [address]Ypc: () 02/27/2018 Secondary DAYSI [facility] Insurance:AFSLICPolic REANSDOB: Health System y Number: [id number] Repository [id number] Date: 02/27/2018 DAYSI YOO Primary DAYSI [facility] REANSDOB: Insurance:CARESOURCE REANSDOB: Health System [facility]XM[facility] Hospitaly Number: [id number] Repository [place] [id number] [place], [place] Date: [address]Owp: () 02/27/2018 Secondary DAYSI [facility] Insurance:AFSLICPolic REANSDOB: Health System y Number: [id number] Repository [id number] Date: 02/09/2018 DAYSI YOO Primary SOYIsaias YOO [place] [id number] Insurance:CARESOURCE REANSDOB: [facility]Policy [id number] Number: Repository [address]Arl: [phone] [id number] [phone] () Date:8354-67-91PL [address] [place] [address]HS: 02/09/2018 Secondary NOT GIVENUNK [place] Insurance:SELF PAY [facility] Number: Effective Repository Date:2018-02-06 02/05/2018 SOY FREDO Primary SOYIsaias YOO [place] [id number] Insurance:CARESOURCE REANSDOB: [facility] FOR MEPolicy [id number], [place] Number: Repository [address]Kjx: [phone] [id number] [phone] (HP) Date:8240-99-73RR [address] [place] [address]HE: 02/05/2018 Secondary NOT GIVENUNK [place] Insurance:SELF PAY [facility] Number: Effective Repository Date:2018-02-05 01/29/2018 DAYSI YOO Primary DAYSI Sanchez [facility] REANSDOB: Insurance:CARESOURCE REANSDOB: Health System HIXPolicy Number: [id number] Repository [place] [id number] [facility] [place] Date: [address]Xps: (HP) 01/28/2018 DAYSI VALDESA Primary DAYSI Sanchez [facility] REANSDOB: Insurance:CARESOURCE REANSDOB: Health System HIXPolicy Number: [id number] Repository [place] [id number] [place] Date: [address]Igp: () 12/25/2017 DAYSI VALDESA Primary DAYSI Sanchez [facility] REANSDOB: Insurance:CARESOURCE REANSDOB: Health System HIXPolicy Number: [id number] Repository [place] [id number] [place] Date: [address]Byp: (HP) 12/23/2017 DAYSI FREDO Primary DAYSI FREDO Sanchez [facility] REANSDOB: Insurance:CARESOURCE REANSDOB: Health System HIXPolicy Number: [id number] Repository [place] [id number] [place] Date: [address]Vem: (HP) 12/23/2017 DAYSI FREDO Primary DAYSI FREDO Sanchez [facility] REANSDOB: Insurance:CARESOURCE REANSDOB: Health System HIXPolicy Number: [id number] Repository [place] [id number] [place] Date: [address]Sjk: (HP) 12/18/2017 DAYSI VALDESA Primary DAYSI Sanchez [facility] Insurance:CARESOURCE REANSDOB: Health System HIXPolicy Number: [id number] Repository [place] [id number] [place], [place] Date: [address]Fel: (HP) 12/18/2017 DAYSI VALDESA Primary DAYSI Sanchez [facility] Insurance:CARESOURCE REANSDOB: Health System HIXPolicy Number: [id number] Repository [place] [id number] [place] Date: [address]Aga: (HP) 12/09/2017 DAYSI VALDESA Primary DAYSI Sanchez [facility]: Insurance:CARESOURCE REANSDOB: Health System HIXPolicy Number: [id number] Repository [place] [id number] [place] Date: [address]One: (HP) 12/03/2017 DAYSI VALDESA Primary DAYSI Sanchez [facility]: Insurance:CARESOURCE REANSDOB: Health System HIXPolicy Number: [id number] Repository [place] [id number] [place] Date: [address]Cwo: (HP) 12/03/2017 DAYSI VALDESA Primary DAYSI Sanchez [facility]: Insurance:CARESOURCE REANSDOB: Health System HIXPolicy Number: [id number] Repository [place] [id number] [place] Date: [address]Ana: () 11/27/2017 DAYSI YOO Primary DAYSI Morrell [id number] Insurance:CARESOURCE REANSDOB: [facility] [id number], [place] Number: Repository [address]Tim: [phone] [id number] [phone] (HP) Date:4390-60-66UC [address] [place] [address]VA: 11/27/2017 Secondary NOT GIVENUNK [place] Insurance:SELF PAY [facility] Number: Effective Repository Date:2017-11-27 10/31/2017 DAYSI VALDESA Primary DAYSI [facility] REANSDOB: Insurance:CARESOURCE REANSDOB: Health System HIXPolicy Number: [id number] Repository [place] [id number] [place], [place] Date: [address]Tqg: () 10/24/2017 DAYSI VALDESA Primary DAYSI [facility] REANSDOB: Insurance:CARESOURCE REANSDOB: Health System HIXPolicy Number: [id number] Repository [facility] [id number] [place] Date: [address]Xdi: () 10/24/2017 DAYSI VALDESA Primary DAYSI [facility] REANSDOB: Insurance:CARESOURCE REANSDOB: Health System HIXPolicy Number: [id number] Repository [place] [id number] [place] Date: [address]Ljp: () 10/20/2017 DAYSI VALDESA Primary DAYSI [facility] REANSDOB: Insurance:CARESOURCE REANSDOB: Health System HIXPolicy Number: [id number] Repository [place] [id number] [place] Date: [address]Wuq: () 10/03/2017 DAYSI YOO Primary DAYSI Aleman [facility]: Insurance:CARESOURCE REANSDOB: Health System HIXPolicy Number: [id number] Repository [facility] [id number] [place] Date: [address]Vaz: () 10/03/2017 DAYSI YOO Primary DAYSI Sanchez [facility]: Insurance:CARESOURCE REANSDOB: Health System HIXPolicy Number: [id number] Repository [facility] [id number] [place], [place] Date: [address]Lmt: () 09/24/2017 DAYSI YOO Primary DAYSI Sanchez [facility]: Insurance:CARESOURCE REANSDOB: Health System HIXPolicy Number: [id number] Repository [place] [id number] [facility], [place] Date: [address]Pcb: () 09/11/2017 DAYSI YOO Primary DAYSI Morrell [id number] Insurance:CARESOURCE REANSDOB: [facility] [id number], [place] Number: Repository [address]Dwl: ([phone]) [id number] [phone] () Date:6572-34-59DP [address] [place] [address]QO: 09/11/2017 Secondary NOT GIVENUNK [place] Insurance:SELF PAY [facility] Number: Effective Repository Date:2017-09-09 09/11/2017 DAYSI YOO Primary DAYSI YOO [place] [id number] Insurance:CARESOURCE REANSDOB: [facility] [id number], [place] Number: Repository [address]Wvf: 234 [id number] [phone] (HP) Date:4895-98-43LC [address] [address]BK: 09/11/2017 Secondary NOT GIVENUNK [place] Insurance:SELF PAY [facility] Number: Effective Repository Date:2017-09-11 09/09/2017 SOY FREDO Primary SOYIsaias YOO [place] [id number] Insurance:CARESOURCE REANSDOB: Community [place] [facility] FOR [facility] [id number], [place] Number: Repository [address]Esk: 234 [id number] [phone] (HP) Date:2742-50-47KA [address] [address]NF: 09/09/2017 Secondary NOT GIVENUNK [place] Insurance:SELF PAY [facility] Number: Effective Repository Date:2017-09-09 09/05/2017 SOY FREDO Primary SOYIsaias YOO [place] [id number] Insurance:CARESOURCE REANSDOB: Community [place] FOR [facility] [id number], [place] Number: Repository [address]Opt: 234 [id number] [phone] (HP) Date:7407-54-02FU [address] [address]KD: 09/05/2017 Secondary NOT GIVENUNK [place] Insurance:SELF PAY [facility] Number: Effective Repository Date:2017-09-04 09/04/2017 SOY FREDO Primary SOYIsaias YOO [place] [id number] Insurance:CARESOURCE REANSDOB: Community [place] [facility] [id number], [place] Number: Repository [id number]: 234 [id number] [phone] (HP) Date:5918-37-03WL [address] [address]RM: 09/04/2017 Secondary NOT GIVENUNK [place] Insurance:SELF PAY [facility] Number: Effective Repository Date:2017-09-03 09/01/2017 [facility] DAYSI YOO [place] [id number] Insurance:CARESOURCE REANSDOB: [facility] [id number] Number: Repository [id number]: [phone] [id number] [phone] (HP) Date:9885-81-83YY [address] [address]SD: 09/01/2017 Secondary NOT GIVENUNK [place] Insurance:SELF PAY [facility] Number: Effective Repository Date:2017-09-01 08/21/2017 [facility] FREDO [place] [id number] Insurance:CARESOURCE REANSDOB: [facility] [id number], [place] Number: Repository [address]Pdz: [phone] [id number] [phone] (HP) Date:8075-45-37HY [address] [address]ZV: 08/21/2017 Secondary NOT GIVENUNK [place] Insurance:SELF PAY [facility] Number: Effective Repository Date:2017-05-05 06/18/2017 [facility] FREDO [facility] REANSDOB: Insurance:CARESOURCE REANSDOB: Health System [id number] IDXPolicy Number: [id number] Hospital [id number] [place], [place] Date: [address]Tik: (HP)
== END ==
PROVIDERS: Family Provider Family Medicine; PCP Family Medicine; Visit Provider Family Medicine
DX: E87.6 Hypokalemia (principal)
CPT/HCPCS: 36415; 80048

== ENCOUNTER → 2018-03-27 07:12 | Outpatient (CLI) | payer OTHER, SELFPAY ==
--- NOTE | 2018-03-27 07:29 | MRI_ITS ---
STUDY: MRI LUMBAR SPINE WITHOUT CONTRAST REASON FOR EXAM: Female, 63 years old. Right foot drop x3 months. TECHNIQUE: Standardized fat and water weighted pulse sequences were obtained in the sagittal and axial planes. COMPARISON: CT abdomen and pelvis 09/04/2017. FINDINGS: T11-T12: (Sagittal only). Normal endplates. Normal disc height, hydration and morphology. Normal central canal and bilateral intervertebral neural foramina. T12-L1: (Sagittal only). Anterior marginal spurs. Normal endplates. Moderate disc space height narrowing. Small posterior annular bulging disc. Normal central canal and bilateral intervertebral neural foramina. Normal lumbar lordosis. There is no substantial scoliosis. Normal conus medullaris that terminates at the mid L1 vertebral body. L1-2: Normal endplates. Mild disc space height narrowing. Small posterior bulging disc. Normal central canal and bilateral lateral recesses. Normal facet joints. Normal bilateral intervertebral neural foramina. L2-3: Normal endplates. Normal disc height. Small posterior annular bulging disc. Normal central canal and bilateral lateral recesses. Mild asymmetric degenerative facet arthropathy. Normal bilateral intervertebral neural foramina. L3-4: Normal endplates. Mild disc space height narrowing. Small posterior annular bulging disc. Normal central canal and bilateral lateral recesses. Mild asymmetric degenerative facet arthropathy. Normal bilateral intervertebral neural foramina. L4-5: Normal endplates. Normal disc height. Small posterior bulging disc. Normal central canal and bilateral lateral recesses. Moderate right degenerative facet arthropathy. Mild left degenerative facet arthropathy.. Normal bilateral intervertebral neural foramina. L5-S1: Normal endplates. Normal disc height and morphology. Normal central canal and bilateral lateral recesses. Moderately pronounced right degenerative facet arthropathy. Moderate left degenerative facet arthropathy. Normal bilateral intervertebral neural foramina. Normal visualized sacral ala. Normal visualized paraspinous soft tissue structures. MRI/Spine Lumbar (Routine) IMPRESSION: 1. No MRI evidence of lumbar extruded disc fragment or spinal stenosis. 2. Moderately pronounced right L5-S1 degenerative facet arthropathy and moderate left L5-S1 degenerative facet arthropathy. 3. Small L4-L5 posterior bulging disc, moderate right degenerative facet arthropathy and mild left degenerative facet arthropathy. 4. Small L3-L4 posterior annular bulging disc and mild asymmetric degenerative facet arthropathy. 5. No significant interval changes when compared to CT of the abdomen and pelvis dated 09/04/2017. Electronically Signed: Moi Barrera MD at 14:11 EST , Service support ,
== END ==
PROVIDERS: Family Provider Family Medicine; PCP Family Medicine; Referring Provider Family Medicine; Visit Provider Family Medicine
DX: M21.371 Foot drop, right foot (principal)
CPT/HCPCS: 72148

== ENCOUNTER → 2018-04-27 11:35 | Outpatient (CLI) | payer OTHER, SELFPAY ==
[2018-04-27 15:01] LABS: Absolute Lymphocyte Count 1.06 X10^3/ul (0.83-4.51); Absolute Neutrophil Count 2.6 X10^3/uL (2.0-7.7); Basophil# 0.02 X10^3/uL; Basophil% 0.5 % (0-1); Eosinophil# 0.21 X10^3/uL; Hematocrit 31.7 % (37-47); Hemoglobin 9.2 g/dl (12.0-15.0); Lymphocyte # 1.06 X10^3/ul (4.0); Lymphocyte % 25.4 % (19-41); Mean Corpuscular Hgb 24.5 pg (27.0-32.0); Mean Corpuscular Volume 84.3 fL (81-99); Mean Platelet Vol. 11.6 fl (6.2-12.0); Monocyte# 0.28 X10^3/uL; Monocyte% 6.7 % (0-10); Neutrophil # 2.61 X10^3/uL (2.7-7.7); Neutrophil % 62.4 % (47-70); Platelet Count 130 K/mm3 (150-450); RBC Distribution Width CV 17.5 % (11.6-14.6); RBC Distribution Width SD 52.4 fl (35.1-43.9); Red Blood Count 3.76 M/mm3 (4.2-5.4); White Blood Count 4.2 K/mm3 (4.4-11.0)
[2018-04-27 15:05] LABS: POSITIVE COUNT NO; POSITIVE DIFFERENTIAL NO; POSITIVE MORPHOLOGY NO
[2018-04-27 15:12] LABS: International Normalized Ratio 1.3; Prothrombin Time (Protime)PT. 15.7 SECONDS (11.7-14.9)
[2018-04-27 15:20] LABS: Hemoglobin A1c 6.1 % (4.2-6.3)
[2018-04-27 15:33] LABS: ALB/GLOB Ratio 0.7 RATIO (0.9-2.4); AST(SGOT) 23 U/L (15-37); Alanine Aminotransfer ALT/SGPT 18 U/L (13-56); Albumin, Serum 3.2 g/dL (3.2-5.0); Alkaline Phosphatase 126 U/L (45-117); Anion Gap 9 (5-15); BUN 18 mg/dL (7-18); Calcium,Total 8.6 mg/dL (8.5-10.1); Chloride 106 mmol/L (98-107); Creatinine, Serum 0.82 mg/dL (0.55-1.02); EST Glomerular Filtration Rate 75 mL/min (>60); Est Glom Filt Rate - Afr Amer 90 mL/min (>60); Globulin 4.5 g/dL (2.2-4.2); Glucose 132 mg/dL (74-106); Potassium 4.2 mmol/L (3.5-5.1); Protein, Total 7.7 g/dL (6.4-8.2); Sodium Level 141 mmol/L (136-145)
== END ==
PROVIDERS: Family Provider Family Medicine; PCP Family Medicine; Visit Provider Family Medicine
DX: K70.30 Alcoholic cirrhosis of liver without ascites (principal); I10 Essential (primary) hypertension; Z51.81 Encounter for therapeutic drug level monitoring
CPT/HCPCS: 36415; 80053; 83036; 85025; 85610

== ENCOUNTER → 2018-10-22 12:34 | Outpatient (CLI) | payer OTHER, SELFPAY ==
[2018-09-22 10:44] VITALS: BMI 26.9
--- NOTE | 2018-10-22 12:38 | US_ITS ---
STUDY: ULTRASOUND OF THE FEMALE PELVIS - COMPLETE REASON FOR EXAM: Female, 63 years old. Postmenopausal bleeding LMP: Unknown. TECHNIQUE: Transabdominal and Transvaginal TECHNICAL QUALITY: Adequate. COMPARISON: 09/05/2017 FINDINGS: The uterus is anteverted and is in a midline position. The uterus measures 8.4 x 5.3 x 5.0 cm. Normal uterine cervix. The endometrium measures 5.6 mm in thickness, and is hyperechoic. There is no demonstrated endometrial mass. There is no demonstrated myometrial mass. I.U.D. - The patient does not have an I.U.D. The right ovary is not visualized. The left ovary is visualized. The left ovary measures 1.6 x 1.3 x 1.0 cm. There is no left ovarian cyst or ovarian mass. There is no visualized left adnexal mass or complex lesion. There is normal arterial and normal venous vascularity. There is no fluid in the cul-de-sac. The bladder is sonographically normal US/Transvaginal Non- IMPRESSION: Borderline thickening of the endometrium at 5.6 mm. Recommend biopsy for further evaluation Sonographically unremarkable left ovary Right ovary not visualized No demonstrated free fluid Electronically Signed: Cory Garcia MD at 17:07 EDT , Service support ,
--- NOTE | 2018-10-22 12:38 | US_ITS ---
STUDY: ULTRASOUND OF THE FEMALE PELVIS - COMPLETE REASON FOR EXAM: Female, 63 years old. Postmenopausal bleeding LMP: Unknown. TECHNIQUE: Transabdominal and Transvaginal TECHNICAL QUALITY: Adequate. COMPARISON: 09/05/2017 FINDINGS: The uterus is anteverted and is in a midline position. The uterus measures 8.4 x 5.3 x 5.0 cm. Normal uterine cervix. The endometrium measures 5.6 mm in thickness, and is hyperechoic. There is no demonstrated endometrial mass. There is no demonstrated myometrial mass. I.U.D. - The patient does not have an I.U.D. The right ovary is not visualized. The left ovary is visualized. The left ovary measures 1.6 x 1.3 x 1.0 cm. There is no left ovarian cyst or ovarian mass. There is no visualized left adnexal mass or complex lesion. There is normal arterial and normal venous vascularity. There is no fluid in the cul-de-sac. The bladder is sonographically normal US/Pelvic (Non ) IMPRESSION: Borderline thickening of the endometrium at 5.6 mm. Recommend biopsy for further evaluation Sonographically unremarkable left ovary Right ovary not visualized No demonstrated free fluid Electronically Signed: Cory Garcia MD at 17:07 EDT , Service support ,
--- NOTE | 2018-10-22 12:38 | BI_ITS ---
MAMMOGRAPHY - BILATERAL SCREENING REASON FOR EXAM: Female, 63 years old. Routine annual screening examination. PERTINENT HISTORY: Non-contributory. TECHNIQUE: Digital bilateral breast nhung (3D mammographic acquisition) in the CC and MLO projections. 2-D mediolateral oblique (MLO) and craniocaudad (CC) views of both breasts were obtained. CAD: Full Field Digital Mammography with Computer Added Detection was performed. COMPARISON: Comparison is made with prior outside examination dated December 31, 2012. FINDINGS: Breast Composition: The breasts are heterogeneously dense, which may obscure small masses. There are no dominant masses or suspicious calcifications. Stable benign-appearing bilateral axillary lymph nodes. No other significant abnormalities are identified. There has been no significant change since the prior study. BI/SCREEN MAMM (CAD) W/NHUNG BILAT IMPRESSION: Stable bilateral screening mammogram. Yearly follow-up mammogram recommended. (A) ASSESSMENT CATEGORY: BIRADS Category 2: Benign. A letter regarding these results will be sent to the patient by the facility within 30 days. Approximately 10% of breast cancers are not detected by mammography. A normal mammogram should not delay biopsy of a clinically suspicious abnormality. [id number] Electronically Signed: Vincent Cox, at 10:05 EDT , Service support ,
--- NOTE | 2018-10-22 13:30 | BD_ITS ---
STUDY: DUAL ENERGY X-RAY ABSORPTIOMETRY / DXA REASON FOR EXAM: Female, 63 years old. The patient is postmenopausal. Loss of height. TECHNIQUE: Bone Mineral Density (BMD) measurements of lumbar spine and bilateral hips were obtained. COMPARISON: None. FINDINGS: Lumbar Spine (L1-L4): g/cm2 (1.158) / T-score (-0.4) / Z-score (1.2) Findings are suggestive of normal bone density with a low fracture risk. Increased kyphosis. Left Femur Total: g/cm2 (0.962) / T-score (-0.4) / Z-score (0.8) Left Femoral Neck: g/cm2 (0.931) / T-score (-0.8) / Z-score (0.7) Right Femur Total: g/cm2 (0.930) / T-score (-0.6) / Z-score (0.6) Right Femoral Neck: g/cm2 (0.919) / T-score (-0.9) / Z-score (0.6) BD/Dexa Bone Density Study IMPRESSION: The patient is considered normal as outlined below according to World Vazquez Organization (WHO) criteria with a low fracture risk. Reference Information: The T-score is the number of standard deviations above or below the standard which is normal for young adults at their peak bone mineral density. The World Health Organization (WHO) interprets the T-scores as follows: Above -1 Normal bone density Between -1 and -2.5 Osteopenia Equal to / or below -2.5 Osteoporosis As a practical clinical guideline, osteopenia may be graded as follows: Mild -1 through -1.5 Moderate -1.6 through -2.0 Severe -2.1 through -2.4 The Z-score is the number of standard deviations above or below age-matched controls. A Z-score of less than -1.5 would be considered abnormal. References: 1. NIH Osteoporosis and Related Bone Diseases http://www.osteo.org 2. International Society for Clinical Densitometry http://www.iscd.org 3. National Osteoporosis Foundation http://www.nof.org Electronically Signed: Vincent Cox, at 15:56 EDT , Service support ,
== END ==
PROVIDERS: Family Provider Family Medicine; PCP Family Medicine; Referring Provider Nurse Practitioner Women's Health; Visit Provider Nurse Practitioner Women's Health
DX: Z12.31 Encounter for screening mammogram for malignant neoplasm of breast (principal); Z78.0 Asymptomatic menopausal state; N95.0 Postmenopausal bleeding
CPT/HCPCS: 76830; 76856; 77063; 77067; 77080

== ENCOUNTER → 2019-10-08 10:55 | Outpatient (CLI) | payer MEDICARE, OTHER, SELFPAY ==
[2018-09-22 10:44] VITALS: BMI 26.9
[2019-10-08 12:25] LABS: Absolute Lymphocyte Count 2.13 X10^3/uL (0.83-4.51); Absolute Neutrophil Count 4.7 X10^3/uL (2.0-7.7); Basophil# 0.04 X10^3/uL; Basophil% 0.5 % (0-1); Eosinophil# 0.15 X10^3/uL; Hematocrit 40.6 % (37-47); Hemoglobin 12.6 g/dL (12.0-15.0); Lymphocyte # 2.13 X10^3/ul (4.0); Lymphocyte % 28.2 % (19-41); Mean Corpuscular Hgb 26.1 pg (27.0-32.0); Mean Corpuscular Volume 84.1 fL (81-99); Mean Platelet Vol. 11.2 fl (6.2-12.0); Monocyte# 0.53 X10^3/uL; NRBC Flagged by Analyzer 0 % (0-5); Neutrophil # 4.69 X10^3/uL (2.7-7.7); Platelet Count 146 K/mm3 (150-450); RBC Distribution Width CV 15.9 % (11.6-14.6); RBC Distribution Width SD 48.5 fl (35.1-43.9); Red Blood Count 4.83 M/mm3 (4.2-5.4); White Blood Count 7.6 K/mm3 (4.4-11.0)
[2019-10-08 12:55] LABS: AST(SGOT) 16 U/L (15-37); Alanine Aminotransfer ALT/SGPT 22 U/L (13-56); Alkaline Phosphatase 144 U/L (45-117); Anion Gap 6 (5-15); BUN 13 mg/dL (7-18); Calcium,Total 9.2 mg/dL (8.5-10.1); Chloride 106 mmol/L (98-107); Creatinine, Serum 0.68 mg/dL (0.55-1.02); EST Glomerular Filtration Rate 91 mL/min (>60); Est Glom Filt Rate - Afr Amer 111 mL/min (>60); Glucose 101 mg/dL (74-106); Potassium 3.8 mmol/L (3.5-5.1); Sodium Level 140 mmol/L (136-145)
[2019-10-08 14:31] LABS: Hemoglobin A1c 6.8 % (3.8-5.6)
== END ==
PROVIDERS: PCP Family Medicine; Visit Provider Family Medicine
DX: I10 Essential (primary) hypertension (principal); E16.2 Hypoglycemia, unspecified; K74.60 Unspecified cirrhosis of liver
CPT/HCPCS: 36415; 80053; 83036; 85025

== ENCOUNTER → 2019-10-19 14:54 | Outpatient (CLI) | payer MEDICARE, OTHER, SELFPAY ==
[2018-09-22 10:44] VITALS: BMI 26.9
--- NOTE | 2019-10-19 14:59 | CT_ITS ---
STUDY: CT ABDOMEN AND PELVIS WITH CONTRAST REASON FOR EXAM: Female, 64 years old. RIGHT GROIN PAIN, HERNIA REPAIR LAST YEAR SAME AREA. PRIOR APPY AND 2 C-SECTIONS RADIATION DOSAGE (If Supplied By Facility): CTDIvol = ( 13.59 ) mGy, DLP = ( 740.21 ) mGycm TECHNIQUE: Transaxial images were obtained from the dome of the diaphragm to the symphysis pubis with oral contrast. 100ML ISOVUE 370 was administered. Sagittal and coronal images were reconstructed. Individualized dose optimization techniques were used for this CT. COMPARISON: September 04, 2017 FINDINGS: The visualized lung bases are unremarkable. The visualized portions of the heart are within normal limits. There is a diffuse contour abnormality of the liver consistent with cirrhotic changes. Normal gallbladder and extrahepatic biliary system. Normal spleen. Normal pancreas. Normal bilateral adrenal glands. Normal right kidney. Normal left kidney. Wall thickening of the distal stomach. Normal small intestine. Normal colon. There is moderate stool. There is stable infiltrative change at the right paracolic gutter. There is non-visualization of the appendix. Normal abdominal aorta. Normal inferior vena cava. Normal retroperitoneum. Normal urinary bladder. Small uterine calcifications with possible fibroids. There is no free fluid in the abdomen or pelvis. Normal abdominal wall. There are diffuse degenerative changes of the visualized lumbar spine. CT/Abdomen/Pelvis WITH Contrast IMPRESSION: Cirrhotic liver. No biliary dilatation. Wall thickening of the distal stomach suggesting gastritis versus ulcer disease. Moderate stool. No obstruction. Possible uterine fibroids. Electronically Signed: Mykel Rouse MD at 20:59 EDT , Service support ,
== END ==
PROVIDERS: PCP Family Medicine; Referring Provider Family Medicine; Visit Provider Family Medicine
DX: R10.9 Unspecified abdominal pain (principal)
CPT/HCPCS: 74177; Q9967

== ENCOUNTER → 2020-06-26 13:17 | Outpatient (CLI) | payer MEDICARE, OTHER, SELFPAY ==
[2018-09-22 10:44] VITALS: BMI 26.9
--- NOTE | 2020-06-26 13:31 | MRI_ITS ---
STUDY: MRI RIGHT HIP REASON FOR EXAM: Right groin and low back pain for 18 months, no specific injury. TECHNIQUE: Standardized fat and water weighted pulse sequences were obtained in all 3 orthogonal planes. COMPARISON: None. FINDINGS: There is mild chondral thinning of the right hip (proton-density sagittal image 14). Normal acetabulum. Normal labrum. Normal femoral head. Normal femoral neck and intratrochanteric region. Normal gluteus minimus, medius and iliopsoas tendons and distal insertions. There is no trochanteric, iliopsoas or iliopectineal bursitis. Normal superior and inferior pubic rami. Normal pubic symphysis. Normal ischial tuberosity. There is mild tendinosis of the right conjoint tendon at the ischial origin (proton-density axial image 19) without demonstrated tear of the hamstring tendons. Normal visualized iliac wing, sacroiliac joint, and sacral ala. There are small uterine fibroids (inversion recovery coronal images 18-20) and nabothian cysts (inversion recovery coronal images 12, 13). MRI/Lower Ext Joint Only (Routine) IMPRESSION: Mild right hip arthrosis. Mild tendinosis of the right conjoint tendon. Electronically Signed: Kamron Cruz MD at 7:24 EDT Tel , Service support ,
== END ==
PROVIDERS: PCP Family Medicine; Referring Provider Nurse Practitioner Family; Visit Provider Nurse Practitioner Family
DX: M13.851 Other specified arthritis, right hip (principal); M25.551 Pain in right hip
CPT/HCPCS: 73721

== ENCOUNTER → 2020-10-06 12:14 | Outpatient (CLI) | payer MEDICARE, OTHER, SELFPAY ==
[2018-09-22 10:44] VITALS: BMI 26.9
--- NOTE | 2020-10-06 12:30 | MRI_ITS ---
STUDY: MRI BRAIN WITH AND WITHOUT CONTRAST (ATTENTION INTERNAL AUDITORY CANALS - I.A.C.''s) REASON FOR EXAM: Female, 65 years old. BILAT HEARING LOSS,LT. TINNITUS TECHNIQUE: Standardized multiplanar fat and water weighted pulse sequences were obtained. 13ml Dotarem via IV was administered for the contrast portion of the examination. COMPARISON: None. FINDINGS: Normal bilateral temporal bones. Normal bilateral internal auditory canals. There is no demonstrated intracanalicular or cisternal vestibular schwannoma (acoustic neuroma). There is no enhancement of the bilateral VIIth or VIIIth cranial nerves. Normal bilateral cochlea, vestibules and semicircular canals. Normal size of the ventricles and extra-axial spaces for the patient''s age. Normal white matter tracts of the supratentorial brain. There is no evidence for recent intracranial ischemia or other cause of cytotoxic edema on diffusion weighted imaging (DWI). Normal bilateral basal ganglia. Normal thalami. Normal flow voids within the major intracranial circulation suggesting patency by spin echo criteria. Normal venous enhancement. There is no enhancing intra-axial or extra-axial abnormality. There is no extra-axial fluid accumulation. Normal sella turcica, pituitary gland, infundibular stalk, optic chiasm and hypothalamus. Normal tectal plate and pineal gland. Normal midbrain, eladio and medulla. Normal cerebellum. Normal basal cisterns. No demonstrated orbital abnormality, within the constraints of a routine brain study. Normal visualized paranasal sinuses. Normal calvarium and skull base. Normal visualized soft tissue structures. Normal visualized upper cervical spine. MRI/Brain W/WO Contrast IMPRESSION: Normal unenhanced and enhanced MRI of the bilateral internal auditory canals (I.A.C''s). Electronically Signed: Dipesh Herrera MD at 16:28 EDT Tel , Service support ,
[2020-10-06 12:51] LABS: CREATININE FINGERSTICK 0.7 mg/dL (0.55-1.02); EGFR FINGERSTICK > 60.0000 mL/min (>60)
== END ==
PROVIDERS: PCP Family Medicine; Referring Provider Otolaryngology; Visit Provider Otolaryngology
DX: H90.3 Sensorineural hearing loss, bilateral (principal); H93.12 Tinnitus, left ear
CPT/HCPCS: 70553; A9575

== ENCOUNTER → 2022-02-27 | Outpatient (CLI) | payer MEDICARE, SELFPAY ==
[2022-02-27 12:46] LABS: Absolute Neutrophil Count 3.6 X10^3/uL (2.0-7.7); Basophil# 0.02 X10^3/uL; Basophil% 0.4 % (0-1); Eosinophil# 0.12 X10^3/uL; Eosinophils% 2.2 % (0-5); Hematocrit 41.7 % (37-47); Hemoglobin 13.9 g/dL (12.0-15.0); Mean Corp Hgb Conc 33.3 g/dL (32-36); Mean Corpuscular Volume 93.1 fL (81-99); Monocyte# 0.33 X10^3/uL; Monocyte% 5.9 % (0-10); NRBC Flagged by Analyzer 0 % (0-5); Neutrophil # 3.57 X10^3/uL (2.7-7.7); Neutrophil % 64.1 % (47-70); Platelet Count 116 K/mm3 (150-450); RBC Distribution Width CV 13.2 % (11.6-14.6); RBC Distribution Width SD 45.1 fl (35.1-43.9); Red Blood Count 4.48 M/mm3 (4.2-5.4); White Blood Count 5.6 K/mm3 (4.4-11.0)
[2022-02-27 13:14] LABS: AST(SGOT) 14 U/L (15-37); Alanine Aminotransfer ALT/SGPT 23 U/L (13-56); Albumin, Serum 3.7 g/dL (3.2-5.0); Alkaline Phosphatase 90 U/L (45-117); Anion Gap 4 (5-15); BUN 16 mg/dL (7-18); Calcium,Total 9.4 mg/dL (8.5-10.1); Chloride 109 mmol/L (98-107); Cholesterol 164 mg/dL (200); Creatinine, Serum 0.64 mg/dL (0.55-1.02); EST Glomerular Filtration Rate 98 mL/min (>60); Est Glom Filt Rate - Afr Amer 118 mL/min (>60); Globulin 3.6 g/dL (2.2-4.2); Glucose 137 mg/dL (74-106); High Density Lipoprotein 57 mg/dL; Potassium 4.5 mmol/L (3.5-5.1); Protein, Total 7.3 g/dL (6.4-8.2); Sodium Level 141 mmol/L (136-145); Triglycerides 97 mg/dL; Very Low Density Lipoprotein 19 mg/dL (5-40)
[2022-02-27 13:17] LABS: Hemoglobin A1c 6.3 % (3.8-5.6)
[2022-02-27 13:22] LABS: Microalbumin,Random Urine 8.4 mg/L (NO RANGE EST.); Microalbumin:Creatinine Ratio 6.5 mg/g CRE (<30 mg/g CRE)
== END | disposition home or self-care (01) ==
LOC: BFHLAB 08:35
PROVIDERS: PCP Family Medicine; Visit Provider Family Medicine
DX: I10 Essential (primary) hypertension (principal); E11.9 Type 2 diabetes mellitus without complications; E78.5 Hyperlipidemia, unspecified
CPT/HCPCS: 36415; 80053; 80061; 82043; 82570; 83036; 85025

== ENCOUNTER → 2022-06-18 | Outpatient (CLI) | payer MEDICARE, SELFPAY ==
--- NOTE | 2022-06-18 13:50 | BI_ITS ---
MAMMOGRAPHY - BILATERAL SCREENING REASON FOR EXAM: Female, 67 years old. Routine annual screening examination. PERTINENT HISTORY: Non-contributory. TECHNIQUE: Digital bilateral breast nhung (3D mammographic acquisition) in the CC and MLO projections. 2-D mediolateral oblique (MLO) and craniocaudad (CC) views of both breasts were obtained. CAD: Full Field Digital Mammography with Computer Added Detection was performed. COMPARISON: Comparison is made with prior study dated October 22, 2018. FINDINGS: Breast Composition: The breasts are heterogeneously dense, which may obscure small masses. There are no dominant masses or suspicious calcifications. Stable asymmetry of breast tissue with more breast tissue is seen in the right breast as compared to the left side. Stable fat-containing bilateral axillary. No other significant abnormalities are identified. There has been no significant change since the prior study. BI/SCRN MAMM (CAD)W/NHUNG BILAT IMPRESSION: Stable bilateral screening mammogram. Yearly follow-up mammogram recommended. (A) ASSESSMENT CATEGORY: BIRADS Category 2: Benign. A letter regarding these results will be sent to the patient by the facility within 30 days. Approximately 10% of breast cancers are not detected by mammography. A normal mammogram should not delay biopsy of a clinically suspicious abnormality. [id number] Electronically Signed: Vincent Cox MD at 14:29 EDT ,
--- NOTE | 2022-06-18 14:09 | BD_ITS ---
STUDY: DUAL ENERGY X-RAY ABSORPTIOMETRY / DXA REASON FOR EXAM: Female, 67 years old. M810 TECHNIQUE: Bone Mineral Density (BMD) measurements of lumbar spine and bilateral hips were obtained. COMPARISON: Comparison is made with prior study October 22, 2018. FINDINGS: Lumbar Spine (L1-L4): g/cm2 (1.053) / T-score (0.1) / Z-score (2.1) Findings are suggestive of normal bone density with a low fracture risk. Left Femur Total: g/cm2 (0.793) / T-score (-1.2) / Z-score (0.2) Left Femoral Neck: g/cm2 (0.648) / T-score (-1.8) / Z-score (-0.1) Right Femur Total: g/cm2 (0.826) / T-score (-0.9) / Z-score (0.5) Right Femoral Neck: g/cm2 (0.677) / T-score (-1.6) / Z-score (0.1) The T-Scores on the most recent prior examination were: Lumbar Spine (L1-L4): There has been worsening of bone density since the previous examination. Left Femur Total: which represents a worsening of 11.6%. Right Femur Total: which represents a worsening of 4.6%. BD/Dexa Bone Density Study IMPRESSION: The patient is considered osteopenic as outlined below according to World Vazquez Organization (WHO) criteria with a moderate fracture risk. There has been worsening of bone density since the previous examination. Reference Information: The T-score is the number of standard deviations above or below the standard which is normal for young adults at their peak bone mineral density. The World Health Organization (WHO) interprets the T-scores as follows: Above -1 Normal bone density Between -1 and -2.5 Osteopenia Equal to / or below -2.5 Osteoporosis As a practical clinical guideline, osteopenia may be graded as follows: Mild -1 through -1.5 Moderate -1.6 through -2.0 Severe -2.1 through -2.4 The Z-score is the number of standard deviations above or below age-matched controls. A Z-score of less than -1.5 would be considered abnormal. References: 1. NIH Osteoporosis and Related Bone Diseases www osteo.org 2. International Society for Clinical Densitometry www iscd.org 3. National Osteoporosis Foundation www nof.org Electronically Signed: Vincent Cox MD at 14:48 EDT ,
== END | disposition home or self-care (01) ==
LOC: OPBD 13:48
PROVIDERS: PCP Family Medicine; Referring Provider Family Medicine; Visit Provider Family Medicine
DX: Z12.31 Encounter for screening mammogram for malignant neoplasm of breast (principal); M81.0 Age-related osteoporosis without current pathological fracture
CPT/HCPCS: 77063; 77067; 77080

== ENCOUNTER 2023-05-20 01:14 | Emergency (ER) | payer MEDICARE, SELFPAY ==
[2023-05-20 01:19] VITALS: BP 173/88; PULSE 77; RESP 18; TEMP 35.4; O2SAT 97; BMI 27.6
[2023-05-20 01:22] VITALS: BP 173/88; PULSE 77; RESP 18; TEMP 35.4; O2SAT 97
[2023-05-20 01:30] VITALS: BP 159/86; PULSE 57; RESP 16; TEMP 37.1; O2SAT 92
--- NOTE | 2023-05-20 01:35 | EDS_ITS ---
HPI HPI - GI History of Present Illness Chief Complaint: Nausea/Vomiting Detail of Chief Complaint: Nausea, vomiting and diarrhea tonight. Informant: patient and spouse/S.O. Abdominal Pain/Flank Pain Onset: Today and Hours Context: Gradual Onset Timing: Intermittent Quality: Cramping Location: Epigastric Current Severity: Mild Maximum Severity: Mild Nausea/Vomiting/Emesis GI Symptom: Positive for Nausea and Vomiting Onset: Today and Hours Severity: Moderate Diarrhea/Melena/Hematochezia GI Symptom: Positive for Diarrhea; Negative for Melena or Hematochezia Onset: Today and Hours Stool Quality: Positive for Loose Severity: Mild Associated Symptoms Associated Symptoms: Negative for Dysuria, Frequency, Hematuria or Urgency Narrative Narrative: 68-year-old female history of cirrhosis and diabetes and irritable bowel. Prior appendectomy, hernia repair and . Was feeling fine last couple days tonight ate dinner around 6:00 around 9 PM she started having nausea, vomiting and diarrhea. Some mild epigastric abdominal pain. No hematemesis or melena. No fever. No dysuria. No recent exposures she is aware of. Prior similar symptoms: Yes Recent Illness/Hospitalization: No PFSH PFS Medical History Alcoholic cirrhosis of liver with ascites Anxiety Barretts esophagus Chronic back pain Chronic endometritis Diabetes mellitus Esophageal varices GERD (gastroesophageal reflux disease) Hemorrhoid History of colitis HTN (hypertension) Hyperlipidemia IBS (irritable bowel syndrome) Osteoarthritis Postmenopausal bleeding Thrombocytopenia Uterine fibroid Home Medications atorvastatin 20 mg tablet 20 mg PO DAILY 09/22/18 [History Last Taken Unknown] carvedilol 6.25 mg tablet 6.25 mg PO BID 09/22/18 [History Last Taken Unknown] furosemide 40 mg tablet 40 mg PO DAILY PRN edema 09/22/18 [History Last Taken Unknown] pantoprazole 40 mg tablet,delayed release 40 mg PO DAILY 09/22/18 [History Last Taken Unknown] venlafaxine 37.5 mg capsule,extended release 24 hr (Effexor XR) 37.5 mg PO DAILY 09/22/18 [History Last Taken Unknown] ondansetron 4 mg disintegrating tablet 4 mg PO Q8H Vomiting #7 tabs 05/20/23 [Rx Last Taken Unknown] venlafaxine 150 mg capsule,extended release 24 hr 150 mg PO DAILY 05/20/23 [History Last Taken Unknown] Allergy/AdvReac Type Severity Reaction Status Date / Time ceftriaxone [From Rocephin] Allergy Mild Rash/throat Verified 09/22/18 10:05 swelling Family History Grandmother Colon cancer Mother Alcoholism Surgical History H/O section S/P appendectomy S/P colonoscopy S/P dilation and curettage S/P endoscopy s/p liposuction S/P tubal ligation S/P wisdom tooth extraction Social History adopted: Yes Smoking Status: Current every day smoker tobacco type: cigarettes alcohol intake: former substance use type: marijuana caffeine: Yes what type of physical activity do you participate in: none seatbelt use: always do you feel safe at home: Yes additional social history: -Raul ROS ROS ED ROS Narrative Nausea, vomiting and diarrhea tonight. Review of Systems ROS Unobtainable: Denies due to encephalopathy Constitutional Constitutional ED: Denies chills or fever(s) ENT ENT ED: Denies ear pain Cardiovascular Cardiovascular: Denies chest pain Respiratory/Chest Respiratory/Chest: Denies cough or dyspnea on exertion Gastrointestinal Gastrointestinal: Reports abdominal pain, diarrhea, nausea and vomiting; Denies constipation or melena Genitourinary Genitourinary ED: Denies dysuria or hematuria Musculoskeletal Musculoskeletal: Denies arthralgias Integumentary Denies abscess Neurologic Neurologic: Denies headache(s) Psychiatric Psychiatric: Denies anxiety or depression Endocrine Endocrinology: Denies polydipsia Hematologic/Lymphatic Hematologic/Lymphatic: Denies easy bleeding, easy bruising or lymphadenopathy Allergic/Immunologic Allergic/Immunologic ED: Denies mouth swelling, tongue swelling or urticaria EXAM Physical Exam Narrative Exam Narrative: 68-year-old female vital signs stable afebrile. HEENT exam dry reactive light. No signs of trauma. Mild dry mucous members. Neck nontender no lymphadenopathy. Lungs clear to auscultation bilaterally. Heart regular rhythm rate about 65 no murmur. Chest wall and ribs nontender. Abdomen soft mild epigastric tenderness. No rebound, guarding rigidity. Right upper right lower quadrant unremarkable. No hernia or mass. No signs of obstruction. No pulsatile mass. Moving all 4 extremities. Nontender no edema. Normal strength. Neurologically she is awake and alert no focal motor deficits. Const Vital Signs: 05/20/23 01:19 05/20/23 01:22 05/20/23 01:30 Temperature 95.7 F L 95.7 F L 98.7 F Temperature Source Temporal Temporal Pulse Rate 77 77 57 L Respiratory Rate 18 18 16 Blood Pressure 173/88 H 173/88 H 159/86 H Blood Pressure Mean 116 116 110 Pulse Ox 97 97 92 Oxygen Delivery Method Room Air Room Air Positive well nourished and well developed; Negative for cachectic or contractures General Appearance ED: well developed and NAD; Negative for cachectic, contractures or pallor Nutritional Appearance: Negative for cachectic HEENT Reports dry mucous membranes; Denies moist mucous membranes normocephalic and atraumatic; Negative for trauma or tenderness Mouth ED: Yes dry mucous membranes Mouth: dry mucous membranes Eyes PERRL and EOMs intact bilaterally General Eye ED: Negative for pale conjunctiva or scleral icterus Neck no lymphadenopathy, supple and no JVD General: Negative for tenderness Carotids: Negative for other Lymph Lymphatic: Negative for other Resp normal respiratory effort and clear to auscultation bilaterally Effort and Inspection: Negative for respiratory distress Auscultation: Negative for rales, rhonchi or wheezes Cardio regular rate, regular rhythm, S1 normal heart sound, S2 normal heart sound and no murmurs Rate: Negative for bradycardia or tachycardic Rhythm: Negative for abnormal rhythm GI non-distended and no masses; Negative for non-tender GI Narrative: Mild epigastric tenderness. No rebound guarding rigidity. No obstruction. No right upper or lower quadrant tenderness. Inspection: Negative for abdominal distention Auscultation: normoactive bowel sounds Palpation: soft and tender; Negative for guarding or rebound tenderness present Back/Spine no CVA tenderness General Back: Negative for CVA tenderness Cervical Spine: Negative for cervical spine tenderness Thoracic Spine / Upper Back: Negative for thoracic spinal tenderness Lumbar Spine / Lower Back: Negative for lumbar spinal tenderness Coccyx: Negative for other Extremity full ROM General Extremety ED: Negative for edema or tenderness General Extremity: Negative for edema Neuro CN's II-XII intact bilaterally and moves all extremities Sensorium / Orientation: alert, oriented to person, oriented to place and oriented to time; Negative for orientation impaired, confused, lethargic or stuporous Motor Exam: strength 5/5 throughout Psych mental status grossly normal and thought process normal Appearance: Negative for other Attitude: No agitated Mood & Affect: Negative for anxious or tearful Skin no wounds General Skin Exam: Negative for jaundice or pallor Lesions: no lesions Rashes: no rashes Trauma: Negative for abrasion Nails: Negative for discolored MDM MDM MDM Narrative Medical decision making narrative: 68-year-old female with nausea, vomiting and diarrhea. Suspect secondary to viral gastroenteritis versus other etiologies. Screening labs. IV fluids and Zofran. Reassess. At this time I do not think she needs any imaging unless her exam changes or she has significantly abnormal labs that would dictate imaging.Patient will be treated with IV fluids. For dehydration. Zofran for nausea. Repeat exam patient doing well at 3:10 AM. Abdomen is benign. Nontender. She is feeling much better after a liter of normal saline and IV Zofran. She and I and her went over her test results. She is comfortable being discharged home. She be written for prescription for Zofran. Fluids and rest. Follow-up as needed return if worse. History & Record Review Discussion w/independent historian: Patient and Family Additional record(s) reviewed:: Prior inpatient record, Prior outpatient record, Prior ED visit and Prior labs Lab Data Attestation: I reviewed the patient's lab results. Lab results narrative: CBC shows a white count 11.1. H&H is 16 and 47. Platelets are slightly low at 108. Electrolytes show a gap of 8. Normal BUN of 17 creatinine 0.69. Glucose 232. Liver enzymes normal. Lipase normal at 42. Labs: Laboratory Results - last 24 hr 05/20/23 02:25 WBC 11.1 H RBC 5.24 Hgb 16.1 H Hct 47.4 H MCV 90.5 MCH 30.7 MCHC 34.0 RDW Std Deviation 42.7 RDW Coeff of Christa 12.9 Plt Count 108 L MPV 10.7 Immature Gran % (Auto) 0.400 Neut % (Auto) 90.2 H Lymph % (Auto) 5.2 L [place] % (Auto) 3.1 Eos % (Auto) 0.8 Baso % (Auto) 0.3 Absolute Neuts (auto) 10.0 H Absolute Lymphs (auto) 0.58 L Nucleated RBC % 0 Sodium 140 Potassium 3.8 Chloride 106 Carbon Dioxide 26.0 Anion Gap 8 BUN 17 Creatinine 0.69 Estim Creat Clear Calc 60.25 Est GFR (MDRD) Af Amer 108 Est GFR (MDRD) Non-Af 89 BUN/Creatinine Ratio 24.6 H Glucose 232 H Calcium 9.4 Total Bilirubin 0.90 AST 20 ALT 22 Alkaline Phosphatase 104 Total Protein 8.0 Albumin 4.1 Globulin 3.9 Albumin/Globulin Ratio 1.1 Lipase 42 Discharge Plan Triage Chief Complaint: Nausea/Vomiting ED Provider: Mathew Fountain Dx/Rx/DC Orders Clinical Impression: Nausea, vomiting, and diarrhea, Viral gastroenteritis, History of cirrhosis, History of diabetes mellitus Instructions: ED Gastroenteritis, Viral (Adult) Prescriptions: New ondansetron 4 mg tablet,disintegrating 4 mg PO Q8H Qty: 7 0RF No Action atorvastatin 20 mg tablet 20 mg PO DAILY carvedilol 6.25 mg tablet 6.25 mg PO BID venlafaxine [Effexor XR] 37.5 mg capsule,extended release 24hr 37.5 mg PO DAILY furosemide 40 mg tablet 40 mg PO DAILY PRN (Reason: edema) pantoprazole 40 mg tablet,delayed release (DR/EC) 40 mg PO DAILY venlafaxine 150 mg capsule,extended release 24hr 150 mg PO DAILY Primary Care Provider: Chad Ding Referrals: Chad Ding, [Primary Care Provider] - 1-2 Days if not improving Activity Restrictions/Additional Instructions: Plenty of fluids and rest. Slowly increase your diet as tolerated. Zofran as needed for nausea. Follow-up with your doctor if not improving or return if worse. Disposition Disposition: Home, Self Care
[2023-05-20] MEDS: Ondansetron 4 MG/2 ML Vial IV (02:23)
[2023-05-20] MEDS: 0.9% Normal Saline (1000mL) 1,000 ML 1000 ML IV (02:23)
[2023-05-20 02:34] LABS: Absolute Lymphocyte Count 0.58 X10^3/uL (0.83-4.51); Basophil# 0.03 X10^3/uL; Basophil% 0.3 % (0-1); Eosinophil# 0.09 X10^3/uL; Eosinophils% 0.8 % (0-5); Hematocrit 47.4 % (37-47); Hemoglobin 16.1 g/dL (12.0-15.0); Lymphocyte # 0.58 X10^3/ul (0.83-4.51); Lymphocyte % 5.2 % (19-41); Mean Corpuscular Hgb 30.7 pg (27.0-32.0); Mean Corpuscular Volume 90.5 fL (81-99); Mean Platelet Vol. 10.7 fl (6.2-12.0); Monocyte# 0.35 X10^3/uL; Monocyte% 3.1 % (0-10); NRBC Flagged by Analyzer 0 % (0-5); Neutrophil # 10.03 X10^3/uL (2.7-7.7); Neutrophil % 90.2 % (47-70); POSITIVE DIFFERENTIAL YES; Platelet Count 108 K/mm3 (150-450); RBC Distribution Width CV 12.9 % (11.6-14.6); RBC Distribution Width SD 42.7 fl (35.1-43.9); Red Blood Count 5.24 M/mm3 (4.2-5.4); White Blood Count 11.1 K/mm3 (4.4-11.0)
[2023-05-20 02:48] LABS: ALB/GLOB Ratio 1.1 RATIO (0.9-2.4); AST(SGOT) 20 U/L (15-37); Alanine Aminotransfer ALT/SGPT 22 U/L (13-56); Albumin, Serum 4.1 g/dL (3.2-5.0); Alkaline Phosphatase 104 U/L (45-117); Anion Gap 8 (5-15); BUN 17 mg/dL (7-18); BUN/Creat Ratio 24.6 RATIO (10-20); Calcium,Total 9.4 mg/dL (8.5-10.1); Chloride 106 mmol/L (98-107); Creatinine, Serum 0.69 mg/dL (0.55-1.02); EST Glomerular Filtration Rate 89 mL/min (>60); Est Glom Filt Rate - Afr Amer 108 mL/min (>60); Estimated Creatinine Clearance 60.25 ml/min; Globulin 3.9 g/dL (2.2-4.2); Glucose 232 mg/dL (74-106); Lipase 42 U/L (13-75); Potassium 3.8 mmol/L (3.5-5.1); Sodium Level 140 mmol/L (136-145)
[2023-05-20 03:16] VITALS: RESP 16
[2023-05-20 03:41] VITALS: BP 152/76; PULSE 86; RESP 18; TEMP 36.8; O2SAT 94
== END 2023-05-20 03:41 | disposition home or self-care (01) ==
PROVIDERS: Emergency Provider Emergency Medicine; PCP Family Medicine; Visit Provider Emergency Medicine
DX: A08.4 Viral intestinal infection, unspecified (principal); E11.9 Type 2 diabetes mellitus without complications; E86.0 Dehydration; M54.9 Dorsalgia, unspecified; G89.29 Other chronic pain; I10 Essential (primary) hypertension; E78.5 Hyperlipidemia, unspecified; K21.9 Gastro-esophageal reflux disease without esophagitis; F17.210 Nicotine dependence, cigarettes, uncomplicated; Z79.899 Other long term (current) drug therapy
CPT/HCPCS: 80053; 83690; 85025; 96361; 96374; 99282; J7030; A4216; J2405

== ENCOUNTER → 2023-06-18 | Outpatient (CLI) | payer MEDICARE, SELFPAY ==
[2023-06-18 12:58] LABS: International Normalized Ratio 1.1; Prothrombin Time (Protime)PT. 13.9 SECONDS (11.7-14.9)
[2023-06-18 13:19] LABS: Cholesterol 145 mg/dL (200); High Density Lipoprotein 62 mg/dL; Triglycerides 110 mg/dL; Very Low Density Lipoprotein 22 mg/dL (5-40)
[2023-06-18 13:26] LABS: Hemoglobin A1c 6.4 % (3.8-5.6)
[2023-06-18 13:36] LABS: Microalbumin,Random Urine 10.1 mg/L (NO RANGE EST.); Microalbumin:Creatinine Ratio 7.9 mg/g CRE (<30 mg/g CRE)
[2023-06-19 03:07] LABS: AFP, Tumor Marker 2.1 ng/mL (0.0-9.2)
== END | disposition home or self-care (01) ==
LOC: BFHLAB 10:50
PROVIDERS: PCP Family Medicine; Referring Provider Family Medicine; Visit Provider Family Medicine
DX: K74.60 Unspecified cirrhosis of liver (principal); E11.9 Type 2 diabetes mellitus without complications
CPT/HCPCS: 36415; 80061; 82043; 82105; 82570; 83036; 85610

== ENCOUNTER → 2023-06-20 | Outpatient (CLI) | payer MEDICARE, SELFPAY ==
--- NOTE | 2023-06-20 10:55 | BI_ITS ---
MAMMOGRAPHY - BILATERAL SCREENING REASON FOR EXAM: Female, 68 years old. Routine annual screening examination. PERTINENT HISTORY: Non-contributory. TECHNIQUE: Digital bilateral breast nhung (3D mammographic acquisition) in the CC and MLO projections. 2-D mediolateral oblique (MLO) and craniocaudad (CC) views of both breasts were obtained. CAD: Full Field Digital Mammography with Computer Added Detection was performed. COMPARISON: Comparison is made with prior study June 18, 2022 and October 22, 2018. FINDINGS: Breast Composition: The breasts are heterogeneously dense, which may obscure small masses. There are no dominant masses or suspicious calcifications. Stable asymmetry of breast tissue with more breast tissue is seen in the right breast as compared to the left side. Stable benign-appearing bilateral axillary lymph nodes. No other significant abnormalities are identified. There has been no significant change since the prior study. BI/SCRN MAMM (CAD)W/NHUNG BILAT IMPRESSION: Stable bilateral screening mammogram. Yearly follow-up mammogram recommended. (A) ASSESSMENT CATEGORY: BIRADS Category 2: Benign. A letter regarding these results will be sent to the patient by the facility within 30 days. Approximately 10% of breast cancers are not detected by mammography. A normal mammogram should not delay biopsy of a clinically suspicious abnormality. [id number] Electronically Signed: Vincent Cox MD at 11:58 EDT ,
== END | disposition home or self-care (01) ==
LOC: OPBI 10:54
PROVIDERS: PCP Family Medicine; Referring Provider Family Medicine; Visit Provider Family Medicine
DX: Z12.31 Encounter for screening mammogram for malignant neoplasm of breast (principal)
CPT/HCPCS: 77063; 77067

== ENCOUNTER → 2023-06-24 | Outpatient (CLI) | payer MEDICARE, SELFPAY ==
--- NOTE | 2023-06-24 08:31 | US_ITS ---
STUDY: ABDOMINAL ULTRASOUND - RIGHT UPPER QUADRANT REASON FOR VISIT: Female, 68 years old CIRRHOSIS TECHNIQUE: Ultrasound evaluation of the right upper quadrant was performed with real-time and static connelly-scale imaging. TECHNICAL QUALITY: Adequate. COMPARISON: None. FINDINGS: Liver: The liver measures 15.5 cm. There is a heterogeneous echogenicity of the liver. The bile ducts are within normal limits. There is hepatic color flow. The direction of portal flow is hepatopetal. There is no demonstrated mass lesion. Gallbladder: Normal distended gallbladder. The gallbladder wall measures 1 mm. There is a negative sonographic Hazel''s sign. There is no pericholecystic fluid. There are multiple echogenic structures within the gallbladder, consistent with multiple gallstones. Sludge is also seen within the gallbladder lumen. Common Bile Duct (C.B.D.): The common bile duct measures 5 mm. Pancreas: Normal size of the head, body and tail of the pancreas. There is increased echogenicity of the pancreas. There is no demonstrated pancreatic mass or cyst. Right Kidney: Normal size of the right kidney. The right kidney measures 12.5 cm x 4.5 cm x 4.7 cm. Normal renal cortex. The right cortex measures 1.9 cm. There is no demonstrated renal mass or cyst. There is no right hydronephrosis. US/Liver IMPRESSION: Heterogeneous echotexture of the liver. Multiple gallstones and sludge within the gallbladder lumen. Electronically Signed: Vincent Cox MD at 16:04 EDT ,
== END | disposition home or self-care (01) ==
PROVIDERS: PCP Family Medicine; Referring Provider Family Medicine; Visit Provider Family Medicine
DX: K74.60 Unspecified cirrhosis of liver (principal)
CPT/HCPCS: 76705

== ENCOUNTER 2023-11-06 06:01 | Day surgery (SDC) | payer MEDICARE, SELFPAY ==
[2023-11-06] VITALS (9 sets, daily range): BP systolic 112–145; BP diastolic 66–101; PULSE 60–73; RESP 16; TEMP 36.1–36.6; O2SAT 92–98; BMI 26.4
[2023-11-06 06:38] LABS: Hematocrit 41.6 % (37-47); Mean Corp Hgb Conc 33.7 g/dL (32-36); Mean Corpuscular Hgb 31.7 pg (27.0-32.0); Mean Corpuscular Volume 94.3 fL (81-99); Mean Platelet Vol. 10.7 fl (6.2-12.0); POSITIVE COUNT YES; Platelet Count 86 K/mm3 (150-450); RBC Distribution Width CV 12.7 % (11.6-14.6); RBC Distribution Width SD 43.7 fl (35.1-43.9); Red Blood Count 4.41 M/mm3 (4.2-5.4); White Blood Count 5.1 K/mm3 (4.4-11.0)
[2023-11-06] MEDS: Ciprofloxacin 400 MG/200 ML BAG 200 MG IV (06:45)
[2023-11-06] MEDS: Lactated Ringers 1,000 ML 15 ML IV ×2 (06:47→10:04)
[2023-11-06 06:49] LABS: Anion Gap 5 (5-15); BUN 17 mg/dL (7-18); Calcium,Total 9.1 mg/dL (8.5-10.1); Chloride 109 mmol/L (98-107); Creatinine, Serum 0.57 mg/dL (0.55-1.02); EST Glomerular Filtration Rate 112 mL/min (>60); Est Glom Filt Rate - Afr Amer 136 mL/min (>60); Estimated Creatinine Clearance 58.95 ml/min; Glucose 177 mg/dL (74-106); Potassium 4.1 mmol/L (3.5-5.1); Scan Indicated on CBC? Y/N YES- FLAGS NOTED; Sodium Level 140 mmol/L (136-145)
--- NOTE | 2023-11-06 06:56 | PCM.PRE.AN2 ---
ASA Classification* ASA Classification ASA Classification: 2 Assessment & Plan Anesthesia* Anesthesia Assessment Anesthesia Assessment: Discussed sedation and/or anesthesia options, risks, benefits, and alternatives with patient/parents/legal guardian/POA. Questions invited. The patient/parents/legal guardian/POA seems to understand and agrees to proceed with anesthesia plan. Reviewed the physical assessment, medical history, allergy history and patient home medications list prior to surgery/procedure/anesthetic and documented any changes. Performed airway and anesthesia risk assessments. Anesthesia Type Anesthesia Type: General (see written pre anesthesia record for full assessment) Anesthesia Focused Assessment* Temperature: 96.9 F Pulse Rate: 61 Blood Pressure: 127/86 Respiratory Rate: 16 Pulse Ox: 98 Airway Assessment Mouth opens: >3 cm Mallampati Score: II Focused Labs Anesthesia Preop lab: CBC WBC 5.1 K/mm3 (4.4-11.0) 11/06/23 06:30 RBC 4.41 M/mm3 (4.2-5.4) 11/06/23 06:30 Hgb 14.0 g/dL (12.0-15.0) 11/06/23 06:30 Hct 41.6 % (37-47) 11/06/23 06:30 Plt Count 86 K/mm3 (150-450) L 11/06/23 06:30 CHEMISTRY Potassium 4.1 mmol/L (3.5-5.1) 11/06/23 06:30 Sodium 140 mmol/L (136-145) 11/06/23 06:30 Magnesium 1.9 mg/dL (1.6-2.6) 02/05/18 14:30 BUN 17 mg/dL (7-18) 11/06/23 06:30 Creatinine 0.57 mg/dL (0.55-1.02) 11/06/23 06:30 Glucose 177 mg/dL (74-106) H 11/06/23 06:30 COAG PT 13.9 SECONDS (11.7-14.9) 06/18/23 10:51 Pre-Assessment Diagnosis/Proposed Procedure Planned Operative Procedure(s): CYSTO, VAG SLING Anesthesia History 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 When Was Last Pacemaker Check QUESTION #4 FULL TEXT: You/Your Family Experience fever (hyperthermia) with Anesthesia Last Oral Intake Last Oral intake: Last Oral Intake NPO since 20:00 11/06/23 06:33 Meds taken in AM with sips of water? 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 Has anyone observed you stop No 10/31/23 09:15 breathing during sleep? STOP Results Negative 10/31/23 09:15 QUESTION #5 FULL TEXT : Do you snore loudly (louder than talking or can be heard through closed doors)? 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 Specify any problems Hx of Preganancy in last 3 No 10/31/23 09:15 Months Nurse Filling Out Transfusion VLEHPLOVER 10/31/23 09:15 & Questions: Date: 10/31/23 10/31/23 09:15 Time: 09:25 10/31/23 09:15 Patient unable to answer at this time (ie. 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: /Reproductive Hx- sawmill relief worker Hx Now No 10/31/23 09:15 Gestational Age (in weeks): EDC: Hx Hx Para Hx Section SAB No 09/22/18 10:44 Active Medications Active Medications: Current Medications Generic Name Dose Route Start Last Admin Trade Name Freq PRN Reason Stop Dose Admin Ciprofloxacin 400 mg in 200 mls @ 200 mls/hr 11/06/23 07:30 11/06/23 06:45 Cipro IV 11/06/23 08:29 200 mls/hr PREOP ONE Administration Lactated Ringer's 1,000 mls @ 15 mls/hr 11/06/23 07:00 11/06/23 06:47 IV 15 mls/hr .Q48H OLRE Administration PFSH Medical History Wears glasses Post-menopausal Depression Marijuana use Abrasion Arthritis Gout Cirrhosis High cholesterol History of GI bleed Smoker History of edema History of stress test Esophageal varices Alcoholic cirrhosis of liver with ascites Chronic endometritis Postmenopausal bleeding Hemorrhoid GERD (gastroesophageal reflux disease) Anxiety HTN (hypertension) Osteoarthritis Chronic back pain History of colitis Uterine fibroid Thrombocytopenia Barretts esophagus Diabetes mellitus IBS (irritable bowel syndrome) Hyperlipidemia Home Medications ?Medication ?Instructions ?Recorded ?Last Taken ?Type atorvastatin 20 mg tablet 20 mg PO DAILY 09/22/18 Unknown History carvedilol 6.25 mg tablet 6.25 mg PO BID 09/22/18 11/06/23 06:00 History furosemide 40 mg tablet 40 mg PO DAILY PRN edema 09/22/18 Unknown History pantoprazole 40 mg tablet,delayed 40 mg PO DAILY 09/22/18 Unknown History release venlafaxine 150 mg 150 mg PO DAILY 05/20/23 Unknown History capsule,extended release 24 hr buspirone 5 mg tablet 5 mg PO BID 10/31/23 Unknown History cyclosporine 0.05 % eye drops in a 1 drp ophthalmic (eye) Q12H 10/31/23 Unknown History dropperette GLAUCOMA latanoprost 0.005 % eye drops 1 drp ophthalmic (eye) QHS GLAUCOMA 10/31/23 Unknown History metformin 500 mg tablet 500 mg PO DAILY 10/31/23 11/05/23 History Allergy/AdvReac Type Severity Reaction Status Date / Time ceftriaxone (From Rocephin) Allergy Mild Rash/throat Verified 11/06/23 06:24 swelling Family History Grandmother Colon cancer Mother Alcoholism Surgical History History of hernia repair S/P endoscopy S/P wisdom tooth extraction s/p liposuction S/P dilation and curettage S/P colonoscopy S/P appendectomy S/P tubal ligation H/O section Social History adopted: Yes Smoking Status: Current every day smoker tobacco type: cigarettes alcohol intake: former substance use type: marijuana caffeine: Yes what type of physical activity do you participate in: none seatbelt use: always do you feel safe at home: Yes additional social history: -Raul Review of Systems (Anesthesia) ROS Narrative System reviewed and no additional complaints, except as documented.
[2023-11-06 07:01] LABS: Bedside Glucose 174 mg/dL (74-106)
--- NOTE | 2023-11-06 07:43 | EX.PCM.DISCH ---
Discharge Instructions Diet Discharge Diet: No restrictions Activity Discharge Activity: May Shower Additional Activity Instructions:: no tub bathing, swimming, hot tubs, lifting over 5 pounds, strenuous activity, sexual activity, vacuuming Dressing / Incision Call your doctor if your incision/area has: Continuous Slow Oozing, Sudden Increased Bleeding, Increased Pain/ Swelling and Foul Smelling Discharge Call your doctor if you observe: Fever of 101 or Higher, Inability to urinate and Inability to have a bowel movement Follow Up Care Please Follow Up With: Mari Tyler MD When: The office will call her to make follow up arrangements. Test Results: Test results from this visit will be discussed in further detail at your follow-up appointment, if applicable. Discharge Plan Admission Attending Provider: Mari Tyler Primary Care Provider: Chad Ding Instructions Print Language: Turkmen Discharge Orders/Prescriptions Prescriptions: New sulfamethoxazole-trimethoprim 800-160 mg tablet 1 tab PO BID 3 Days Qty: 6 0RF tramadol 50 mg tablet 50 mg PO Q8H PRN (Reason: pain) 3 Days Qty: 10 0RF Continued atorvastatin 20 mg tablet 20 mg PO DAILY carvedilol 6.25 mg tablet 6.25 mg PO BID furosemide 40 mg tablet 40 mg PO DAILY PRN (Reason: edema) pantoprazole 40 mg tablet,delayed release (DR/EC) 40 mg PO DAILY venlafaxine 150 mg capsule,extended release 24hr 150 mg PO DAILY latanoprost 0.005 % drops 1 drp ophthalmic (eye) QHS buspirone 5 mg tablet 5 mg PO BID cyclosporine 0.05 % dropperette 1 drp ophthalmic (eye) Q12H metformin 500 mg tablet 500 mg PO DAILY Referrals / Follow Up: Chad Ding DO [Primary Care Provider] - Disposition Disposition (needs filled in before D/C Order can be placed): Home, Self Care
--- NOTE | 2023-11-06 07:46 | DCINST_ITS ---
Discharge Instructions Diet Discharge Diet: No restrictions Activity Additional Activity Instructions:: no tub bathing, swimming, hot tubs, lifting over 5 pounds, strenuous activity, sexual activity, vacuuming Dressing / Incision Call your doctor if your incision/area has: Continuous Slow Oozing, Sudden Increased Bleeding, Increased Pain/ Swelling and Foul Smelling Discharge Call your doctor if you observe: Fever of 101 or Higher, Inability to urinate and Inability to have a bowel movement Follow Up Care Please Follow Up With: Mari Tyler MD Test Results: Test results from this visit will be discussed in further detail at your follow- up appointment, if applicable. Discharge Plan Admission Attending Provider: Mari Tyler Primary Care Provider: Chad Ding Instructions Print Language: [place] Citizen Discharge Orders/Prescriptions Prescriptions: New sulfamethoxazole-trimethoprim 800-160 mg tablet 1 tab PO BID 3 Days Qty: 6 0RF tramadol 50 mg tablet 50 mg PO Q8H PRN (Reason: pain) 3 Days Qty: 10 0RF tramadol 50 mg tablet 50 mg PO Q8H PRN (Reason: pain) 3 Days Qty: 10 0RF tramadol 50 mg tablet 50 mg PO Q8H PRN (Reason: pain) 3 Days Qty: 10 0RF Continued atorvastatin 20 mg tablet 20 mg PO DAILY carvedilol 6.25 mg tablet 6.25 mg PO BID furosemide 40 mg tablet 40 mg PO DAILY PRN (Reason: edema) pantoprazole 40 mg tablet,delayed release (DR/EC) 40 mg PO DAILY venlafaxine 150 mg capsule,extended release 24hr 150 mg PO DAILY latanoprost 0.005 % drops 1 drp ophthalmic (eye) QHS buspirone 5 mg tablet 5 mg PO BID cyclosporine 0.05 % dropperette 1 drp ophthalmic (eye) Q12H metformin 500 mg tablet 500 mg PO DAILY Referrals / Follow Up: Chad Ding DO [Primary Care Provider] - Disposition Disposition (needs filled in before D/C Order can be placed): Home, Self Care
[2023-11-06] MEDS: Lidocaine 1% /Epi 1:100 (50ml) 50 ML VIAL (08:00)
--- NOTE | 2023-11-06 08:23 | OP.PCM_ITS ---
Report of Operation Date of Procedure: 11/06/23 Pre-Operative Diagnosis: stress incontinence Post-Operative Diagnosis: same Surgery/Procedure Performed:: midurethral sling, cystoscopy Surgeon: Mari Tyler Type of Anesthesia: General Estimated Blood Loss (mL): 15 cc Description of Procedure: The patient is a 68-year-old female found to have stress urinary incontinence with evidence of intrinsic sphincter deficiency on urodynamics testing. She now presents for mid urethral sling insertion for surgical intervention. Informed consent was obtained. She was taken to the operating room and placed on the operating room table. Anesthesia monitored the head, neck, airway, IV access and vital signs throughout the case. Once anesthesia was appropriately administered, she was placed into dorsolithotomy position and was prepped and draped in usual sterile fashion. A 16 Micronesian Ramos catheter was inserted to straight drain and the bladder was emptied. The mid urethra was isolated and injected submucosally with 1% lidocaine with epinephrine. A midline incision was made and sharp and blunt dissection was performed on either side of the urethra with care being taken to avoid entrance into the urethra or the vaginal mucosa. Using the trocars provided, the Altis mid urethral sling was inserted into the transobturator complexes bilaterally. The tensioning suture was used to position the sling against the urethra in a flat nature. The tensioning suture was then cut. The incision was closed using running interlocking 2-0 Vicryl. The patient was then taken out of Trendelenburg positioning and the Ramos catheter was removed. The cystoscope was inserted through the urethra under direct visualization into the urinary bladder. This revealed no evidence of injury to the urethra or the bladder. There was no hemorrhage or foreign body, no mass or ulceration. A small amount of fluid was left in the urinary bladder and the cystoscope was removed. The patient was then awakened and taken to the recovery room in good condition. There were no complications during this procedure. Grafts/Implants Used: Altis mid urethral sling Complications None Admit VTE Documentation VTE Present on Admission: Yes VTE Mechan Device Prophylaxis: SCD's VTE Pharm Prophylaxis ordered?: No Reason prophylaxis not ordered:: Treatment Not Indicated
--- NOTE | 2023-11-06 08:39 | PCM.POST.ANE ---
Anesthesia: Postop Eval I Current Vital Signs Temperature: 97.1 F Pulse Rate: 65 Blood Pressure: 145/87 Respiratory Rate: 16 Pulse Ox: 96 Oxygen Delivery Method: Room Air Assessment Airway patent: Yes Spontaneous unlabored respirations: Yes Mental status: Awake and Calm nausea: No Vomiting: No Anesthesia Complication: No Fluid Hydration Crystalloid volume administer (ml): 900 Total IV fluid infused: 900 Progress Note Anesthesia document: Postop Eval 1 completed: Yes
== END 2023-11-06 11:14 | disposition home or self-care (01) ==
LOC: SDC 06:01 → AC 06:03
PROVIDERS: PCP Family Medicine; Referring Provider Urology; Visit Provider Urology
PROC: 0TJB8ZZ Inspection of Bladder, Via Natural or Artificial Opening Endoscopic (ICD-10-PCS; CPT 57288; principal; 2023-11-06 07:20)
DX: N39.3 Stress incontinence (female) (male) (principal); E11.9 Type 2 diabetes mellitus without complications; N36.42 Intrinsic sphincter deficiency (ISD); I10 Essential (primary) hypertension; F17.200 Nicotine dependence, unspecified, uncomplicated; F32.A Depression, unspecified; F41.9 Anxiety disorder, unspecified; E78.00 Pure hypercholesterolemia, unspecified; Z79.84 Long term (current) use of oral hypoglycemic drugs; Z79.899 Other long term (current) drug therapy
CPT/HCPCS: 57288; 00860; 80048; 82962; 85027; J7120; J0744; J2405

== ENCOUNTER → 2024-01-27 | Outpatient (CLI) | payer MEDICARE, SELFPAY ==
[2024-01-27 18:26] LABS: Hemoglobin A1c 6.4 % (3.8-5.6)
[2024-01-27 18:36] LABS: AST(SGOT) 21 U/L (15-37); Alanine Aminotransfer ALT/SGPT 27 U/L (13-56); Alkaline Phosphatase 100 U/L (45-117); Bilirubin, Direct 0.21 mg/dL (0.00-0.30); Globulin 3.8 g/dL (2.2-4.2); Protein, Total 7.8 g/dL (6.4-8.2)
[2024-01-29 04:08] LABS: AFP, Tumor Marker 2.3 ng/mL (0.0-9.2)
== END | disposition home or self-care (01) ==
LOC: BFHLAB 15:46
PROVIDERS: PCP Family Medicine; Referring Provider Family Medicine; Visit Provider Family Medicine
DX: E11.39 Type 2 diabetes mellitus with other diabetic ophthalmic complication (principal); K74.60 Unspecified cirrhosis of liver
CPT/HCPCS: 36415; 80076; 82105; 83036

== ENCOUNTER → 2024-03-04 | Outpatient (CLI) | payer MEDICARE, SELFPAY ==
--- NOTE | 2024-03-04 14:48 | CT_ITS ---
HISTORY: TOBACCO USE. TECHNIQUE: Helically acquired images were obtained of the chest without contrast. A radiation dose optimization technique was used for this scan. 802 images. COMPARISON: None. FINDINGS: LARGE AIRWAYS: Patent. LUNGS: 2 mm right upper lobe nodule laterally. Mild hyperinflation. PLEURA: No pneumothorax or significant pleural effusion. HEART/PERICARDIUM: Heart within normal limits in size with coronary artery calcification. No pericardial effusion. VESSELS: Thoracic aorta nondilated. Mild atherosclerosis. MEDIASTINUM/RADHA: Small right thyroid calcification. No pathologically enlarged adenopathy. UPPER ABDOMEN: Cirrhotic liver. BONES: Degenerative change. Old left 10th rib fracture. CT/Low Dose CT Lung Screening IMPRESSION: Small right upper lobe pulmonary nodule. Lung-RADS category 2: Continue annual screening with low dose CT. Electronically Signed: Amber Cantu MD at 12:54 EST ,
== END | disposition home or self-care (01) ==
LOC: CT 14:47
PROVIDERS: PCP Family Medicine; Referring Provider Family Medicine; Visit Provider Family Medicine
DX: Z12.2 Encounter for screening for malignant neoplasm of respiratory organs (principal); F17.210 Nicotine dependence, cigarettes, uncomplicated
CPT/HCPCS: 71271

== ENCOUNTER 2024-05-03 06:30 | Day surgery (SDC) | payer MEDICARE, SELFPAY ==
[2024-05-03] VITALS (8 sets, daily range): BP systolic 85–141; BP diastolic 51–69; PULSE 62–78; RESP 16–18; TEMP 36.3–36.4; O2SAT 95–97; BMI 25.4
--- NOTE | 2024-05-03 06:34 | PCM.HP.STD ---
HPI - General General Date of Admission: 05/03/24 Date of Service: 05/03/24 Chief Complaint: cirrhosis and FH of colon cancer HPI Narrative CRISTIANE FLORES, is a 69 F who presents to day for an egd and colonoscopy. *[facility] established 02.12.24 pt reports that she is establishing care because she is due for upper and lower scopes. Reports family history of colon cancer on both sides of her family. Pt has cirrhosis; denies trouble sleeping, itchy skin, swelling, confusion, notes some brain fog and dizziness. Reports a daily bm, denies diarrhea or constipation. She has a pre-existing diagnosis of cirrhosis without any history of decompensation. She has never had any admissions for encephalopathy, ascites, GI bleeding. Her weight has been stable. She does not know if she has any recent imaging of her liver. She does not know if she had a recent alpha-fetoprotein. She has not drank alcohol in several years. She does not know if she has been checked for hepatitis C. She does have a history of gastroesophageal reflux disease. She is on carvedilol therapy. From her last lab work her MELD was 8 and she was a child Hart class a by imaging several years ago. She has a diagnosis of type 2 diabetes. [facility] Medical History Abrasion Gastric reflux Stress incontinence Wears glasses Post-menopausal Depression Marijuana use Arthritis Gout Cirrhosis High cholesterol History of GI bleed Smoker History of edema History of stress test Esophageal varices Alcoholic cirrhosis of liver with ascites Chronic endometritis Postmenopausal bleeding Hemorrhoid GERD (gastroesophageal reflux disease) Anxiety HTN (hypertension) Osteoarthritis Chronic back pain History of colitis Uterine fibroid Thrombocytopenia Barretts esophagus Diabetes mellitus IBS (irritable bowel syndrome) Hyperlipidemia Home Medications ?Medication ?Instructions ?Recorded ?Last Taken ?Type atorvastatin 20 mg tablet 20 mg PO DAILY 09/22/18 Unknown History carvedilol 6.25 mg tablet 6.25 mg PO BID 09/22/18 11/06/23 06:00 History furosemide 40 mg tablet 40 mg PO DAILY PRN edema 09/22/18 Unknown History pantoprazole 40 mg tablet,delayed 40 mg PO DAILY 09/22/18 Unknown History release venlafaxine 150 mg 150 mg PO DAILY 05/20/23 Unknown History capsule,extended release 24 hr buspirone 5 mg tablet 5 mg PO BID 10/31/23 Unknown History cyclosporine 0.05 % eye drops in a 1 drp ophthalmic (eye) DAILY 10/31/23 Unknown History dropperette GLAUCOMA latanoprost 0.005 % eye drops 1 drp ophthalmic (eye) QHS GLAUCOMA 10/31/23 Unknown History metformin 500 mg tablet 500 mg PO DAILY 10/31/23 11/05/23 History tramadol 50 mg tablet 50 mg PO Q8H PRN pain 3 days #10 11/06/23 Unknown Rx tabs Allergy/AdvReac Type Severity Reaction Status Date / Time ceftriaxone (From Rocephin) Allergy Mild Rash/throat Verified 04/30/24 14:43 swelling Family History Grandmother Colon cancer Mother Alcoholism Surgical History History of hernia repair S/P endoscopy S/P wisdom tooth extraction s/p liposuction S/P dilation and curettage S/P colonoscopy S/P appendectomy S/P tubal ligation H/O section Social History adopted: Yes Smoking Status: Current every day smoker tobacco type: cigarettes alcohol intake: former substance use type: marijuana caffeine: Yes what type of physical activity do you participate in: none seatbelt use: always do you feel safe at home: Yes additional social history: -Raul ROS Constitutional Constitutional: Denies fatigue, fever(s), poor appetite, weight gain or weight loss Gastrointestinal Gastrointestinal: Denies belching, bloating, change in bowel habits, change in stool character, chewing difficulty, coffee ground emesis, constipation, cramping, diarrhea, dyspepsia, dysphagia, early satiety, excessive flatus, fecal incontinence, heartburn, hematemesis, hematochezia, hemorrhoids, loose stools, melena, nausea, odynophagia, rectal bleeding, tenesmus, vomiting or weight changes Physical Exam Const alert, oriented x3, no apparent distress and healthy appearing General Appearance: cooperative GI normal to inspection, nondistended, normoactive bowel sounds, soft to palpation, non-tender and non-distended Percussion: normal to percussion Rectal Exam: deferred Assessment & Plan Assessment/Plan (1) FH: colon cancer: (2) Cirrhosis with alcoholism: PLAN: Assessment and Plan Assessment and Plan (1) Cirrhosis with alcoholism: Status: Acute Plan: She will undergo an upper endoscopy to evaluate upper GI tract for varices. We will draw alpha-fetoprotein, LFTs, hepatitis A, B and C labs to see if she needs vaccination. (2) FH: colon cancer: Status: Acute Plan: She will undergo colonoscopy to evaluate her lower GI tract. She was explained alternatives, risk, benefits include not withstanding bleeding, infection, sepsis, perforation, need for more charge and . She will have an ASA of 3.
--- NOTE | 2024-05-03 06:42 | PCM.PRE.AN2 ---
ASA Classification* ASA Classification ASA Classification: 2 Assessment & Plan Anesthesia* Anesthesia Assessment Anesthesia Assessment: Discussed sedation and/or anesthesia options, risks, benefits, and alternatives with patient/parents/legal guardian/POA. Questions invited. The patient/parents/legal guardian/POA seems to understand and agrees to proceed with anesthesia plan. Reviewed the physical assessment, medical history, allergy history and patient home medications list prior to surgery/procedure/anesthetic and documented any changes. Performed airway and anesthesia risk assessments. Anesthesia Type Anesthesia Type: MAC Anesthesia Focused Assessment* Airway Assessment Mouth opens: >3 cm Mallampati Score: II Focused Labs Anesthesia Preop lab: CBC WBC 5.1 K/mm3 (4.4-11.0) 11/06/23 06:30 11/06/23 RBC 4.41 M/mm3 (4.2-5.4) 11/06/23 06:30 11/06/23 Hgb 14.0 g/dL (12.0-15.0) 11/06/23 06:30 11/06/23 Hct 41.6 % (37-47) 11/06/23 06:30 11/06/23 Plt Count 86 K/mm3 (150-450) L 11/06/23 06:30 11/06/23 CHEMISTRY Potassium 4.1 mmol/L (3.5-5.1) 11/06/23 06:30 11/06/23 Sodium 140 mmol/L (136-145) 11/06/23 06:30 11/06/23 Magnesium 1.9 mg/dL (1.6-2.6) 02/05/18 14:30 02/05/18 BUN 17 mg/dL (7-18) 11/06/23 06:30 11/06/23 Creatinine 0.57 mg/dL (0.55-1.02) 11/06/23 06:30 11/06/23 Glucose 177 mg/dL (74-106) H 11/06/23 06:30 11/06/23 POC Glucose 174 mg/dL (74-106) H 11/06/23 06:26 11/06/23 COAG PT 13.9 SECONDS (11.7-14.9) 06/18/23 10:51 06/18/23 Pre-Assessment Diagnosis/Proposed Procedure Planned Operative Procedure(s): COLONOSCOPY, EGD Anesthesia History 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 When Was Last Pacemaker Check QUESTION #4 FULL TEXT: You/Your Family Experience fever (hyperthermia) with Anesthesia Last Oral Intake Last Oral intake: Last Oral Intake NPO since Meds taken in AM with sips of water? 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 Female Yes 04/30/24 14:48 HX of Motion Sickness No 04/30/24 14:48 HX of N/V After Surgery No 04/30/24 14:48 Non-Smoker No 04/30/24 14:48 Duration of Surgery greater No 04/30/24 14:48 than 60 minutes Number of Risk Factors 1 04/30/24 14:48 PONV Score Low Risk 04/30/24 14:48 Height & Weight Height & Weight: Anesthesia: Height & Weight Height 5 ft 2 in 11/06/23 06:33 Respiratory Assessment Respiratory Assessment - chipper machine operator: Respiratory Tract Infection Hx - chipper machine operator Hx Respiratory Tract Infection No 04/30/24 14:48 STOP Sleep Apnea STOP Sleep Apnea - chipper machine operator: STOP Sleep Apnea - chipper machine operator Hx Hypertension Yes: controlled with med 04/30/24 14:48 Hx Sleep Apnea No 04/30/24 14:48 CPAP BIPAP Do you snore loudly (louder No 04/30/24 14:48 than talking or can be heard Do you often feel tired/ No 04/30/24 14:48 fatigued/ sleepy during daytime? Has anyone observed you stop No 04/30/24 14:48 breathing during sleep? STOP Results Negative 04/30/24 14:48 QUESTION #5 FULL TEXT : Do you snore loudly (louder than talking or can be heard through closed doors)? 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 Specify any problems Hx of Preganancy in last 3 No 04/30/24 14:48 Months Nurse Filling Out Transfusion [facility] 04/30/24 14:48 & Questions: Date: 04/30/24 04/30/24 14:48 Time: 14:55 04/30/24 14:48 Patient unable to answer at this time (ie. confused, unrespo /Reproduction History /Reproductive History - chipper machine operator: /Reproductive Hx- chipper machine operator Hx Now No 04/30/24 14:48 Gestational Age (in weeks): EDC: Hx Hx Para Hx Section SAB No 04/30/24 14:48 PFSH Medical History Abrasion Gastric reflux Stress incontinence Wears glasses Post-menopausal Depression Marijuana use Arthritis Gout Cirrhosis High cholesterol History of GI bleed Smoker History of edema History of stress test Esophageal varices Alcoholic cirrhosis of liver with ascites Chronic endometritis Postmenopausal bleeding Hemorrhoid GERD (gastroesophageal reflux disease) Anxiety HTN (hypertension) Osteoarthritis Chronic back pain History of colitis Uterine fibroid Thrombocytopenia Barretts esophagus Diabetes mellitus IBS (irritable bowel syndrome) Hyperlipidemia Home Medications ?Medication ?Instructions ?Recorded ?Last Taken ?Type atorvastatin 20 mg tablet 20 mg PO DAILY 09/22/18 Unknown History carvedilol 6.25 mg tablet 6.25 mg PO BID 09/22/18 11/06/23 06:00 History furosemide 40 mg tablet 40 mg PO DAILY PRN edema 09/22/18 Unknown History pantoprazole 40 mg tablet,delayed 40 mg PO DAILY 09/22/18 Unknown History release venlafaxine 150 mg 150 mg PO DAILY 05/20/23 Unknown History capsule,extended release 24 hr buspirone 5 mg tablet 5 mg PO BID 10/31/23 Unknown History cyclosporine 0.05 % eye drops in a 1 drp ophthalmic (eye) DAILY 10/31/23 Unknown History dropperette GLAUCOMA latanoprost 0.005 % eye drops 1 drp ophthalmic (eye) QHS GLAUCOMA 10/31/23 Unknown History metformin 500 mg tablet 500 mg PO DAILY 10/31/23 11/05/23 History tramadol 50 mg tablet 50 mg PO Q8H PRN pain 3 days #10 11/06/23 Unknown Rx tabs Allergy/AdvReac Type Severity Reaction Status Date / Time ceftriaxone (From Rocephin) Allergy Mild Rash/throat Verified 04/30/24 14:43 swelling Family History Grandmother Colon cancer Mother Alcoholism Surgical History History of hernia repair S/P endoscopy S/P wisdom tooth extraction s/p liposuction S/P dilation and curettage S/P colonoscopy S/P appendectomy S/P tubal ligation H/O section Social History adopted: Yes Smoking Status: Current every day smoker tobacco type: cigarettes alcohol intake: former substance use type: marijuana caffeine: Yes what type of physical activity do you participate in: none seatbelt use: always do you feel safe at home: Yes additional social history: -Raul Review of Systems (Anesthesia) ROS Narrative System reviewed and no additional complaints, except as documented.
--- NOTE | 2024-05-03 07:30 | EGD_PTH ---
PATIENT: CRISTIANE HOROWITZ LOC: EN U#:[id number] AGE/SX: 69/F ROOM: RE05/03/[address]: Dr. Ced Bustillos DO : 1955 BED: DIS: 05/03/2024 SPEC #: [id number] RECD: 05/03/24 11:25 STATUS: DANA HOLLINGSWORTHEloisa #: [id number] JOSE: 05/03/24 07:[address]: Ced Bustillos DEPT: SURGICAL PATHOLOGY RECD BY: Terry Bartholomew ENTERED: 05/03/24 11:25 SP TYPE: EGD BIOPSY OT DR: Dr. Chad Ding DO Tissues: A - Esophagus, NOS B - Duodenum, NOS C - Gastric mucous membrane D - Sigmoid colon biopsy Procedures: Surgery Specimen Level IV HEADER OPERATION: Colonoscopy, EGD with biopsy PRE-OP DIAGNOSIS: Cirrhosis with alcoholism, family history of colon cancer TISSUE SUBMITTED: A- Distal esophagus biopsy, B- Duodenum biopsy, C- Gastric body biopsy, D- Sigmoid colon polyp MICROSCOPIC DIAGNOSIS A: DISTAL ESOPHAGUS, BIOPSY: * Columnar mucosa with goblet cell metaplasia - see note. * Benign squamous mucosa. * Negative for dysplasia. * Note: The diagnosis depends on the location of the biopsy and the extent of the mucosal irregularity. If the biopsy originates from the tubular esophagus and the mucosal irregularity extends at least 1 cm above the top of the gastric folds, this represents Chen mucosa. If the biopsy originates from the gastric cardia and or the mucosal irregularity is less than 1 cm in extent, this represents intestinal metaplasia. B: DUODENUM, BIOPSY: * Normal villous architecture, negative for increased intraepithelial lymphocytes. C: STOMACH, BODY, BIOPSY: * Oxyntic mucosa with features of reactive gastropathy. * Negative for Helicobacter-like organisms (H&E). D: SIGMOID COLON POLYP, BIOPSY: * Hyperplastic polyp - see note. * Note: The tissue shows cautery artifact. MICROSCOPIC DESCRIPTION Slides are reviewed. GROSS DESCRIPTION A. Received in fixative is one container labeled with the patient's name and designated Distal esophagus biopsy. The specimen consists of two irregular fragments of light das soft tissue that in aggregate measure 0.5 x 0.4 x 0.1 cm. The specimen is totally submitted in one cassette. B. Received in fixative is one container labeled with the patient's name and designated Duodenum biopsy. The specimen consists of two irregular fragments of light das soft tissue that in aggregate measure 0.6 x 0.6 x 0.2 cm. The specimen is totally submitted in one cassette. C. Received in fixative is one container labeled with the patient's name and designated Gastric body biopsy. The specimen consists of one irregular fragment of light das soft tissue that measures 0.6 x 0.5 x 0.2 cm. The specimen is totally submitted in one cassette. D. Received in fixative is one container labeled with the patient's name and designated Sigmoid colon polyp. The specimen consists of MS/mr 05/03/2024 CPT:62111n7
--- NOTE | 2024-05-03 08:23 | OP.CCLET_ITS ---
05/03/2024 Chad Ding [address] [facility] [place] [address] Re : Upper GI endoscopy procedure for Daysi Pedersen Dear Dr. Ding This procedure was performed on Friday, May 03, 2024. 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 Biopsied. - Small (< 5 mm) esophageal varices. - Small hiatal hernia. - Portal hypertensive gastropathy. Biopsied. - Chronic duodenitis. Biopsied. Recommendations : - Patient has a contact number available for emergencies. The signs and symptoms of potential delayed complications were discussed with the patient. Return to normal activities tomorrow. Written discharge instructions were provided to the patient. - Resume previous diet. - Patient has a contact number available for emergencies. The signs and symptoms of potential delayed complications were discussed with the patient. Return to normal activities tomorrow. Written discharge instructions were provided to the patient. - Resume previous diet. - Continue present medications. My findings are described in the full procedure note, which is enclosed. If I can be of further assistance, please feel free to contact me at . Sincerely, Ced Bustillos DO 05/03/2024 8:22:43 AM This report has been signed electronically.
--- NOTE | 2024-05-03 08:23 | OP.EGD_ITS ---
Patient Name: Daysi Pedersen Procedure Date: 05/03/2024 7:40 AM Date of : 1955 Age: 69 Procedure: Upper GI endoscopy Indications: Suspected esophageal reflux, Cirrhosis with suspected esophageal varices Providers: Ced Bustillos DO Referring MD: Ced Bustillos DO Medicines: Monitored Anesthesia Care Patient Profile: This is a 69 year old female. Refer to note in patient chart for documentation of history and physical. Patient has symptoms of chronic heartburn. Complications: No immediate complications. Procedure: Pre-Anesthesia Assessment: - Prior to the procedure, a History and Physical was performed, and patient medications and allergies were reviewed. The patient is competent. The risks and benefits of the procedure and the sedation options and risks were discussed with the patient. All questions were answered and informed consent was obtained. Patient identification and proposed procedure were verified by the physician in the pre-procedure area. Mental Status Examination: alert and oriented. Airway Examination: normal oropharyngeal airway and neck mobility. Respiratory Examination: clear to auscultation. CV Examination: normal. Prophylactic Antibiotics: The patient does not require prophylactic antibiotics. Prior Anticoagulants: The patient has taken no anticoagulant or antiplatelet agents except for NSAID medication. ASA Grade Assessment: II - A patient with mild systemic disease. After reviewing the risks and benefits, the patient was deemed in satisfactory condition to undergo the procedure. The anesthesia plan was to use monitored anesthesia care (MAC). Immediately prior to administration of medications, the patient was re-assessed for adequacy to receive sedatives. The heart rate, respiratory rate, oxygen saturations, blood pressure, adequacy of pulmonary ventilation, and response to care were monitored throughout the procedure. The physical status of the patient was re-assessed after the procedure. After obtaining informed consent, the endoscope was passed under direct vision. Throughout the procedure, the patient's blood pressure, pulse, and oxygen saturations were monitored continuously. The Colonoscope was introduced through the mouth, and advanced to the second part of duodenum. The upper GI endoscopy was accomplished without difficulty. The patient tolerated the procedure well. Scope In: 7:55:52 AM Scope Out: 7:59:48 AM Total Procedure Duration Time 0 hours 3 minutes 56 seconds Findings: There were esophageal mucosal changes suggestive of short-segment Chen's esophagus present in the lower third of the esophagus. The maximum longitudinal extent of these mucosal changes was 3 cm in length. Mucosa was biopsied with a cold forceps for histology in a targeted manner at intervals of 1 cm in the lower third of the esophagus. One specimen bottle was sent to pathology. Verification of patient identification for the specimen was done. Estimated blood loss was minimal. Small (< 5 mm) varices were found in the lower third of the esophagus. They were 5 mm in largest diameter. A small hiatal hernia was present. Moderate portal hypertensive gastropathy was found in the entire examined stomach. This was biopsied with a cold forceps for histology. Verification of patient identification for the specimen was done. Estimated blood loss was minimal. Biopsies were taken with a cold forceps for Helicobacter pylori testing. Verification of patient identification for the specimen was done. Estimated blood loss was minimal. Patchy mild inflammation characterized by congestion (edema) was found in the duodenal bulb. Biopsies were taken with a cold forceps for histology. Verification of patient identification for the specimen was done. Estimated blood loss was minimal. 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 Biopsied. - Small (< 5 mm) esophageal varices. - Small hiatal hernia. - Portal hypertensive gastropathy. Biopsied. - Chronic duodenitis. Biopsied. Recommendation: - Patient has a contact number available for emergencies. The signs and symptoms of potential delayed complications were discussed with the patient. Return to normal activities tomorrow. Written discharge instructions were provided to the patient. - Resume previous diet. - Patient has a contact number available for emergencies. The signs and symptoms of potential delayed complications were discussed with the patient. Return to normal activities tomorrow. Written discharge instructions were provided to the patient. - Resume previous diet. - Continue present medications. Procedure Code(s): --- Professional --- 92714, Esophagogastroduodenoscopy, flexible, transoral; with biopsy, single or multiple CPT copyright 2021 [employer]. All rights reserved. The codes documented in this report are preliminary and upon palaeontologist review may be revised to meet current compliance requirements. Ced Bustillos DO 05/03/2024 8:22:43 AM This report has been signed electronically. Number of Addenda: 0 Note Initiated On: 05/03/2024 7:40 AM
--- NOTE | 2024-05-03 08:23 | PCM.POST.ANE ---
Anesthesia: Postop Eval I Current Vital Signs Temperature: 97.4 F Pulse Rate: 78 Blood Pressure: 102/57 Respiratory Rate: 18 Pulse Ox: 96 Assessment Airway patent: Yes Spontaneous unlabored respirations: Yes nausea: No Vomiting: No Anesthesia Complication: No Fluid Hydration Crystalloid volume administer (ml): 10 Total IV fluid infused: 10 Progress Note Anesthesia document: Postop Eval 1 completed: Yes
--- NOTE | 2024-05-03 08:27 | OP.CCLET_ITS ---
05/03/2024 Chad Ding [address] [facility] [place] [address] Re : Colonoscopy procedure for Daysi Linares Mounasharon Dear Dr. Ding This procedure was performed on Friday, May 03, 2024. My impressions and recommendations are as follows: Impressions : - Preparation of the colon was fair. - One 8 mm polyp in the sigmoid colon, removed with a hot snare. Resected and retrieved. - Stool in the transverse colon, at the hepatic flexure, in the ascending colon and in the cecum. Recommendations : - Discharge patient to home. - Resume previous diet. - Continue present medications. - Await pathology results. - Repeat colonoscopy in 5 years for surveillance. My findings are described in the full procedure note, which is enclosed. If I can be of further assistance, please feel free to contact me at . Sincerely, Ced Bustillos, 05/03/2024 8:27:25 AM This report has been signed electronically.
--- NOTE | 2024-05-03 08:27 | OP.COLON_ITS ---
Patient Name: Daysi Pedersen Procedure Date: 05/03/2024 7:59 AM Date of : 1955 Age: 69 Procedure: Colonoscopy Indications: Screening for colorectal malignant neoplasm Providers: Ced Bustillos DO Referring MD: Ced Bustillos DO Medicines: Monitored Anesthesia Care Patient Profile: This is a 69 year old female. Refer to note in patient chart for documentation of history and physical. Patient has symptoms of chronic heartburn. Last Colonoscopy: more than 10 years ago. Complications: No immediate complications. Procedure: Pre-Anesthesia Assessment: - Prior to the procedure, a History and Physical was performed, and patient medications and allergies were reviewed. The patient is competent. The risks and benefits of the procedure and the sedation options and risks were discussed with the patient. All questions were answered and informed consent was obtained. Patient identification and proposed procedure were verified by the physician in the pre-procedure area. Mental Status Examination: alert and oriented. Airway Examination: normal oropharyngeal airway and neck mobility. Respiratory Examination: clear to auscultation. CV Examination: normal. Prophylactic Antibiotics: The patient does not require prophylactic antibiotics. Prior Anticoagulants: The patient has taken no anticoagulant or antiplatelet agents except for NSAID medication. ASA Grade Assessment: II - A patient with mild systemic disease. After reviewing the risks and benefits, the patient was deemed in satisfactory condition to undergo the procedure. The anesthesia plan was to use monitored anesthesia care (MAC). Immediately prior to administration of medications, the patient was re-assessed for adequacy to receive sedatives. The heart rate, respiratory rate, oxygen saturations, blood pressure, adequacy of pulmonary ventilation, and response to care were monitored throughout the procedure. The physical status of the patient was re-assessed after the procedure. After I obtained informed consent, the scope was passed under direct vision. Throughout the procedure, the patient's blood pressure, pulse, and oxygen saturations were monitored continuously. The Colonoscope was introduced through the anus and advanced to the terminal ileum. The colonoscopy was performed without difficulty. The patient tolerated the procedure well. The quality of the bowel preparation was fair. The ileocecal valve, appendiceal orifice, and rectum were photographed. Scope In: 8:01:42 AM Scope Withdrawal Time 0 hours 9 minutes 55 seconds Scope Out: 8:15:47 AM Total Procedure Duration Time 0 hours 14 minutes 5 seconds Findings: The perianal and digital rectal examinations were normal. An 8 mm polyp was found in the sigmoid colon. The polyp was sessile. The polyp was removed with a hot snare. Resection and retrieval were complete. Verification of patient identification for the specimen was done. Estimated blood loss was minimal. Stool was found in the transverse colon, at the hepatic flexure, in the ascending colon and in the cecum. A few small-mouthed diverticula were found in the recto-sigmoid colon, sigmoid colon and descending colon. Non-bleeding internal hemorrhoids were found during retroflexion. The hemorrhoids were Grade II (internal hemorrhoids that prolapse but reduce spontaneously). 8 mm, non-bleeding rectal varices were found. Impression: - Preparation of the colon was fair. - One 8 mm polyp in the sigmoid colon, removed with a hot snare. Resected and retrieved. - Stool in the transverse colon, at the hepatic flexure, in the ascending colon and in the cecum. Recommendation: - Discharge patient to home. - Resume previous diet. - Continue present medications. - Await pathology results. - Repeat colonoscopy in 5 years for surveillance. Procedure Code(s): --- Professional --- 76003, Colonoscopy, flexible; with removal of tumor(s), polyp(s), or other lesion(s) by snare technique CPT copyright 2021 [employer]. All rights reserved. The codes documented in this report are preliminary and upon remote inpatient coder review may be revised to meet current compliance requirements. Ced Bustillos DO 05/03/2024 8:27:25 AM This report has been signed electronically. Number of Addenda: 0 Note Initiated On: 05/03/2024 7:59 AM
--- NOTE | 2024-05-03 08:49 | POSTOPAN2_ITS ---
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
--- NOTE | 2024-05-03 08:49 | PCM.POSTANE2 ---
Anesthesia Postop Eval I Sum Postop Eval Completion status Anesthesia document: Postop Eval 1 completed: Yes Anesthesia Postop Eval I Summary Anesthesia Postop Eval I Summary: Anesthesia Postop Eval I: Assessment Summary Airway patent Yes 05/03/24 08:23 ASSOCIATE DIRECTOR OF [email or web address].[email or web address] Spontaneous unlabored Yes 05/03/24 08:23 ASSOCIATE DIRECTOR OF NURSING.CSIR respirations Mental status nausea No 05/03/24 08:23 ASSOCIATE DIRECTOR OF NURSING.CSIR Vomiting No 05/03/24 08:23 ASSOCIATE DIRECTOR OF NURSING.CSIR Anesthesia Postop Eval I: Fluid Summary Crystalloid volume administer 10 05/03/24 08:23 ASSOCIATE DIRECTOR OF NURSING.CSIR (ml) Colloids volume administered ( ml) Blood Product volume administered (ml) Total IV fluid infused 10 05/03/24 08:23 ASSOCIATE DIRECTOR OF NURSING.CSIR Anesthesia Postop Eval I: Summary Notes Anesthesia Complication No 05/03/24 08:23 ASSOCIATE DIRECTOR OF NURSING.CSIR Anesthesia Complication Comment: Post-operative progress note Anesthesia: Postop Eval II Evaluation Mental status: Awake Pain Level: 0 nausea: No Vomiting: No
[2024-05-03 17:31] LABS: Bedside Glucose 185 mg/dL (74-106)
== END 2024-05-03 09:06 | disposition home or self-care (01) ==
LOC: EN 06:30 → AC 06:32 → ACINP 09:58
PROVIDERS: PCP Family Medicine; Referring Provider Family Medicine; Visit Provider Internal Medicine Gastroenterology
PROC: 0DJD8ZZ Inspection of Lower Intestinal Tract, Via Natural or Artificial Opening Endoscopic (ICD-10-PCS; CPT 45378; principal; 2024-05-03 07:25)
DX: Z12.11 Encounter for screening for malignant neoplasm of colon (principal); K76.6 Portal hypertension; I85.10 Secondary esophageal varices without bleeding; K70.30 Alcoholic cirrhosis of liver without ascites; F10.21 Alcohol dependence, in remission; E11.9 Type 2 diabetes mellitus without complications; D12.5 Benign neoplasm of sigmoid colon; K29.80 Duodenitis without bleeding; K31.89 Other diseases of stomach and duodenum; K44.9 Diaphragmatic hernia without obstruction or gangrene; E78.00 Pure hypercholesterolemia, unspecified; K21.9 Gastro-esophageal reflux disease without esophagitis; K64.1 Second degree hemorrhoids; M54.9 Dorsalgia, unspecified; F17.210 Nicotine dependence, cigarettes, uncomplicated; Z79.84 Long term (current) use of oral hypoglycemic drugs; Z79.899 Other long term (current) drug therapy; Z80.0 Family history of malignant neoplasm of digestive organs
CPT/HCPCS: 45385; 43239; 82962; 88305; A4216; J2405

== ENCOUNTER → 2024-06-21 | Outpatient (CLI) | payer MEDICARE, SELFPAY ==
--- NOTE | 2024-06-21 09:38 | BI_ITS ---
EXAM: SCRN MAMM (CAD)W/NHUNG BILAT DATE: 06/21/2024 CLINICAL HISTORY: F, Age 69 y/o , SCREENING BREAST CANCER RISK ASSESSMENT: Has not been calculated. TECHNIQUE: Bilateral screening digital breast tomosynthesis with 2D and 3D images. Computer aided detection. COMPARISON: Prior exam(s) dated 06/20/2023 and 06/18/2022. FINDINGS: TISSUE DENSITY: The breast tissue is composed of scattered area of fibroglandular density. Bilateral Breast Mammographic Findings: No suspicious masses, suspicious cluster of microcalcifications, architectural distortion or secondary sign of malignancy is identified in either breast. Benign round microcalcifications are seen in both breasts. BI/SCRN MAMM (CAD)W/NHUNG BILAT IMPRESSION: OVERALL FINAL ASSESSMENT: BIRADS 1 NEGATIVE RECOMMENDATION: Routine annual follow-up in 1 Year A letter with findings and recommendations will be mailed to the patient. Reading Location: [id number]
== END | disposition home or self-care (01) ==
LOC: OPBI 09:37
PROVIDERS: PCP Family Medicine; Referring Provider Family Medicine; Visit Provider Family Medicine
DX: Z12.31 Encounter for screening mammogram for malignant neoplasm of breast (principal)
CPT/HCPCS: 77063; 77067